=== PATIENT | male | born 1965 | race American Indian/Alaskan Native ===

== ENCOUNTER 2018-01-15 17:54 | Emergency (ER) | payer MEDICAID ==
--- NOTE | 2018-01-15 18:41 | ED PDOC ---
Arrival/HPI - General Time Seen by Provider: 01/15/18 18:34 Historian: Patient - History of Present Illness Narrative History of Present Illness (Text): 01/15/18 18:35 52yo male with pmhx of hypertension who present with complaint of sore throat x one week. States sore throat started after having a flu a week ago. he states he saw his PMD for the sore throat and was given ASA which is not helping. Reports odynophagia. Denies dysphagia, hoarseness, drooling, fever, chills, abdominal pain, nausea, vomiting, any other complaint. Past Medical History - Provider Review Nursing Documentation Reviewed: Yes Family/Social History - Physician Review Nursing Documentation Reviewed: Yes Family/Social History: Unknown Family HX Allergies/Home Meds Allergies/Adverse Reactions: Allergies No Known Allergies Allergy (Verified 01/15/18 18:35) Review of Systems - Physician Review All systems were reviewed & negative as marked: Yes - Review of Systems Constitutional: Normal Eyes: Normal ENT: Sore Throat. absent: Tinnitus, TMJ Pain, Voice Changes, Epistaxis, Sinus Congestion Respiratory: Normal Cardiovascular: Normal Gastrointestinal: Normal Genitourinary Male: Normal Musculoskeletal: Normal Skin: Normal Neurological: Normal Endocrine: Normal Hemo/Lymphatic: Normal Psychiatric: Normal Physical Exam Vital Signs Reviewed: Yes Vital Signs Temp Pulse Resp BP Pulse Ox 01/15/18 19:34 98.0 F 85 18 170/65 H 99 01/15/18 18:48 98.0 F 85 18 187/95 H 98 Temperature: Afebrile Blood Pressure: Normal Pulse: Regular Respiratory Rate: Normal Appearance: Positive for: Well-Appearing, Non-Toxic, Comfortable Pain Distress: None Mental Status: Positive for: Alert and Oriented X 3 - Systems Exam Head: Present: Atraumatic, Normocephalic Pupils: Present: PERRL Extroacular Muscles: Present: EOMI Conjunctiva: Present: Normal Mouth: Present: Moist Mucous Membranes Pharnyx: Present: Normal. No: ERYTHEMA, EXUDATE, TONSILS ENLARGED, Peritonsilar Swelling, Uvular Deviation, Muffled/Hoarse Voice, Soft Palate/ Uvular Edema Neck: Present: Normal Range of Motion Respiratory/Chest: Present: Clear to Auscultation, Good Air Exchange. No: Respiratory Distress, Accessory Muscle Use Cardiovascular: Present: Regular Rate and Rhythm, Normal S1, S2. No: Murmurs Abdomen: No: Tenderness, Distention, Peritoneal Signs Back: Present: Normal Inspection Upper Extremity: Present: Normal Inspection. No: Cyanosis, Edema Lower Extremity: Present: Normal Inspection. No: Edema Neurological: Present: GCS=15, CN II-XII Intact, Speech Normal Skin: Present: Warm, Dry, Normal Color. No: Rashes Psychiatric: Present: Alert, Oriented x 3, Normal Insight, Normal Concentration Medical Decision Making ED Course and Treatment: 01/15/18 19:51 PT was not in any distress. He was controlling his secretions. No drooling. No trismus. No stridor. No neck pain. No meningeal sign in ED. Rapid strep was negative He was treated with viscus lido and dc home with magic mouth wash. Referred to ENT - Lab Interpretations Lab Results: Lab Results 01/15/18 18:49: Grp A Beta Strep Ag Negative - Medication Orders Current Medication Orders: Discontinued Medications Lidocaine HCl (Lidocaine 2% Viscous) 15 ml PO ONCE STA Stop: 01/15/18 19:26 Last Admin: 01/15/18 19:33 Dose: 15 ml Disposition/Present on Arrival - Present on Arrival Any Indicators Present on Arrival: No History of DVT/PE: No History of Uncontrolled Diabetes: No Urinary Catheter: No History of Decub. Ulcer: No History Surgical Site Infection Following: None - Disposition Have Diagnosis and Disposition been Completed?: Yes Diagnosis: Sore throat Disposition: HOME/ ROUTINE Disposition Time: 19:30 Patient Plan: Discharge Condition: STABLE Discharge Instructions (ExitCare): Sore Throat in Adults Additional Instructions: Follow up with your doctor/ENT Return to ED for any new or worsening symptoms Prescriptions: Benzocaine [Mouth Pain] 14.7 ml MM BID #100 liquid Referrals: Bowen Corcoran DO [[facility]] - Follow up with primary
[2018-01-15 18:49] VITALS: PULSE 85; RESP 18; TEMP 98
[2018-01-15 19:05] VITALS: BMI 32.9
[2018-01-15 19:45] VITALS: BP 170/65; O2SAT 99
== END 2018-01-15 19:34 | disposition home or self-care (01) ==
LOC: ED 17:54
DX: J02.9 Acute pharyngitis, unspecified (principal)

== ENCOUNTER 2018-06-17 09:50 | Inpatient (IN) | payer MEDICAID ==
[2018-06-17 09:57] VITALS: BMI 32.4
--- NOTE | 2018-06-17 10:33 | ED PDOC ---
Arrival/HPI - General Chief Complaint: Shortness Of Breath Time Seen by Provider: 06/17/18 09:58 Historian: Patient - History of Present Illness Narrative History of Present Illness (Text): 06/17/18 10:33 53 year old male, whose past medical history includes diabetes, hypertension, and hyperlipidemia, presents to the emergency department complaining of shortness of breath, for the past 3 days. Patient reports trouble breathing with any type of exertion or ambulation for the past few days. Of note, he has experienced these symptoms intermittently, but for the past 3 days his symptoms have worsened. Patient notes secondary dry cough, and right knee/ankle pain s/p falling a few days ago. Patient denies fevers, chills, headache, dizziness, chest pain, abdominal pain, nausea, vomiting, diarrhea, back pain, neck pain, or any other complaint. Time/Duration: < week Symptom Course: Unchanged Activities at Onset: Light Context: Home Past Medical History - Provider Review Nursing Documentation Reviewed: Yes - Infectious Disease Hx of Infectious Diseases: None - Cardiac Hx Cardiac Disorders: Yes Hx Hypertension: Yes - Pulmonary Hx Respiratory Disorders: No - Neurological Hx Neurological Disorder: No - HEENT Hx HEENT Disorder: No - Renal Hx Renal Disorder: No - Endocrine/Metabolic Hx Diabetes Mellitus Type 1: Yes - Hematological/Oncological Hx Blood Disorders: No - Integumentary Hx Dermatological Disorder: No - Musculoskeletal/Rheumatological Hx Musculoskeletal Disorders: No - Gastrointestinal Hx Gastrointestinal Disorders: No - Genitourinary/Gynecological Hx Genitourinary Disorders: No - Psychiatric Hx Psychophysiologic Disorder: No Hx Substance Use: No - Anesthesia Hx Anesthesia: No Family/Social History - Physician Review Nursing Documentation Reviewed: Yes Family/Social History: No Known Family HX Smoking Status: Never Smoked Hx Alcohol Use: No Hx Substance Use: No Allergies/Home Meds Allergies/Adverse Reactions: Allergies No Known Allergies Allergy (Verified 01/15/18 18:35) Home Medications: Home Meds Medication Instructions Recorded Confirmed Aspirin [Adult Low Dose Aspirin EC] 81 mg PO DAILY 06/17/18 06/17/18 Atorvastatin [Lipitor] 80 mg PO DAILY 06/17/18 06/17/18 Labetalol [Trandate] 100 mg PO BID 06/17/18 06/17/18 Losartan [Cozaar] 100 mg PO DAILY 06/17/18 06/17/18 NIFEdipine ER [Nifedipine ER] 60 mg PO DAILY 06/17/18 06/17/18 Review of Systems - Physician Review All systems were reviewed & negative as marked: Yes - Review of Systems Constitutional: absent: Fevers Respiratory: SOB, Cough Cardiovascular: absent: Chest Pain Gastrointestinal: absent: Abdominal Pain, Diarrhea, Nausea, Vomiting, Appetite Changes Musculoskeletal: Other (pain to the right knee and ankle). absent: Back Pain, Neck Pain Neurological: absent: Headache, Dizziness Physical Exam Vital Signs Reviewed: Yes Vital Signs Temp Pulse Resp BP Pulse Ox 06/17/18 09:57 97.8 F 95 H 18 198/89 H 99 Temperature: Afebrile Blood Pressure: Hypertensive Pulse: Tachycardic Respiratory Rate: Normal Appearance: Positive for: Well-Appearing, Non-Toxic, Comfortable Pain Distress: None Mental Status: Positive for: Alert and Oriented X 3 - Systems Exam Head: Present: Atraumatic, Normocephalic Pupils: Present: PERRL Extroacular Muscles: Present: EOMI Conjunctiva: Present: Normal Mouth: Present: Moist Mucous Membranes Neck: Present: Normal Range of Motion Respiratory/Chest: Present: Clear to Auscultation, Good Air Exchange. No: Respiratory Distress, Accessory Muscle Use Cardiovascular: Present: Regular Rate and Rhythm, Normal S1, S2. No: Murmurs Abdomen: No: Tenderness, Distention, Peritoneal Signs Back: Present: Normal Inspection Upper Extremity: Present: Normal Inspection. No: Cyanosis, Edema Lower Extremity: Present: Tenderness (to the right patella and ankle), Swelling (mild swelling to the right ankle) Neurological: Present: GCS=15, CN II-XII Intact, Speech Normal Skin: Present: Warm, Dry, Normal Color, Abrasion (abrasion to the right knee). No: Rashes Psychiatric: Present: Alert, Oriented x 3, Normal Insight, Normal Concentration Medical Decision Making ED Course and Treatment: 06/17/18 10:34 Impression: 53 year old male who presents to the emergency department complaining of shortness of breath, and right ankle and knee pain. Plan: -- EKG -- Labs -- Chest X-ray -- Altace -- X-ray of the right ankle -- Reassess and disposition Prior Visits: Notes and results from previous visits were reviewed. Progress Notes: EKG reviewed, shows: NSR at [address]/T wave elevations. 06/17/18 12:42 Chest X-ray reviewed, shows: IMPRESSION: No active disease. Ankle X-ray reviewed, shows: IMPRESSION: Normal right ankle radiographs. 06/17/18 15:50 Case discussed with Hospitalist who is aware and agrees with the plan to admit the patient to Telemetry for renal evaluation. No dialysis at this time. - Lab Interpretations I have reviewed the lab results: Yes - RAD Interpretation Radiology Orders: 06/17/18 10:14 CHEST PORTABLE [RAD] Stat - EKG Interpretation Interpreted by ED Physician: Yes Type: 12 lead EKG - Scribe Statement The provider has reviewed the documentation as recorded by the Gracielaibe Gini Nicolas Provider Scribe Attestation: All medical record entries made by the Scribe were at my direction and personally dictated by me. I have reviewed the chart and agree that the record accurately reflects my personal performance of the history, physical exam, medical decision making, and the department course for this patient. I have also personally directed, reviewed, and agree with the discharge instructions and disposition. Disposition/Present on Arrival - Present on Arrival Any Indicators Present on Arrival: No History of DVT/PE: No History of Uncontrolled Diabetes: No Urinary Catheter: No History of Decub. Ulcer: No History Surgical Site Infection Following: None - Disposition Have Diagnosis and Disposition been Completed?: Yes Diagnosis: Renal failure, Hyperkalemia, Elevated d-dimer Disposition: HOSPITALIZED Disposition Time: 12:00 Condition: GUARDED
[2018-06-17 10:53] LABS: BASO # 0.01 K/mm3 (0.0-2.0); BASO % 0.1 % (0.0-3.0); EOS # 0.2 (0.0-0.7); EOS % 2.2 % (1.5-5.0); GRAN # 6.23 (1.4-6.5); GRAN % 73.5 % (50.0-68.0); HEMOGLOBIN 7.5 g/dL (14.0-18.0); LYMPH # 1.5 (1.2-3.4); LYMPH % 17.8 % (22.0-35.0); MEAN CELL VOLUME 86.7 fl (80.0-105.0); MEAN CORPUSCULAR HEMOGLOBIN 30.1 pg (25.0-35.0); MEAN CORPUSCULAR HGB CONC 34.7 g/dl (31.0-37.0); MEAN PLATELET VOLUME 11.1 fl (7.0-11.0); MONO # 0.5 (0.1-0.6); MONO % 6.4 % (1.0-6.0); RBC 2.49 10^6/uL (3.5-6.1); RED CELL DISTRIBUTION WIDTH 12.5 % (11.5-14.5); WHITE BLOOD COUNT 8.5 10^3/uL (4.5-11.0)
[2018-06-17 11:11] LABS: TROPONIN I 0.03 ng/mL
[2018-06-17 11:13] LABS: ALBUMIN 3.4 g/dL (3.0-4.8); CALCIUM 5.6 mg/dL (8.4-10.5)
[2018-06-17 11:44] LABS: CK MB% 0.3 % (2.5-3.0); CK-MB 9.7 ng/mL (0.0-3.6)
--- NOTE | 2018-06-17 12:34 | RAD ---
Date of service: 06/17/2018 HISTORY: shortness of breath COMPARISON: No prior. FINDINGS: LUNGS: No active pulmonary disease. PLEURA: No significant pleural effusion identified, no pneumothorax apparent. CARDIOVASCULAR: No aortic atherosclerotic calcification present. Normal cardiac size. No pulmonary vascular congestion. OSSEOUS STRUCTURES: No significant abnormalities. VISUALIZED UPPER ABDOMEN: Normal. OTHER FINDINGS: None. IMPRESSION: No active disease.
--- NOTE | 2018-06-17 12:39 | RAD ---
Date of service: 06/17/2018 PROCEDURE: Right Ankle Radiographs. HISTORY: s/p fall - r/o fx COMPARISON: None available. FINDINGS: BONES: Normal. No fracture. JOINTS: Normal. No osteoarthritis. Ankle mortise maintained. Talar dome intact SOFT TISSUES: Normal. OTHER FINDINGS: None. IMPRESSION: Normal right ankle radiographs.
[2018-06-17] MEDS ORDERED: Sod Polystyrene Sulf 15 gm/60 ml Susp PO STA ×2 (14:02→17:29)
[2018-06-17] MEDS ORDERED: Sodium Chloride 0.9% 1,000 ML IV SCH ×2 (15:00→15:15)
[2018-06-17] MEDS ORDERED: Magnesium Sulfate 2 gm/50 ml 2 GM/50 ML BAG IVPB ONE (15:47)
--- NOTE | 2018-06-17 16:19 | CP.PCM.CON ---
<Thompson Baldwin - Last Filed: 06/17/18 22:17> History of Present Illness - History of Present Illness History of Present Illness: Nephro Consult Note for Dr. 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 Nephro was consulted for possible HD as patient was found to have Cr of 12.9, extensive electrolyte abnormalities, and distended abdomen. As per patient, he has had a hx of CKD, which he reports that his prior physician reported that his kidney "numbers" were worsening. Denies decreasing urine output, anuria, hematuria, diarrhea. Does admit to foamy urine (approx 400cc in bedside urinal, clear yellow and foamy in appearance) for over 2 yrs. Reports compliance with medications and follow up, but when asked what interventions and medications were used to manage his worsening kidney numbers, he is unable to provide a response. Admits to poor dietary compliance. He does also report a recent fall off a trailer at home, fell onto his arms and left hip from approximately 4 feet up. Reports no issues ambulating, but labs are concerning for rhabdomyolysis. At time of exam in ED, labs were concerning for Ca corrected to 6, K 5.4, Cr 12.9, elevated CPK, and elevated BNP. 12-system ROS reviewed and negative, except as above. Review of Systems - Review of Systems All systems: reviewed and no additional remarkable complaints except (as per HPI) Past Patient History - Infectious Disease Hx of Infectious Diseases: None - Past Social History Smoking Status: Never Smoked - CARDIAC Hx Cardiac Disorders: Yes Hx Hypertension: Yes - PULMONARY Hx Respiratory Disorders: No - NEUROLOGICAL Hx Neurological Disorder: No - HEENT Hx HEENT Problems: No - RENAL Hx Chronic Kidney Disease: No - ENDOCRINE/METABOLIC Hx Diabetes Mellitus Type 1: Yes - HEMATOLOGICAL/ONCOLOGICAL Hx Blood Disorders: No - INTEGUMENTARY Hx Dermatological Problems: No - MUSCULOSKELETAL/RHEUMATOLOGICAL Hx Musculoskeletal Disorders: No - GASTROINTESTINAL Hx Gastrointestinal Disorders: No - GENITOURINARY/GYNECOLOGICAL Hx Genitourinary Disorders: No - PSYCHIATRIC Hx Psychophysiologic Disorder: No Hx Substance Use: No - SURGICAL HISTORY Hx Surgeries: No - ANESTHESIA Hx Anesthesia: No Meds Allergies/Adverse Reactions: Allergies Allergy/AdvReac Type Severity Reaction Status Date / Time No Known Allergies Allergy Verified 01/15/18 18:35 - Medications Medications: Current Medications Sodium Chloride (Sodium Chloride 0.9%) 1,000 mls @ 100 mls/hr IV .Q10H TREVOR Sodium Chloride (Sodium Chloride 0.9%) 1,000 mls @ 100 mls/hr IV .Q10H TREV[facility] Calcium Gluconate 1,000 mg/ (Sodium Chloride) 110 mls @ 110 mls/hr IVPB ONCE ONE Stop: 06/17/18 16:29 Magnesium Sulfate (Magnesium Sulfate 2 Gm/50 Ml Water) 2 gm in 50 mls @ 50 mls/hr IVPB ONCE ONE Stop: 06/17/18 16:46 Insulin Human Regular (Humulin R Low) 0 units SC ACHS TREOVR; Protocol Labetalol HCl (Trandate) 100 mg PO BID TREV[facility] Nifedipine (Procardia Xl) 60 mg PO DAILY TREVOR Sodium Bicarbonate (Sodium Bicarbonate Tab) 650 mg PO TID TREVOR Physical Exam - Additional Findings Additional findings: - Constitutional Appears: No Acute Distress, Ill-appearing - Head Exam Head Exam: ATRAUMATIC, NORMAL INSPECTION - Eye Exam Eye Exam: EOMI, Normal appearance, No scleral icterus or conjunctival injection - ENT Exam ENT Exam: Mucous Membranes Moist, Normal Exam - Neck Exam Neck exam: Normal ROM, no Lymphadenopathy - Respiratory Exam Respiratory Exam: Mild bibasilar rales but otherwise clear to auscultation, NORMAL BREATHING PATTERN, No respiratory distress - Cardiovascular Exam Cardiovascular Exam: REGULAR RHYTHM, +S1, +S2 - GI/Abdominal Exam GI & Abdominal Exam: Distended, Firm but not Rigid, Normal Bowel Sounds, No tenderness to palpation - Extremities Exam Extremities exam: Positive for: Trace pitting edema in bilateral feet to ankles. Negative for: calf tenderness - Back Exam Back exam: NORMAL INSPECTION, negative for CVA tenderness bilaterally - Neurological Exam Neurological exam: Awake and alert, following all commands, moving all extremities spontaneously - Psychiatric Exam Psychiatric exam: Normal Affect, Normal Mood, Poor insight into condition - Skin Skin Exam: Dry, Intact, Warm Results - Vital Signs Recent Vital Signs: Last Vital Signs Temp 97.8 F 06/17/18 09:57 Pulse 95 H 06/17/18 09:57 Resp 18 06/17/18 10:14 BP 149/78 06/17/18 11:52 Pulse Ox 99 06/17/18 09:57 - Labs Result Diagrams: 06/17/18 10:40 06/17/18 10:40 Labs: Laboratory Results - last 24 hr 06/17/18 06/17/18 06/17/18 10:40 10:40 10:40 WBC 8.5 RBC 2.49 L Hgb 7.5 L Hct 21.6 L MCV 86.7 MCH 30.1 MCHC 34.7 RDW 12.5 Plt Count 206 MPV 11.1 H Gran % 73.5 H Lymph % (Auto) 17.8 L [place] % (Auto) 6.4 H Eos % (Auto) 2.2 Baso % (Auto) 0.1 Gran # 6.23 Lymph # (Auto) 1.5 [place] # (Auto) 0.5 Eos # (Auto) 0.2 Baso # (Auto) 0.01 D-Dimer, Quantitative 707 H Sodium 138 Potassium 5.4 H Chloride 109 H Carbon Dioxide 18 L Anion Gap 17 BUN 84 H Creatinine 12.9 H* Est GFR ( Amer) 5 Est GFR (Non-Af Amer) 4 Random Glucose 69 L Calcium 5.6 L* Magnesium 1.3 L Total Bilirubin 0.6 AST 33 ALT 45 Alkaline Phosphatase 134 H Lactate Dehydrogenase 1264 H Total Creatine Kinase 3158 H CK-MB (CK-2) 9.7 H CK-MB (CK-2) % 0.3 L Troponin I 0.03 NT-Pro-B Natriuret Pep 9500 H Total Protein 6.9 Albumin 3.4 Globulin 3.5 Albumin/Globulin Ratio 1.0 L Blood Type Blood Type Confirm Antibody Screen Crossmatch BBK History Checked 06/17/18 06/17/18 11:35 15:37 WBC RBC Hgb Hct MCV MCH MCHC RDW Plt Count MPV Gran % Lymph % (Auto) [place] % (Auto) Eos % (Auto) Baso % (Auto) Gran # Lymph # (Auto) [place] # (Auto) Eos # (Auto) Baso # (Auto) D-Dimer, Quantitative Sodium Potassium Chloride Carbon Dioxide Anion Gap BUN Creatinine Est GFR ( Amer) Est GFR (Non-Af Amer) Random Glucose Calcium Magnesium Total Bilirubin AST ALT Alkaline Phosphatase Lactate Dehydrogenase Total Creatine Kinase CK-MB (CK-2) CK-MB (CK-2) % Troponin I NT-Pro-B Natriuret Pep Total Protein Albumin Globulin Albumin/Globulin Ratio Blood Type B POSITIVE Blood Type Confirm B POSITIVE Antibody Screen Negative Crossmatch See Detail BBK History Checked No verified bt Assessment & Plan - Assessment and Plan (Free Text) Assessment: This is a 53 yo M with PMH of IDDM (diagnosed 30+ yrs ago), HTN (~3 yrs), HLD (~3yrs), CKD, and chronic anemia presents to [facility] with complaints of shortness of breath that hes noticed for the past 3 days that worsened while laying down at night and walking. Nephro was consulted for possible HD as patient was found to have Cr of 12.9, extensive electrolyte abnormalities, and distended abdomen. Plan: Acute renal failure overlying CKD -etiology unclear, may be multifactorial likely Rhabdomyolysis component, given elevated CPK s/p fall from elevated position -Avoid nephrotoxic drugs, hold all ACEi/ARBs -Consider gentle hydration -Agree with workup panel ordered by primary team -Careful repletion of low electrolytes in setting of ARF to avoid toxic accumulation; recheck calcium after calcium gluconate x1 given ED Agree with calcium gluconate to replete Ca and stabilize cardiac membrane -No need for urgent dialysis at this time, not a dangerous accumulation of K; continue to monitor Reviewed and discussed with attending, Dr. Reese <Parish Reese S - Last Filed: 06/19/18 18:00> Meds - Medications Medications: Current Medications Acetaminophen (Tylenol 325mg Tab) 650 mg PO Q4 PRN PRN Reason: Pain, Mild (1-3) Last Admin: 06/18/18 20:06 Dose: 650 mg Calcitriol (Rocaltrol) 0.5 mcg PO DAILY TREVOR Last Admin: 06/19/18 12:40 Dose: 0.5 mcg Calcium Acetate (Phoslo) 667 mg PO WM TREVOR Last Admin: 06/19/18 17:25 Dose: 667 mg Clonidine HCl (Catapres) 0.1 mg PO BID PRN PRN Reason: Systolic Blood Pressure Last Admin: 06/18/18 13:32 Dose: 0.1 mg Insulin Human Regular (Humulin R Med) 0 units SC ACHS [facility]; Protocol Last Admin: 06/19/18 17:24 Dose: 3 units Labetalol HCl (Trandate) 200 mg PO BID [facility] Last Admin: 06/19/18 17:25 Dose: 200 mg Nifedipine (Procardia Xl) 60 mg PO DAILY [facility] Last Admin: 06/19/18 12:42 Dose: 60 mg Ondansetron HCl (Zofran Inj) 4 mg IVP Q6H PRN PRN Reason: Nausea/Vomiting Sodium Bicarbonate (Sodium Bicarbonate Tab) 650 mg PO TID [facility] Last Admin: 06/19/18 17:25 Dose: 650 mg Sodium Polystyrene Sulfonate (Kayexalate Susp) 15 gm PO DAILY [facility] Last Admin: 06/19/18 10:00 Dose: Not Given Vitamin D (Vitamin D 400 Intl Units Tab) 1,200 intlu PO DAILY [facility] Last Admin: 06/19/18 12:42 Dose: Not Given Results - Vital Signs Recent Vital Signs: Last Vital Signs Temp 97.8 F 06/19/18 12:00 Pulse 87 06/19/18 14:00 Resp 18 06/19/18 12:00 BP 155/63 H 06/19/18 12:41 Pulse Ox 98 06/18/18 17:04 - Labs Result Diagrams: 06/19/18 07:00 06/19/18 07:00 Labs: Laboratory Results - last 24 hr 06/17/18 06/18/18 06/18/18 11:35 06:00 06:00 WBC RBC Hgb Hct MCV MCH MCHC RDW Plt Count MPV Gran % Lymph % (Auto) [place] % (Auto) Eos % (Auto) Baso % (Auto) Gran # Lymph # (Auto) [place] # (Auto) Eos # (Auto) Baso # (Auto) Hemoglobinopathy Red Blood Count 2.31 L Hemoglobinopathy Hct 21.3 L Hemoglobinopathy Hgb 7.0 L Hemoglobinopathy MCV 91.9 Hemoglobinopathy MCH 30.1 Hemoglobinopathy RDW 13.1 Sodium Potassium Chloride Carbon Dioxide Anion Gap BUN Creatinine Est GFR ( Amer) Est GFR (Non-Af Amer) POC Glucose (mg/dL) Random Glucose Calcium Total Bilirubin AST ALT Alkaline Phosphatase Lactate Dehydrogenase Total Creatine Kinase CK-MB (CK-2) CK-MB (CK-2) % Troponin I Total Protein Albumin Globulin Albumin/Globulin Ratio SS-A Antibody <1.0 SS-B Ab Interp Negative SS-B Antibody <1.0 Sm (Torres) Antibody Anti-Torres Interpret Double Strand DNA Ab Blood Type B POSITIVE Antibody Screen Negative Crossmatch See Detail BBK History Checked No verified bt 06/18/18 06/18/18 06/19/18 06:00 22:16 07:00 WBC RBC Hgb Hct MCV MCH MCHC RDW Plt Count MPV Gran % Lymph % (Auto) [place] % (Auto) Eos % (Auto) Baso % (Auto) Gran # Lymph # (Auto) [place] # (Auto) Eos # (Auto) Baso # (Auto) Hemoglobinopathy Red Blood Count Hemoglobinopathy Hct Hemoglobinopathy Hgb Hemoglobinopathy MCV Hemoglobinopathy MCH Hemoglobinopathy RDW Sodium 139 Potassium 4.7 Chloride 109 H Carbon Dioxide 20 L Anion Gap 15 BUN 81 H Creatinine 12.3 H* Est GFR ( Amer) 5 Est GFR (Non-Af Amer) 4 POC Glucose (mg/dL) 184 H Random Glucose 129 H Calcium 6.1 L* Total Bilirubin 0.4 AST 27 ALT 36 Alkaline Phosphatase 119 Lactate Dehydrogenase 994 H Total Creatine Kinase 2318 H CK-MB (CK-2) 6.9 H CK-MB (CK-2) % 0.3 L Troponin I 0.03 Total Protein 6.6 Albumin 3.2 Globulin 3.5 Albumin/Globulin Ratio 0.9 L SS-A Antibody SS-B Ab Interp SS-B Antibody Sm (Torres) Antibody <1.0 Anti-Torres Interpret Negative Double Strand DNA Ab <1 Blood Type Antibody Screen Crossmatch BBK History Checked 06/19/18 06/19/18 06/19/18 07:00 08:03 11:51 WBC 8.1 RBC 2.31 L Hgb 7.0 L Hct 20.6 L* MCV 89.2 MCH 30.3 MCHC 34.0 RDW 11.9 Plt Count 197 MPV 12.4 H Gran % 73.0 H Lymph % (Auto) 16.9 L [place] % (Auto) 6.7 H Eos % (Auto) 3.2 Baso % (Auto) 0.2 Gran # 5.90 Lymph # (Auto) 1.4 [place] # (Auto) 0.5 Eos # (Auto) 0.3 Baso # (Auto) 0.02 Hemoglobinopathy Red Blood Count Hemoglobinopathy Hct Hemoglobinopathy Hgb Hemoglobinopathy MCV Hemoglobinopathy MCH Hemoglobinopathy RDW Sodium Potassium Chloride Carbon Dioxide Anion Gap BUN Creatinine Est GFR ( Amer) Est GFR (Non-Af Amer) POC Glucose (mg/dL) 151 H 139 H Random Glucose Calcium Total Bilirubin AST ALT Alkaline Phosphatase Lactate Dehydrogenase Total Creatine Kinase CK-MB (CK-2) CK-MB (CK-2) % Troponin I Total Protein Albumin Globulin Albumin/Globulin Ratio SS-A Antibody SS-B Ab Interp SS-B Antibody Sm (Torres) Antibody Anti-Torres Interpret Double Strand DNA Ab Blood Type Antibody Screen Crossmatch BBK History Checked 06/19/18 16:10 WBC RBC Hgb Hct MCV MCH MCHC RDW Plt Count MPV Gran % Lymph % (Auto) [place] % (Auto) Eos % (Auto) Baso % (Auto) Gran # Lymph # (Auto) [place] # (Auto) Eos # (Auto) Baso # (Auto) Hemoglobinopathy Red Blood Count Hemoglobinopathy Hct Hemoglobinopathy Hgb Hemoglobinopathy MCV Hemoglobinopathy MCH Hemoglobinopathy RDW Sodium Potassium Chloride Carbon Dioxide Anion Gap BUN Creatinine Est GFR ( Amer) Est GFR (Non-Af Amer) POC Glucose (mg/dL) 200 H Random Glucose Calcium Total Bilirubin AST ALT Alkaline Phosphatase Lactate Dehydrogenase Total Creatine Kinase CK-MB (CK-2) CK-MB (CK-2) % Troponin I Total Protein Albumin Globulin Albumin/Globulin Ratio SS-A Antibody SS-B Ab Interp SS-B Antibody Sm (Torres) Antibody Anti-Torres Interpret Double Strand DNA Ab Blood Type Antibody Screen Crossmatch BBK History Checked Assessment & Plan - Assessment and Plan (Free Text) Plan: Pt seen and examined. This is a late entry. I have reviewed the note of the medical intern and agree with it. I have reviewed the meds and labs of the pt. I have discussed the assessment and plan with the resident. Pt with MICAELA vs CKD or both. 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 He does have an elevated CPK and this may be caused by rhabdo. He will be placed on IVF. I will get serology. He will need US of his Kidney. He has hyperkalemia.
--- NOTE | 2018-06-17 16:29 | CP.PCM.HP ---
<Elliot Prater - Last Filed: 06/17/18 20:14> History of Present Illness - History of Present Illness History of Present Illness: HISTORY & PHYSICAL NOTE FOR DR. SHERICE Prater PGY1 53 y/o M with PMHx of IDDM (diagnosed 30+ yrs ago), HTN (~3 yrs), HLD (~3yrs), CKD, chronic anemia presents to [facility] with complaints of shortness of breath that hes noticed for the past 3 days that worsened while laying down at night and walking. He also noticed increased abdominal distention, and worsening SOB when laying on stomach. He started noticing shortness of breath symptoms about 6 months ago, but visited ED today as the SOB has significantly bothered him. He sleeps with 2 pillows at night. He also reports a fall about 3 days ago while jumping, however denies loc, dizziness, seizure like activity. He recently moved to [place] from [place], was previously seeing a wrecking supervisor and PMD, however has no established care in [place]. He was told by his wrecking supervisor about his worsening creatinine, however has not underwent dialysis. He reports he has chronic anemia, and underwent a colonoscopy but doesnt recall results. He reports undergoing cardiac cath, and reports no lesions. He denies fevers, chills, headache, dizziness, nausea, vomiting, weight gain, chest pain, palpitations, cough, nausea, vomiting, diarrhea, hematochezia. In the ED: patient had urinated ~700cc for urine studies. EKG revealed NSR, no peak T waves. PMHx: CKD, IDDM, HTN, HLD, Anemia All: NKDA PSH: Unspecified nose surgery SH: Former smoker: <1 pack/day x 10 years. Occasional beer. Lives alone, independent FH: Mother: [place] (50 y/o), Father: CABG, Daughter: Anemia Meds: ASA 81mg po daily, Nifedipine ER 60mg po daily, losartan 100mg po daily, atorvastatin 80mg daily, humalin 70/30 40u bid, labetalol 100mg bid PMD: Dr. Codey Phillips ([facility]) Pharmacy: [facility] Present on Admission - Present on Admission Any Indicators Present on Admission: No Review of Systems - Review of Systems Review of Systems: per HPI Past Patient History - Infectious Disease Hx of Infectious Diseases: None - Past Social History Smoking Status: Never Smoked - CARDIAC Hx Cardiac Disorders: Yes Hx Hypertension: Yes - PULMONARY Hx Respiratory Disorders: No - NEUROLOGICAL Hx Neurological Disorder: No - HEENT Hx HEENT Problems: No - RENAL Hx Chronic Kidney Disease: No - ENDOCRINE/METABOLIC Hx Diabetes Mellitus Type 1: Yes - HEMATOLOGICAL/ONCOLOGICAL Hx Blood Disorders: No - INTEGUMENTARY Hx Dermatological Problems: No - MUSCULOSKELETAL/RHEUMATOLOGICAL Hx Musculoskeletal Disorders: No - GASTROINTESTINAL Hx Gastrointestinal Disorders: No - GENITOURINARY/GYNECOLOGICAL Hx Genitourinary Disorders: No - PSYCHIATRIC Hx Psychophysiologic Disorder: No Hx Substance Use: No - SURGICAL HISTORY Hx Surgeries: No - ANESTHESIA Hx Anesthesia: No Meds Allergies/Adverse Reactions: Allergies Allergy/AdvReac Type Severity Reaction Status Date / Time No Known Allergies Allergy Verified 01/15/18 18:35 Physical Exam - Constitutional Appears: Well, Non-toxic, No Acute Distress - Head Exam Head Exam: ATRAUMATIC, NORMAL INSPECTION - Eye Exam Eye Exam: EOMI, Normal appearance - ENT Exam ENT Exam: Mucous Membranes Moist, Normal Exam - Neck Exam Neck exam: Positive for: Normal Inspection - Respiratory Exam Respiratory Exam: Clear to Auscultation Bilateral, NORMAL BREATHING PATTERN - Cardiovascular Exam Cardiovascular Exam: REGULAR RHYTHM, +S1, +S2 - GI/Abdominal Exam GI & Abdominal Exam: Distended, Normal Bowel Sounds, Soft - Extremities Exam Extremities exam: Positive for: normal inspection. Negative for: calf tenderness - Back Exam Back exam: NORMAL INSPECTION - Neurological Exam Neurological exam: Alert, Oriented x3 - Psychiatric Exam Psychiatric exam: Normal Affect, Normal Mood - Skin Skin Exam: Dry, Intact, Warm Results - Vital Signs Recent Vital Signs: Last Vital Signs Temp 97.8 F 06/17/18 09:57 Pulse 95 H 06/17/18 09:57 Resp 18 06/17/18 10:14 BP 149/78 06/17/18 11:52 Pulse Ox 99 06/17/18 09:57 - Labs Result Diagrams: 06/17/18 10:40 06/17/18 10:40 Labs: Laboratory Results - last 24 hr 06/17/18 06/17/18 06/17/18 10:40 10:40 10:40 WBC 8.5 RBC 2.49 L Hgb 7.5 L Hct 21.6 L MCV 86.7 MCH 30.1 MCHC 34.7 RDW 12.5 Plt Count 206 MPV 11.1 H Gran % 73.5 H Lymph % (Auto) 17.8 L Reeves % (Auto) 6.4 H Eos % (Auto) 2.2 Baso % (Auto) 0.1 Gran # 6.23 Lymph # (Auto) 1.5 Reeves # (Auto) 0.5 Eos # (Auto) 0.2 Baso # (Auto) 0.01 D-Dimer, Quantitative 707 H Sodium 138 Potassium 5.4 H Chloride 109 H Carbon Dioxide 18 L Anion Gap 17 BUN 84 H Creatinine 12.9 H* Est GFR ( Amer) 5 Est GFR (Non-Af Amer) 4 Random Glucose 69 L Calcium 5.6 L* Magnesium 1.3 L Total Bilirubin 0.6 AST 33 ALT 45 Alkaline Phosphatase 134 H Lactate Dehydrogenase 1264 H Total Creatine Kinase 3158 H CK-MB (CK-2) 9.7 H CK-MB (CK-2) % 0.3 L Troponin I 0.03 NT-Pro-B Natriuret Pep 9500 H Total Protein 6.9 Albumin 3.4 Globulin 3.5 Albumin/Globulin Ratio 1.0 L Blood Type Antibody Screen Crossmatch BBK History Checked 06/17/18 11:35 WBC RBC Hgb Hct MCV MCH MCHC RDW Plt Count MPV Gran % Lymph % (Auto) Reeves % (Auto) Eos % (Auto) Baso % (Auto) Gran # Lymph # (Auto) Reeves # (Auto) Eos # (Auto) Baso # (Auto) D-Dimer, Quantitative Sodium Potassium Chloride Carbon Dioxide Anion Gap BUN Creatinine Est GFR ( Amer) Est GFR (Non-Af Amer) Random Glucose Calcium Magnesium Total Bilirubin AST ALT Alkaline Phosphatase Lactate Dehydrogenase Total Creatine Kinase CK-MB (CK-2) CK-MB (CK-2) % Troponin I NT-Pro-B Natriuret Pep Total Protein Albumin Globulin Albumin/Globulin Ratio Blood Type B POSITIVE Antibody Screen Negative Crossmatch See Detail BBK History Checked No verified bt Assessment & Plan - Assessment and Plan (Free Text) Assessment: 53 y/o M with PMHx CKD, IDDM, HTN, HLD admitted for hyperkalemia, chf exacerbation, rhabdomyolysis in the setting of acute on chronic kidney failure Plan: Acute on chronic kidney failure No acute need for WINERY CELLAR HAND NS@ 100mls/hr start sodium bicarbonate 650po tid consult nephrology, appreciate recs Urine studies: electrolytes, 24hr creatinine, total protein, upep, Hepatitis panel Vitamin D level, uric acid, Nephro consulted: recs appreciated I&Os r/o CHF Exacerbation BNP elevated Echo in am to r/o CHF Hyperkalemia No EKG changes calcium gluconate 1g Kayexalate stat Anemia of chronic kidney disease f/u iron studies type & Screen transfuse as necessary Hx of HTN continue home labetalol continue home nifedipine Hx of IDDM sliding scale insulin DVT ppx: SCD Case seen, examined and discussed with attending physician, Dr. Stout <Jesse Stout - Last Filed: 06/18/18 16:08> Results - Vital Signs Recent Vital Signs: Last Vital Signs Temp 98 F 06/18/18 12:03 Pulse 90 06/18/18 13:32 Resp 12 06/18/18 12:03 BP 185/90 H 06/18/18 13:32 Pulse Ox 96 06/18/18 12:03 - Labs Result Diagrams: 06/18/18 06:00 06/18/18 06:00 Labs: Laboratory Results - last 24 hr 06/17/18 06/17/18 06/17/18 15:37 16:20 16:34 WBC RBC Hgb Hct MCV MCH MCHC RDW Plt Count MPV Gran % Lymph % (Auto) Reeves % (Auto) Eos % (Auto) Baso % (Auto) Gran # Lymph # (Auto) Reeves # (Auto) Eos # (Auto) Baso # (Auto) Retic Count PT INR APTT Sodium Potassium Chloride Carbon Dioxide Anion Gap BUN Creatinine Est GFR ( Amer) Est GFR (Non-Af Amer) POC Glucose (mg/dL) Random Glucose Serum Osmolality Uric Acid Calcium Phosphorus Magnesium Iron 61 TIBC 278 % Saturation 22 Ferritin Total Bilirubin AST ALT Alkaline Phosphatase Total Creatine Kinase CK-MB (CK-2) CK-MB (CK-2) % Total Protein Total Protein (PEP) Albumin Albumin (PEP) Globulin Albumin/Globulin Ratio Lpzjq-5-Eystlzppm Rawvz-8-Rgrjyuoww Vbge-0-Kslhdaqy Boga-9-Hlzytctd Gamma Globulins Abnorm Protein Band 1 Abnorm Protein Band 2 Abnorm Protein Band 3 25-OH Vitamin D Total Urine Osmolality 180 L Ur Random Creatinine 45 Ur Random Sodium 37 JAMES & SPEP Interp MATILDE Screen MATILDE Titer MATILDE Titer 2 MATILDE Pattern MATILDE Pattern 2 Complement C3 Complement C4 Hepatitis A IgM Ab Hep Bs Antigen Hep B Core IgM Ab Hepatitis C Antibody HIV 1&2 Ag/Ab, 4th Gen Blood Type Confirm B POSITIVE 06/17/18 06/17/18 06/17/18 16:34 16:34 16:34 WBC RBC Hgb Hct MCV MCH MCHC RDW Plt Count MPV Gran % Lymph % (Auto) Reeves % (Auto) Eos % (Auto) Baso % (Auto) Gran # Lymph # (Auto) Reeves # (Auto) Eos # (Auto) Baso # (Auto) Retic Count PT 12.7 H INR 1.11 APTT 29.5 Sodium Potassium Chloride Carbon Dioxide Anion Gap BUN Creatinine Est GFR ( Amer) Est GFR (Non-Af Amer) POC Glucose (mg/dL) Random Glucose Serum Osmolality Uric Acid 7.6 Calcium Phosphorus Magnesium Iron TIBC % Saturation Ferritin 93.1 Total Bilirubin AST ALT Alkaline Phosphatase Total Creatine Kinase CK-MB (CK-2) CK-MB (CK-2) % Total Protein Total Protein (PEP) Albumin Albumin (PEP) Globulin Albumin/Globulin Ratio Mjiqg-1-Xotyjhwgv Ofzsb-2-Iecdmirqc Voye-9-Rybxhuwd Qpxx-1-Tgynlrvi Gamma Globulins Abnorm Protein Band 1 Abnorm Protein Band 2 Abnorm Protein Band 3 25-OH Vitamin D Total Urine Osmolality Ur Random Creatinine Ur Random Sodium JAMES & SPEP Interp MATILDE Screen MATILDE Titer MATILDE Titer 2 MATILDE Pattern MATILDE Pattern 2 Complement C3 Complement C4 Hepatitis A IgM Ab Negative Hep Bs Antigen Negative Hep B Core IgM Ab Negative Hepatitis C Antibody Negative HIV 1&2 Ag/Ab, 4th Gen Blood Type Confirm 06/17/18 06/17/18 06/17/18 16:34 16:34 16:34 WBC RBC Hgb Hct MCV MCH MCHC RDW Plt Count MPV Gran % Lymph % (Auto) Reeves % (Auto) Eos % (Auto) Baso % (Auto) Gran # Lymph # (Auto) Reeves # (Auto) Eos # (Auto) Baso # (Auto) Retic Count PT INR APTT Sodium Potassium Chloride Carbon Dioxide Anion Gap BUN Creatinine Est GFR ( Amer) Est GFR (Non-Af Amer) POC Glucose (mg/dL) Random Glucose Serum Osmolality 314 H Uric Acid Calcium Phosphorus Magnesium Iron TIBC % Saturation Ferritin Total Bilirubin AST ALT Alkaline Phosphatase Total Creatine Kinase CK-MB (CK-2) CK-MB (CK-2) % Total Protein Total Protein (PEP) 5.7 L Albumin Albumin (PEP) 2.7 L Globulin Albumin/Globulin Ratio Gadqj-5-Jnlblxihn 0.4 H Hdhra-6-Boouikyjp 0.8 Psqi-3-Dagcrrrl 0.3 L Idrd-4-Tdahzijg 0.3 Gamma Globulins 1.1 Abnorm Protein Band 1 TEST NOT PERFORMED Abnorm Protein Band 2 TEST NOT PERFORMED Abnorm Protein Band 3 TEST NOT PERFORMED 25-OH Vitamin D Total < 12.8 L Urine Osmolality Ur Random Creatinine Ur Random Sodium JAMES & SPEP Interp See note MATILDE Screen MATILDE Titer MATILDE Titer 2 MATILDE Pattern MATILDE Pattern 2 Complement C3 Complement C4 Hepatitis A IgM Ab Hep Bs Antigen Hep B Core IgM Ab Hepatitis C Antibody HIV 1&2 Ag/Ab, 4th Gen Blood Type Confirm 06/17/18 06/18/18 06/18/18 16:34 05:33 06:00 WBC 7.8 RBC 2.34 L Hgb 7.0 L Hct 20.4 L* MCV 87.2 MCH 29.9 MCHC 34.3 RDW 12.9 Plt Count 194 MPV 12.1 H Gran % 76.9 H Lymph % (Auto) 15.6 L Reeves % (Auto) 5.3 Eos % (Auto) 2.1 Baso % (Auto) 0.1 Gran # 5.96 Lymph # (Auto) 1.2 Reeves # (Auto) 0.4 Eos # (Auto) 0.2 Baso # (Auto) 0.01 Retic Count 2.37 H PT INR APTT Sodium Potassium Chloride Carbon Dioxide Anion Gap BUN Creatinine Est GFR ( Amer) Est GFR (Non-Af Amer) POC Glucose (mg/dL) 122 H Random Glucose Serum Osmolality Uric Acid Calcium Phosphorus Magnesium Iron TIBC % Saturation Ferritin Total Bilirubin AST ALT Alkaline Phosphatase Total Creatine Kinase CK-MB (CK-2) CK-MB (CK-2) % Total Protein Total Protein (PEP) Albumin Albumin (PEP) Globulin Albumin/Globulin Ratio Hwlsi-8-Axrhqpmis Sogri-4-Vmszlhbpk Etmo-5-Iisioegf Ehmd-0-Xukcvygy Gamma Globulins Abnorm Protein Band 1 Abnorm Protein Band 2 Abnorm Protein Band 3 25-OH Vitamin D Total Urine Osmolality Ur Random Creatinine Ur Random Sodium JAMES & SPEP Interp MATILDE Screen Negative MATILDE Titer TEST NOT PERFORMED MATILDE Titer 2 TEST NOT PERFORMED MATILDE Pattern TEST NOT PERFORMED MATILDE Pattern 2 TEST NOT PERFORMED Complement C3 Complement C4 Hepatitis A IgM Ab Hep Bs Antigen Hep B Core IgM Ab Hepatitis C Antibody HIV 1&2 Ag/Ab, 4th Gen Nonreactive Blood Type Confirm 06/18/18 06/18/18 06/18/18 06:00 06:00 06:00 WBC RBC Hgb Hct MCV MCH MCHC RDW Plt Count MPV Gran % Lymph % (Auto) Reeves % (Auto) Eos % (Auto) Baso % (Auto) Gran # Lymph # (Auto) Reeves # (Auto) Eos # (Auto) Baso # (Auto) Retic Count PT 13.1 H INR 1.14 APTT Sodium 137 Potassium 5.4 H Chloride 110 H Carbon Dioxide 18 L Anion Gap 14 BUN 81 H Creatinine 12.7 H* Est GFR ( Amer) 5 Est GFR (Non-Af Amer) 4 POC Glucose (mg/dL) Random Glucose 123 H Serum Osmolality Uric Acid Calcium 5.7 L* Phosphorus 6.9 H Magnesium Iron TIBC % Saturation Ferritin 94.2 Total Bilirubin 0.5 AST 30 ALT 35 Alkaline Phosphatase 118 Total Creatine Kinase 2713 H CK-MB (CK-2) 7.1 H CK-MB (CK-2) % 0.3 L Total Protein 6.5 Total Protein (PEP) Albumin 3.1 Albumin (PEP) Globulin 3.4 Albumin/Globulin Ratio 0.9 L Lrrwc-9-Dbotqjcwm Oxsdh-1-Ahuyoczhv Xmvb-5-Jkhotant Ayaw-8-Xqxofwib Gamma Globulins Abnorm Protein Band 1 Abnorm Protein Band 2 Abnorm Protein Band 3 25-OH Vitamin D Total Urine Osmolality Ur Random Creatinine Ur Random Sodium JAMES & SPEP Interp MATILDE Screen MATILDE Titer MATILDE Titer 2 MATILDE Pattern MATILDE Pattern 2 Complement C3 Complement C4 Hepatitis A IgM Ab Hep Bs Antigen Hep B Core IgM Ab Hepatitis C Antibody HIV 1&2 Ag/Ab, 4th Gen Blood Type Confirm 06/18/18 06/18/18 06/18/18 06:00 06:00 06:00 WBC RBC Hgb Hct MCV MCH MCHC RDW Plt Count MPV Gran % Lymph % (Auto) Reeves % (Auto) Eos % (Auto) Baso % (Auto) Gran # Lymph # (Auto) Reeves # (Auto) Eos # (Auto) Baso # (Auto) Retic Count PT INR APTT Sodium Potassium Chloride Carbon Dioxide Anion Gap BUN Creatinine Est GFR ( Amer) Est GFR (Non-Af Amer) POC Glucose (mg/dL) Random Glucose Serum Osmolality Uric Acid Calcium Phosphorus 6.9 H Magnesium 1.6 L Iron 64 TIBC 265 % Saturation 24 Ferritin Total Bilirubin AST ALT Alkaline Phosphatase Total Creatine Kinase CK-MB (CK-2) CK-MB (CK-2) % Total Protein Total Protein (PEP) Albumin Albumin (PEP) Globulin Albumin/Globulin Ratio Ylmhe-0-Ybyjlismg Xazxt-8-Jstqmlgrp Lvla-5-Ahzajcwr Ddzf-2-Xnisegrf Gamma Globulins Abnorm Protein Band 1 Abnorm Protein Band 2 Abnorm Protein Band 3 25-OH Vitamin D Total Urine Osmolality Ur Random Creatinine Ur Random Sodium JAMES & SPEP Interp MATILDE Screen MATILDE Titer MATILDE Titer 2 MATILDE Pattern MATILDE Pattern 2 Complement C3 99.0 Complement C4 32.9 Hepatitis A IgM Ab Hep Bs Antigen Hep B Core IgM Ab Hepatitis C Antibody HIV 1&2 Ag/Ab, 4th Gen Blood Type Confirm 06/18/18 06/18/18 07:43 12:37 WBC RBC Hgb Hct MCV MCH MCHC RDW Plt Count MPV Gran % Lymph % (Auto) Reeves % (Auto) Eos % (Auto) Baso % (Auto) Gran # Lymph # (Auto) Reeves # (Auto) Eos # (Auto) Baso # (Auto) Retic Count PT INR APTT Sodium Potassium Chloride Carbon Dioxide Anion Gap BUN Creatinine Est GFR ( Amer) Est GFR (Non-Af Amer) POC Glucose (mg/dL) 100 113 H Random Glucose Serum Osmolality Uric Acid Calcium Phosphorus Magnesium Iron TIBC % Saturation Ferritin Total Bilirubin AST ALT Alkaline Phosphatase Total Creatine Kinase CK-MB (CK-2) CK-MB (CK-2) % Total Protein Total Protein (PEP) Albumin Albumin (PEP) Globulin Albumin/Globulin Ratio Bcvbv-3-Vjqhaoxho Hfres-0-Tbxwqjdgw Siqg-4-Zcdtwmyu Leyk-6-Gmsyeafa Gamma Globulins Abnorm Protein Band 1 Abnorm Protein Band 2 Abnorm Protein Band 3 25-OH Vitamin D Total Urine Osmolality Ur Random Creatinine Ur Random Sodium JAMES & SPEP Interp MATILDE Screen MATILDE Titer MATILDE Titer 2 MATILDE Pattern MATILDE Pattern 2 Complement C3 Complement C4 Hepatitis A IgM Ab Hep Bs Antigen Hep B Core IgM Ab Hepatitis C Antibody HIV 1&2 Ag/Ab, 4th Gen Blood Type Confirm Attending/Attestation - Attestation I have personally seen and examined this patient.: Yes I have fully participated in the care of the patient.: Yes I have reviewed all pertinent clinical information: Yes Notes (Text): 06/18/18 16:01 Attending note; Patient seen and examined with the resident in ER. Patient is alert and awake. Denies any chest pain. Complaining of exertional dyspnea for the past 3 months. Denies any fevers, chills, cough. Denies any urinary, bowel symptoms. He recently moved to [place] from [place] 6 months ago. Follow-up for the past 6 months. Patient is a 53 year old male with PMHx of IDDM (diagnosed 30+ yrs ago), HTN (~3 yrs), HLD (~3yrs), CKD, chronic anemia presents to [facility] with complaints of shortness of breath that hes noticed for the past 3 days that worsened while laying down at night and walking. 1. Chronic kidney disease; baseline creatinine is not known. Currently with creatinine of 12.9. Case discussed with wrecking supervisor in detail. Urine studies ordered. Workup for chronic kidney disease initiated. 2. Hyperkalemia; Kayexalate given. Started on low potassium diet. Hypercalcemia and hyperphosphatemia due to renal insufficiency. 3. Shortness of breath; clinically not in CHF. Echocardiogram ordered. Cardiac enzymes ordered. Cardiology evaluation requested. 4. severe anemia; mostly secondary to Chronic kidney disease. Monitor closely. Transfuse as needed. 5. Renal ultrasound ordered. 6. Possibility of dialysis explained in detail. 7. Hypertension; continue Procardia and labetalol. ADRIANA inhibitor on hold secondary to hyperkalemia. The diagnosis, treatment plan discussed with patient in detail. Patient will be referred to [facility] clinic upon discharge.
[2018-06-17 16:42] LABS: CREATININE,RANDOM URINE 45 mg/dL
[2018-06-17 16:44] LABS: INR 1.11; IRON 61 ug/dL (45-180); PARTIAL THROMBOPLASTIN TIME 29.5 Seconds (25.1-36.5); PROTHROMBIN TIME 12.7 SECONDS (9.4-12.5); URIC ACID 7.6 mg/dL (3.5-8.5)
[2018-06-17 16:45] LABS: OSMOLALITY,URINE 180 mosm/kg (300-1000)
[2018-06-17 16:54] LABS: % IRON SATURATION 22 % (20-55); TOTAL IRON BINDING CAPACITY 278 ug/dL (261-462)
--- NOTE | 2018-06-17 17:21 | NM ---
Date of service: 06/17/2018 COMPARISON: Chest x-ray performed 06/17/18 TECHNIQUE: 30.0 mCi technetium 99-m DTPA 4.6 mCI technetium 99-m MAA administered intravenously. FINDINGS: Perfusion images do not show a segmental defect. Activity extends expected margin of the lung periphery. Ventilation images do not show any significant areas of ventilation defects. IMPRESSION: Lowprobability ventilation perfusion scan for pulmonary embolism.
[2018-06-17] MEDS: Insulin Reg-LOW-Coverage SC SCH (17:39)
--- NOTE | 2018-06-17 17:41 | US ---
Date of service: 06/17/2018 PROCEDURE: Ultrasound of the Kidneys HISTORY: CKD COMPARISON: None available. TECHNIQUE: Sonogram of the kidneys. FINDINGS: RIGHT KIDNEY: Measures: 9.2 x 5 x 5.15 cm. Diffuse increased echogenicity of the right kidney noted. No evidence of hydronephrosis. No stone, solid mass lesion or hydronephrosis visualized. LEFT KIDNEY: Measures: 8.1 x 4.6 x 4.1 cm. Diffuse increased echogenicity of the left kidney is also noted. No stone, solid mass lesion or hydronephrosis visualized. OTHER FINDINGS: Incidentally noted is a heterogeneous echogenic mass lesion at the right liver lobe measures 6.7 x 5.5 x 5.9 centimeter. IMPRESSION: Bilateral echogenic kidneys suggestive of medical renal disease. There is no evidence of hydronephrosis. Incidentally noted is possible mass lesion at the right liver lobe. Further assessment by CT is suggested if clinically warranted.
[2018-06-17] MEDS ORDERED: Dextrose 50% SYRINGE Inj (50 ml) IV PRN (18:28)
--- NOTE | 2018-06-17 18:43 | CARD ---
APPROVED REPORT Date of service: 06/17/2018 EKG Measurement Heart [id number] <Conclusion> Normal sinus rhythm Normal ECG
[2018-06-17 19:41] LABS: HEPATITIS B SURFACE AG Negative (NEGATIVE)
[2018-06-17 19:44] LABS: FERRITIN 93.1 ng/mL
[2018-06-17 19:46] LABS: HEPATITIS A IGM NEGATIVE (NEGATIVE); HEPATITIS B CORE AB NEGATIVE (NEGATIVE)
[2018-06-17 19:58] LABS: HEPATITIS C ANTIBODY NEGATIVE (NEGATIVE)
[2018-06-18] MEDS: Insulin Reg-MEDIUM-Coverage SC SCH ×5 (01:14→22:42)
[2018-06-18] MEDS: Insulin Reg-LOW-Coverage SC SCH (01:23)
[2018-06-18 06:41] LABS: INR 1.14; PROTHROMBIN TIME 13.1 SECONDS (9.4-12.5)
[2018-06-18 06:58] LABS: IRON 64 ug/dL (45-180)
[2018-06-18 07:03] LABS: BASO # 0.01 K/mm3 (0.0-2.0); BASO % 0.1 % (0.0-3.0); EOS # 0.2 (0.0-0.7); EOS % 2.1 % (1.5-5.0); GRAN # 5.96 (1.4-6.5); GRAN % 76.9 % (50.0-68.0); LYMPH # 1.2 (1.2-3.4); LYMPH % 15.6 % (22.0-35.0); MEAN CELL VOLUME 87.2 fl (80.0-105.0); MEAN CORPUSCULAR HEMOGLOBIN 29.9 pg (25.0-35.0); MEAN CORPUSCULAR HGB CONC 34.3 g/dl (31.0-37.0); MEAN PLATELET VOLUME 12.1 fl (7.0-11.0); MONO # 0.4 (0.1-0.6); MONO % 5.3 % (1.0-6.0); RBC 2.34 10^6/uL (3.5-6.1); RED CELL DISTRIBUTION WIDTH 12.9 % (11.5-14.5); WHITE BLOOD COUNT 7.8 10^3/uL (4.5-11.0)
[2018-06-18 07:07] LABS: % IRON SATURATION 24 % (20-55); TOTAL IRON BINDING CAPACITY 265 ug/dL (261-462)
--- NOTE | 2018-06-18 07:37 | CP.PCM.PN ---
<Elliot Prater - Last Filed: 06/18/18 15:34> Subjective - Date & Time of Evaluation Date of Evaluation: 06/18/18 Time of Evaluation: 07:36 - Subjective Subjective: INTERNAL MEDICINE PROGRESS NOTE FOR DR. SHERICE Prater PGY1 Pt seen and examined at bedside this am. No acute nursing events overnight. He has been urinating well. He still complains of some shortness of breath. His 12 point ROS is otherwise negative Objective - Vital Signs/Intake and Output Vital Signs (last 24 hours): Temp Pulse Resp BP Pulse Ox 98.2 F 84 20 176/98 H 98 06/18/18 05:52 06/18/18 05:52 06/18/18 05:52 06/18/18 05:52 06/18/18 05:52 Intake and Output: 06/18/18 06/18/18 06:59 18:59 Intake Total 180 Output Total 0 Balance 180 - Medications Medications: Current Medications Calcitriol (Rocaltrol) 0.5 mcg PO DAILY [facility] Calcium Acetate (Phoslo) 667 mg PO WM [facility] Sodium Chloride (Sodium Chloride 0.9%) 1,000 mls @ 100 mls/hr IV .Q10H [facility] Last Admin: 06/17/18 16:26 Dose: Not Given Insulin Human Regular (Humulin R Med) 0 units SC [facility]; Protocol Last Admin: 06/18/18 01:14 Dose: Not Given Labetalol HCl (Trandate) 100 mg PO BID [facility] Last Admin: 06/17/18 17:38 Dose: 100 mg Nifedipine (Procardia Xl) 60 mg PO DAILY [facility] Sodium Bicarbonate (Sodium Bicarbonate Tab) 650 mg PO TID [facility] Last Admin: 06/17/18 17:38 Dose: 650 mg - Labs Labs: 06/18/18 06:00 06/17/18 10:40 PT 13.1 SECONDS (9.4-12.5) H 06/18/18 06:00 INR 1.14 06/18/18 06:00 APTT 29.5 Seconds (25.1-36.5) 06/17/18 16:34 - Constitutional Appears: Well - Head Exam Head Exam: NORMAL INSPECTION, NORMOCEPHALIC - Eye Exam Eye Exam: EOMI, Normal appearance - ENT Exam ENT Exam: Mucous Membranes Moist, Normal Exam - Neck Exam Neck Exam: Normal Inspection - Respiratory Exam Respiratory Exam: Clear to Ausculation Bilateral, NORMAL BREATHING PATTERN - Cardiovascular Exam Cardiovascular Exam: REGULAR RHYTHM, +S1, +S2 - GI/Abdominal Exam GI & Abdominal Exam: Soft. absent: Tenderness - Extremities Exam Extremities Exam: Normal Inspection. absent: Calf Tenderness - Back Exam Back Exam: NORMAL INSPECTION - Neurological Exam Neurological Exam: Alert, Awake, Oriented x3 - Psychiatric Exam Psychiatric exam: Normal Affect, Normal Mood - Skin Skin Exam: Dry, Intact, Warm - Additional Findings Additional findings: - Constitutional Appears: Well, Non-toxic, No Acute Distress - Head Exam Head Exam: ATRAUMATIC, NORMAL INSPECTION - Eye Exam Eye Exam: EOMI, Normal appearance - ENT Exam ENT Exam: Mucous Membranes Moist, Normal Exam - Neck Exam Neck exam: Positive for: Normal Inspection - Respiratory Exam Respiratory Exam: Clear to Auscultation Bilateral, NORMAL BREATHING PATTERN - Cardiovascular Exam Cardiovascular Exam: REGULAR RHYTHM, +S1, +S2 - GI/Abdominal Exam GI & Abdominal Exam: Distended, Normal Bowel Sounds, Soft - Extremities Exam Extremities exam: Positive for: normal inspection. Negative for: calf tenderness - Back Exam Back exam: NORMAL INSPECTION - Neurological Exam Neurological exam: Alert, Oriented x3 - Psychiatric Exam Psychiatric exam: Normal Affect, Normal Mood - Skin Skin Exam: Dry, Intact, Warm Assessment and Plan - Assessment and Plan (Free Text) Assessment: 53 y/o M with PMHx CKD, IDDM, HTN, HLD admitted for hyperkalemia, chf exacerbation, rhabdomyolysis in the setting of acute on chronic kidney failure Plan: Acute on chronic kidney failure Pt to undergo HD catheter placement today PT to undergo HD thursday start scheduled kayexalate NS@ 50mls/hr start sodium bicarbonate 650po tid consult nephrology, appreciate recs Urine studies: electrolytes, 24hr creatinine, total protein, upep, Hepatitis panel: lower lobe mass lesion on liver seen on renal ultrasound B/l echogeneity seen on renal u/s Vitamin D level, uric acid, I&Os r/o CHF Exacerbation s/p cardiac cath repeat troponin in am BNP elevated f/u echo Hyperkalemia No EKG changes calcium gluconate 1g start kayexalate scheduled daily Anemia of chronic kidney disease consult GI for endoscopic workup f/u abdominal u/s f/u iron studies type & Screen transfuse before dialysis Hx of HTN continue home labetalol continue home nifedipine Hx of IDDM sliding scale insulin DVT ppx: SCD Case seen, examined and discussed with attending physician, Dr. Stout <Jesse Stout - Last Filed: 06/18/18 16:15> Objective - Vital Signs/Intake and Output Vital Signs (last 24 hours): Temp Pulse Resp BP Pulse Ox 98 F 90 12 185/90 H 96 06/18/18 12:03 06/18/18 13:32 06/18/18 12:03 06/18/18 13:32 06/18/18 12:03 Intake and Output: 06/18/18 06/18/18 06:59 18:59 Intake Total 180 Output Total 0 Balance 180 - Medications Medications: Current Medications Acetaminophen (Tylenol 325mg Tab) 650 mg PO Q4 PRN PRN Reason: Pain, Mild (1-3) Calcitriol (Rocaltrol) 0.5 mcg PO DAILY [facility] Last Admin: 06/18/18 09:39 Dose: 0.5 mcg Calcium Acetate (Phoslo) 667 mg PO WM [facility] Last Admin: 06/18/18 13:32 Dose: 667 mg Clonidine HCl (Catapres) 0.1 mg PO BID PRN PRN Reason: Systolic Blood Pressure Last Admin: 06/18/18 13:32 Dose: 0.1 mg Sodium Chloride (Sodium Chloride 0.9%) 1,000 mls @ 50 mls/hr IV .Q20H [facility] Insulin Human Regular (Humulin R Med) 0 units SC ACHS [facility]; Protocol Last Admin: 06/18/18 13:00 Dose: Not Given Labetalol HCl (Trandate) 200 mg PO BID [facility] Nifedipine (Procardia Xl) 60 mg PO DAILY [facility] Last Admin: 06/18/18 09:40 Dose: 60 mg Ondansetron HCl (Zofran Inj) 4 mg IVP Q6H PRN PRN Reason: Nausea/Vomiting Sodium Bicarbonate (Sodium Bicarbonate Tab) 650 mg PO TID [facility] Last Admin: 06/18/18 09:39 Dose: 650 mg Sodium Polystyrene Sulfonate (Kayexalate Susp) 15 gm PO DAILY [facility] Last Admin: 06/18/18 13:32 Dose: 15 gm - Labs Labs: 06/18/18 06:00 06/18/18 06:00 PT 13.1 SECONDS (9.4-12.5) H 06/18/18 06:00 INR 1.14 06/18/18 06:00 APTT 29.5 Seconds (25.1-36.5) 06/17/18 16:34 Attending/Attestation - Attestation I have personally seen and examined this patient.: Yes I have fully participated in the care of the patient.: Yes I have reviewed all pertinent clinical information, including history, physical exam and plan: Yes Notes (Text): 06/18/18 16:08 Attending note; Patient seen and examined with the resident. Patient is alert and awake. Denies any chest pain. Denies any fevers, chills, cough. Denies any urinary, bowel symptoms. Patient is a 53 year old male with PMHx of IDDM (diagnosed 30+ yrs ago), HTN (~3 yrs), HLD (~3yrs), CKD, chronic anemia presents [place] [facility] with complaints of shortness of breath that hes noticed for the past 3 days that worsened while laying down at night and walking. 1. Chronic kidney disease; GFR is 5. Currently with creatinine of 12.9. Case discussed with bowling ball grader in detail. Plan for cardiac catheter placement by IR today. Plan for dialysis tomorrow. Workup for chronic kidney disease initiated. 2. Hyperkalemia; Kayexalate given. Started on low potassium diet. Hypercalcemia and hyperphosphatemia due to renal insufficiency. started on PhosLo and bicarbonate. 3. Shortness of breath; Improved.clinically not in CHF. Echocardiogram ordered. Cardiac enzyme negative. Cardiology evaluation appreciated. 4. severe anemia; mostly secondary to Chronic kidney disease. No active bleeding noted. Hemoglobin is 7.0. Anemia workup ordered. Transfuse as needed. 5. Renal ultrasound showed medical renal disease. 6. Rhabdomyolysis; secondary to recent fall. Improving. 7. Hypertension; continue Procardia and labetalol. ADRIANA inhibitor on hold secondary to hyperkalemia. 8. liver mass; ultrasound ordered. GI evaluation requested. 9. Elevated d-dimer. VQ scan is low probability for PE. Case discussed with patient's sister in detail. The diagnosis, treatment plan discussed with patient in detail. Patient will be referred to [facility] [place] upon discharge. 06/18/18 16:14
[2018-06-18 07:40] LABS: ALB/GLOB RATIO 0.9 (1.1-1.8); ALBUMIN 3.1 g/dL (3.0-4.8); CALCIUM 5.7 mg/dL (8.4-10.5)
[2018-06-18] MEDS ORDERED: Sodium Chloride 0.9% 1,000 ML IV SCH (08:05)
[2018-06-18 09:01] LABS: CK MB% 0.3 % (2.5-3.0); CK-MB 7.1 ng/mL (0.0-3.6)
[2018-06-18] MEDS ORDERED: Sod Polystyrene Sulf 15 gm/60 ml Susp PO ONE (09:16)
[2018-06-18] MEDS: NIFEdipine 60 mg ER Tab PO SCH (09:40)
[2018-06-18] MEDS ORDERED: Lidocaine 2% Inj (20ml) ONE (10:37)
[2018-06-18] MEDS ORDERED: Midazolam 2 MG/2 ML VIAL ONE (11:06)
[2018-06-18 11:39] LABS: ALBUMIN (PEP) 2.7 g/dL (3.8-4.8); ALPHA-1-GLOBULIN (PEP) 0.4 g/dL (0.2-0.3)
--- NOTE | 2018-06-18 12:00 | CON ---
DATE: 06/18/2018 REASON FOR CONSULTATION: Shortness of breath, renal failure. HISTORY OF PRESENT ILLNESS: This is a 53-year-old male, new to , admitted through the emergency room yesterday with shortness of breath, severe anemia, and severe renal failure. He has had several months of deteriorating health. Recently, he began experiencing shortness of breath with minimal activities. This became worse, and he came to the emergency room yesterday. He was found to have a creatinine of 12 and metabolic abnormalities. He underwent evaluation. He is admitted to telemetry. This morning he feels better without chest pain or shortness of breath. There is no orthopnea, PND, syncope, presyncope, lightheadedness, dizziness or vertigo. There is no palpitation, fever, chills, rigors, sweats, cough, sputum production, hemoptysis, abdominal pain, nausea, vomiting, diarrhea, constipation, and melena. PAST MEDICAL HISTORY: His past medical history is notable for known kidney disease, which has become progressively worse. He was followed by a physician in [place]. He has a history of diabetes, hypertension, hyperlipidemia, and anemia. He is a former smoker. Among the abnormalities, there is possible mass on his liver on the abdominal ultrasound. MEDICATIONS: Medications at the time of admission include, aspirin, nifedipine, losartan, atorvastatin, Humulin, and labetalol. ALLERGIES: THERE ARE NO MEDICATION ALLERGIES REPORTED. SOCIAL HISTORY: He recently moved to [place]. He is a ready mix truck driver. He no longer smokes. He drinks alcohol occasionally. He does not use drugs. FAMILY HISTORY: Positive for heart disease. REVIEW OF SYSTEMS: Ten-point review of systems is otherwise unremarkable except as noted above. PHYSICAL EXAMINATION: GENERAL: He is a well-developed male, lying in bed on telemetry, in no acute distress. VITAL SIGNS: Notable for sinus rhythm, afebrile, blood pressure 176/98, respirations 20, O2 sat 98% on room air and nasal cannula. HEENT: Exam reveals no neck vein distention, thyromegaly, or carotid bruits. Mucous membranes moist. Conjunctivae pale. NECK: Supple. LUNGS: Lung viveros clear. CARDIOVASCULAR: Examination of the heart revealed normal first and second heart sounds. ABDOMEN: Soft. Bowel sounds present. No mass, organomegaly, tenderness, rebound, or guarding. No CVA tenderness. No palpable abdominal aortic aneurysm. EXTREMITIES: Extremity exam revealed no cyanosis, clubbing or edema. NEUROLOGICAL: Awake, alert and oriented. PSYCHIATRIC: Normal as to mood and affect. SKIN: Warm and dry. No rash or cellulitis. LABORATORY AND IMAGING STUDIES: EKG demonstrates regular sinus rhythm, LVH, nonspecific ST wave changes. A portable chest x-ray revealed no active disease. A lung scan was low probability for PE. An ankle x-ray revealed a normal radiograph. White count normal, hemoglobin 7, hematocrit 20.4, platelet count normal. PT/INR unremarkable. PTT unremarkable. D-dimer 707. Electrolytes notable for potassium of 5.4, BUN 84, creatinine 12.9, calcium 5.6, uric acid 7.6. Elevated liver enzymes and CK, troponin is 0.03. BNP 9500. IMPRESSION: Rod Mari is a 53-year-old man with progressive renal failure with metabolic abnormalities, shortness of breath, and severe anemia. He is a former smoker. His abdominal ultrasound suggests a liver mass. PLAN: He is admitted to telemetry. Plans are underway for hemodialysis to begin. He is being typed and crossmatched. Transfusion is pending. I will order an echocardiogram and repeat his EKG. Elevated CK is consistent with rhabdomyolysis, possibly related to a recent fall. We will monitor I's and O's. Check stool for occult blood. He is getting insulin coverage, PhosLo, nifedipine, Rocaltrol, sodium bicarb, and labetalol. He can be out of bed to a chair. I would monitor I's and O's. I will follow along with you. I will make additional recommendations based on his clinical course at the appropriate time. He should be considered for a nuclear stress test. Andrew Antoine MD [facility]
--- NOTE | 2018-06-18 12:12 | CP.PCM.PN ---
<Thompson Baldwin - Last Filed: 06/18/18 19:08> Subjective - Date & Time of Evaluation Date of Evaluation: 06/18/18 Time of Evaluation: 08:00 - Subjective Subjective: Nephro Progress Note for Dr. Reese Service Patient seen and examined at bedside. Reports feeling better today as compared to presentation, both in breathing and sensation of abdominal fullness, but labs today indicate minimally improved creatinine (12.9 -> 12.7) and persistent electrolyte disturbances. Will need HD, plan for IR to place HD cath today and will pursue HD tomorrow. Objective - Vital Signs/Intake and Output Vital Signs (last 24 hours): Temp Pulse Resp BP Pulse Ox 98 F 81 12 184/90 H 96 06/18/18 12:03 06/18/18 12:03 06/18/18 12:03 06/18/18 12:03 06/18/18 12:03 Intake and Output: 06/18/18 06/18/18 06:59 18:59 Intake Total 180 Output Total 0 Balance 180 - Medications Medications: Current Medications Acetaminophen (Tylenol 325mg Tab) 650 mg PO Q4 PRN PRN Reason: Pain, Mild (1-3) Calcitriol (Rocaltrol) 0.5 mcg PO DAILY [facility] Last Admin: 06/18/18 09:39 Dose: 0.5 mcg Calcium Acetate (Phoslo) 667 mg PO WM [facility] Last Admin: 06/18/18 09:39 Dose: 667 mg Sodium Chloride (Sodium Chloride 0.9%) 1,000 mls @ 50 mls/hr IV .Q20H [facility] Insulin Human Regular (Humulin R Med) 0 units SC ACHS [facility]; Protocol Last Admin: 06/18/18 08:30 Dose: Not Given Labetalol HCl (Trandate) 100 mg PO BID [facility] Last Admin: 06/18/18 09:40 Dose: 100 mg Nifedipine (Procardia Xl) 60 mg PO DAILY [facility] Last Admin: 06/18/18 09:40 Dose: 60 mg Ondansetron HCl (Zofran Inj) 4 mg IVP Q6H PRN PRN Reason: Nausea/Vomiting Sodium Bicarbonate (Sodium Bicarbonate Tab) 650 mg PO TID [facility] Last Admin: 06/18/18 09:39 Dose: 650 mg Sodium Polystyrene Sulfonate (Kayexalate Susp) 15 gm PO DAILY [facility] - Labs Labs: 06/18/18 06:00 06/18/18 06:00 PT 13.1 SECONDS (9.4-12.5) H 06/18/18 06:00 INR 1.14 06/18/18 06:00 APTT 29.5 Seconds (25.1-36.5) 06/17/18 16:34 - Additional Findings Additional findings: - Constitutional Appears: No Acute Distress, Ill-appearing - Head Exam Head Exam: ATRAUMATIC, NORMAL INSPECTION - Eye Exam Eye Exam: EOMI, Normal appearance, No scleral icterus or conjunctival injection - ENT Exam ENT Exam: Mucous Membranes Moist, Normal Exam - Neck Exam Neck exam: Normal ROM, no Lymphadenopathy - Respiratory Exam Respiratory Exam: Mild bibasilar rales but otherwise clear to auscultation, NORMAL BREATHING PATTERN, No respiratory distress - Cardiovascular Exam Cardiovascular Exam: REGULAR RHYTHM, +S1, +S2 - GI/Abdominal Exam GI & Abdominal Exam: Soft but still Distended, Normal Bowel Sounds, No tenderness to palpation - Extremities Exam Extremities exam: Positive for: Trace pitting edema in bilateral feet to ankles. Negative for: calf tenderness - Back Exam Back exam: NORMAL INSPECTION, negative for CVA tenderness bilaterally - Neurological Exam Neurological exam: Awake and alert, following all commands, moving all extremities spontaneously - Psychiatric Exam Psychiatric exam: Normal Affect, Normal Mood, Poor insight into condition - Skin Skin Exam: Dry, Intact, Warm Assessment and Plan - Assessment and Plan (Free Text) Assessment: This is a 53 yo M with PMH of IDDM (diagnosed 30+ yrs ago), HTN (~3 yrs), HLD (~3yrs), CKD, and chronic anemia presents to [facility] with complaints of shortness of breath that hes noticed for the past 3 days that worsened while laying down at night and walking. Nephro was consulted for possible HD as patient was found to have Cr of 12.9, extensive electrolyte abnormalities, and distended abdomen. Cr remains elevated at 12.7, persistent electrolyte abnormalities persist, so will require HD. Plan: Acute renal failure overlying CKD -Cr remains elevated, Cr 12.7, GFR 5 -etiology unclear, likely Rhabdo component -Avoid nephrotoxic drugs, hold all ACEi/ARBs -Agree with workup panel ordered by primary team -Careful repletion of low electrolytes in setting of ARF to avoid toxic accumulation -Will need HD IR consulted for HD catheter placement Will initiate HD tomorrow, consent obtained -Renal US obtained, bilateral echogenic kidneys suggestive of medical renal disease, no hydronephrosis, incidentally noted right liver lobe lesions Rec to primary team further abdominal imaging to assess liver lesions Anemia -Hgb worsened to 7, primary team planning to transfuse pRBC -remains hemodynamically stable, would recommend deferring transfusion to tomorrow, can given with HD and prevent fluid overload 2/2 transfusion Reviewed and discussed with attending, Dr. Reese <Parish Reese - Last Filed: 06/19/18 17:24> Objective - Vital Signs/Intake and Output Vital Signs (last 24 hours): Temp Pulse Resp BP Pulse Ox 97.8 F 87 18 155/63 H 98 06/19/18 12:00 06/19/18 14:00 06/19/18 12:00 06/19/18 12:41 06/18/18 17:04 Intake and Output: 06/19/18 06/19/18 06:59 18:59 Intake Total 1140 Output Total 700 Balance 440 - Medications Medications: Current Medications Acetaminophen (Tylenol 325mg Tab) 650 mg PO Q4 PRN PRN Reason: Pain, Mild (1-3) Last Admin: 06/18/18 20:06 Dose: 650 mg Calcitriol (Rocaltrol) 0.5 mcg PO DAILY [facility] Last Admin: 06/19/18 12:40 Dose: 0.5 mcg Calcium Acetate (Phoslo) 667 mg PO WM [facility] Last Admin: 06/19/18 12:40 Dose: 667 mg Clonidine HCl (Catapres) 0.1 mg PO BID PRN PRN Reason: Systolic Blood Pressure Last Admin: 06/18/18 13:32 Dose: 0.1 mg Insulin Human Regular (Humulin R Med) 0 units SC [facility]; Protocol Last Admin: 06/19/18 12:42 Dose: Not Given Labetalol HCl (Trandate) 200 mg PO BID [facility] Last Admin: 06/19/18 12:41 Dose: 200 mg Nifedipine (Procardia Xl) 60 mg PO DAILY [facility] Last Admin: 06/19/18 12:42 Dose: 60 mg Ondansetron HCl (Zofran Inj) 4 mg IVP Q6H PRN PRN Reason: Nausea/Vomiting Sodium Bicarbonate (Sodium Bicarbonate Tab) 650 mg PO TID [facility] Last Admin: 06/19/18 14:39 Dose: Not Given Sodium Polystyrene Sulfonate (Kayexalate Susp) 15 gm PO DAILY [facility] Last Admin: 06/19/18 10:00 Dose: Not Given Vitamin D (Vitamin D 400 Intl Units Tab) 1,200 intlu PO DAILY [facility] Last Admin: 06/19/18 12:42 Dose: Not Given - Labs Labs: 06/19/18 07:00 06/19/18 07:00 PT 13.1 SECONDS (9.4-12.5) H 06/18/18 06:00 INR 1.14 06/18/18 06:00 APTT 29.5 Seconds (25.1-36.5) 06/17/18 16:34 Assessment and Plan - Assessment and Plan (Free Text) Plan: Pt seen and examined. This is a late entry. I have reviewed the note of the spanish medical interpreter and agree with it. I have reviewed the meds and labs of the pt. I have discussed the assessment and plan with the resident. Pt with ESRD and will need HD. He will have a dialysis cath placed. Hb is low and may need transfusion. Renal US was reviewed. He is agreeable to HD. He understand the need for HD and the risk if not started. IVF were started and the Cr has not improved. He has CKD underlying as can be seen by the Renal US. Serology is pending.
[2018-06-18 13:07] LABS: COMPLEMENT C4 32.9 mg/dL (14.0-44.0)
[2018-06-18] MEDS: Sod Polystyrene Sulf 15 gm/60 ml Susp PO SCH (13:32)
[2018-06-18 13:39] LABS: FERRITIN 94.2 ng/mL
--- NOTE | 2018-06-18 17:07 | US ---
HISTORY: Leg pain and swelling. Evaluate for DVT PHYSICIAN(S): Gerardo Torres MD. TECHNIQUE: Duplex sonography and color-flow Doppler with graded compression were used to evaluate the deep venous systems of both lower extremities. FINDINGS: The visualized deep venous systems of both lower extremities are sonographically normal and compressible. Normal wave forms and augmentation are seen. There is no sonographic evidence for deep venous thrombosis in the visualized segments of both lower extremities. IMPRESSION: No sonographic evidence for deep venous thrombosis in the visualized segments of both lower extremities.
--- NOTE | 2018-06-18 17:44 | VASCULAR ---
PROCEDURE: Ultrasound and fluoroscopic tunneled right IJ dialysis catheter. CLINICAL HISTORY: ESRD PHYSICIAN(S): Gerardo Torres M.D. TECHNIQUE: The relative risks and indications for the procedure were explained to the patient and informed written consent obtained. The patient was placed supine on the arteriography table and the right neck/chest was prepped and draped in the usual sterile fashion. 1% Xylocaine was used to anesthetize the skin and soft tissues at the puncture site. Conscious sedation and monitoring were provided throughout the procedure by a nurse. Under direct ultrasound guidance, the rightinternal jugular vein was punctured with a micropuncture set. A 0.035 Glidewire was advanced into the IVC. Sequential dilatation was performed with subsequent placement of a 28cm Nextgen catheter with its tip in the right atrium. A retrograde tunnel below the right clavicle was performed. The catheter was trimmed and the hub attached. Both ports aspirate and inject easily. The catheter was secured and a dressing applied. The patient tolerated the procedure well. IMPRESSION: 1. Ultrasound and fluoroscopically placed right IJ tunneled dialysis catheter.
--- NOTE | 2018-06-18 17:56 | US ---
Date of service: 06/18/2018 HISTORY: mass seen on renal US COMPARISON: 06/17/2018 TECHNIQUE: Sonographic evaluation of the right upper quadrant of the abdomen. FINDINGS: LIVER: Measures 9.7 x 15.0 cm in length. Patent portal vein. Portal venous flow: Hepatopetal. Unremarkable echogenicity of the liver parenchyma. Confirmation of mass in the right hepatic lobe measures 6.3 x 6.5 x 6.6 cm. The mass has a nonspecific appearance, primarily hyperechoic. GALLBLADDER: Unremarkable. No gallstones. COMMON BILE DUCT: Measures mm. No stones. No dilatation. PANCREAS: Unremarkable as visualized. No mass. No ductal dilatation. RIGHT KIDNEY: Measures 5.7 x 9.3 cm in length. Increased echogenicity compatible with medical renal disease.. No calculus, mass, or hydronephrosis. AORTA: No aneurysmal dilatation. IVC: Unremarkable. OTHER FINDINGS: None . IMPRESSION: Confirmation of mass identified on recent renal ultrasound. This represents a solitary solid mass. CT/MRI may be beneficial for further clarification of the mass as well as improving sensitivity for other possible hepatic masses not seen on the current study
[2018-06-18] MEDS ORDERED: Cholecalciferol 400 Intl Units Tab PO STA (18:51)
--- NOTE | 2018-06-19 06:11 | CARD ---
APPROVED REPORT Date of service: 06/18/2018 EXAM: Two-dimensional and M-mode echocardiogram with Doppler and color Doppler. INDICATION ANEMIA, RENAL FAILURE 2D DIMENSIONS Left Atrium (2D)4.9 (1.6-4.0cm)IVSd1.4 (0.7-1.1cm) LVDd4.7 (3.9-5.9cm)PWd1.5 (0.7-1.1cm) LVDs3.5 (2.5-4.0cm)FS (%) 26.8 % LVEF (%)52.4 (>50%) M-Mode DIMENSIONS Aortic Root3.10 (2.2-3.7cm)Aortic Cusp Exc.1.80 (1.5-2.0cm) Aortic Valve AoV Peak Jfpjuzvn258.0cm/Gurpreet Peak GR.6mmHg Mitral Valve MV E Eipztynw832.0cm/sMV A Hanejjks364.0cm/sE/A ratio1.2 TDI Lateral E' Peak V6.24cm/sMedial E' Peak V6.82cm/sE/Lateral E'22.8 E/Medial E'20.8 Pulmonary Valve PV Peak Zglsnunu39.5cm/sPV Peak Grad.1mmHg Tricuspid Valve TR Peak Esxogufq812bc/sRAP [id number] Peak Gr.42mmHg [id number] LEFT VENTRICLE The left ventricle is normal size. There is mild to moderate concentric left ventricular hypertrophy. The left ventricular function is normal. The left ventricular ejection fraction is within the normal range. There is normal LV segmental wall motion. Tissue Doppler imaging reveals mild left ventricular diastolic dysfunction. RIGHT VENTRICLE The right ventricle is normal size. The right ventricular systolic function is normal. ATRIA The left atrium is moderately dilated. The right atrium size is normal. The interatrial septum is intact with no evidence for an atrial septal defect. AORTIC VALVE The aortic valve is normal in structure. There is trace aortic regurgitation. There is no aortic valvular stenosis. MITRAL VALVE The mitral valve is mildly thickened. Mitral regurgitation is moderate to severe. TRICUSPID VALVE The tricuspid valve is normal in structure. There is mild tricuspid regurgitation. PULMONIC VALVE The pulmonary valve is normal in structure. GREAT VESSELS The aortic root is normal in size. The IVC is normal in size and collapses >50% with inspiration. PERICARDIAL EFFUSION There is no pleural effusion. There is no pericardial effusion. <Conclusion> Dilated LA. Normal LV size and systolic function. Mild to moderate concentric LVH. Moderate to severe MR. Mild TR.
[2018-06-19 07:40] LABS: TROPONIN I 0.03 ng/mL
[2018-06-19 07:46] LABS: ALB/GLOB RATIO 0.9 (1.1-1.8); ALBUMIN 3.2 g/dL (3.0-4.8); CALCIUM 6.1 mg/dL (8.4-10.5)
[2018-06-19 08:29] LABS: BASO % 0.2 % (0.0-3.0); EOS # 0.3 (0.0-0.7); EOS % 3.2 % (1.5-5.0); GRAN # 5.9 (1.4-6.5); LYMPH # 1.4 (1.2-3.4); LYMPH % 16.9 % (22.0-35.0); MEAN CELL VOLUME 89.2 fl (80.0-105.0); MEAN CORPUSCULAR HEMOGLOBIN 30.3 pg (25.0-35.0); MEAN PLATELET VOLUME 12.4 fl (7.0-11.0); MONO # 0.5 (0.1-0.6); MONO % 6.7 % (1.0-6.0); RBC 2.31 10^6/uL (3.5-6.1); RED CELL DISTRIBUTION WIDTH 11.9 % (11.5-14.5); WHITE BLOOD COUNT 8.1 10^3/uL (4.5-11.0)
[2018-06-19 08:30] LABS: BASO # 0.02 K/mm3 (0.0-2.0)
[2018-06-19] MEDS: Insulin Reg-MEDIUM-Coverage SC SCH ×4 (08:44→21:49)
--- NOTE | 2018-06-19 08:45 | PN ---
DATE: 06/19/2018 SUBJECTIVE: The patient is seen sitting in bed on telemetry. A dialysis catheter was placed yesterday and he is scheduled for dialysis today. He feels fair. He denies any chest pain or dyspnea at rest. CURRENT MEDICATIONS: Include Catapres, insulin coverage, PhosLo, Procardia XL, Rocaltrol, sodium bicarbonate and labetalol. OBJECTIVE: GENERAL: He is a middle-aged male appears comfortable at the present time. KEYA SIGNS: His blood pressure is 150/86 with pulse of 80 and sinus respirations 60. He is afebrile. HEENT: No JVD. CHEST: Dialysis catheter is noted in the right chest: Diminished breath sounds are noted at the bases. HEART: PMI displaced laterally with a systolic murmur noted at the apex. ABDOMEN: Soft and nontender with normoactive bowel sounds. EXTREMITIES: No edema. DIAGNOSTIC DATA: CK is 2318 with a troponin of 0.03, potassium 4.7, BUN and creatinine 81 and 12.3. His echocardiogram revealed dilated left atrium with normal LV size and systolic function, imad-pw-diansall concentric LVH and zdtkufrs-lu-zzfcwm mitral regurgitation. IMPRESSION: 1. Acute renal failure, plans for dialysis in place. 2. Dyspnea likely secondary to anemia and renal failure as well as valvular heart disease. 3. History of hypertension and diabetes. 4. Mitral regurgitation, likely secondary to hypertensive heart disease. RECOMMENDATIONS: Current management should continue for now. His symptoms are likely improved further with dialysis. Transfusion may be necessary if his hemoglobin does not improve. Monitoring of his mitral regurgitation in the future will be necessary. An eventual cardiac stress test would be appropriate given his risk factors of hypertension and diabetes. Continue smoking absence was advised and lipid panel has been ordered as well. We will continue to follow and make further recommendations as appropriate. Vladimir Perdue MD
[2018-06-19 09:44] LABS: CK MB% 0.3 % (2.5-3.0); CK-MB 6.9 ng/mL (0.0-3.6)
--- NOTE | 2018-06-19 09:57 | CP.PCM.PN ---
<Thompson Baldwin - Last Filed: 06/19/18 14:12> Subjective - Date & Time of Evaluation Date of Evaluation: 06/19/18 Time of Evaluation: 07:20 - Subjective Subjective: Progress Note for Dr. Reese Service Patient seen and examined at bedside. Pending HD for acute renal failure with persistently elevated Cr and electrolyte derangements. Will also receive 2 units pRBCs with HD. Objective - Vital Signs/Intake and Output Vital Signs (last 24 hours): Temp Pulse Resp BP Pulse Ox 97.8 F 82 19 150/86 98 06/19/18 06:00 06/19/18 06:00 06/19/18 06:00 06/19/18 06:00 06/18/18 17:04 Intake and Output: 06/19/18 06/19/18 06:59 18:59 Intake Total 1140 Output Total 700 Balance 440 - Medications Medications: Current Medications Acetaminophen (Tylenol 325mg Tab) 650 mg PO Q4 PRN PRN Reason: Pain, Mild (1-3) Last Admin: 06/18/18 20:06 Dose: 650 mg Calcitriol (Rocaltrol) 0.5 mcg PO DAILY [facility] Last Admin: 06/18/18 09:39 Dose: 0.5 mcg Calcium Acetate (Phoslo) 667 mg PO WM [facility] Last Admin: 06/19/18 08:45 Dose: Not Given Clonidine HCl (Catapres) 0.1 mg PO BID PRN PRN Reason: Systolic Blood Pressure Last Admin: 06/18/18 13:32 Dose: 0.1 mg Insulin Human Regular (Humulin R Med) 0 units SC [facility]; Protocol Last Admin: 06/19/18 08:44 Dose: Not Given Labetalol HCl (Trandate) 200 mg PO BID [facility] Last Admin: 06/18/18 17:38 Dose: 200 mg Nifedipine (Procardia Xl) 60 mg PO DAILY [facility] Last Admin: 06/18/18 09:40 Dose: 60 mg Ondansetron HCl (Zofran Inj) 4 mg IVP Q6H PRN PRN Reason: Nausea/Vomiting Sodium Bicarbonate (Sodium Bicarbonate Tab) 650 mg PO TID [facility] Last Admin: 06/18/18 17:39 Dose: 650 mg Sodium Polystyrene Sulfonate (Kayexalate Susp) 15 gm PO DAILY [facility] Last Admin: 06/18/18 13:32 Dose: 15 gm Vitamin D (Vitamin D 400 Intl Units Tab) 1,200 intlu PO DAILY [facility] - Labs Labs: 06/19/18 07:00 06/19/18 07:00 PT 13.1 SECONDS (9.4-12.5) H 06/18/18 06:00 INR 1.14 06/18/18 06:00 APTT 29.5 Seconds (25.1-36.5) 06/17/18 16:34 - Additional Findings Additional findings: - Constitutional Appears: No Acute Distress, Less Ill-appearing - Head Exam Head Exam: ATRAUMATIC, NORMAL INSPECTION - Eye Exam Eye Exam: EOMI, Normal appearance, No scleral icterus or conjunctival injection - ENT Exam ENT Exam: Mucous Membranes Moist, Normal Exam - Neck Exam Neck exam: Normal ROM, no Lymphadenopathy - Respiratory Exam Respiratory Exam: Mild bibasilar rales but otherwise clear to auscultation, NORMAL BREATHING PATTERN, No respiratory distress - Cardiovascular Exam Cardiovascular Exam: REGULAR RHYTHM, +S1, +S2 - GI/Abdominal Exam GI & Abdominal Exam: Soft but still Distended, Normal Bowel Sounds, No tenderness to palpation - Extremities Exam Extremities exam: Positive for: Trace pitting edema in bilateral feet to ankles. Negative for: calf tenderness - Back Exam Back exam: NORMAL INSPECTION, negative for CVA tenderness bilaterally - Neurological Exam Neurological exam: Awake and alert, following all commands, moving all e xtremities spontaneously - Psychiatric Exam Psychiatric exam: Mild anxiety regarding HD, otherwise normal mood and affect - Skin Skin Exam: Dry, Intact, Warm Assessment and Plan - Assessment and Plan (Free Text) Assessment: This is a 53 yo M with PMH of IDDM (diagnosed 30+ yrs ago), HTN (~3 yrs), HLD (~3yrs), CKD, and chronic anemia [place] [facility] [place] of shortness of breath that hes noticed for the past 3 days that worsened while laying down at night and walking. Nephro was consulted for possible HD as patient was found to have Cr of 12.9, extensive electrolyte abnormalities, and distended abdomen. Pending HD and transfusion of 2 units pRBCs during HD. Plan: Acute renal failure overlying CKD -Cr remains elevated with electrolyte derangements -etiology unclear, likely Rhabdo component; CK improving -Avoid nephrotoxic drugs, hold all ACEi/ARBs -Agree with workup panel ordered by primary team -Careful repletion of low electrolytes in setting of ARF to avoid toxic accumulation -Pending HD today, f/u -Renal US obtained, bilateral echogenic kidneys suggestive of medical renal disease, no hydronephrosis, incidentally noted right liver lobe lesions Rec to primary team further abdominal imaging to assess liver lesions Anemia -Hgb remains 7, will transfuse 2 units pRBCs with HD Reviewed and discussed with attending, Dr. Reese <Parish Reese - Last Filed: 06/19/18 16:58> Objective - Vital Signs/Intake and Output Vital Signs (last 24 hours): Temp Pulse Resp BP Pulse Ox 97.8 F 87 18 155/63 H 98 06/19/18 12:00 06/19/18 14:00 06/19/18 12:00 06/19/18 12:41 06/18/18 17:04 Intake and Output: 06/19/18 06/19/18 06:59 18:59 Intake Total 1140 Output Total 700 Balance 440 - Medications Medications: Current Medications Acetaminophen (Tylenol 325mg Tab) 650 mg PO Q4 PRN PRN Reason: Pain, Mild (1-3) Last Admin: 06/18/18 20:06 Dose: 650 mg Calcitriol (Rocaltrol) 0.5 mcg PO DAILY [facility] Last Admin: 06/19/18 12:40 Dose: 0.5 mcg Calcium Acetate (Phoslo) 667 mg PO WM [facility] Last Admin: 06/19/18 12:40 Dose: 667 mg Clonidine HCl (Catapres) 0.1 mg PO BID PRN PRN Reason: Systolic Blood Pressure Last Admin: 06/18/18 13:32 Dose: 0.1 mg Insulin Human Regular (Humulin R Med) 0 units SC [facility]; Protocol Last Admin: 06/19/18 12:42 Dose: Not Given Labetalol HCl (Trandate) 200 mg PO BID [facility] Last Admin: 06/19/18 12:41 Dose: 200 mg Nifedipine (Procardia Xl) 60 mg PO DAILY [facility] Last Admin: 06/19/18 12:42 Dose: 60 mg Ondansetron HCl (Zofran Inj) 4 mg IVP Q6H PRN PRN Reason: Nausea/Vomiting Sodium Bicarbonate (Sodium Bicarbonate Tab) 650 mg PO TID [facility] Last Admin: 06/19/18 14:39 Dose: Not Given Sodium Polystyrene Sulfonate (Kayexalate Susp) 15 gm PO DAILY [facility] Last Admin: 06/19/18 10:00 Dose: Not Given Vitamin D (Vitamin D 400 Intl Units Tab) 1,200 intlu PO DAILY [facility] Last Admin: 06/19/18 12:42 Dose: Not Given - Labs Labs: 06/19/18 07:00 06/19/18 07:00 PT 13.1 SECONDS (9.4-12.5) H 06/18/18 06:00 INR 1.14 06/18/18 06:00 APTT 29.5 Seconds (25.1-36.5) 06/17/18 16:34 Assessment and Plan - Assessment and Plan (Free Text) Plan: Pt seen and examined. I have reviewed the note of the medical director/head team physician and agree with it. I have discussed the assessment and plan with the resident. I have reviewed the patient's labs and medications. Pt with MICAELA on CKD. His Cr has not improved with IVF. He has underlying CKD. He will be started on HD today. I didd see him on HD and he was comfortable. Blood flow and diasylate flow are normal. US shows CKD. Serology has been negative so far. He will need transfusion of PRBC.
[2018-06-19] MEDS: Sod Polystyrene Sulf 15 gm/60 ml Susp PO SCH (10:00)
[2018-06-19 11:15] LABS: MCH 30.1 pg (27.0-33.0); MCV 91.9 fL (80.0-100.0)
[2018-06-19] MEDS: Cholecalciferol 400 Intl Units Tab PO SCH (12:42)
[2018-06-19] MEDS: NIFEdipine 60 mg ER Tab PO SCH (12:42)
--- NOTE | 2018-06-19 12:53 | CP.PCM.PN ---
<Celestine Baron - Last Filed: 06/19/18 12:48> Subjective - Date & Time of Evaluation Date of Evaluation: 06/19/18 Time of Evaluation: 12:53 - Subjective Subjective: PGY1 Progress Note for Dr. Stout Patient seen and examined at bedside this morning. No acute nursing events overnight. Patient s/p dialysis cath placement 06/18. Patient is being consented for dialysis and for PRBC transfusion. 12 Point ROS is otherwise unremarkable. Objective - Vital Signs/Intake and Output Vital Signs (last 24 hours): Temp Pulse Resp BP Pulse Ox 97.8 F 95 H 18 155/63 H 98 06/19/18 12:00 06/19/18 12:41 06/19/18 12:00 06/19/18 12:41 06/18/18 17:04 Intake and Output: 06/19/18 06/19/18 06:59 18:59 Intake Total 1140 Output Total 700 Balance 440 - Medications Medications: Current Medications Acetaminophen (Tylenol 325mg Tab) 650 mg PO Q4 PRN PRN Reason: Pain, Mild (1-3) Last Admin: 06/18/18 20:06 Dose: 650 mg Calcitriol (Rocaltrol) 0.5 mcg PO DAILY [facility] Last Admin: 06/19/18 12:40 Dose: 0.5 mcg Calcium Acetate (Phoslo) 667 mg PO WM [facility] Last Admin: 06/19/18 12:40 Dose: 667 mg Clonidine HCl (Catapres) 0.1 mg PO BID PRN PRN Reason: Systolic Blood Pressure Last Admin: 06/18/18 13:32 Dose: 0.1 mg Insulin Human Regular (Humulin R Med) 0 units SC [facility]; Protocol Last Admin: 06/19/18 12:42 Dose: Not Given Labetalol HCl (Trandate) 200 mg PO BID [facility] Last Admin: 06/19/18 12:41 Dose: 200 mg Nifedipine (Procardia Xl) 60 mg PO DAILY [facility] Last Admin: 06/19/18 12:42 Dose: 60 mg Ondansetron HCl (Zofran Inj) 4 mg IVP Q6H PRN PRN Reason: Nausea/Vomiting Sodium Bicarbonate (Sodium Bicarbonate Tab) 650 mg PO TID [facility] Last Admin: 06/19/18 12:42 Dose: 650 mg Sodium Polystyrene Sulfonate (Kayexalate Susp) 15 gm PO DAILY [facility] Last Admin: 06/19/18 10:00 Dose: Not Given Vitamin D (Vitamin D 400 Intl Units Tab) 1,200 intlu PO DAILY [facility] Last Admin: 06/19/18 12:42 Dose: Not Given - Labs Labs: 06/19/18 07:00 06/19/18 07:00 PT 13.1 SECONDS (9.4-12.5) H 06/18/18 06:00 INR 1.14 06/18/18 06:00 APTT 29.5 Seconds (25.1-36.5) 06/17/18 16:34 - Additional Findings Additional findings: - Constitutional Appears: Well - Head Exam Head Exam: NORMAL INSPECTION, NORMOCEPHALIC - Eye Exam Eye Exam: EOMI, Normal appearance - ENT Exam ENT Exam: Mucous Membranes Moist, Normal Exam - Neck Exam Neck Exam: Normal Inspection - Respiratory Exam Respiratory Exam: Clear to Ausculation Bilateral, NORMAL BREATHING PATTERN - Cardiovascular Exam Cardiovascular Exam: REGULAR RHYTHM, +S1, +S2 - GI/Abdominal Exam GI & Abdominal Exam: Soft. absent: Tenderness - Extremities Exam Extremities Exam: Normal Inspection. absent: Calf Tenderness - Back Exam Back Exam: NORMAL INSPECTION - Neurological Exam Neurological Exam: Alert, Awake, Oriented x3 - Psychiatric Exam Psychiatric exam: Normal Affect, Normal Mood - Skin Skin Exam: Dry, Intact, Warm Assessment and Plan - Assessment and Plan (Free Text) Assessment: 53 y/o M with PMH CKD, IDDM, HTN, HLD admitted for hyperkalemia, CHF exacerbation, rhabdomyolysis in the setting of acute on chronic kidney failure Acute on chronic kidney failure - Patient s/p HD catheter placement (06/18) - PT currently in dialysis - Continue scheduled kayexalate - Continue NS@ 50mls/hr - Continue Sodium bicarbonate 650po tid - Consult nephrology, appreciate recs - Urine studies: electrolytes, 24hr creatinine, total protein, upep, - Hepatitis panel: lower lobe mass lesion on liver seen on renal ultrasound - B/l echogeneity seen on renal u/s - Vitamin D level, uric acid, - I&Os Rule-out CHF Exacerbation - Status-post cardiac cath - repeat troponin in am - BNP elevated - f/u echo Hyperkalemia, resolved - No EKG changes - Given: Calcium gluconate 1g - Continue kayexalate scheduled daily Anemia of chronic kidney disease - Consult GI for endoscopic workup - Abdominal U/S: confirmation of mass identified on recent renal ultrasound. Please see report for details. - Iron studies within normal limits - Type & Screen - Transfuse before dialysis Hx of HTN - Continue home labetalol - Continue home nifedipine Hx of IDDM - Sliding scale insulin - Hypoglycemic protocol - Accu-checks ACHS DVT ppx: SCD Patient seen and case discussed in detail with Dr. Girish Braon PGY1 <Jesse Stout - Last Filed: 06/19/18 15:33> Objective - Vital Signs/Intake and Output Vital Signs (last 24 hours): Temp Pulse Resp BP Pulse Ox 97.8 F 95 H 18 155/63 H 98 06/19/18 12:00 06/19/18 12:41 06/19/18 12:00 06/19/18 12:41 06/18/18 17:04 Intake and Output: 06/19/18 06/19/18 06:59 18:59 Intake Total 1140 Output Total 700 Balance 440 - Medications Medications: Current Medications Acetaminophen (Tylenol 325mg Tab) 650 mg PO Q4 PRN PRN Reason: Pain, Mild (1-3) Last Admin: 06/18/18 20:06 Dose: 650 mg Calcitriol (Rocaltrol) 0.5 mcg PO DAILY [facility] Last Admin: 06/19/18 12:40 Dose: 0.5 mcg Calcium Acetate (Phoslo) 667 mg PO WM [facility] Last Admin: 06/19/18 12:40 Dose: 667 mg Clonidine HCl (Catapres) 0.1 mg PO BID PRN PRN Reason: Systolic Blood Pressure Last Admin: 06/18/18 13:32 Dose: 0.1 mg Insulin Human Regular (Humulin R Med) 0 units SC [facility]; Protocol Last Admin: 06/19/18 12:42 Dose: Not Given Labetalol HCl (Trandate) 200 mg PO BID [facility] Last Admin: 06/19/18 12:41 Dose: 200 mg Nifedipine (Procardia Xl) 60 mg PO DAILY [facility] Last Admin: 06/19/18 12:42 Dose: 60 mg Ondansetron HCl (Zofran Inj) 4 mg IVP Q6H PRN PRN Reason: Nausea/Vomiting Sodium Bicarbonate (Sodium Bicarbonate Tab) 650 mg PO TID [facility] Last Admin: 06/19/18 14:39 Dose: Not Given Sodium Polystyrene Sulfonate (Kayexalate Susp) 15 gm PO DAILY [facility] Last Admin: 06/19/18 10:00 Dose: Not Given Vitamin D (Vitamin D 400 Intl Units Tab) 1,200 intlu PO DAILY [facility] Last Admin: 06/19/18 12:42 Dose: Not Given - Labs Labs: 06/19/18 07:00 06/19/18 07:00 PT 13.1 SECONDS (9.4-12.5) H 06/18/18 06:00 INR 1.14 06/18/18 06:00 APTT 29.5 Seconds (25.1-36.5) 06/17/18 16:34 Attending/Attestation - Attestation I have personally seen and examined this patient.: Yes I have fully participated in the care of the patient.: Yes I have reviewed all pertinent clinical information, including history, physical exam and plan: Yes Notes (Text): 06/19/18 15:22 Attending note; Patient seen and examined with the resident in dialysis unit. Patient is alert and awake. Denies any chest pain. Denies any fevers, chills, cough. Denies any urinary, bowel symptoms. Started on dialysis. Consent obtained for blood transfusion. Patient is a 53 year old male with PMHx of IDDM (diagnosed 30+ yrs ago), HTN (~3 yrs), HLD (~3yrs), CKD, chronic anemia [place] [facility] [place] of [place]ness of breath. 1. End-stage renal disease; patient with a history of chronic kidney disease mostly secondary to diabetes and hypertension. Did not follow-up with PMD or engagement liaison over year. Currently with end-stage renal disease. Started on hemodialysis today. Status post right permacath placement by IR yesterday. CKD work up in progress. 2. Hyperkalemia; resolved. Started on low potassium diet. Hypercalcemia and hyperphosphatemia due to renal insufficiency. started on PhosLo and bicarbonate. 3. Shortness of breath; Improved. Echocardiogram showed ejection fraction of 52%, moderate LVH and moderate MR. Cardiology evaluation appreciated. Outpatient stress test recommended. Patient also has mitral regurgitation needs close monitoring. 4. severe anemia; mostly secondary to Chronic kidney disease. No active bleeding noted. Hemoglobin is 7.0. 2 units PRBC transfusion ordered. Consent obtained. 5. Renal ultrasound showed medical renal disease. 6. Rhabdomyolysis; CPK is improving .secondary to recent fall. 7. Hypertension; continue Procardia and labetalol. ADRIANA inhibitor on hold secondary to hyperkalemia. 8. liver mass; ultrasound showed solitary solid mass. GI evaluation appreciated. Plan for endoscopy when stable. We'll follow up with IR for possible liver biopsy as outpatient. 9. Elevated d-dimer. VQ scan is low probability for PE. The diagnosis, treatment plan discussed with patient in detail. Patient will be referred to [facility] clinic upon discharge.
--- NOTE | 2018-06-19 14:34 | CON ---
DATE OF CONSULTATION: 06/19/2018 HISTORY OF PRESENT ILLNESS: I saw the patient this morning. He is a 53-year-old black male with past medical history of chronic kidney disease, diabetes, hypertension, and long-standing anemia. The patient was admitted with complaints of severe shortness of breath plus increasing abdominal distension. He apparently was aware of his worsening renal condition, but has not previously undergone dialysis. According to the notes, he underwent a previous colonoscopy, but does not recall when. I reviewed this issue and offered an endoscopic evaluation to the patient at bedside, which was denied. He denied any melena, hematochezia, or hematemesis. The patient denied any abdominal pain this morning. PHYSICAL EXAMINATION: VITAL SIGNS: Reviewed. HEENT: Significant for dry mouth. LUNGS: Decreased breath sounds and airflow bilaterally. HEART: Irregular rhythm. ABDOMEN: Soft, doughy, protuberant. He had no tenderness in the epigastric area or in any quadrant. LABORATORY DATA: I reviewed the patient's laboratory data with the nurse on the floor, which as of this morning consists of an H and H of 7 and 20, WBC is 7.8, platelet count 194,000. Retic count is 2.37. Chemistry was reviewed, which reveals CPK of 2710. Presented with a LDH elevated at 1264. Initial BNP of 9500. His creatinine has been in the range of 12. Hepatitis evaluation negative. JAMES and serum are consistent with acute phase reaction. The patient's abdominal ultrasound is significant for a patent portal vein. There is a mass in the right hepatic lobe, which is roughly 6 x 6 x 6 cm. Gallbladder is noncontributory as well as the bile duct. Studies consistent with a solitary solid mass in the right hepatic lobe. ASSESSMENT AND PLAN: This is a 53-year-old black male presented with congestive heart failure; renal failure, currently on dialysis, this is the first time; history of chronic anemia, which indicates is also present in the patient's daughter. He has a number of studies pending and will need endoscopic evaluation at some point. Considering the anemia, according to the nurses, he will be transfused sometime today. The patient is stable enough, I feel, to handle an upper endoscopy on Thursday. The patient will be followed up by house staff as well as Renal later on this morning. Will review issue of endoscopy with housestaff. Scenario more suggestive of renal etiology of anemia. Denis Saini DO, PhD MTDD
[2018-06-20] MEDS: Sod Polystyrene Sulf 15 gm/60 ml Susp PO SCH (05:27)
[2018-06-20 08:00] LABS: ALB/GLOB RATIO 0.9 (1.1-1.8); ALBUMIN 3.1 g/dL (3.0-4.8); CALCIUM 6.4 mg/dL (8.4-10.5)
[2018-06-20 08:08] LABS: BASO # 0.01 K/mm3 (0.0-2.0); BASO % 0.1 % (0.0-3.0); EOS # 0.2 (0.0-0.7); GRAN # 5.76 (1.4-6.5); HEMOGLOBIN 8.1 g/dL (14.0-18.0); LYMPH # 1.2 (1.2-3.4); LYMPH % 15.1 % (22.0-35.0); MEAN CELL VOLUME 85.7 fl (80.0-105.0); MEAN CORPUSCULAR HEMOGLOBIN 29.7 pg (25.0-35.0); MEAN CORPUSCULAR HGB CONC 34.6 g/dl (31.0-37.0); MEAN PLATELET VOLUME 11.7 fl (7.0-11.0); MONO # 0.8 (0.1-0.6); MONO % 9.8 % (1.0-6.0); RBC 2.73 10^6/uL (3.5-6.1)
--- NOTE | 2018-06-20 08:15 | CP.PCM.PN ---
<Thompson Baldwin - Last Filed: 06/20/18 19:15> Subjective - Date & Time of Evaluation Date of Evaluation: 06/20/18 Time of Evaluation: 07:30 - Subjective Subjective: Progress Note for Dr. Reese Service Patient seen and examined at bedside. S/p HD for acute renal failure yesterday, also transfused 1 unit pRBCs during HD for anemia with appropriate response. Patient reports feeling well today. No acute complaints at time of exam. No acute events reported overnight. Objective - Vital Signs/Intake and Output Vital Signs (last 24 hours): Temp Pulse Resp BP Pulse Ox 98.4 F 81 20 145/77 97 06/20/18 06:00 06/20/18 06:00 06/20/18 06:00 06/20/18 06:00 06/20/18 06:00 Intake and Output: 06/20/18 06/20/18 06:59 18:59 Intake Total 640 Balance 640 - Medications Medications: Current Medications Acetaminophen (Tylenol 325mg Tab) 650 mg PO Q4 PRN PRN Reason: Pain, Mild (1-3) Last Admin: 06/18/18 20:06 Dose: 650 mg Calcitriol (Rocaltrol) 0.5 mcg PO DAILY [facility] Last Admin: 06/19/18 12:40 Dose: 0.5 mcg Calcium Acetate (Phoslo) 667 mg PO WM [facility] Last Admin: 06/19/18 17:25 Dose: 667 mg Clonidine HCl (Catapres) 0.1 mg PO BID PRN PRN Reason: Systolic Blood Pressure Last Admin: 06/18/18 13:32 Dose: 0.1 mg Insulin Human Regular (Humulin R Med) 0 units SC [facility]; Protocol Last Admin: 06/19/18 21:49 Dose: Not Given Labetalol HCl (Trandate) 200 mg PO BID [facility] Last Admin: 06/19/18 17:25 Dose: 200 mg Nifedipine (Procardia Xl) 60 mg PO DAILY [facility] Last Admin: 06/19/18 12:42 Dose: 60 mg Ondansetron HCl (Zofran Inj) 4 mg IVP Q6H PRN PRN Reason: Nausea/Vomiting Sodium Bicarbonate (Sodium Bicarbonate Tab) 650 mg PO TID [facility] Last Admin: 06/19/18 17:25 Dose: 650 mg Sodium Polystyrene Sulfonate (Kayexalate Susp) 15 gm PO DAILY [facility] Last Admin: 06/20/18 05:27 Dose: 15 gm Vitamin D (Vitamin D 400 Intl Units Tab) 1,200 intlu PO DAILY [facility] Last Admin: 06/19/18 12:42 Dose: Not Given - Labs Labs: 06/20/18 07:00 06/20/18 07:00 PT 13.1 SECONDS (9.4-12.5) H 06/18/18 06:00 INR 1.14 06/18/18 06:00 APTT 29.5 Seconds (25.1-36.5) 06/17/18 16:34 - Additional Findings Additional findings: - Constitutional Appears: No Acute Distress, Less Ill-appearing - Head Exam Head Exam: ATRAUMATIC, NORMAL INSPECTION - Eye Exam Eye Exam: EOMI, Normal appearance, No scleral icterus or conjunctival injection - ENT Exam ENT Exam: Mucous Membranes Moist, Normal Exam - Neck Exam Neck exam: Normal ROM, no Lymphadenopathy - Respiratory Exam Respiratory Exam: Clear to auscultation bilaterally, NORMAL BREATHING PATTERN, No respiratory distress - Cardiovascular Exam Cardiovascular Exam: REGULAR RHYTHM, +S1, +S2 - GI/Abdominal Exam GI & Abdominal Exam: Soft but still Distended, Normal Bowel Sounds, No tenderness to palpation - Extremities Exam Extremities exam: Positive for: +1 pitting edema in bilateral LE from feet to mid-shins. 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 Nephro was consulted for possible HD as patient was found to have Cr of 12.9, extensive electrolyte abnormalities, and distended abdomen. S/p HD and 1 unit pRBC transfusion with appropriate response. Plan: Acute renal failure overlying CKD - s/p HD -Cr improved but remains elevated -etiology unclear, likely Rhabdo component; CK improving -Due to elevated protein in urine, will start low dose lisinopril for reduction of proteinuria -Careful repletion of low electrolytes in setting of ARF to avoid toxic accumulation -Renal US obtained, bilateral echogenic kidneys suggestive of medical renal dise ase, no hydronephrosis, incidentally noted right liver lobe lesions -Has Tunnel cath placed by IR, Vascular Surgery consulted to eval patient for eventual AV fistula graft Anemia -Improved from 7 to 8.1 s/p 1 unit pRBCs, appropriate response, continue to monitor, no indication for further transfusion at this time Reviewed and discussed with attending, Dr. Reese <Parish Reese S - Last Filed: 06/20/18 19:33> Subjective - Subjective Subjective: Pt seen and examined. I have reviewed the note of the medical recruiter and agree with it. I have reviewed the meds and labs of the pt. I have discussed the assessment and plan with the resident. Pt feels much better. He has ESRD and is a new start for HD. He will need a dialysis spot to continue HD. I did inform case management on Thursday. His Ca is improving. His next HD is on Thursday. Objective - Vital Signs/Intake and Output Vital Signs (last 24 hours): Temp Pulse Resp BP Pulse Ox 98.5 F 84 20 124/65 100 06/20/18 17:51 06/20/18 18:52 06/20/18 17:51 06/20/18 18:52 06/20/18 17:51 Intake and Output: 06/20/18 06/21/18 18:59 06:59 Intake Total 1260 Output Total 1550 Balance -290 - Medications Medications: Current Medications Acetaminophen (Tylenol 325mg Tab) 650 mg PO Q4 PRN PRN Reason: Pain, Mild (1-3) Last Admin: 06/18/18 20:06 Dose: 650 mg Calcitriol (Rocaltrol) 0.5 mcg PO DAILY [facility] Last Admin: 06/20/18 12:13 Dose: 0.5 mcg Calcium Acetate (Phoslo) 667 mg PO WM [facility] Last Admin: 06/20/18 18:52 Dose: 667 mg Clonidine HCl (Catapres) 0.1 mg PO BID PRN PRN Reason: Systolic Blood Pressure Last Admin: 06/18/18 13:32 Dose: 0.1 mg Insulin Human Regular (Humulin R Med) [address] [facility]; Protocol Last Admin: 06/20/18 18:52 Dose: 1 units Labetalol HCl (Trandate) 200 mg PO BID [facility] Last Admin: 06/20/18 18:52 Dose: 200 mg Lisinopril (Zestril) 10 mg PO DAILY [facility] Last Admin: 06/20/18 12:13 Dose: 10 mg Ondansetron HCl (Zofran Inj) 4 mg IVP Q6H PRN PRN Reason: Nausea/Vomiting Sodium Bicarbonate (Sodium Bicarbonate Tab) 650 mg PO TID [facility] Last Admin: 06/20/18 18:52 Dose: 650 mg Sodium Polystyrene Sulfonate (Kayexalate Susp) 15 gm PO DAILY [facility] Last Admin: 06/20/18 05:27 Dose: 15 gm Vitamin D (Vitamin D 400 Intl Units Tab) 1,200 intlu PO DAILY [facility] Last Admin: 06/20/18 13:09 Dose: Not Given - Labs Labs: 06/20/18 07:00 06/20/18 07:00 PT 13.1 SECONDS (9.4-12.5) H 06/18/18 06:00 INR 1.14 06/18/18 06:00 APTT 29.5 Seconds (25.1-36.5) 06/17/18 16:34
[2018-06-20] MEDS: Insulin Reg-MEDIUM-Coverage SC SCH ×4 (08:29→22:22)
[2018-06-20 09:08] LABS: PH,URINE 6.5 (4.7-8.0); URINE BILIRUBIN NEGATIVE (NEGATIVE); URINE BLOOD MODERATE (NEGATIVE); URINE GLUCOSE (UA) 100 mg/dL (NEGATIVE); URINE LEUKOCYTE ESTERASE MODERATE Leu/uL (NEGATIVE); URINE PROTEIN >=300 mg/dL (<30 mg/dL); URINE UROBILINOGEN 0.2 E.U./dL (<1 E.U./dL)
[2018-06-20 09:13] LABS: URINE APPEARANCE CLEAR (CLEAR)
[2018-06-20 09:20] LABS: URINE RBC 20 - 25 /hpf (0-2)
[2018-06-20 09:22] LABS: URINE WBC 25 - 30 /hpf (0-6)
--- NOTE | 2018-06-20 11:05 | PN ---
DATE: 06/20/2018 SUBJECTIVE: I saw Mr. Mari this morning. He is a 53-year-old black male with increasing dyspnea on exertion and anemia. The patient underwent hemodialysis yesterday with good results. The patient indicated decreasing abdominal distention. No abdominal pain. Decreased shortness of breath. Also, his appetite is improved relative to the day of admission. There has not been any nausea or vomiting or hematemesis or active bleeding noted. Note that I reviewed this case with the house staff yesterday. PHYSICAL EXAMINATION: VITAL SIGNS: I reviewed this patient's vital signs. HEENT: Significant for dry mouth. LUNGS: Decreased breath sounds, quarter way up bilaterally at the bases, otherwise clear. HEART: Irregular rhythm. ABDOMEN: Softer. No tenderness elicited in any quadrant. LABORATORY DATA: Pending from this morning. An updated last H and H as of yesterday morning was 02/06, apparently this is before transfusion and dialysis. He has significant number of labs pending. This includes c-ANCA, p-ANCA titers, etc. Note that the last creatine kinase was 2318, so his LDH was 994. No followup BNP noted in chart. His creatinine as of yesterday was still in the range of 12. ASSESSMENT AND PLAN: This is a 53-year-old black male with shortness of breath, dyspnea on exertion, and anemia. Again, as indicated previously, his last hemoglobin and hematocrit in [facility] is 7/20.6. Repeat blood work pending from this morning after transfusion. I believe he will receive at least more unit of blood. Dialysis disposition is up to the Renal consultants. The patient did not know if he was going to dialysis today. I reviewed this patient's anemia with the house staff yesterday. I think based on his current clinical scenario and the fact that his retic count is inappropriate well for the degree of anemia, I believe the etiology is most likely anemia of chronic disease based on renal factors. At this particular time point, I am not sure if it will be productive to schedule this patient for an endoscopy. Will discuss above with the house staff. Denis Saini DO, PhD [facility] # [id number] MTDD
--- NOTE | 2018-06-20 11:09 | CP.PCM.CON ---
<Donna Engel - Last Filed: 06/20/18 13:20> History of Present Illness - History of Present Illness History of Present Illness: Vascular surgery consult note for Dr. Wagner Consulted for: AV fistula planning Pt is a 53 y/o, right hand dominant M with PMH of DM, HTN, CKD, HLD who prese nted for SOB for 3 days, and was found to have severe elevations in BUN and Creatinine and electrolyte abnormalities. Concern for possible rhabdomyolysis picture based on laboratory studies, patient admits to history of recent fall from trailer. Permacath was inserted by IR 2 days ago and HD began. Vascular surgery consult for AVF planning. Patient states that he does not have any SOB at this time, denies any numbness or tingling or weakness in his upper extremities, no history of fractures or prolonged catheterization of either arm, chest pain, fevers, chills, or any other problems. Patient family history positive for father [place] in 50's and mother having CABG in 60's. PMH DM, HTN, CKD, HLD PSH: nose fracture repair ALL: NKDA Soc: 1PPD 10 years quit 20 years ago, 3 beers/weekend, Marijuana in college, no other drugs Review of Systems - Review of Systems All systems: reviewed and no additional remarkable complaints except (as per HPI) Past Patient History - Infectious Disease Hx of Infectious Diseases: None - Past Medical History & Family History Past Medical History?: Yes Pertinent Family History: father [place], mother CABG - Past Social History Smoking Status: Former Smoker Alcohol: Occasional Drugs: Denies - CARDIAC Hx Cardiac Disorders: Yes Hx Hypertension: Yes - PULMONARY Hx Respiratory Disorders: No - NEUROLOGICAL Hx Neurological Disorder: No - HEENT Hx HEENT Problems: No - RENAL Hx Chronic Kidney Disease: No - ENDOCRINE/METABOLIC Hx Diabetes Mellitus Type 1: Yes - HEMATOLOGICAL/ONCOLOGICAL Hx Blood Disorders: No - INTEGUMENTARY Hx Dermatological Problems: No - MUSCULOSKELETAL/RHEUMATOLOGICAL Hx Musculoskeletal Disorders: No - GASTROINTESTINAL Hx Gastrointestinal Disorders: No - GENITOURINARY/GYNECOLOGICAL Hx Genitourinary Disorders: No - PSYCHIATRIC Hx Psychophysiologic Disorder: No Hx Substance Use: No - SURGICAL HISTORY Hx Surgeries: No - ANESTHESIA Hx Anesthesia: No Meds Allergies/Adverse Reactions: Allergies Allergy/AdvReac Type Severity Reaction Status Date / Time No Known Allergies Allergy Verified 01/15/18 18:35 - Medications Medications: Current Medications Acetaminophen (Tylenol 325mg Tab) 650 mg PO Q4 PRN PRN Reason: Pain, Mild (1-3) Last Admin: 06/18/18 20:06 Dose: 650 mg Calcitriol (Rocaltrol) 0.5 mcg PO DAILY [facility] Last Admin: 06/19/18 12:40 Dose: 0.5 mcg Calcium Acetate (Phoslo) 667 mg PO WM [facility] Last Admin: 06/20/18 09:05 Dose: 667 mg Clonidine HCl (Catapres) 0.1 mg PO BID PRN PRN Reason: Systolic Blood Pressure Last Admin: 06/18/18 13:32 Dose: 0.1 mg Insulin Human Regular (Humulin R Med) 0 units SC [facility]; Protocol Last Admin: 06/20/18 08:29 Dose: Not Given Labetalol HCl (Trandate) 200 mg PO BID [facility] Last Admin: 06/19/18 17:25 Dose: 200 mg Lisinopril (Zestril) 10 mg PO DAILY [facility] Ondansetron HCl (Zofran Inj) 4 mg IVP Q6H PRN PRN Reason: Nausea/Vomiting Sodium Bicarbonate (Sodium Bicarbonate Tab) 650 mg PO TID [facility] Last Admin: 06/19/18 17:25 Dose: 650 mg Sodium Polystyrene Sulfonate (Kayexalate Susp) 15 gm PO DAILY [facility] Last Admin: 06/20/18 05:27 Dose: 15 gm Vitamin D (Vitamin D 400 Intl Units Tab) 1,200 intlu PO DAILY [facility] Last Admin: 06/19/18 12:42 Dose: Not Given Physical Exam - Constitutional Appears: Well, Non-toxic, No Acute Distress - Head Exam Head Exam: ATRAUMATIC, NORMOCEPHALIC - Eye Exam Eye Exam: Normal appearance. absent: Conjunctival injection, Scleral icterus - ENT Exam ENT Exam: Mucous Membranes Moist, Normal Oropharynx - Respiratory Exam Respiratory Exam: NORMAL BREATHING PATTERN. absent: Accessory Muscle Use, Respiratory Distress - Cardiovascular Exam Cardiovascular Exam: RRR - GI/Abdominal Exam GI & Abdominal Exam: Soft. absent: Distended, Tenderness - Extremities Exam Extremities exam: Positive for: pedal pulses present. Negative for: calf tenderness, pedal edema Additional comments: BL UE muscle strength 5/5, normal color, warm, BL 2/3 palpable radial and ulnar pulses - Neurological Exam Neurological exam: Alert, Oriented x3 - Psychiatric Exam Psychiatric exam: Normal Affect, Normal Mood - Skin Skin Exam: Dry, Normal Color, Warm Results - Vital Signs Recent Vital Signs: Last Vital Signs Temp 98.4 F 06/20/18 06:00 Pulse 81 06/20/18 06:00 Resp 20 06/20/18 06:00 BP 145/77 06/20/18 06:00 Pulse Ox 97 06/20/18 06:00 - Labs Result Diagrams: 06/20/18 07:00 06/20/18 07:00 Labs: Laboratory Results - last 24 hr 06/17/18 06/18/18 06/18/18 11:35 06:00 06:00 WBC RBC Hgb Hct MCV MCH MCHC RDW Plt Count MPV Gran % Lymph % (Auto) Isabella % (Auto) Eos % (Auto) Baso % (Auto) Gran # Lymph # (Auto) Isabella # (Auto) Eos # (Auto) Baso # (Auto) Hemoglobinopathy Red Blood Count 2.31 L Hemoglobinopathy Hct 21.3 L Hemoglobinopathy Hgb 7.0 L Hemoglobinopathy MCV 91.9 Hemoglobinopathy MCH 30.1 Hemoglobinopathy RDW 13.1 Sodium Potassium Chloride Carbon Dioxide Anion Gap BUN Creatinine Est GFR ( Amer) Est GFR (Non-Af Amer) POC Glucose (mg/dL) Random Glucose Calcium Total Bilirubin AST ALT Alkaline Phosphatase Total Protein Albumin Globulin Albumin/Globulin Ratio Triglycerides Cholesterol LDL Cholesterol Direct HDL Cholesterol Urine Color Urine Appearance Urine pH Ur Specific [place] Urine Protein Urine Glucose (UA) Urine Ketones Urine Blood Urine Nitrate Urine Bilirubin Urine Urobilinogen Ur Leukocyte Esterase Urine RBC Urine WBC Ur Epithelial Cells Urine Eosinophils Urine Collection Time Urine Total Volume Ur Creatinine 24 Hour Ur Protein 24 Hr Calc SS-A Antibody <1.0 SS-B Ab Interp Negative SS-B Antibody <1.0 Blood Type B POSITIVE Antibody Screen Negative Crossmatch See Detail BBK History Checked No verified bt 06/19/18 06/19/18 06/19/18 11:51 16:10 20:30 WBC RBC Hgb Hct MCV MCH MCHC RDW Plt Count MPV Gran % Lymph % (Auto) Isabella % (Auto) Eos % (Auto) Baso % (Auto) Gran # Lymph # (Auto) Isabella # (Auto) Eos # (Auto) Baso # (Auto) Hemoglobinopathy Red Blood Count Hemoglobinopathy Hct Hemoglobinopathy Hgb Hemoglobinopathy MCV Hemoglobinopathy MCH Hemoglobinopathy RDW Sodium Potassium Chloride Carbon Dioxide Anion Gap BUN Creatinine Est GFR ( Amer) Est GFR (Non-Af Amer) POC Glucose (mg/dL) 139 H 200 H Random Glucose Calcium Total Bilirubin AST ALT Alkaline Phosphatase Total Protein Albumin Globulin Albumin/Globulin Ratio Triglycerides Cholesterol LDL Cholesterol Direct HDL Cholesterol Urine Color Urine Appearance Urine pH Ur Specific [place] Urine Protein Urine Glucose (UA) Urine Ketones Urine Blood Urine Nitrate Urine Bilirubin Urine Urobilinogen Ur Leukocyte Esterase Urine RBC Urine WBC Ur Epithelial Cells Urine Eosinophils Urine Collection Time 24 Urine Total Volume 1700 H Ur Creatinine 24 Hour 1071.0 Ur Protein 24 Hr Calc 13550 H SS-A Antibody SS-B Ab Interp SS-B Antibody Blood Type Antibody Screen Crossmatch BBK History Checked 06/19/18 06/20/18 06/20/18 21:48 07:00 07:00 WBC 8.0 RBC 2.73 L Hgb 8.1 L Hct 23.4 L MCV 85.7 D MCH 29.7 MCHC 34.6 RDW 13.0 Plt Count 177 MPV 11.7 H Gran % 72.0 H Lymph % (Auto) 15.1 L Isabella % (Auto) 9.8 H Eos % (Auto) 3.0 Baso % (Auto) 0.1 Gran # 5.76 Lymph # (Auto) 1.2 Isabella # (Auto) 0.8 H Eos # (Auto) 0.2 Baso # (Auto) 0.01 Hemoglobinopathy Red Blood Count Hemoglobinopathy Hct Hemoglobinopathy Hgb Hemoglobinopathy MCV Hemoglobinopathy MCH Hemoglobinopathy RDW Sodium 136 Potassium 4.1 Chloride 100 Carbon Dioxide 27 Anion Gap 13 BUN 54 H Creatinine 9.3 H* D Est GFR ( Amer) 7 Est GFR (Non-Af Amer) 6 POC Glucose (mg/dL) 159 H Random Glucose 127 H Calcium 6.4 L* Total Bilirubin 0.6 AST 33 ALT 30 Alkaline Phosphatase 116 Total Protein 6.4 Albumin 3.1 Globulin 3.3 Albumin/Globulin Ratio 0.9 L Triglycerides 87 Cholesterol 132 LDL Cholesterol Direct 67 HDL Cholesterol 37 Urine Color Urine Appearance Urine pH Ur Specific [place] Urine Protein Urine Glucose (UA) Urine Ketones Urine Blood Urine Nitrate Urine Bilirubin Urine Urobilinogen Ur Leukocyte Esterase Urine RBC Urine WBC Ur Epithelial Cells Urine Eosinophils Urine Collection Time Urine Total Volume Ur Creatinine 24 Hour Ur Protein 24 Hr Calc SS-A Antibody SS-B Ab Interp SS-B Antibody Blood Type Antibody Screen Crossmatch BBK History Checked 06/20/18 06/20/18 06/20/18 07:22 08:50 09:00 WBC RBC Hgb Hct MCV MCH MCHC RDW Plt Count MPV Gran % Lymph % (Auto) Isabella % (Auto) Eos % (Auto) Baso % (Auto) Gran # Lymph # (Auto) Isabella # (Auto) Eos # (Auto) Baso # (Auto) Hemoglobinopathy Red Blood Count Hemoglobinopathy Hct Hemoglobinopathy Hgb Hemoglobinopathy MCV Hemoglobinopathy MCH Hemoglobinopathy RDW Sodium Potassium Chloride Carbon Dioxide Anion Gap BUN Creatinine Est GFR ( Amer) Est GFR (Non-Af Amer) POC Glucose (mg/dL) 130 H Random Glucose Calcium Total Bilirubin AST ALT Alkaline Phosphatase Total Protein Albumin Globulin Albumin/Globulin Ratio Triglycerides Cholesterol LDL Cholesterol Direct HDL Cholesterol Urine Color yellow Urine Appearance Clear Urine pH 6.5 Ur Specific [place] 1.015 Urine Protein >=300 H Urine Glucose (UA) 100 H Urine Ketones Negative Urine Blood Moderate H Urine Nitrate Negative Urine Bilirubin Negative Urine Urobilinogen 0.2 Ur Leukocyte Esterase Moderate H Urine RBC 20 - 25 Urine WBC 25 - 30 Ur Epithelial Cells 3 - 4 Urine Eosinophils Negative Urine Collection Time Urine Total Volume Ur Creatinine 24 Hour Ur Protein 24 Hr Calc SS-A Antibody SS-B Ab Interp SS-B Antibody Blood Type Antibody Screen Crossmatch BBK History Checked Assessment & Plan - Assessment and Plan (Free Text) Assessment: 53M with CKD now need HD access Plan: F/U vein mapping Patient may follow up with Dr. Wagner as an outpatient for AV fistula planning Patient should continue to follow up with cardiology for cardiac evaluation and optimization prior to any OR Left UE limb alert Medical management per primary Discussed with Dr. Bernard Engel, PGY2 <Michele Wagner - Last Filed: 06/29/18 08:03> Results - Vital Signs Recent Vital Signs: Last Vital Signs Temp 98.3 F 06/23/18 14:00 Pulse 76 06/23/18 14:00 Resp 18 06/23/18 14:00 BP 147/76 06/23/18 14:00 Pulse Ox 100 06/23/18 14:00 - Labs Result Diagrams: 06/23/18 07:00 06/23/18 06:30 Assessment & Plan - Assessment and Plan (Free Text) Plan: Patient was seen, examined and evaluated by me. I agree with resident's assessment and plan.
--- NOTE | 2018-06-20 11:48 | CP.PCM.PN ---
<Celestine Baron - Last Filed: 06/20/18 11:45> Subjective - Date & Time of Evaluation Date of Evaluation: 06/20/18 Time of Evaluation: 11:45 - Subjective Subjective: PGY1 Progress Note for Dr. Stout Patient seen and examined at bedside this morning. No acute nursing events overnight. Patient s/p dialysis cath placement 06/18. Patient is status-post dialysis and for PRBC transfusion 06/19/2018, Patient tolerated well. 12 Point ROS is otherwise unremarkable. Objective - Vital Signs/Intake and Output Vital Signs (last 24 hours): Temp Pulse Resp BP Pulse Ox 98.4 F 81 20 145/77 97 06/20/18 06:00 06/20/18 06:00 06/20/18 06:00 06/20/18 06:00 06/20/18 06:00 Intake and Output: 06/20/18 06/20/18 06:59 18:59 Intake Total 640 Balance 640 - Medications Medications: Current Medications Acetaminophen (Tylenol 325mg Tab) 650 mg PO Q4 PRN PRN Reason: Pain, Mild (1-3) Last Admin: 06/18/18 20:06 Dose: 650 mg Calcitriol (Rocaltrol) 0.5 mcg PO DAILY [facility] Last Admin: 06/19/18 12:40 Dose: 0.5 mcg Calcium Acetate (Phoslo) 667 mg PO WM [facility] Last Admin: 06/20/18 09:05 Dose: 667 mg Clonidine HCl (Catapres) 0.1 mg PO BID PRN PRN Reason: Systolic Blood Pressure Last Admin: 06/18/18 13:32 Dose: 0.1 mg Insulin Human Regular (Humulin R Med) 0 units SC [facility]; Protocol Last Admin: 06/20/18 08:29 Dose: Not Given Labetalol HCl (Trandate) 200 mg PO BID [facility] Last Admin: 06/19/18 17:25 Dose: 200 mg Lisinopril (Zestril) 10 mg PO DAILY [facility] Ondansetron HCl (Zofran Inj) 4 mg IVP Q6H PRN PRN Reason: Nausea/Vomiting Sodium Bicarbonate (Sodium Bicarbonate Tab) 650 mg PO TID [facility] Last Admin: 06/19/18 17:25 Dose: 650 mg Sodium Polystyrene Sulfonate (Kayexalate Susp) 15 gm PO DAILY [facility] Last Admin: 06/20/18 05:27 Dose: 15 gm Vitamin D (Vitamin D 400 Intl Units Tab) 1,200 intlu PO DAILY [facility] Last Admin: 06/19/18 12:42 Dose: Not Given - Labs Labs: 06/20/18 07:00 06/20/18 07:00 PT 13.1 SECONDS (9.4-12.5) H 06/18/18 06:00 INR 1.14 06/18/18 06:00 APTT 29.5 Seconds (25.1-36.5) 06/17/18 16:34 - Additional Findings Additional findings: - Constitutional Appears: Well - Head Exam Head Exam: NORMAL INSPECTION, NORMOCEPHALIC - Eye Exam Eye Exam: EOMI, Normal appearance - ENT Exam ENT Exam: Mucous Membranes Moist, Normal Exam - Neck Exam Neck Exam: Normal Inspection - Respiratory Exam Respiratory Exam: Clear to Ausculation Bilateral, NORMAL BREATHING PATTERN - Cardiovascular Exam Cardiovascular Exam: REGULAR RHYTHM, +S1, +S2 - GI/Abdominal Exam GI & Abdominal Exam: Soft. absent: Tenderness - Extremities Exam Extremities Exam: Normal Inspection. absent: Calf Tenderness - Back Exam Back Exam: NORMAL INSPECTION - Neurological Exam Neurological Exam: Alert, Awake, Oriented x3 - Psychiatric Exam Psychiatric exam: Normal Affect, Normal Mood - Skin Skin Exam: Dry, Intact, Warm Assessment and Plan - Assessment and Plan (Free Text) Assessment: 53 y/o M with PMH CKD, IDDM, HTN, HLD admitted for hyperkalemia, CHF exacerbation, rhabdomyolysis in the setting of acute on chronic kidney failure. Patient s/p HD catheter placement (06/18). Patient status-post dialysis and transfusion. Pending out-patient dialysis arrangement. Acute on chronic kidney failure - Patient s/p HD catheter placement (06/18) - PT tolerated dialysis without issue - Continue scheduled kayexalate - Continue NS@ 50mls/hr - Continue Sodium bicarbonate 650po tid - Consult nephrology, appreciate recs - Urine studies: electrolytes, 24hr creatinine, total protein, upep, - Hepatitis panel: lower lobe mass lesion on liver seen on renal ultrasound - B/l echogeneity seen on renal u/s - Vitamin D level, uric acid, - I&Os Rule-out CHF Exacerbation - Status-post cardiac cath - BNP elevated - f/u echo Hyperkalemia, resolved - No EKG changes - Given: Calcium gluconate 1g - Continue kayexalate scheduled daily Anemia of chronic kidney disease - Consult GI for endoscopic workup - Abdominal U/S: confirmation of mass identified on recent renal ultrasound. Please see report for details. - Iron studies within normal limits - Type & Screen - On dialysis now, transfuse as needed Hx of HTN - Continue home labetalol - Continue home nifedipine Hx of IDDM - Sliding scale insulin - Hypoglycemic protocol - Accu-checks ACHS DVT ppx: SCD Patient seen and case discussed in detail with Dr. Girish Baron PGY1 <Jesse Stout - Last Filed: 06/20/18 16:05> Objective - Vital Signs/Intake and Output Vital Signs (last 24 hours): Temp Pulse Resp BP Pulse Ox 98.1 F 77 20 154/78 H 97 06/20/18 12:00 06/20/18 14:00 06/20/18 12:00 06/20/18 12:13 06/20/18 06:00 Intake and Output: 06/20/18 06/20/18 06:59 18:59 Intake Total 640 Balance 640 - Medications Medications: Current Medications Acetaminophen (Tylenol 325mg Tab) 650 mg PO Q4 PRN PRN Reason: Pain, Mild (1-3) Last Admin: 06/18/18 20:06 Dose: 650 mg Calcitriol (Rocaltrol) 0.5 mcg PO DAILY [facility] Last Admin: 06/20/18 12:13 Dose: 0.5 mcg Calcium Acetate (Phoslo) 667 mg PO WM [facility] Last Admin: 06/20/18 12:13 Dose: 667 mg Clonidine HCl (Catapres) 0.1 mg PO BID PRN PRN Reason: Systolic Blood Pressure Last Admin: 06/18/18 13:32 Dose: 0.1 mg Insulin Human Regular (Humulin R Med) 0 units SC [facility]; Protocol Last Admin: 06/20/18 12:13 Dose: 1 units Labetalol HCl (Trandate) 200 mg PO BID [facility] Last Admin: 06/20/18 12:12 Dose: 200 mg Lisinopril (Zestril) 10 mg PO DAILY [facility] Last Admin: 06/20/18 12:13 Dose: 10 mg Ondansetron HCl (Zofran Inj) 4 mg IVP Q6H PRN PRN Reason: Nausea/Vomiting Sodium Bicarbonate (Sodium Bicarbonate Tab) 650 mg PO TID [facility] Last Admin: 06/20/18 15:47 Dose: 650 mg Sodium Polystyrene Sulfonate (Kayexalate Susp) 15 gm PO DAILY [facility] Last Admin: 06/20/18 05:27 Dose: 15 gm Vitamin D (Vitamin D 400 Intl Units Tab) 1,200 intlu PO DAILY [facility] Last Admin: 06/20/18 13:09 Dose: Not Given - Labs Labs: 06/20/18 07:00 06/20/18 07:00 PT 13.1 SECONDS (9.4-12.5) H 06/18/18 06:00 INR 1.14 06/18/18 06:00 APTT 29.5 Seconds (25.1-36.5) 06/17/18 16:34 Attending/Attestation - Attestation I have personally seen and examined this patient.: Yes I have fully participated in the care of the patient.: Yes I have reviewed all pertinent clinical information, including history, physical exam and plan: Yes Notes (Text): 06/20/18 16:02 Attending note; Patient seen and examined with the resident. Patient is alert and awake. Denies any chest pain. Denies any fevers, chills, cough. Denies any urinary, bowel symptoms. Had hemodialysis yesterday. Tolerated well. Patient is a 53 year old male with PMHx of IDDM (diagnosed 30+ yrs ago), HTN (~3 yrs), HLD (~3yrs), CKD, chronic anemia presents to [facility] with complaints of shortness of breath. 1. End-stage renal disease; patient with a history of chronic kidney disease mostly secondary to diabetes and hypertension. Status post dialysis yesterday via right permacath placement . Tolerated procedure well. 2. Hyperkalemia; resolved. Started on low potassium diet. Hypercalcemia and hyperphosphatemia due to renal insufficiency. started on PhosLo and bicarbonate. 3. Shortness of breath; Improved. Echocardiogram showed ejection fraction of 52%, moderate LVH and moderate MR. Cardiology evaluation appreciated. Outpatient stress test recommended. Patient also has mitral regurgitation needs close monitoring. 4. severe anemia; mostly secondary to Chronic kidney disease. No active bleeding noted. Hemoglobin is 8.1 after 1 unit PRBC transfusion yesterday. 5. Renal ultrasound showed medical renal disease. 6. Rhabdomyolysis; CPK is improving .secondary to recent fall. 7. Hypertension; continue Procardia and labetalol. 8. liver mass; ultrasound showed solitary solid mass. GI evaluation appreciate d. Patient endoscopy recommended. We'll follow up with IR for possible liver biopsy as outpatient. 9. Elevated d-dimer. VQ scan is low probability for PE. Pending outpatient hemodialysis unit arrangements. we will Discuss with cyanide case hardener and psychologist social tomorrow. The diagnosis, treatment plan discussed with patient in detail. Patient will be referred to [facility] clinic upon discharge. The patient has out of state Medicaid. 06/20/18 16:03
[2018-06-20] MEDS: Cholecalciferol 400 Intl Units Tab PO SCH ×2 (12:15→13:09)
--- NOTE | 2018-06-20 16:51 | PN ---
DATE: 06/20/2018 SUBJECTIVE: The patient is seen sitting in his chair on Telemetry. He is currently comfortable during dialysis yesterday and feels a lot better. His dyspnea is improved and he also received two units of packed cells with dialysis. His hemoglobin this morning is 8.1. CURRENT MEDICATIONS: Include Catapres, Kayexalate, PhosLo, Rocaltrol, sodium bicarbonate, labetalol 200 mg b.i.d., and Zestril 10 mg daily. OBJECTIVE: GENERAL: He is a middle-aged male, appears comfortable at the present time. KEYA SIGNS: His blood pressure is 146/76 with pulse of 80 and respirations are 14. He is afebrile. HEENT: No JVD. CHEST: Bilateral scattered rhonchi. HEART: PMI displaced laterally with soft systolic murmur at the apex. ABDOMEN: Soft and nontender with normoactive bowel sounds. EXTREMITIES: No edema. DIAGNOSTIC DATA: Potassium 4.1, BUN and creatinine 54 and 9.3, glucose 127, white count 8, hemoglobin and hematocrit 8.1 and 23.4 with platelet count 177,000. A 24-hour urine culture have revealed 18 g of protein. IMPRESSION: 1. Acute on chronic renal insufficiency with evidence of nephrotic syndrome. 2. Recent dyspnea due to severe anemia and renal failure as well as volume overload, chronically improved. 3. Moderate mitral regurgitation. 4. Hypertension and diabetes. RECOMMENDATIONS: Current management should be continued for now. After one to two weeks of dialysis, an echocardiogram can be obtained to reassess his mitral regurgitation once his volume status has improved. This may be less severe after correction of his volume overload state. Continue the beta-racquel therapy for hypertensive heart disease as advised and eventual outpatient stress test would be recommended given his cardiac risk factors. We will continue to follow and make further recommendations as appropriate. Vladimir Perdue MD
[2018-06-21 02:48] LABS: FREE KAPPA SERUM 173.4 mg/L (3.3-19.4)
[2018-06-21 06:47] LABS: HEMOGLOBIN 7.5 g/dL (14.0-18.0); MEAN CELL VOLUME 85.9 fl (80.0-105.0); MEAN CORPUSCULAR HEMOGLOBIN 30.1 pg (25.0-35.0); MEAN PLATELET VOLUME 11.5 fl (7.0-11.0); RBC 2.49 10^6/uL (3.5-6.1); RED CELL DISTRIBUTION WIDTH 12.9 % (11.5-14.5)
[2018-06-21 07:12] LABS: ALBUMIN 2.9 g/dL (3.0-4.8); CALCIUM 6.1 mg/dL (8.4-10.5)
--- NOTE | 2018-06-21 07:33 | CP.PCM.PN ---
<Chidi Lane - Last Filed: 06/21/18 07:31> Subjective - Date & Time of Evaluation Date of Evaluation: 06/21/18 Time of Evaluation: 07:31 - Subjective Subjective: Surgery Progress note- Dr. Wagner Patient seen and examined at bedside. No new complaints. Vein mapping ordered, remains pending. on LUE limb alert. + OOB and ambulation. denies nausea/vomiting/fevers/chills Objective - Vital Signs/Intake and Output Vital Signs (last 24 hours): Temp Pulse Resp BP Pulse Ox 98.1 F 87 20 147/70 98 06/21/18 05:49 06/21/18 05:49 06/21/18 05:49 06/21/18 05:49 06/21/18 05:49 Intake and Output: 06/21/18 06/21/18 06:59 18:59 Intake Total 480 Output Total 975 Balance -495 - Medications Medications: Current Medications Acetaminophen (Tylenol 325mg Tab) 650 mg PO Q4 PRN PRN Reason: Pain, Mild (1-3) Last Admin: 06/21/18 02:14 Dose: 650 mg Calcitriol (Rocaltrol) 0.5 mcg PO DAILY [facility] Last Admin: 06/20/18 12:13 Dose: 0.5 mcg Calcium Acetate (Phoslo) 667 mg PO WM [facility] Last Admin: 06/20/18 18:52 Dose: 667 mg Clonidine HCl (Catapres) 0.1 mg PO BID PRN PRN Reason: Systolic Blood Pressure Last Admin: 06/18/18 13:32 Dose: 0.1 mg Insulin Human Regular (Humulin R Med) 0 units SC [facility]; Protocol Last Admin: 06/20/18 22:22 Dose: Not Given Labetalol HCl (Trandate) 200 mg PO BID [facility] Last Admin: 06/20/18 18:52 Dose: 200 mg Lisinopril (Zestril) 10 mg PO DAILY [facility] Last Admin: 06/20/18 12:13 Dose: 10 mg Ondansetron HCl (Zofran Inj) 4 mg IVP Q6H PRN PRN Reason: Nausea/Vomiting Sodium Bicarbonate (Sodium Bicarbonate Tab) 650 mg PO TID [facility] Last Admin: 06/20/18 18:52 Dose: 650 mg Sodium Polystyrene Sulfonate (Kayexalate Susp) 15 gm PO DAILY [facility] Last Admin: 06/20/18 05:27 Dose: 15 gm Vitamin D (Vitamin D 400 Intl Units Tab) 1,200 intlu PO DAILY [facility] Last Admin: 06/20/18 13:09 Dose: Not Given - Labs Labs: 06/21/18 06:15 06/21/18 06:15 PT 13.1 SECONDS (9.4-12.5) H 06/18/18 06:00 INR 1.14 06/18/18 06:00 APTT 29.5 Seconds (25.1-36.5) 06/17/18 16:34 - Constitutional Appears: Non-toxic, No Acute Distress - Head Exam Head Exam: ATRAUMATIC - Eye Exam Eye Exam: EOMI. absent: Scleral icterus - ENT Exam ENT Exam: Mucous Membranes Moist - Cardiovascular Exam Cardiovascular Exam: +S1, +S2. absent: Bradycardia, Tachycardia - GI/Abdominal Exam GI & Abdominal Exam: Soft. absent: Distended, Firm, Guarding, Rigid, Tenderness - Extremities Exam Additional comments: On left limb alert - Neurological Exam Neurological Exam: Alert, Awake, Oriented x3 - Psychiatric Exam Psychiatric exam: Normal Affect - Skin Skin Exam: Intact, Warm Assessment and Plan - Assessment and Plan (Free Text) Assessment: 53M w/ ESRD; surgery consulted for AVF creation Plan: - f/u vein mapping - continue HD per nephro and medical team - will plan for AVF creation, likely follow up as outpatient - further recs per Dr. Bernard Lane PGY2 <Michele Wagner - Last Filed: 06/29/18 08:02> Objective - Vital Signs/Intake and Output Vital Signs (last 24 hours): Temp Pulse Resp BP Pulse Ox 98.3 F 76 18 147/76 100 06/23/18 14:00 06/23/18 14:00 06/23/18 14:00 06/23/18 14:00 06/23/18 14:00 - Labs Labs: 06/23/18 07:00 06/23/18 06:30 PT 13.1 SECONDS (9.4-12.5) H 06/18/18 06:00 INR 1.14 06/18/18 06:00 APTT 29.5 Seconds (25.1-36.5) 06/17/18 16:34 Assessment and Plan - Assessment and Plan (Free Text) Plan: Patient was seen, examined and evaluated by me. I agree with resident's assessment and plan.
[2018-06-21] MEDS: Insulin Reg-MEDIUM-Coverage SC SCH ×4 (07:47→21:27)
--- NOTE | 2018-06-21 09:23 | US ---
Date of service: 06/21/2018 PROCEDURE: Bilateral upper extremity venous ultrasound HISTORY: AVF planning COMPARISON: TECHNIQUE: FINDINGS: The basilic veins in the forearm are small but patent. The basilic veins above the elbow are normal in size. The cephalic veins in the forearm and upper arms are large and patent. The right cephalic vein in the forearm is larger than the left cephalic vein in the forearm. No evidence of superficial thrombophlebitis is seen IMPRESSION:
--- NOTE | 2018-06-21 09:35 | CP.PCM.PN ---
<Thompson Baldwin - Last Filed: 06/21/18 09:31> Subjective - Date & Time of Evaluation Date of Evaluation: 06/21/18 Time of Evaluation: 06:50 - Subjective Subjective: Progress Note for Dr. Reese Service Patient seen and examined at bedside. Pending another HD today, will transfuse another 2 units pRBCs given worsening Hgb today. Refusing EGD recommended by primary team, wants to pursue it as outpatient. Objective - Vital Signs/Intake and Output Vital Signs (last 24 hours): Temp Pulse Resp BP Pulse Ox 98.1 F 87 20 147/70 98 06/21/18 05:49 06/21/18 05:49 06/21/18 05:49 06/21/18 05:49 06/21/18 05:49 Intake and Output: 06/21/18 06/21/18 06:59 18:59 Intake Total 480 Output Total 975 Balance -495 - Medications Medications: Current Medications Acetaminophen (Tylenol 325mg Tab) 650 mg PO Q4 PRN PRN Reason: Pain, Mild (1-3) Last Admin: 06/21/18 02:14 Dose: 650 mg Calcitriol (Rocaltrol) 0.5 mcg PO DAILY [facility] Last Admin: 06/20/18 12:13 Dose: 0.5 mcg Calcium Acetate (Phoslo) 667 mg PO WM [facility] Last Admin: 06/21/18 07:48 Dose: 667 mg Clonidine HCl (Catapres) 0.1 mg PO BID PRN PRN Reason: Systolic Blood Pressure Last Admin: 06/18/18 13:32 Dose: 0.1 mg Insulin Human Regular (Humulin R Med) 0 units SC [facility]; Protocol Last Admin: 06/21/18 07:47 Dose: 3 units Labetalol HCl (Trandate) 200 mg PO BID [facility] Last Admin: 06/20/18 18:52 Dose: 200 mg Lisinopril (Zestril) 10 mg PO DAILY [facility] Last Admin: 06/20/18 12:13 Dose: 10 mg Ondansetron HCl (Zofran Inj) 4 mg IVP Q6H PRN PRN Reason: Nausea/Vomiting Sodium Bicarbonate (Sodium Bicarbonate Tab) 650 mg PO TID [facility] Last Admin: 06/20/18 18:52 Dose: 650 mg Sodium Polystyrene Sulfonate (Kayexalate Susp) 15 gm PO DAILY [facility] Last Admin: 06/20/18 05:27 Dose: 15 gm Vitamin D (Vitamin D 400 Intl Units Tab) 1,200 intlu PO DAILY [facility] Last Admin: 06/20/18 13:09 Dose: Not Given - Labs Labs: 06/21/18 06:15 06/21/18 06:15 PT 13.1 SECONDS (9.4-12.5) H 06/18/18 06:00 INR 1.14 06/18/18 06:00 APTT 29.5 Seconds (25.1-36.5) 06/17/18 16:34 - Additional Findings Additional findings: - Constitutional Appears: No Acute Distress, Less Ill-appearing - Head Exam Head Exam: ATRAUMATIC, NORMAL INSPECTION - Eye Exam Eye Exam: EOMI, Normal appearance, No scleral icterus or conjunctival injection - ENT Exam ENT Exam: Mucous Membranes Moist, Normal Exam - Neck Exam Neck exam: Normal ROM, no Lymphadenopathy - Respiratory Exam Respiratory Exam: Clear to auscultation bilaterally, NORMAL BREATHING PATTERN, No respiratory distress - Cardiovascular Exam Cardiovascular Exam: REGULAR RHYTHM, +S1, +S2 - GI/Abdominal Exam GI & Abdominal Exam: Soft but still Distended, Normal Bowel Sounds, No tend erness to palpation - Extremities Exam Extremities exam: Positive for: +1 pitting edema in bilateral LE from feet to mid-shins. Negative for: calf tenderness - Back Exam Back exam: negative for CVA tenderness bilaterally - Neurological Exam Neurological exam: Awake and alert, following all commands, moving all extremities spontaneously - Psychiatric Exam Psychiatric exam: Normal mood and affect - Skin Skin Exam: Dry, Intact, Warm Assessment and Plan - Assessment and Plan (Free Text) Assessment: This is a 53 yo M with PMH of IDDM (diagnosed 30+ yrs ago), HTN (~3 yrs), HLD (~3yrs), CKD, and chronic anemia presents to [facility] with complaints of shortness of breath that hes noticed for the past 3 days that worsened while laying down at night and walking. Nephro was consulted for possible HD as patient was found to have Cr of 12.9, extensive electrolyte abnormalities, and distended abdomen. Pending another round of HD and 2 units pRBCs transfusion. Plan: Acute renal failure overlying CKD - s/p HD -Cr improved but remains elevated -etiology unclear, likely Rhabdo component; CK improving -Continue low-dose lisinopril for proteinuria -Careful repletion of low electrolytes in setting of ARF to avoid toxic accumulation -Renal US obtained, bilateral echogenic kidneys suggestive of medical renal disease, no hydronephrosis, incidentally noted right liver lobe lesions -Has Tunnel cath placed by IR, Vascular Surgery consulted to eval patient for eventual AV fistula graft -2nd round HD today, pending assignation to HD site as outpatient prior to discharge Anemia -Hgb 8.1 -> 7.5, pending 2 more units pRBCs with HD today From Nephro standpoint, once he is established at a site for outpatient HD, he is ready for discharge. Reviewed and discussed with attending, Dr. Reese <Parish Reese - Last Filed: 06/21/18 19:46> Objective - Vital Signs/Intake and Output Vital Signs (last 24 hours): Temp Pulse Resp BP Pulse Ox 99.3 F 87 20 176/83 H 98 06/21/18 17:26 06/21/18 17:26 06/21/18 17:26 06/21/18 17:26 06/21/18 05:49 Intake and Output: 06/21/18 06/22/18 18:59 06:59 Intake Total 900 Output Total 0 Balance 900 - Medications Medications: Current Medications Acetaminophen (Tylenol 325mg Tab) 650 mg PO Q4 PRN PRN Reason: Pain, Mild (1-3) Last Admin: 06/21/18 17:19 Dose: 650 mg Calcitriol (Rocaltrol) 0.5 mcg PO DAILY [facility] Last Admin: 06/21/18 14:12 Dose: 0.5 mcg Calcium Acetate (Phoslo) 667 mg PO WM [facility] Last Admin: 06/21/18 17:18 Dose: 667 mg Clonidine HCl (Catapres) 0.1 mg PO BID PRN PRN Reason: Systolic Blood Pressure Last Admin: 06/18/18 13:32 Dose: 0.1 mg Insulin Human Regular (Humulin R Med) 0 units SC [facility]; Protocol Last Admin: 06/21/18 17:18 Dose: 1 units Labetalol HCl (Trandate) 200 mg PO BID [facility] Last Admin: 06/21/18 17:19 Dose: 200 mg Lisinopril (Zestril) 10 mg PO DAILY [facility] Last Admin: 06/21/18 14:12 Dose: 10 mg Ondansetron HCl (Zofran Inj) 4 mg IVP Q6H PRN PRN Reason: Nausea/Vomiting Sodium Bicarbonate (Sodium Bicarbonate Tab) 650 mg PO TID [facility] Last Admin: 06/21/18 17:18 Dose: 650 mg Sodium Polystyrene Sulfonate (Kayexalate Susp) 15 gm PO DAILY [facility] Last Admin: 06/21/18 14:20 Dose: Not Given Vitamin D (Vitamin D 400 Intl Units Tab) 1,200 intlu PO DAILY [facility] Last Admin: 06/21/18 14:20 Dose: Not Given - Labs Labs: 06/21/18 06:15 06/21/18 06:15 PT 13.1 SECONDS (9.4-12.5) H 06/18/18 06:00 INR 1.14 06/18/18 06:00 APTT 29.5 Seconds (25.1-36.5) 06/17/18 16:34 Assessment and Plan - Assessment and Plan (Free Text) Plan: Pt seen and examined. I reviewed the note of the medical director and I agree with the note including the assessment and plan. I reviewed the medications and last labs. Pt with ESRD on HD. He was dialyzed today. I spoke to the HD nurse. He was given 2 U of PRBC on HD for his anemia. He was seen by surgery for AVF placement. He states he feels well. His Ca is improving. He is on Cacitriol and HD that should continue to improve his Ca. He is also on Calcium acetate for his secondary hyperparathyroidism, which will also help his Ca. He is ambulating better. I spoke to him about transplant evaluation this morning.
[2018-06-21] MEDS: Cholecalciferol 400 Intl Units Tab PO SCH ×2 (14:12→14:20)
[2018-06-21] MEDS: Sod Polystyrene Sulf 15 gm/60 ml Susp PO SCH (14:20)
--- NOTE | 2018-06-21 15:06 | CP.PCM.PN ---
Subjective - Date & Time of Evaluation Date of Evaluation: 06/21/18 Time of Evaluation: 15:00 - Subjective Subjective: PGY1 Progress Note for Dr. Guerra Patient seen and examined at bedside this morning. No acute nursing events overnight. Patient s/p dialysis cath placement 06/18. Patient is status-post dialysis and for PRBC transfusion today. Patient tolerated well. 12 Point ROS is otherwise unremarkable. Objective - Vital Signs/Intake and Output Vital Signs (last 24 hours): Temp Pulse Resp BP Pulse Ox 98.1 F 91 H 16 188/92 H 98 06/21/18 12:00 06/21/18 14:12 06/21/18 12:00 06/21/18 14:12 06/21/18 05:49 Intake and Output: 06/21/18 06/21/18 06:59 18:59 Intake Total 480 Output Total 975 Balance -495 - Medications Medications: Current Medications Acetaminophen (Tylenol 325mg Tab) 650 mg PO Q4 PRN PRN Reason: Pain, Mild (1-3) Last Admin: 06/21/18 02:14 Dose: 650 mg Calcitriol (Rocaltrol) 0.5 mcg PO DAILY [facility] Last Admin: 06/21/18 14:12 Dose: 0.5 mcg Calcium Acetate (Phoslo) 667 mg PO WM [facility] Last Admin: 06/21/18 14:01 Dose: Not Given Clonidine HCl (Catapres) 0.1 mg PO BID PRN PRN Reason: Systolic Blood Pressure Last Admin: 06/18/18 13:32 Dose: 0.1 mg Insulin Human Regular (Humulin R Med) 0 units SC [facility]; Protocol Last Admin: 06/21/18 14:00 Dose: Not Given Labetalol HCl (Trandate) 200 mg PO BID [facility] Last Admin: 06/21/18 14:00 Dose: Not Given Lisinopril (Zestril) 10 mg PO DAILY [facility] Last Admin: 06/21/18 14:12 Dose: 10 mg Ondansetron HCl (Zofran Inj) 4 mg IVP Q6H PRN PRN Reason: Nausea/Vomiting Sodium Bicarbonate (Sodium Bicarbonate Tab) 650 mg PO TID [facility] Last Admin: 06/21/18 14:12 Dose: 650 mg Sodium Polystyrene Sulfonate (Kayexalate Susp) 15 gm PO DAILY [facility] Last Admin: 06/21/18 14:20 Dose: Not Given Vitamin D (Vitamin D 400 Intl Units Tab) 1,200 intlu PO DAILY [facility] Last Admin: 06/21/18 14:20 Dose: Not Given - Labs Labs: 06/21/18 06:15 06/21/18 06:15 PT 13.1 SECONDS (9.4-12.5) H 06/18/18 06:00 INR 1.14 06/18/18 06:00 APTT 29.5 Seconds (25.1-36.5) 06/17/18 16:34 - Additional Findings Additional findings: - Constitutional Appears: Well - Head Exam Head Exam: NORMAL INSPECTION, NORMOCEPHALIC - Eye Exam Eye Exam: EOMI, Normal appearance - ENT Exam ENT Exam: Mucous Membranes Moist, Normal Exam - Neck Exam Neck Exam: Normal Inspection - Respiratory Exam Respiratory Exam: Clear to Ausculation Bilateral, NORMAL BREATHING PATTERN - Cardiovascular Exam Cardiovascular Exam: REGULAR RHYTHM, +S1, +S2 - GI/Abdominal Exam GI & Abdominal Exam: Soft. absent: Tenderness - Extremities Exam Extremities Exam: Normal Inspection. absent: Calf Tenderness - Back Exam Back Exam: NORMAL INSPECTION - Neurological Exam Neurological Exam: Alert, Awake, Oriented x3 - Psychiatric Exam Psychiatric exam: Normal Affect, Normal Mood - Skin Skin Exam: Dry, Intact, Warm Assessment and Plan - Assessment and Plan (Free Text) Assessment: 53 y/o M with PMH CKD, IDDM, HTN, HLD admitted for hyperkalemia, CHF exacerbation, rhabdomyolysis in the setting of acute on chronic kidney failure. Patient s/p HD catheter placement (06/18). Patient status-post dialysis x3 and transfusions. Pending out-patient dialysis arrangement. Acute on chronic kidney failure - Patient s/p HD catheter placement (06/18) - PT tolerated dialysis without issue - Continue scheduled kayexalate - Continue NS@ 50mls/hr - Continue Sodium bicarbonate 650po tid - Consult nephrology, appreciate recs - Urine studies: electrolytes, 24hr creatinine, total protein, upep, - Hepatitis panel: lower lobe mass lesion on liver seen on renal ultrasound - B/l echogeneity seen on renal u/s - Vitamin D level, uric acid, - I&Os Rule-out CHF Exacerbation - Status-post cardiac cath - BNP elevated - f/u echo Hyperkalemia, resolved - No EKG changes - Given: Calcium gluconate 1g - Continue kayexalate scheduled daily Anemia of chronic kidney disease - Consult GI for endoscopic workup - Abdominal U/S: confirmation of mass identified on recent renal ultrasound. Please see report for details. - CT of abdomen / Liver ordered - Iron studies within normal limits - Type & Screen - On dialysis, transfuse as needed Hx of HTN - Continue home labetalol - Continue home nifedipine Hx of IDDM - Sliding scale insulin - Hypoglycemic protocol - Accu-checks ACHS DVT ppx: SCD Patient seen and case discussed in detail with Dr. Girish Baron PGY1
[2018-06-22 02:33] LABS: CREATININE, 24 HOUR URINE 1.14 g/24 h (0.50-2.15)
--- NOTE | 2018-06-22 06:44 | CP.PCM.PN ---
<Thompson Baldwin - Last Filed: 06/22/18 14:44> Subjective - Date & Time of Evaluation Date of Evaluation: 06/22/18 Time of Evaluation: 07:00 - Subjective Subjective: Progress Note for Dr. Reese Service Patient seen and examined at bedside. S/p 2nd round of HD with another 2 units pRBCs transfused, with appropriate Hgb response. Feeling well today. As per Case Management, has been established with a HD site as an outpatient, but must complete his 3rd course of HD prior to discharge. As per primary team, likely d/c tomorrow. Objective - Vital Signs/Intake and Output Vital Signs (last 24 hours): Temp Pulse Resp BP Pulse Ox 99.6 F 75 18 171/83 H 98 06/22/18 06:00 06/22/18 06:20 06/22/18 06:00 06/22/18 06:20 06/22/18 06:00 Intake and Output: 06/21/18 06/22/18 18:59 06:59 Intake Total 900 720 Output Total 0 Balance 900 720 - Medications Medications: Current Medications Acetaminophen (Tylenol 325mg Tab) 650 mg PO Q4 PRN PRN Reason: Pain, Mild (1-3) Last Admin: 06/21/18 17:19 Dose: 650 mg Calcitriol (Rocaltrol) 0.5 mcg PO DAILY [facility] Last Admin: 06/21/18 14:12 Dose: 0.5 mcg Calcium Acetate (Phoslo) 667 mg PO WM [facility] Last Admin: 06/21/18 17:18 Dose: 667 mg Clonidine HCl (Catapres) 0.1 mg PO BID PRN PRN Reason: Systolic Blood Pressure Last Admin: 06/22/18 06:20 Dose: 0.1 mg Insulin Human Regular (Humulin R Med) 0 units SC [facility]; Protocol Last Admin: 06/21/18 21:27 Dose: Not Given Labetalol HCl (Trandate) 200 mg PO BID [facility] Last Admin: 06/21/18 17:19 Dose: 200 mg Lisinopril (Zestril) 10 mg PO DAILY [facility] Last Admin: 06/21/18 14:12 Dose: 10 mg Ondansetron HCl (Zofran Inj) 4 mg IVP Q6H PRN PRN Reason: Nausea/Vomiting Sodium Polystyrene Sulfonate (Kayexalate Susp) 15 gm PO DAILY [facility] Last Admin: 06/21/18 14:20 Dose: Not Given Vitamin D (Vitamin D 400 Intl Units Tab) 1,200 intlu PO DAILY [facility] Last Admin: 06/21/18 14:20 Dose: Not Given - Labs Labs: 06/21/18 06:15 06/21/18 06:15 PT 13.1 SECONDS (9.4-12.5) H 06/18/18 06:00 INR 1.14 06/18/18 06:00 APTT 29.5 Seconds (25.1-36.5) 06/17/18 16:34 - Additional Findings Additional findings: - Constitutional Appears: No Acute Distress, Resting comfortably in bed - Head Exam Head Exam: ATRAUMATIC, NORMAL INSPECTION - Eye Exam Eye Exam: EOMI, Normal appearance, No scleral icterus or conjunctival injection - ENT Exam ENT Exam: Mucous Membranes Moist, Normal Exam - Neck Exam Neck exam: Normal ROM, no Lymphadenopathy - Respiratory Exam Respiratory Exam: Clear to auscultation bilaterally, NORMAL BREATHING PATTERN, No respiratory distress - Cardiovascular Exam Cardiovascular Exam: REGULAR RHYTHM, +S1, +S2 - GI/Abdominal Exam GI & Abdominal Exam: Soft, Minimally distended, Normal Bowel Sounds, No tenderness to palpation - Extremities Exam Extremities exam: Positive for: +1 pitting edema in bilateral LE from feet to mid-shins. Negative for: calf tenderness - Back Exam Back exam: negative for CVA tenderness bilaterally - Neurological Exam Neurological exam: Awake and alert, following all commands, moving all extremities spontaneously - Psychiatric Exam Psychiatric exam: Normal mood and affect - Skin Skin Exam: Dry, Intact, Warm Assessment and Plan - Assessment and Plan (Free Text) Assessment: This is a 53 yo M with PMH of IDDM (diagnosed 30+ yrs ago), HTN (~3 yrs), HLD (~3yrs), CKD, and chronic anemia [place] [facility] [place] complaints of shortness of breath that hes noticed for the past 3 days that worsened while laying down at night and walking. He was determined to have ESRD, and has begun HD. S/p 2nd round of HD yesterday with 2 units pRBCs transfused, appropriate response in Hgb post-transfusion. Plan: ESRD on HD -etiology uncertain, worsening of CKD vs Diabetic nephropathy vs Hypertensive kidney injury -S/p 2nd round of HD, as per Case Management has been established with site for outpatient HD on Thursday//Thursday schedule -Continue low-dose lisinopril for proteinuria -Careful repletion of low electrolytes in setting of ARF to avoid toxic accumulation Magnesium repletion x2 days ordered Continue Phoslo, Calcitriol, Vit D -Renal US obtained, bilateral echogenic kidneys suggestive of medical renal disease, no hydronephrosis, incidentally noted right liver lobe lesions -Has Tunnel cath placed by IR, established with Vascular Surgery for eventual AV fistula graft Anemia -Hgb 7.5 -> 9.8, appropriate response s/p 2 units pRBCs -as per PMD, patient recommended to undergo EGD to rule out GI bleed, but patient refused -Continue to monitor HTN -remains elevated on Labetalol and Lisinopril, recommend increasing Lisinopril to 40mg daily and starting Amlodipine 10mg daily -continue to monitor IDDM: -Blood glucose range in last 24 hrs 115-225 -continue insulin sliding scale, could consider decreasing the sliding scale and adding a basal dose of long acting insulin -pending A1c Reviewed and discussed with attending, Dr. Reese <Parish Reese S - Last Filed: 06/22/18 19:14> Objective - Vital Signs/Intake and Output Vital Signs (last 24 hours): Temp Pulse Resp BP Pulse Ox 98.7 F 74 18 134/70 98 06/22/18 18:00 06/22/18 18:00 06/22/18 18:00 06/22/18 18:00 06/22/18 06:00 Intake and Output: 06/22/18 06/23/18 18:59 06:59 Intake Total 960 Balance 960 - Medications Medications: Current Medications Acetaminophen (Tylenol 325mg Tab) 650 mg PO Q4 PRN PRN Reason: Pain, Mild (1-3) Last Admin: 06/21/18 17:19 Dose: 650 mg Amlodipine Besylate (Norvasc) 10 mg PO DAILY [facility] Last Admin: 06/22/18 09:27 Dose: 10 mg Calcitriol (Rocaltrol) 0.5 mcg PO DAILY [facility] Last Admin: 06/22/18 09:28 Dose: 0.5 mcg Calcium Acetate (Phoslo) 667 mg PO WM [facility] Last Admin: 06/22/18 17:11 Dose: 667 mg Clonidine HCl (Catapres) 0.1 mg PO BID PRN PRN Reason: Systolic Blood Pressure Last Admin: 06/22/18 06:20 Dose: 0.1 mg Heparin Sodium (Porcine) (Heparin) 2,000 units IVP MWF [facility]; Protocol PRN Reason: DIALYSIS Insulin Human Regular (Humulin R Med) 0 units SC [facility]; Protocol Last Admin: 06/22/18 17:54 Dose: 3 units Labetalol HCl (Trandate) 200 mg PO BID [facility] Last Admin: 06/22/18 17:11 Dose: 200 mg Lisinopril (Zestril) 40 mg PO DAILY [facility] Last Admin: 06/22/18 09:27 Dose: 40 mg Magnesium Oxide (Mag-Ox) 400 mg PO BID [facility] Stop: 06/24/18 10:01 Last Admin: 06/22/18 17:11 Dose: 400 mg Ondansetron HCl (Zofran Inj) 4 mg IVP Q6H PRN PRN Reason: Nausea/Vomiting Vitamin D (Vitamin D 400 Intl Units Tab) 1,200 intlu PO DAILY [facility] Last Admin: 06/22/18 09:31 Dose: Not Given - Labs Labs: 06/22/18 06:45 06/22/18 06:45 PT 13.1 SECONDS (9.4-12.5) H 06/18/18 06:00 INR 1.14 06/18/18 06:00 APTT 29.5 Seconds (25.1-36.5) 06/17/18 16:34 Assessment and Plan - Assessment and Plan (Free Text) Plan: Pt seen and examined. I reviewed the note of the special forces medical sergeant and I agree with the note including the assessment and plan. I reviewed the medications and last labs. Pt with ESRD on HD due to diabetic nephropathy. He is going to be dialyzed in the am. Low Mg will be replaced. He had a transfusion yesterday and was given 2 units of PRBC. BP is uncontrolled and I increased the Lisinopril to 40 mg and added Norvasc. He is waiting for a HD spot.
[2018-06-22 07:18] LABS: HEMOGLOBIN 9.8 g/dL (14.0-18.0); MEAN CELL VOLUME 85.2 fl (80.0-105.0); MEAN CORPUSCULAR HEMOGLOBIN 30.2 pg (25.0-35.0); MEAN CORPUSCULAR HGB CONC 35.5 g/dl (31.0-37.0); MEAN PLATELET VOLUME 12.1 fl (7.0-11.0); RBC 3.24 10^6/uL (3.5-6.1); RED CELL DISTRIBUTION WIDTH 12.7 % (11.5-14.5); WHITE BLOOD COUNT 9.7 10^3/uL (4.5-11.0)
[2018-06-22 08:01] LABS: ALB/GLOB RATIO 0.9 (1.1-1.8); ALBUMIN 2.9 g/dL (3.0-4.8)
[2018-06-22 08:09] LABS: CALCIUM 6.7 mg/dL (8.4-10.5)
[2018-06-22] MEDS: Insulin Reg-MEDIUM-Coverage SC SCH ×4 (08:27→22:14)
[2018-06-22] MEDS: Magnesium Oxide 400 mg Tab UD PO SCH ×2 (09:27→17:11)
[2018-06-22] MEDS: Cholecalciferol 400 Intl Units Tab PO SCH ×2 (09:28→09:31)
[2018-06-22 11:14] LABS: HEMOGLOBIN A 56.1 Percent (>96.0); HEMOGLOBIN A2 4.9 Percent (1.8-3.5)
[2018-06-22 14:40] LABS: ALBUMIN 48.5 %; ALPHA-1 GLOBULIN 9.2 %
--- NOTE | 2018-06-22 15:12 | CP.PCM.PN ---
Subjective - Date & Time of Evaluation Date of Evaluation: 06/22/18 Time of Evaluation: 15:09 - Subjective Subjective: PGY1 Progress Note for Dr. Guerra Patient seen and examined at bedside this morning. No acute nursing events overnight. Patient s/p dialysis cath placement 06/18. Patient is status-post dialysis and for PRBC transfusion yesterday and tolerated well. 12 Point ROS is otherwise unremarkable. Objective - Vital Signs/Intake and Output Vital Signs (last 24 hours): Temp Pulse Resp BP Pulse Ox 98.6 F 76 18 149/71 98 06/22/18 11:49 06/22/18 11:49 06/22/18 11:49 06/22/18 11:49 06/22/18 06:00 Intake and Output: 06/22/18 06/22/18 06:59 18:59 Intake Total 720 Balance 720 - Medications Medications: Current Medications Acetaminophen (Tylenol 325mg Tab) 650 mg PO Q4 PRN PRN Reason: Pain, Mild (1-3) Last Admin: 06/21/18 17:19 Dose: 650 mg Amlodipine Besylate (Norvasc) 10 mg PO DAILY [facility] Last Admin: 06/22/18 09:27 Dose: 10 mg Calcitriol (Rocaltrol) 0.5 mcg PO DAILY [facility] Last Admin: 06/22/18 09:28 Dose: 0.5 mcg Calcium Acetate (Phoslo) 667 mg PO WM [facility] Last Admin: 06/22/18 12:44 Dose: 667 mg Clonidine HCl (Catapres) 0.1 mg PO BID PRN PRN Reason: Systolic Blood Pressure Last Admin: 06/22/18 06:20 Dose: 0.1 mg Heparin Sodium (Porcine) (Heparin) 2,000 units IVP MWF PRN; Protocol PRN Reason: DIALYSIS Insulin Human Regular (Humulin R Med) 0 units SC [facility]; Protocol Last Admin: 06/22/18 12:30 Dose: Not Given Labetalol HCl (Trandate) 200 mg PO BID [facility] Last Admin: 06/22/18 09:27 Dose: 200 mg Lisinopril (Zestril) 40 mg PO DAILY [facility] Last Admin: 06/22/18 09:27 Dose: 40 mg Magnesium Oxide (Mag-Ox) 400 mg PO BID [facility] Stop: 06/24/18 10:01 Last Admin: 06/22/18 09:27 Dose: 400 mg Ondansetron HCl (Zofran Inj) 4 mg IVP Q6H PRN PRN Reason: Nausea/Vomiting Vitamin D (Vitamin D 400 Intl Units Tab) 1,200 intlu PO DAILY [facility] Last Admin: 06/22/18 09:31 Dose: Not Given - Labs Labs: 06/22/18 06:45 06/22/18 06:45 PT 13.1 SECONDS (9.4-12.5) H 06/18/18 06:00 INR 1.14 06/18/18 06:00 APTT 29.5 Seconds (25.1-36.5) 06/17/18 16:34 - Additional Findings Additional findings: - Constitutional Appears: Non Toxic, In no acute distress - Head Exam Head Exam: NORMAL INSPECTION, NORMOCEPHALIC - Eye Exam Eye Exam: EOMI, Normal appearance - ENT Exam ENT Exam: Mucous Membranes Moist, Normal Exam - Neck Exam Neck Exam: Normal Inspection - Respiratory Exam Respiratory Exam: Clear to Ausculation Bilateral, NORMAL BREATHING PATTERN - Cardiovascular Exam Cardiovascular Exam: REGULAR RHYTHM, +S1, +S2 - GI/Abdominal Exam GI & Abdominal Exam: Soft. absent: Tenderness - Extremities Exam Extremities Exam: Normal Inspection. absent: Calf Tenderness - Back Exam Back Exam: NORMAL INSPECTION - Neurological Exam Neurological Exam: Alert, Awake, Oriented x3 - Psychiatric Exam Psychiatric exam: Normal Affect, Normal Mood - Skin Skin Exam: Dry, Intact, Warm Assessment and Plan - Assessment and Plan (Free Text) Assessment: 53 y/o M with PMH CKD, IDDM, HTN, HLD admitted for hyperkalemia, CHF exacerbation, rhabdomyolysis in the setting of acute on chronic kidney failure. Patient s/p HD catheter placement (06/18). Patient status-post dialysis x2 and transfusions. Pending out-patient dialysis arrangement. Acute on chronic kidney failure - Patient s/p HD catheter placement (06/18) - PT tolerated dialysis without issue - Continue scheduled kayexalate - Continue NS@ 50mls/hr - Continue Sodium bicarbonate 650po tid - Consult nephrology, appreciate recs - Urine studies: electrolytes, 24hr creatinine, total protein, upep, - Hepatitis panel: lower lobe mass lesion on liver seen on renal ultrasound - B/l echogeneity seen on renal u/s - Vitamin D level, uric acid, - I&Os Rule-out CHF Exacerbation - Status-post cardiac cath - BNP elevated - f/u echo Hyperkalemia, resolved - No EKG changes - Given: Calcium gluconate 1g - Continue kayexalate scheduled daily Anemia of chronic kidney disease - Consult GI for endoscopic workup - Abdominal U/S: confirmation of mass identified on recent renal ultrasound. Please see report for details. - CT of abdomen / Liver ordered - Iron studies within normal limits - Type & Screen - On dialysis, transfuse as needed Hx of HTN - Continue home labetalol - Continue home nifedipine Hx of IDDM - Sliding scale insulin - Hypoglycemic protocol - Accu-checks ACHS DVT ppx: SCD Patient seen and case discussed in detail with Dr. Mari Baron PGY1
[2018-06-23] MEDS ORDERED: Iodixanol 320 mg/ml 150 ml Bottle IV ONE (02:46)
--- NOTE | 2018-06-23 06:43 | CP.PCM.PN ---
<Thompson Baldwin - Last Filed: 06/23/18 13:18> Subjective - Date & Time of Evaluation Date of Evaluation: 06/23/18 Time of Evaluation: 06:50 - Subjective Subjective: Progress Note for Dr. Reese Service Patient seen and examined at bedside. Pending 3rd round HD today. Established with HD site here at [facility] for T/Th/Sat schedule after discharge from [facility]. No acute events reported tonight, and patient has no acute complaints this morning. Pending likely d/c today as per primary team. Objective - Vital Signs/Intake and Output Vital Signs (last 24 hours): Temp Pulse Resp BP Pulse Ox 98.7 F 74 18 134/70 98 06/22/18 18:00 06/22/18 18:00 06/22/18 18:00 06/22/18 18:00 06/22/18 06:00 Intake and Output: 06/22/18 06/23/18 18:59 06:59 Intake Total 960 180 Balance 960 180 - Medications Medications: Current Medications Acetaminophen (Tylenol 325mg Tab) 650 mg PO Q4 PRN PRN Reason: Pain, Mild (1-3) Last Admin: 06/21/18 17:19 Dose: 650 mg Amlodipine Besylate (Norvasc) 10 mg PO DAILY [facility] Last Admin: 06/22/18 09:27 Dose: 10 mg Calcitriol (Rocaltrol) 0.5 mcg PO DAILY [facility] Last Admin: 06/22/18 09:28 Dose: 0.5 mcg Calcium Acetate (Phoslo) 667 mg PO WM [facility] Last Admin: 06/22/18 17:11 Dose: 667 mg Clonidine HCl (Catapres) 0.1 mg PO BID PRN PRN Reason: Systolic Blood Pressure Last Admin: 06/22/18 06:20 Dose: 0.1 mg Heparin Sodium (Porcine) (Heparin) 2,000 units IVP MWF PRN; Protocol PRN Reason: DIALYSIS Insulin Human Regular (Humulin R Med) 0 units SC [facility]; Protocol Last Admin: 06/22/18 22:14 Dose: Not Given Labetalol HCl (Trandate) 200 mg PO BID [facility] Last Admin: 06/22/18 17:11 Dose: 200 mg Lisinopril (Zestril) 40 mg PO DAILY [facility] Last Admin: 06/22/18 09:27 Dose: 40 mg Magnesium Oxide (Mag-Ox) 400 mg PO BID [facility] Stop: 06/24/18 10:01 Last Admin: 06/22/18 17:11 Dose: 400 mg Ondansetron HCl (Zofran Inj) 4 mg IVP Q6H PRN PRN Reason: Nausea/Vomiting Vitamin D (Vitamin D 400 Intl Units Tab) 1,200 intlu PO DAILY [facility] Last Admin: 06/22/18 09:31 Dose: Not Given - Labs Labs: 06/22/18 06:45 06/22/18 06:45 PT 13.1 SECONDS (9.4-12.5) H 06/18/18 06:00 INR 1.14 06/18/18 06:00 APTT 29.5 Seconds (25.1-36.5) 06/17/18 16:34 - Additional Findings Additional findings: - Constitutional Appears: No Acute Distress, Resting comfortably in bed - Head Exam Head Exam: ATRAUMATIC, NORMAL INSPECTION - Eye Exam Eye Exam: EOMI, Normal appearance, No scleral icterus or conjunctival injection - ENT Exam ENT Exam: Mucous Membranes Moist, Normal Exam - Neck Exam Neck exam: Normal ROM, no Lymphadenopathy - Respiratory Exam Respiratory Exam: Clear to auscultation bilaterally, NORMAL BREATHING PATTERN, No respiratory distress - Cardiovascular Exam Cardiovascular Exam: REGULAR RHYTHM, +S1, +S2 - GI/Abdominal Exam GI & Abdominal Exam: Soft, Minimally distended, Normal Bowel Sounds, No tenderness to palpation - Extremities Exam Extremities exam: Positive for: +1 pitting edema in bilateral LE from feet to mid-shins. Negative for: calf tenderness - Back Exam Back exam: negative for CVA tenderness bilaterally - Neurological Exam Neurological exam: Awake and alert, following all commands, moving all extremities spontaneously - Psychiatric Exam Psychiatric exam: Normal mood and affect - Skin Skin Exam: Dry, Intact, Warm Assessment and Plan - Assessment and Plan (Free Text) Assessment: This is a 53 yo M with PMH of IDDM (diagnosed 30+ yrs ago), HTN (~3 yrs), HLD (~3yrs), CKD, and chronic anemia presents to [facility] with complaints of shortness of breath that hes noticed for the past 3 days that worsened while laying down at night and walking. He was determined to have ESRD, and has begun HD. Pending 3rd round of HD, and has received 3 units pRBCs (transfused during HD) thus far, with appropriate Hgb responses. Established with outpatient HD site, likely pending discharge today as per primary team. Plan: 1) ESRD newly on HD 2) IDDM 3) HTN 4) HLD 5) Chronic anemia 6) Proteinuria 7) Hypomagnesemia - improving 8) Hypocalcemia 9) Hyperphosphatemia 10) Secondary hyperparathyroidism -ESRD 2/2 worsening of prior CKD vs HTN nephropathy, unlikely Diabetic Nephropathy as A1c 6.1 Pending 3rd round of HD, then likely discharge Established with [facility] for outpatient HD T/Th/Sat Established with Vascular Surgery for eventual AV fistula access, to follow -Mag improved from 1.3 to 1.5, finish Mag repletion today -Hyperphos, Hypocalcemia, and low Vit D consistent with secondary hyperparathyroidism 2/2 CKD/ERDS, continue Calcitriol, Phoslo, and Vit D supplementation -Amlodipine, Lisinopril, and Labetalol for BP control -A1c 6.1, may be able to transition from insulin sliding scale to oral hypoglycemics, defer to primary team -Anemia from CKD/ESRD vs acute loss, no signs/sx of acute bleeding and iron studies not suggestive of severe iron deficiency S/p 3 units transfused with appropriate responses Reviewed and discussed with attending, Dr. Reese <Parish Reese S - Last Filed: 06/24/18 19:39> Objective - Vital Signs/Intake and Output Vital Signs (last 24 hours): Temp Pulse Resp BP Pulse Ox 98.3 F 76 18 147/76 100 06/23/18 14:00 06/23/18 14:00 06/23/18 14:00 06/23/18 14:00 06/23/18 14:00 Intake and Output: 06/23/18 06/23/18 06:59 18:59 Intake Total 180 Balance 180 - Labs Labs: 06/23/18 07:00 06/23/18 06:30 PT 13.1 SECONDS (9.4-12.5) H 06/18/18 06:00 INR 1.14 06/18/18 06:00 APTT 29.5 Seconds (25.1-36.5) 06/17/18 16:34 Assessment and Plan - Assessment and Plan (Free Text) Plan: Pt seen and examined. I reviewed the note of the medical pathology teacher and I agree with the note including the assessment and plan. I reviewed the medications and last labs. Pt with ESRD on HD. He will continue with HD as an outpt. He is feeling much better and is going home. Oupt HD has been arranged at [facility]. Pt should get dialysis spot prior to discharge. Will speak to [facility] to help expedite matters. Hypocalcemia is improving. Secondary hyperparathyroidism treated with Calcitriol and PhosLo.
[2018-06-23 07:52] LABS: ALB/GLOB RATIO 0.9 (1.1-1.8); ALBUMIN 2.9 g/dL (3.0-4.8); CALCIUM 6.6 mg/dL (8.4-10.5)
[2018-06-23] MEDS: Insulin Reg-MEDIUM-Coverage SC SCH ×2 (08:08→12:00)
[2018-06-23] MEDS: Cholecalciferol 400 Intl Units Tab PO SCH (10:00)
[2018-06-23] MEDS: Magnesium Oxide 400 mg Tab UD PO SCH (11:00)
[2018-06-23 11:04] LABS: EOS % 0.2 % (1.5-5.0); GRAN % 15.4 % (50.0-68.0); HEMOGLOBIN 9.1 g/dL (14.0-18.0); LYMPH % 9.1 % (22.0-35.0); MEAN CELL VOLUME 87.6 fl (80.0-105.0); MEAN CORPUSCULAR HEMOGLOBIN 30.5 pg (25.0-35.0); MEAN CORPUSCULAR HGB CONC 34.9 g/dl (31.0-37.0); MEAN PLATELET VOLUME 72.7 fl (7.0-11.0); MONO % 2.6 % (1.0-6.0); PLATELET COUNT 127 10^3/uL (120.0-450.0); RBC 2.98 10^6/uL (3.5-6.1); RED CELL DISTRIBUTION WIDTH 11.8 % (11.5-14.5); WHITE BLOOD COUNT 8.3 10^3/uL (4.5-11.0)
[2018-06-23 11:05] LABS: BASO # 0.02 K/mm3 (0.0-2.0); EOS # 0.2 (0.0-0.7); GRAN # 6.03 (1.4-6.5); LYMPH # 1.3 (1.2-3.4); MONO # 0.8 (0.1-0.6)
[2018-06-23 11:25] LABS: EOSINOPHIL 2 % (0.0-3.0); LYMPHOCYTE 14 % (22.0-35.0); MONOCYTE 8 % (1.0-6.0); NEUTROPHIL 76 % (50.0-70.0)
[2018-06-23 11:27] LABS: PLATELET ESTIMATE LOW (NORMAL)
--- NOTE | 2018-06-23 12:45 | CT ---
Date of service: 06/23/2018 PROCEDURE: CT Abdomen with and without intravenous contrast HISTORY: liver mass COMPARISON: 06/18/2018 hepatic ultrasound TECHNIQUE: Axial images of the abdomen from lung bases to iliac crest with and without intravenous contrast enhancement. Coronal and sagittal reformats generated. Oral contrast also administered. Intravenous contrast Dose: 150 cc Visipaque 320. Radiation dose: Total exam DLP = 1720.23 mGy-cm. This CT exam was performed using one or more of the following dose reduction techniques: Automated exposure control, adjustment of the mA and/or kV according to patient size, and/or use of iterative reconstruction technique. FINDINGS: LOWER THORAX: Trace right pleural effusion. LIVER: Confirmation of mass and segment 6 of the liver. The mass measures 6.5 x 6.7 cm. On the arterial phase there is peripheral enhancement. On the delayed phase enhancement follows a pattern consistent with hepatic hemangioma. No additional hepatic masses identified. Patent portal venous system is satisfactorily visualized without evidence portal vein thrombosis or the stigmata of portal hypertension. GALLBLADDER AND BILE DUCTS: Unremarkable. PANCREAS: Unremarkable. No gross lesion or ductal dilatation. SPLEEN: Unremarkable. ADRENALS: Unremarkable. No mass. KIDNEYS AND URETERS: Variable enhancement kidneys consistent with known medical renal/chronic kidney disease. No focal renal abnormalities or evidence of calculus disease nor hydronephrosis appreciated. VASCULATURE: Atherosclerotic calcification and mural plaque present. Findings are seen throughout the aorta. The aorta is non aneurysmal BOWEL: Unremarkable. No obstruction. No gross mural thickening. APPENDIX: No abnormalities to suggest acute appendicitis. No right lower quadrant inflammatory processes identified. PERITONEUM: Unremarkable. No free fluid. No free air. LYMPH NODES: Unremarkable. No enlarged lymph nodes. BLADDER: The urinary bladder is decompressed. No gross abnormalities detected. REPRODUCTIVE: Mildly enlarged prostate. BONES: No acute fracture. OTHER FINDINGS: None. IMPRESSION: Contrast-enhancing characteristics of solitary mass in the right hepatic lobe consistent with hemangioma. No additional hepatic abnormalities. Additional benign and/or incidental findings described above.
[2018-06-23 14:38] VITALS: BP 147/76; PULSE 76; RESP 18; TEMP 98.3; O2SAT 100
--- NOTE | 2018-06-23 15:02 | CP.PCM.PN ---
Subjective - Date & Time of Evaluation Date of Evaluation: 06/23/18 Time of Evaluation: 14:57 - Subjective Subjective: PGY1 Progress Note for Dr. Guerra Patient seen and examined at bedside this morning. No acute nursing events overnight. Patient s/p dialysis cath placement 06/18. Patient is status-post dialysis today, and Patient tolerated well. Patient pending dialysis placement at this time. 12 Point ROS is otherwise unremarkable. Objective - Vital Signs/Intake and Output Vital Signs (last 24 hours): Temp Pulse Resp BP Pulse Ox 98.3 F 76 18 147/76 100 06/23/18 14:00 06/23/18 14:00 06/23/18 14:00 06/23/18 14:00 06/23/18 14:00 Intake and Output: 06/23/18 06/23/18 06:59 18:59 Intake Total 180 Balance 180 - Medications Medications: Current Medications Acetaminophen (Tylenol 325mg Tab) 650 mg PO Q4 PRN PRN Reason: Pain, Mild (1-3) Last Admin: 06/21/18 17:19 Dose: 650 mg Amlodipine Besylate (Norvasc) 10 mg PO DAILY [facility] Last Admin: 06/22/18 09:27 Dose: 10 mg Calcitriol (Rocaltrol) 0.5 mcg PO DAILY [facility] Last Admin: 06/23/18 10:00 Dose: Not Given Calcium Acetate (Phoslo) 667 mg PO WM [facility] Last Admin: 06/23/18 12:00 Dose: Not Given Clonidine HCl (Catapres) 0.1 mg PO BID PRN PRN Reason: Systolic Blood Pressure Last Admin: 06/22/18 06:20 Dose: 0.1 mg Heparin Sodium (Porcine) (Heparin) 2,000 units IVP MWF PRN; Protocol PRN Reason: DIALYSIS Last Admin: 06/23/18 08:06 Dose: 2,000 units Insulin Human Regular (Humulin R Med) 0 units SC [facility]; Protocol Last Admin: 06/23/18 12:00 Dose: Not Given Labetalol HCl (Trandate) 200 mg PO BID [facility] Last Admin: 06/23/18 10:00 Dose: Not Given Lisinopril (Zestril) 40 mg PO DAILY [facility] Last Admin: 06/22/18 09:27 Dose: 40 mg Magnesium Oxide (Mag-Ox) 400 mg PO BID [facility] Stop: 06/24/18 10:01 Last Admin: 06/23/18 11:00 Dose: Not Given Ondansetron HCl (Zofran Inj) 4 mg IVP Q6H PRN PRN Reason: Nausea/Vomiting Vitamin D (Vitamin D 400 Intl Units Tab) 1,200 intlu PO DAILY [facility] Last Admin: 06/23/18 10:00 Dose: Not Given - Labs Labs: 06/23/18 07:00 06/23/18 06:30 PT 13.1 SECONDS (9.4-12.5) H 06/18/18 06:00 INR 1.14 06/18/18 06:00 APTT 29.5 Seconds (25.1-36.5) 06/17/18 16:34 - Additional Findings Additional findings: - Constitutional Appears: Non Toxic, In no acute distress - Head Exam Head Exam: NORMAL INSPECTION, NORMOCEPHALIC - Eye Exam Eye Exam: EOMI, Normal appearance - ENT Exam ENT Exam: Mucous Membranes Moist, Normal Exam - Neck Exam Neck Exam: Normal Inspection - Respiratory Exam Respiratory Exam: Clear to Ausculation Bilateral, NORMAL BREATHING PATTERN - Cardiovascular Exam Cardiovascular Exam: REGULAR RHYTHM, +S1, +S2 - GI/Abdominal Exam GI & Abdominal Exam: Soft. absent: Tenderness - Extremities Exam Extremities Exam: Normal Inspection. absent: Calf Tenderness - Back Exam Back Exam: NORMAL INSPECTION - Neurological Exam Neurological Exam: Alert, Awake, Oriented x3 - Psychiatric Exam Psychiatric exam: Normal Affect, Normal Mood - Skin Skin Exam: Dry, Intact, Warm Assessment and Plan - Assessment and Plan (Free Text) Assessment: 53 y/o M with PMH CKD, IDDM, HTN, HLD admitted for hyperkalemia, CHF exacerb ation, rhabdomyolysis in the setting of acute on chronic kidney failure. Patient s/p HD catheter placement (06/18). Patient status-post dialysis x3 and transfusions. Pending out-patient dialysis arrangement. Acute on chronic kidney failure - Patient s/p HD catheter placement (06/18) - PT tolerated dialysis without issue - Continue scheduled kayexalate - Continue NS@ 50mls/hr - Continue Sodium bicarbonate 650po tid - Consult nephrology, appreciate recs - Urine studies: electrolytes, 24hr creatinine, total protein, upep, - Hepatitis panel: lower lobe mass lesion on liver seen on renal ultrasound - B/l echogeneity seen on renal u/s - Vitamin D level, uric acid, - I&Os Rule-out CHF Exacerbation - Status-post cardiac cath - BNP elevated - ECHO obtained Hyperkalemia, resolved - No EKG changes - Given: Calcium gluconate 1g - Continue kayexalate scheduled daily Anemia of chronic kidney disease - Consult GI for endoscopic workup - Abdominal U/S: confirmation of mass identified on recent renal ultrasound. Please see report for details. - CT of abdomen / Liver ordered - Iron studies within normal limits - Type & Screen - On dialysis, transfuse as needed Solitary Liver Mass Consistent with Hemangioma on Triple Phase CT - 06/23 CT of Liver (Triple Phase): Contrast-enhancing characteristics of solitary mass in the right hepatic lobe consistent with hemangioma. - No other hepatic abnormalities. - Hep panel negative Hx of HTN - Continue home labetalol - Continue home nifedipine Hx of IDDM - Sliding scale insulin - Hypoglycemic protocol - Accu-checks ACHS DVT ppx: SCD Patient seen and case discussed in detail with Dr. Mari Baron PGY1
[2018-06-23 18:08] LABS: ANCA SCREEN NEGATIVE (NEGATIVE)
[2018-06-26 07:50] LABS: COLLECTION TIME 24 Hours; TOTAL VOLUME 1.67 Liters
--- NOTE | 2018-06-28 06:42 | CP.PCM.DIS ---
Provider - Provider Date of Admission: 06/17/18 15:29 Attending physician: Jesse Stout MD Consults: 06/17/18 15:11 Consult [Physician Consult] Stat Comment: Consulting Provider: Parish Reese Consulting Physician: Parish Reese Reason for Consult: kidney failure 06/17/18 16:02 Consult [Physician Consult] Routine Comment: Consulting Provider: Andrew Antoine Consulting Physician: Andrew Antoine Reason for Consult: heart failure 06/18/18 08:07 Consult [Physician Consult] Routine Comment: Consulting Provider: Gerardo Torres Consulting Physician: Gerardo Torres Reason for Consult: HD catheter placement 06/18/18 10:36 Gastroenterology Consult Routine Comment: Consulting Provider: Denis Saini Consulting Physician: Denis Saini Reason for Consult: Anemia, endoscopic w/u 06/20/18 08:59 Consult [Physician Consult] Routine Comment: Consulting Provider: Michele Wagner Consulting Physician: Michele Wagner Reason for Consult: eval for AV fistula for HD Time Spent in preparation of Discharge (in minutes): 45 Diagnosis - Discharge Diagnosis (1) Hyperkalemia Status: Acute (2) Renal failure Status: Acute Hospital Course - Lab Results Lab Results: Micro Results 06/17/18 23:28 Urine Urine Culture - Final No Growth (<1,000 CFU/ML) Most Recent Lab Values WBC 8.3 10^3/uL (4.5-11.0) 06/23/18 07:00 RBC 2.98 10^6/uL (3.5-6.1) L 06/23/18 07:00 Hgb 9.1 g/dL (14.0-18.0) L 06/23/18 07:00 Hct 26.1 % (42.0-52.0) L 06/23/18 07:00 MCV 87.6 fl (80.0-105.0) 06/23/18 07:00 MCH 30.5 pg (25.0-35.0) 06/23/18 07:00 MCHC 34.9 g/dl (31.0-37.0) 06/23/18 07:00 RDW 11.8 % (11.5-14.5) 06/23/18 07:00 Plt Count 127 10^3/uL (120.0-450.0) 06/23/18 07:00 MPV 72.7 fl (7.0-11.0) H 06/23/18 07:00 Gran % 15.4 % (50.0-68.0) L 06/23/18 07:00 Lymph % (Auto) 9.1 % (22.0-35.0) L 06/23/18 07:00 [place] % (Auto) 2.6 % (1.0-6.0) 06/23/18 07:00 Eos % (Auto) 0.2 % (1.5-5.0) L 06/23/18 07:00 Baso % (Auto) 6.0 % (0.0-3.0) H 06/23/18 07:00 Gran # 6.03 (1.4-6.5) 06/23/18 07:00 Lymph # (Auto) 1.3 (1.2-3.4) 06/23/18 07:00 [place] # (Auto) 0.8 (0.1-0.6) H 06/23/18 07:00 Eos # (Auto) 0.2 (0.0-0.7) 06/23/18 07:00 Baso # (Auto) 0.02 K/mm3 (0.0-2.0) 06/23/18 07:00 Neutrophils % (Manual) 76 % (50.0-70.0) H 06/23/18 07:00 Lymphocytes % (Manual) 14 % (22.0-35.0) L 06/23/18 07:00 Monocytes % (Manual) 8 % (1.0-6.0) H 06/23/18 07:00 Eosinophils % (Manual) 2 % (0.0-3.0) 06/23/18 07:00 Platelet Evaluation Low (NORMAL) 06/23/18 07:00 Retic Count 2.37 % (0.5-1.5) H 06/18/18 06:00 Hemoglobin A 56.1 Percent (>96.0) L 06/18/18 06:00 Hemoglobin A2 4.9 Percent (1.8-3.5) H 06/18/18 06:00 Hemoglobin C 0.0 Percent (0.0-0.0) 06/18/18 06:00 Hemoglobin F () <1.0 Percent (<2.0) 06/18/18 06:00 Hemoglobin S 38.0 Percent (0.0-0.0) H 06/18/18 06:00 Variant Hemoglobin 0.0 Percent (0.0-0.0) 06/18/18 06:00 Hemoglobinopathy Red Blood Count 2.31 Mill/mcL (4.20-5.80) L 06/18/18 06:00 Hemoglobinopathy Hct 21.3 % (38.5-50.0) L 06/18/18 06:00 Hemoglobinopathy Hgb 7.0 g/dL (13.2-17.1) L 06/18/18 06:00 Hemoglobinopathy MCV 91.9 fL (80.0-100.0) 06/18/18 06:00 Hemoglobinopathy MCH 30.1 pg (27.0-33.0) 06/18/18 06:00 Hemoglobinopathy RDW 13.1 % (11.0-15.0) 06/18/18 06:00 Hemoglobinopathy Interp See note 06/18/18 06:00 PT 13.1 SECONDS (9.4-12.5) H 06/18/18 06:00 INR 1.14 06/18/18 06:00 APTT 29.5 Seconds (25.1-36.5) 06/17/18 16:34 D-Dimer, Quantitative 707 ng/mlDDU (0-243) H 06/17/18 10:40 Sodium 129 mmol/L (132-148) L 06/23/18 06:30 Potassium 4.0 mmol/L (3.6-5.0) 06/23/18 06:30 Chloride 93 mmol/L (98-107) L 06/23/18 06:30 Carbon Dioxide 25 mmol/L (21-33) 06/23/18 06:30 Anion Gap 15 (10-20) 06/23/18 06:30 BUN 62 mg/dL (7-21) H 06/23/18 06:30 Creatinine 9.4 mg/dl (0.8-1.5) H* D 06/23/18 06:30 Est GFR ( Amer) 7 12/05/18 06:30 Est GFR (Non-Af Amer) 6 06/23/18 06:30 POC Glucose (mg/dL) 129 mg/dL (65-110) H 06/23/18 06:37 Random Glucose 127 mg/dL (70-110) H 06/23/18 06:30 Hemoglobin A1c 6.1 % (4.2-6.5) 06/22/18 15:30 Serum Osmolality 314 mosm/kg (272-300) H 06/17/18 16:34 Uric Acid 7.6 mg/dL (3.5-8.5) 06/17/18 16:34 Calcium 6.6 mg/dL (8.4-10.5) L* 06/23/18 06:30 Phosphorus 7.6 mg/dL (2.5-4.5) H 06/23/18 06:30 Magnesium 1.5 mg/dL (1.7-2.2) L 06/23/18 06:30 Iron 64 ug/dL (45-180) 06/18/18 06:00 TIBC 265 ug/dL (261-462) 06/18/18 06:00 % Saturation 24 % (20-55) 06/18/18 06:00 Ferritin 94.2 ng/mL 06/18/18 06:00 Total Bilirubin 0.6 mg/dL (0.2-1.3) 06/23/18 06:30 AST 42 U/L (17-59) 06/23/18 06:30 ALT 30 U/L (7-56) 06/23/18 06:30 Alkaline Phosphatase 119 U/L (38-126) 06/23/18 06:30 Lactate Dehydrogenase 994 U/L (333-699) H 06/19/18 07:00 Total Creatine Kinase 2318 U/L (35-230) H 06/19/18 07:00 CK-MB (CK-2) 6.9 ng/mL (0.0-3.6) H 06/19/18 07:00 CK-MB (CK-2) % 0.3 % (2.5-3.0) L 06/19/18 07:00 Troponin I 0.03 ng/mL 06/19/18 07:00 NT-Pro-B Natriuret Pep 9500 pg/mL (0-450) H 06/17/18 10:40 Total Protein 6.1 g/dL (5.8-8.3) 06/23/18 06:30 Total Protein (PEP) 5.7 g/dL (6.1-8.1) L 06/17/18 16:34 Albumin 2.9 g/dL (3.0-4.8) L 06/23/18 06:30 Albumin (PEP) 2.7 g/dL (3.8-4.8) L 06/17/18 16:34 Globulin 3.3 gm/dL 06/23/18 06:30 Albumin/Globulin Ratio 0.9 (1.1-1.8) L 06/23/18 06:30 Cbobw-7-Wayztlfus 9.2 % 06/19/18 20:30 Pkjjr-8-Aaoeiyfac 9.2 % 06/19/18 20:30 Beta Globulins 14.1 % 06/19/18 20:30 Xhvw-2-Gomwykbo 0.3 g/dL (0.4-0.6) L 06/17/18 16:34 Pdxo-4-Scpldjjs 0.3 g/dL (0.2-0.5) 06/17/18 16:34 Gamma Globulins 19.0 % 06/19/18 20:30 Abnorm Protein Band 1 TEST NOT PERFORMED 06/17/18 16:34 Abnorm Protein Band 2 TEST NOT PERFORMED 06/17/18 16:34 Abnorm Protein Band 3 TEST NOT PERFORMED 06/17/18 16:34 Triglycerides 87 mg/dL (35-160) 06/20/18 07:00 Cholesterol 132 mg/dL (130-200) 06/20/18 07:00 LDL Cholesterol Direct 67 mg/dL (0-129) 06/20/18 07:00 HDL Cholesterol 37 mg/dL (29-60) 06/20/18 07:00 25-OH Vitamin D Total < 12.8 NG/ML (30.0-100.0) L 06/17/18 16:34 PTH Intact Whole Molec 266 pg/mL (14-64) H 06/18/18 06:00 Urine Color yellow (YELLOW) 06/20/18 09:00 Urine Appearance Clear (CLEAR) 06/20/18 09:00 Urine pH 6.5 (4.7-8.0) 06/20/18 09:00 Ur Specific [place] 1.015 (1.005-1.035) 06/20/18 09:00 Urine Protein >=300 mg/dL (<30 mg/dL) H 06/20/18 09:00 Urine Glucose (UA) 100 mg/dL (NEGATIVE) H 06/20/18 09:00 Urine Ketones Negative mg/dL (NEGATIVE) 06/20/18 09:00 Urine Blood Moderate (NEGATIVE) H 06/20/18 09:00 Urine Nitrate Negative (NEGATIVE) 06/20/18 09:00 Urine Bilirubin Negative (NEGATIVE) 06/20/18 09:00 Urine Urobilinogen 0.2 E.U./dL (<1 E.U./dL) 06/20/18 09:00 Ur Leukocyte Esterase Moderate [place]/uL (NEGATIVE) H 06/20/18 09:00 Urine RBC 20 - 25 /hpf (0-2) 06/20/18 09:00 Urine WBC 25 - 30 /hpf (0-6) 06/20/18 09:00 Ur Epithelial Cells 3 - 4 /hpf (0-5) 06/20/18 09:00 Urine Eosinophils Positive 06/20/18 08:50 Urine Osmolality 180 mosm/kg (300-1000) L 06/17/18 16:20 Ur Random Creatinine 45 mg/dL 06/17/18 16:20 Ur Random Sodium 37 meq/L 06/17/18 16:20 Urine Collection Time 24 HOURS 06/19/18 20:30 Urine Total Volume 1700 mL (800-1400) H 06/19/18 20:30 Ur 24 Hour Volume 1.67 liters 06/19/18 20:30 Urine Creatinine See above result 06/19/18 20:30 Ur Creatinine 24 Hour 1.14 g/24 h (0.50-2.15) 06/19/18 20:30 Ur Total Protein 24 Hr 40171 mg/24 h (<150) H 06/19/18 20:30 Protein/Creat Ratio 24h 9559 mg/g creat (< OR = 114) H 06/19/18 20:30 Urine Total Protein See below result 06/19/18 20:30 Ur Protein 24 Hr Calc 10631 mg/24HR (42-225) H 06/19/18 20:30 Urine Albumin (PEP) 48.5 % 06/19/18 20:30 Ur Protein Fractions See note 06/19/18 20:30 Stool Occult Blood Negative (NEGATIVE) 06/20/18 20:30 JAMES & SPEP Interp See note 06/17/18 16:34 MATILDE Screen Negative (Negative) 06/17/18 16:34 MATILDE Titer TEST NOT PERFORMED 06/17/18 16:34 MATILDE Titer 2 TEST NOT PERFORMED 06/17/18 16:34 MATILDE Pattern TEST NOT PERFORMED 06/17/18 16:34 MATILDE Pattern 2 TEST NOT PERFORMED 06/17/18 16:34 ANCA Screen Negative (NEGATIVE) 06/18/18 06:00 c-ANCA Titer TNP 06/18/18 06:00 Proteinase 3 (PR3) <1.0 AI (<1.0) 06/18/18 06:00 p-ANCA Titer TNP 06/18/18 06:00 Atypical p-ANCA Titer TNP 06/18/18 06:00 Myeloperoxidase Ab <1.0 AI (<1.0) 06/18/18 06:00 SS-A Antibody <1.0 AI (<1.0) 06/18/18 06:00 SS-B Ab Interp Negative (Negative) 06/18/18 06:00 SS-B Antibody <1.0 AI (<1.0) 06/18/18 06:00 SS-B Ab Interp Negative (Negative) 06/18/18 06:00 Sm (Torres) Antibody <1.0 AI (<1.0) 06/18/18 06:00 Anti-Torres Interpret Negative (Negative) 06/18/18 06:00 Double Strand DNA Ab <1 IU/mL 06/18/18 06:00 Complement C3 99.0 mg/dL (88.0-165.0) 06/18/18 06:00 Complement C4 32.9 mg/dL (14.0-44.0) 06/18/18 06:00 Free [place] Light Chains 173.4 mg/L (3.3-19.4) H 06/18/18 06:00 Free [place] Light Chain 123.6 mg/L (5.7-26.3) H 06/18/18 06:00 Free [place]/Lambda Ratio 1.40 (0.26-1.65) 06/18/18 06:00 Hepatitis A IgM Ab Negative (NEGATIVE) 06/17/18 16:34 Hep Bs Antigen Negative (NEGATIVE) 06/17/18 16:34 Hep B Core IgM Ab Negative (NEGATIVE) 06/17/18 16:34 Hepatitis C Antibody Negative (NEGATIVE) 06/17/18 16:34 HIV 1&2 Ag/Ab, 4th Gen Nonreactive (Nonreactive) 06/17/18 16:34 Blood Type B POSITIVE 06/21/18 08:25 Blood Type Confirm B POSITIVE 06/17/18 15:37 Antibody Screen Negative 06/21/18 08:25 Crossmatch See Detail 06/21/18 08:25 BBK History Checked Patient has bt 06/21/18 08:25 - Hospital Course Hospital Course: Discharge Summary and 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 Guerra 53-year-old Male with PMH CKD, IDDM, HTN, HLD admitted for hyperkalemia, CHF exacerbation, who came into [facility] with for shortness of breath and difficulty breathing while laying down and walking. Patient was found to have labs consistent with rhabdomyolysis in the setting of acute on chronic kidney failure. Please see complete report for details. Patient was admitted for dialysis and underwent HD catheter placement (06/18/18). Please see complete report for details.Throughout the Patient's hospital stay, he underwent dialysis x3 with transfusions as needed. Patient was pending outpatient dialysis placement however wanted to leave the hospital against medical advice on 06/23/18. Please see progress notes for details. Of note, the patient underwent ultrasound of abdomen which revealed a mass. Triple Phase CT of the Liver which was obtained on 06/23/18 and revealed contrast-enhancing characteristics of solitary mass in the right hepatic lobe consistent with hemangioma. Please see complete report for details. On 06/23/18 patient requested to sign out AGAINST MEDICAL ADVICE (AMA). This action is against my medical advice to the patient and the decision was made with informed refusal. The patient was told that further workup is necessary and a full explanation of the rationale was given. The risks of leaving were explained to the patient and include but are not limited to increased morbidity and mortality, , and worsening of known or unknown conditions. Patient was AAOX3 and was able to make this informed decision and understood the clinical situation and my explanation of the risks of leaving. The patient voluntarily accepted these risks and signed an AMA form documenting our conversation. The patient was given the opportunity ask questions and reconsider. The patient was encouraged to return to emergency room at any time for further care. He was advised to follow-up with her primary care doctor as soon as possible. Please see Patient's complete chart for details. Patient was seen and case was discussed in detail with Dr. Mari Baron PGY1 Discharge Exam - Additional Findings Additional findings: - Constitutional Appears: Non Toxic, In no acute distress - Head Exam Head Exam: NORMAL INSPECTION, NORMOCEPHALIC - Eye Exam Eye Exam: EOMI, Normal appearance - ENT Exam ENT Exam: Mucous Membranes Moist, Normal Exam - Neck Exam Neck Exam: Normal Inspection - Respiratory Exam Respiratory Exam: Clear to Ausculation Bilateral, NORMAL BREATHING PATTERN - Cardiovascular Exam Cardiovascular Exam: REGULAR RHYTHM, +S1, +S2 - GI/Abdominal Exam GI & Abdominal Exam: Soft. absent: Tenderness - Extremities Exam Extremities Exam: Normal Inspection. absent: Calf Tenderness - Back Exam Back Exam: NORMAL INSPECTION - Neurological Exam Neurological Exam: Alert, Awake, Oriented x3 - Psychiatric Exam Psychiatric exam: Normal Affect, Normal Mood - Skin Skin Exam: Dry, Intact, Warm Discharge Plan - Discharge Medications Prescriptions: amLODIPine [Norvasc] 10 mg PO DAILY #30 tab Aspirin [Adult Low Dose Aspirin EC] 81 mg PO DAILY #30 tablet. Atorvastatin [Lipitor] 80 mg PO DAILY #30 tab Calcitriol [Rocaltrol] 0.5 mcg PO DAILY #30 sgl Calcium Acetate [Phoslo] 667 mg PO WM #10 tab Cholecalciferol 400 Intl Units [Vitamin D 400 Intl Units Tab] 1,200 intlu PO DAILY #90 tab Labetalol [Trandate] 200 mg PO BID #60 tab Lisinopril [Zestril] 40 mg PO DAILY #30 tab - Follow Up Plan Condition: GUARDED Disposition: AGAINST MEDICAL ADVICE Instructions: Hemodialysis (DC), Traveling With Hemodialysis, Dialysis and Diet, Hyperkalemia (DC), Hyperkalemia (GEN) Additional Instructions: Please follow up with your primary care doctor at the [facility] with Dr. Barrera on July 08, 2018 at 01:00pm. Please call the number provided for this clinic once you are discharged to ensure that you have everything you need for your appointment. Please discuss all medical issues addressed and any new medications that your have been started. Please follow up with your fruit or nut farmer within 3-5 days of being discharged from the hospital. Please discuss all medical issues addressed and any new medicati ons that your have been started. You will need to have a 2D echocardiogram (ultrasound of your heart) after two weeks of dialysis. Please follow up with your product introduction manager within 3-5 days of being discharged from the hospital. Please discuss all medical issues addressed and any new medications that your have been started. You will be starting scheduled dialysis at [facility] on Thursday, and Thursday at 09:55am. Please follow up with a general manager of your choice after being discharged from the hospital as it has been recommended that you have an EGD done in the future by the general manager that saw you while you were admitted at [facility]. Please DISCONTINUE the following medications: 1. Losartan 2. Nifedipine Please START taking the following medications: 1. Calcitriol 0.5mcg once daily 2. Phoslo 667mg on Thursday and Thursday 3. Vitamin D 400 intl units three tablets once daily 4. Lisinopril 40mg once daily 5. Norvasc 10mg once daily The following CHANGES have been made to your home medications: 1. Labetalol has been INCREASED to 200mg twice daily Please continue all medications as prescribed that you were previously taking at home that are not mentioned above. If your symptoms return, please seek emergency medical attention immediately. Referrals: [facility] [Outside] [facility] [Outside] Parish Reese MD [Staff Provider] - Andrew Antoine MD [Staff Provider] - Denis Saini DO [Staff Provider] - Clinical Quality Measures - Date & Time of Discharge Summary Date of Discharge Summary: 06/23/18 Time of Discharge Summary: 16:30
--- NOTE | 2018-06-28 07:02 | PQF ---
PROVIDER RESPONSE TEXT: Patient had left ventricular diastolic dysfunction. REVIEWER QUERY TEXT: CHF Acuity and Type Congestive Heart Failure is documented in the Medical Record. Please document the type and acuity (in cludes probable or suspected) Such as: Type: -- Systolic -- Diastolic -- Combined -- Other, please specify Acuity: -- Acute -- Chronic -- Acute on chronic -- Other, please specify Also please document the underlying cause of the CHF (includes probable or suspected) The patient's Clinical Indicators include: Please see below. Thank you. Query created by: Vijaya Flanagan on 06/24/2018 3:46 PM Electronically signed by: Jesse Stout MD 06/28/2018 6:59 AM
== END 2018-06-23 17:25 | disposition left against medical advice (07) | DRG 568 ==
LOC: ED 09:50 → ERH 15:29 → 2RSO 18:17 → 5RNO 06-22 20:30
PROVIDERS: ADMIT Internal Medicine; ATTEND Internal Medicine
PROC: 05HM33Z Insertion of Infusion Device into Right Internal Jugular Vein, Percutaneous Approach (ICD-10-PCS; principal; 2018-06-18)
PROC: B543ZZA Ultrasonography of Right Jugular Veins, Guidance (ICD-10-PCS; 2018-06-18)
PROC: 5A1D70Z Performance of Urinary Filtration, Intermittent, Less than 6 Hours Per Day (ICD-10-PCS; 2018-06-19)
PROC: 30233N1 Transfusion of Nonautologous Red Blood Cells into Peripheral Vein, Percutaneous Approach (ICD-10-PCS; 2018-06-19)
PROC: 5A1D70Z Performance of Urinary Filtration, Intermittent, Less than 6 Hours Per Day (ICD-10-PCS; 2018-06-21)
PROC: 5A1D70Z Performance of Urinary Filtration, Intermittent, Less than 6 Hours Per Day (ICD-10-PCS; 2018-06-23)
DX: N17.9 Acute kidney failure, unspecified (principal); M62.82 Rhabdomyolysis; I50.30 Unspecified diastolic (congestive) heart failure; I13.2 Hypertensive heart and chronic kidney disease with heart failure and with stage 5 chronic kidney disease, or end stage renal disease; E10.22 Type 1 diabetes mellitus with diabetic chronic kidney disease; E87.5 Hyperkalemia; N18.6 End stage renal disease; D63.1 Anemia in chronic kidney disease; E78.5 Hyperlipidemia, unspecified; E83.52 Hypercalcemia; E83.39 Other disorders of phosphorus metabolism; I34.0 Nonrheumatic mitral (valve) insufficiency; N04.9 Nephrotic syndrome with unspecified morphologic changes; R79.1 Abnormal coagulation profile; Z79.4 Long term (current) use of insulin; Z79.82 Long term (current) use of aspirin; Z87.891 Personal history of nicotine dependence; Z91.81 History of falling; S80.211A Abrasion, right knee, initial encounter; R40.2412 Glasgow coma scale score 13-15, at arrival to emergency department

== ENCOUNTER 2018-07-28 19:44 | Inpatient (IN) | payer MEDICAID, OTHER ==
[2018-07-28 21:16] LABS: ARTERIAL BLOOD GAS HCO3 13.8 mmol/L (21-28); ARTERIAL BLOOD GAS O2 SAT 93.9 % (95-98); ARTERIAL BLOOD GAS PCO2 25 mm/Hg (35-45); ARTERIAL BLOOD GAS PH 7.35 (7.35-7.45); ARTERIAL BLOOD GAS TCO2 14.6 mmol.L (22-28)
[2018-07-28 21:26] LABS: TROPONIN I 0.01 ng/mL
[2018-07-28 21:34] LABS: ALB/GLOB RATIO 0.9 (1.1-1.8); ALBUMIN 3.5 g/dL (3.0-4.8); CALCIUM 6.2 mg/dL (8.4-10.5)
[2018-07-28] MEDS ORDERED: Albuterol 0.5% Inhal Sol (5 mg/ ml) 20 ml IH STA (21:35)
[2018-07-28] MEDS ORDERED: Insulin Regular 1 UNITS/0.01 ML ML IVP STA (21:36)
[2018-07-28] MEDS ORDERED: Dextrose 50% SYRINGE Inj (50 ml) IVP ONE (21:36)
[2018-07-28] MEDS ORDERED: Sodium Bicarbonate (8.4%) 50 Meq Syringe IVP ONE ×2 (21:39→21:54)
[2018-07-28 21:43] LABS: CK MB% 0.2 % (2.5-3.0)
[2018-07-28 21:46] LABS: BASO # 0.02 K/mm3 (0.0-2.0); BASO % 0.2 % (0.0-3.0); EOS # 0.3 (0.0-0.7); EOS % 2.4 % (1.5-5.0); GRAN # 8.31 (1.4-6.5); GRAN % 79.2 % (50.0-68.0); HEMOGLOBIN 7.7 g/dL (14.0-18.0); LYMPH # 1.4 (1.2-3.4); MEAN CELL VOLUME 85.1 fl (80.0-105.0); MEAN CORPUSCULAR HEMOGLOBIN 29.4 pg (25.0-35.0); MEAN CORPUSCULAR HGB CONC 34.5 g/dl (31.0-37.0); MEAN PLATELET VOLUME 10.4 fl (7.0-11.0); MONO # 0.5 (0.1-0.6); MONO % 5.2 % (1.0-6.0); RBC 2.62 10^6/uL (3.5-6.1); RED CELL DISTRIBUTION WIDTH 13.1 % (11.5-14.5); WHITE BLOOD COUNT 10.5 10^3/uL (4.5-11.0)
--- NOTE | 2018-07-28 23:07 | ED PDOC ---
Arrival/HPI <Scot Beavers - Last Filed: 07/29/18 00:09> - General Historian: Patient - History of Present Illness Narrative History of Present Illness (Text): 07/28/18 23:09 Rod Mari is a 53 year old male, whose past medical history includes IDDM, hypertension, renal failure, and chronic anemia, who presents to the Emergency department complaining of 1 month history of worsening shortness of breath, mostly on exertion. Patient states he has not been able to sleep for the past few weeks. Patient also reports he had a dry cough that recently has become productive. Patient denies any chest pain, abdominal pain, nausea, vomiting, or any other complaints. Patient states he is still urinating. Symptom Onset: Gradual Symptom Course: Unchanged Activities at Onset: Light Context: Home <Janette Balbuena - Last Filed: 07/29/18 00:16> - General Chief Complaint: Shortness Of Breath Time Seen by Provider: 07/28/18 19:48 Past Medical History - Provider Review Nursing Documentation Reviewed: Yes - Infectious Disease Hx of Infectious Diseases: None - Cardiac Hx Cardiac Disorders: Yes Hx Hypertension: Yes - Pulmonary Hx Respiratory Disorders: No - Neurological Hx Neurological Disorder: No - HEENT Hx HEENT Disorder: No - Renal Hx Renal Disorder: No Hx Dialysis: Yes Type of Dialysis Access: R chest cath - Endocrine/Metabolic Hx Diabetes Mellitus Type 1: Yes - Hematological/Oncological Hx Blood Disorders: No - Integumentary Hx Dermatological Disorder: No - Musculoskeletal/Rheumatological Hx Musculoskeletal Disorders: No - Gastrointestinal Hx Gastrointestinal Disorders: No - Genitourinary/Gynecological Hx Genitourinary Disorders: No - Psychiatric Hx Psychophysiologic Disorder: No Hx Substance Use: No - Surgical History Hx Cardiac Catheterization: Yes - Anesthesia Hx Anesthesia: No <Janette Balbuena - Last Filed: 07/29/18 00:16> Family/Social History - Physician Review Nursing Documentation Reviewed: Yes Family/Social History: Unknown Family HX Smoking Status: Former Smoker Hx Alcohol Use: Yes Hx Substance Use: No <Janette Balbuena - Last Filed: 07/29/18 00:16> Allergies/Home Meds <Scot Beavers - Last Filed: 07/29/18 00:09> <Janette Balbuena - Last Filed: 07/29/18 00:16> Allergies/Adverse Reactions: Allergies No Known Allergies Allergy (Verified 07/28/18 20:01) Review of Systems - Physician Review All systems were reviewed & negative as marked: Yes - Review of Systems Constitutional: Normal. absent: Fevers Eyes: Normal ENT: Normal Respiratory: SOB, Cough, Sputum Cardiovascular: HOLLINS Gastrointestinal: Normal. absent: Abdominal Pain, Diarrhea, Nausea, Vomiting Musculoskeletal: Normal. absent: Back Pain, Neck Pain Skin: Normal. absent: Rash Neurological: Normal. absent: Headache, Dizziness Endocrine: Normal Hemo/Lymphatic: Normal Psychiatric: Normal <Janette Balbuena - Last Filed: 07/29/18 00:16> Physical Exam Vital Signs Temp Pulse Resp BP Pulse Ox 07/28/18 23:52 92 H 23 190/88 H 92 L 07/28/18 23:13 190/101 H 07/28/18 22:12 91 H 20 189/99 H 100 07/28/18 20:09 91 H 18 146/101 H 94 L 07/28/18 20:04 97.9 F 90 18 216/90 H 96 <Scot Beavers - Last Filed: 07/29/18 00:09> Vital Signs Reviewed: Yes Vital Signs Temp Pulse Resp BP Pulse Ox 07/28/18 22:12 91 H 20 189/99 H 100 07/28/18 20:09 91 H 18 146/101 H 94 L 07/28/18 20:04 97.9 F 90 18 216/90 H 96 Temperature: Afebrile Blood Pressure: Hypertensive Pulse: Regular Respiratory Rate: Normal Appearance: Positive for: Well-Appearing, Non-Toxic, Comfortable Pain Distress: None Mental Status: Positive for: Alert and Oriented X 3 - Systems Exam Head: Present: Atraumatic, Normocephalic Pupils: Present: PERRL Extroacular Muscles: Present: EOMI Conjunctiva: Present: Normal Mouth: Present: Moist Mucous Membranes Neck: Present: Normal Range of Motion Respiratory/Chest: Present: Rales (Rales at the bases), Other (Dialysis catheter in right chest wall). No: Respiratory Distress, Accessory Muscle Use Cardiovascular: Present: Regular Rate and Rhythm, Normal S1, S2. No: Murmurs Abdomen: No: Tenderness, Distention, Peritoneal Signs Back: Present: Normal Inspection Upper Extremity: Present: Normal Inspection. No: Cyanosis, Edema Lower Extremity: Present: Edema (2+ pitting edema bilaterlly) Neurological: Present: GCS=15, Speech Normal Skin: Present: Warm, Dry, Normal Color. No: Rashes Psychiatric: Present: Alert, Oriented x 3 <Janette Balbuena T - Last Filed: 07/29/18 00:16> Medical Decision Making - Lab Interpretations Lab Results: pCO2 25 mm/Hg (35-45) L 07/28/18 21:10 pO2 59.0 mm/Hg (80-100) L 07/28/18 21:10 HCO3 13.8 mmol/L (21-28) L 07/28/18 21:10 ABG pH 7.35 (7.35-7.45) 07/28/18 21:10 ABG Total CO2 14.6 mmol.L (22-28) L 07/28/18 21:10 ABG O2 Saturation 93.9 % (95-98) L 07/28/18 21:10 ABG Base Excess -10.0 mmol/L (-2.0-3.0) L 07/28/18 21:10 ABG Potassium 6.5 mmol/L (3.6-5.2) H* 07/28/18 21:10 Sodium 136.0 mmol/L (132-148) 07/28/18 21:10 Chloride 108.0 mmol/L (98-107) H 07/28/18 21:10 Glucose 124 mg/dl (75-110) H 07/28/18 21:10 Lactate 1.0 mmol/L (0.7-2.1) 07/28/18 21:10 FiO2 21.0 % 07/28/18 21:10 Troponin I 0.01 ng/mL D 07/28/18 20:30 NT-Pro-B Natriuret Pep 80885 pg/mL (0-450) H 07/28/18 20:30 Total Bilirubin 0.6 mg/dL (0.2-1.3) 07/28/18 20:30 AST 39 U/L (17-59) 07/28/18 20:30 ALT 87 U/L (7-56) H 07/28/18 20:30 Alkaline Phosphatase 256 U/L (38-126) H D 07/28/18 20:30 Total Protein 7.2 g/dL (5.8-8.3) 07/28/18 20:30 Albumin 3.5 g/dL (3.0-4.8) 07/28/18 20:30 Globulin 3.7 gm/dL 07/28/18 20:30 Albumin/Globulin Ratio 0.9 (1.1-1.8) L 07/28/18 20:30 - RAD Interpretation Radiology Orders: 07/28/18 20:43 CHEST PORTABLE [RAD] Stat - Medication Orders Current Medication Orders: Discontinued Medications Albuterol Sulfate (Albuterol 0.5% Inhal Laura (5 Mg/ Ml) 20 Ml) 15 mg IH ONCE STA Stop: 07/28/18 21:36 Last Admin: 07/28/18 22:10 Dose: 15 mg Calcium Gluconate (Calcium Gluconate Iv) 1,000 mg IVP ONCE ONE Stop: 07/28/18 21:41 Last Admin: 07/28/18 22:02 Dose: 1,000 mg IVP Administration Document 07/28/18 22:02 CNR (Rec: 07/28/18 22:[address]) Charges for Administration # of IVP Administrations 1 Dextrose (Dextrose 50% Inj) 50 ml IVP ONCE ONE Stop: 07/28/18 21:37 Last Admin: 07/28/18 22:01 Dose: 50 ml IVP Administration Document 07/28/18 22:01 CNR (Rec: 07/28/18 22:01 CNR [id number]) Charges for Administration # of IVP Administrations 1 Dextrose (Dextrose 50% Inj) 50 ml IVP STAT STA Stop: 07/28/18 23:46 Last Admin: 07/28/18 23:41 Dose: 50 ml IVP Administration Document 07/28/18 23:41 CNR (Rec: 07/28/18 23:48 CNR [id number]) Charges for Administration # of IVP Administrations 1 Furosemide (Lasix) 80 mg IVP STAT STA Stop: 07/28/18 23:03 Last Admin: 07/28/18 23:13 Dose: 80 mg MAR Blood Pressure Document 07/28/18 23:13 CNR (Rec: 07/28/18 23:13 CNR [id number]) Blood Pressure Blood Pressure (100/60-150/90 mm Hg) 190/101 IVP Administration Document 07/28/18 23:13 CNR (Rec: 07/28/18 23:13 CNR [id number]) Charges for Administration # of IVP Administrations 1 Insulin Human Regular (Humulin R) 10 units IVP STAT STA Stop: 07/28/18 21:37 Last Admin: 07/28/18 22:01 Dose: 10 u IVP Administration Document 07/28/18 22:01 CNR (Rec: 07/28/18 22:01 CNR [id number]) Charges for Administration # of IVP Administrations 1 Sodium Bicarbonate (Sodium Bicarbonate 8.4% (50 Meq) Syringe) 50 meq IVP ONCE ONE Stop: 07/28/18 21:40 Last Admin: 07/28/18 22:01 Dose: 50 meq IVP Administration Document 07/28/18 22:01 CNR (Rec: 07/28/18 22:02 CNR [id number]) Charges for Administration # of IVP Administrations 1 <Scot Beavers - Last Filed: 07/29/18 00:09> ED Course and Treatment: 53yr old male with worsening shortness of breath x 1 month. hx of dialysis last month with dialysis catheter to right chest wall. Plan: -- EKG -- Chest X-ray -- CBC -- CMP -- ABG -- Urinalysis, urine cultures -- Blood cultures -- Reassess and disposition Progress Notes: patient found to be in renal failure with creatinine of 16.7 anemia at 7.7 Potassium 6.6 BNP 26,700 Troponin 0 0.01 EKG shows normal sinus rhythm at 92 bpm normal axis no ST elevations no peak T waves cxr; + vascular congestion Patient was given insulin D50 bicarb and albuterol for elevated K. Case was discussed in depth with the acquisition advisor on-call Dr. Pendleton; he advised monitoring the potassium and adding 80 mg of Lasix IV. If patient remains stable will hold off on dialysis until the morning. pt placed on O2 @ 2L pt reassessment; pt resting comfortably. o2 saturation 94% Case was discussed with Dr. Law; accepts admission to ICU all results discussed with patient in depth. impression; renal failure, hyperkalemia, elevated bnp, shortness of breath admit. - Lab Interpretations Lab Results: pCO2 25 mm/Hg (35-45) L 07/28/18 21:10 pO2 59.0 mm/Hg (80-100) L 07/28/18 21:10 HCO3 13.8 mmol/L (21-28) L 07/28/18 21:10 ABG pH 7.35 (7.35-7.45) 07/28/18 21:10 ABG Total CO2 14.6 mmol.L (22-28) L 07/28/18 21:10 ABG O2 Saturation 93.9 % (95-98) L 07/28/18 21:10 ABG Base Excess -10.0 mmol/L (-2.0-3.0) L 07/28/18 21:10 ABG Potassium 6.5 mmol/L (3.6-5.2) H* 07/28/18 21:10 Sodium 136.0 mmol/L (132-148) 07/28/18 21:10 Chloride 108.0 mmol/L (98-107) H 07/28/18 21:10 Glucose 124 mg/dl (75-110) H 07/28/18 21:10 Lactate 1.0 mmol/L (0.7-2.1) 07/28/18 21:10 FiO2 21.0 % 07/28/18 21:10 Troponin I 0.01 ng/mL D 07/28/18 20:30 NT-Pro-B Natriuret Pep 90031 pg/mL (0-450) H 07/28/18 20:30 Total Bilirubin 0.6 mg/dL (0.2-1.3) 07/28/18 20:30 AST 39 U/L (17-59) 07/28/18 20:30 ALT 87 U/L (7-56) H 07/28/18 20:30 Alkaline Phosphatase 256 U/L (38-126) H D 07/28/18 20:30 Total Protein 7.2 g/dL (5.8-8.3) 07/28/18 20:30 Albumin 3.5 g/dL (3.0-4.8) 07/28/18 20:30 Globulin 3.7 gm/dL 07/28/18 20:30 Albumin/Globulin Ratio 0.9 (1.1-1.8) L 07/28/18 20:30 I have reviewed the lab results: Yes - RAD Interpretation Radiology Orders: 07/28/18 20:43 CHEST PORTABLE [RAD] Stat Jig Hand: ED Physician - EKG Interpretation Interpreted by ED Physician: Yes Type: 12 lead EKG - Medication Orders Current Medication Orders: Furosemide (Lasix) 80 mg IVP STAT STA Stop: 07/28/18 23:03 Discontinued Medications Albuterol Sulfate (Albuterol 0.5% Inhal Laura (5 Mg/ Ml) 20 Ml) 15 mg IH ONCE STA Stop: 07/28/18 21:36 Last Admin: 07/28/18 22:10 Dose: 15 mg Calcium Gluconate (Calcium Gluconate Iv) 1,000 mg IVP ONCE ONE Stop: 07/28/18 21:41 Last Admin: 07/28/18 22:02 Dose: 1,000 mg IVP Administration Document 07/28/18 22:02 CNR (Rec: 07/28/18 22:[address]) Charges for Administration # of IVP Administrations 1 Dextrose (Dextrose 50% Inj) 50 ml IVP ONCE ONE Stop: 07/28/18 21:37 Last Admin: 07/28/18 22:01 Dose: 50 ml IVP Administration Document 07/28/18 22:01 CNR (Rec: 07/28/18 22:01 CNR [id number]) Charges for Administration # of IVP Administrations 1 Insulin Human Regular (Humulin R) 10 units IVP STAT STA Stop: 07/28/18 21:37 Last Admin: 07/28/18 22:01 Dose: 10 u IVP Administration Document 07/28/18 22:01 CNR (Rec: 07/28/18 22:01 CNR [id number]) Charges for Administration # of IVP Administrations 1 Sodium Bicarbonate (Sodium Bicarbonate 8.4% (50 Meq) Syringe) 50 meq IVP ONCE ONE Stop: 07/28/18 21:40 Last Admin: 07/28/18 22:01 Dose: 50 meq IVP Administration Document 07/28/18 22:01 CNR (Rec: 07/28/18 22:02 CNR [id number]) Charges for Administration # of IVP Administrations 1 <Janette Balbuena T - Last Filed: 07/29/18 00:16> - PA / JEWELLERY DESIGNER / Resident Statement / has reviewed & agrees with the documentation as recorded. MD/ has examined the patient and agrees with the treatment plan. <Scot Beavers - Last Filed: 07/29/18 00:09> - Scribe Statement The provider has reviewed the documentation as recorded by the Daniel Jansen Provider Scribe Attestation: All medical record entries made by the Scribe were at my direction and personally dictated by me. I have reviewed the chart and agree that the record accurately reflects my personal performance of the history, physical exam, medical decision making, and the department course for this patient. I have also personally directed, reviewed, and agree with the discharge instructions and disposition. <Janette Balbuena - Last Filed: 07/29/18 00:16> Disposition/Present on Arrival <Scot Beavers - Last Filed: 07/29/18 00:09> - Present on Arrival Any Indicators Present on Arrival: No History of DVT/PE: No History of Uncontrolled Diabetes: No Urinary Catheter: No History of Decub. Ulcer: No History Surgical Site Infection Following: None - Disposition Have Diagnosis and Disposition been Completed?: Yes Disposition Time: 21:40 Patient Plan: Admission <Janette Balbuena - Last Filed: 07/29/18 00:16> - Disposition Diagnosis: Renal failure, Hyperkalemia Disposition: HOSPITALIZED Patient Problems: Current Active Problems Problem Status Onset Hyperkalemia Acute Renal failure Acute Condition: CRITICAL Referrals: PCP,NO [Primary Care Provider] - Follow up with primary Forms: [employer] (Danish)
[2018-07-28] MEDS ORDERED: Dextrose 50% SYRINGE Inj (50 ml) ONE (23:41)
[2018-07-28] MEDS ORDERED: Dextrose 50% SYRINGE Inj (50 ml) IVP STA (23:45)
[2018-07-29 00:39] LABS: INR 1.09; PROTHROMBIN TIME 12.5 SECONDS (9.4-12.5)
[2018-07-29 00:44] LABS: PARTIAL THROMBOPLASTIN TIME 30.8 Seconds (25.1-36.5)
[2018-07-29] MEDS ORDERED: Dextrose 50% SYRINGE Inj (50 ml) IV PRN (00:51)
[2018-07-29] MEDS ORDERED: Sod Polystyrene Sulf 15 gm/60 ml Susp PO STA (00:55)
[2018-07-29] MEDS: Nicardipine 20 MG/200 ML 20 MG/200 ML BAG IV PRN ×2 (01:13→09:18)
--- NOTE | 2018-07-29 01:30 | CP.PCM.CON ---
History of Present Illness - History of Present Illness History of Present Illness: Diego Ortiz, PGY-1, ICU Consult Note for Dr. Law 53 year old male with past medical history of diabetes mellitus type II, HTN, CKD on hemodialysis noncompliant started on 06/2018, renal mass, hepatic hemangioma presents with shortness of breath and cough that started 1 month ago. Patient reports he was at the hospital and was diagnosed with CKD needing dialysis. Tunneled catheter was placed during that admission and 3 round of hemodialysis were performed prior to patient leaving AMA. Patient describes shortness of breath as episodic and worsening with cold weather and ambulation. Patient denies worsening of shortness of breath with sleep or laying back. Patient has had bilateral lower extremity swelling, as well. Patient reports productive cough with yellow sputum that started two weeks ago. Sputum color progressed to red and brown with clots at an unknown time. Patient has continued to have these symptoms. Patient also reports having an 4-5 episodes of vomitus one week ago that was dark in color. Patient has not had any vomiting episodes since then. Patient reports diarrhea that started one week ago that is brown and normal in color that started one week ago. He is unsure of how many episodes and diarrhea stopped a few days ago. Patient reports that he has been urinating normally with no hematuria. Patient was also given insulin with D50 in the emergency department for hyperkalemia and patient subsequently had diaphoresis as his only complaint. Patient was found to have POC of 40 subsequently. Patient was given D50 again and returned to baseline with no diaphoresis. ROS is positive for chills, weakness, fatigue, depressed mood. Patient denies fever, headache, blurry vision, chest pain, heart palpitations, wheezing, abdominal pain, constipation, dysuria, hematuria, numbness/tingling. 12-point ROS was negative except for what was mentioned above. PMH: as stated above PSH: nose fracture repair All: NKDA FH: Mother: AL (50 y/o), Father: CABG, Daughter: Anemia SH: Former smoker: <1 pack/day x 10 years. Occasional beer. Lives alone, independent PMD: Dr. Codey Phillips ([facility]) Pharmacy: [facility] Rx: noncompliant but reviewed on MAR Review of Systems - Review of Systems Review of Systems: except as stated in HPI Past Patient History - Infectious Disease Hx of Infectious Diseases: None - Past Medical History & Family History Past Medical History?: Yes - Past Social History Smoking Status: Former Smoker - CARDIAC Hx Cardiac Disorders: Yes Hx Hypertension: Yes - PULMONARY Hx Respiratory Disorders: No - NEUROLOGICAL Hx Neurological Disorder: No - HEENT Hx HEENT Problems: No - RENAL Hx Chronic Kidney Disease: No Hx Dialysis: Yes Type of Dialysis Access: R chest cath - ENDOCRINE/METABOLIC Hx Diabetes Mellitus Type 1: Yes - HEMATOLOGICAL/ONCOLOGICAL Hx Blood Disorders: No - INTEGUMENTARY Hx Dermatological Problems: No - MUSCULOSKELETAL/RHEUMATOLOGICAL Hx Musculoskeletal Disorders: No - GASTROINTESTINAL Hx Gastrointestinal Disorders: No - GENITOURINARY/GYNECOLOGICAL Hx Genitourinary Disorders: No - PSYCHIATRIC Hx Psychophysiologic Disorder: No Hx Substance Use: No - SURGICAL HISTORY Hx Cardiac Catheterization: Yes - ANESTHESIA Hx Anesthesia: No Meds Allergies/Adverse Reactions: Allergies Allergy/AdvReac Type Severity Reaction Status Date / Time No Known Allergies Allergy Verified 07/28/18 20:01 - Medications Medications: Current Medications Atorvastatin Calcium (Lipitor) 80 mg PO DAILY TREVOR Calcitriol (Rocaltrol) 0.5 mcg PO DAILY TREVOR Calcium Acetate (Phoslo) 667 mg PO WM TREVOR Dextrose (Dextrose 50% Inj) 0 ml IV STAT PRN; Protocol PRN Reason: Hypoglycemia Protocol Nicardipine HCl (Cardene Iv Premix) 20 mg in 200 mls @ 50 mls/hr IV .Q4H PRN; Protocol PRN Reason: TITRATE PER MD ORDER Last Admin: 07/29/18 01:13 Dose: 5 mg/hr, 50 mls/hr Azithromycin (Zithromax 500mg In Ns) 500 mg in 250 mls @ 167 mls/hr IVPB DAILY TREVOR; Protocol Dextrose (Dextrose 5% In Water 1000 Ml) 1,000 mls @ 0 mls/hr IV .Q0M PRN; Protocol PRN Reason: Hypoglycemia Protocol Insulin Human Regular (Humulin R Med) 0 units SC ACHS TREVOR; Protocol Vitamin D (Vitamin D 400 Intl Units Tab) 1,200 intlu PO DAILY TREVOR Physical Exam - Constitutional Appears: Well, Non-toxic, No Acute Distress - Head Exam Head Exam: ATRAUMATIC, NORMAL INSPECTION, NORMOCEPHALIC - Eye Exam Eye Exam: EOMI, PERRL - ENT Exam ENT Exam: Mucous Membranes Dry - Neck Exam Neck exam: Positive for: Normal Inspection - Respiratory Exam Respiratory Exam: Clear to Auscultation Bilateral, NORMAL BREATHING PATTERN - Cardiovascular Exam Cardiovascular Exam: REGULAR RHYTHM, RRR - GI/Abdominal Exam GI & Abdominal Exam: Distended, Normal Bowel Sounds, Soft - Extremities Exam Extremities exam: Positive for: full ROM, pedal edema (+3) - Neurological Exam Neurological exam: Alert, CN II-XII Intact, Oriented x3 - Skin Skin Exam: Dry, Intact, Normal Color Results - Vital Signs Recent Vital Signs: Last Vital Signs Temp 97.9 F 07/28/18 20:04 Pulse 92 H 07/28/18 23:52 Resp 23 07/28/18 23:52 BP 190/88 H 07/28/18 23:52 Pulse Ox 92 L 07/28/18 23:52 - Labs Result Diagrams: 07/28/18 20:30 07/28/18 20:30 Labs: Laboratory Results - last 24 hr 07/28/18 07/28/18 07/28/18 20:30 20:30 20:30 WBC 10.5 D RBC 2.62 L Hgb 7.7 L Hct 22.3 L MCV 85.1 MCH 29.4 MCHC 34.5 RDW 13.1 Plt Count 260 MPV 10.4 Gran % 79.2 H Lymph % (Auto) 13.0 L Bryan % (Auto) 5.2 Eos % (Auto) 2.4 Baso % (Auto) 0.2 Gran # 8.31 H Lymph # (Auto) 1.4 Bryan # (Auto) 0.5 Eos # (Auto) 0.3 Baso # (Auto) 0.02 PT 12.5 INR 1.09 APTT 30.8 pCO2 pO2 HCO3 ABG pH ABG Total CO2 ABG O2 Saturation ABG Base Excess ABG Potassium Glucose Lactate FiO2 Sodium 139 Potassium 6.6 H* D Chloride 109 H Carbon Dioxide 17 L Anion Gap 19 BUN 117 H Creatinine 16.7 H* D Est GFR ( Amer) 4 Est GFR (Non-Af Amer) 3 POC Glucose (mg/dL) Random Glucose 110 Calcium 6.2 L* Total Bilirubin 0.6 AST 39 ALT 87 H Alkaline Phosphatase 256 H D Lactate Dehydrogenase 1531 H Total Creatine Kinase 6783 H CK-MB (CK-2) 16.0 H CK-MB (CK-2) % 0.2 L Troponin I 0.01 D NT-Pro-B Natriuret Pep 75593 H Total Protein 7.2 Albumin 3.5 Globulin 3.7 Albumin/Globulin Ratio 0.9 L Arterial Blood Potassium BBK History Checked 07/28/18 07/28/18 07/28/18 21:10 23:30 23:37 WBC RBC Hgb Hct MCV MCH MCHC RDW Plt Count MPV Gran % Lymph % (Auto) Bryan % (Auto) Eos % (Auto) Baso % (Auto) Gran # Lymph # (Auto) Bryan # (Auto) Eos # (Auto) Baso # (Auto) PT INR APTT pCO2 25 L pO2 59.0 L HCO3 13.8 L ABG pH 7.35 ABG Total CO2 14.6 L ABG O2 Saturation 93.9 L ABG Base Excess -10.0 L ABG Potassium 6.5 H* Glucose 124 H Lactate 1.0 FiO2 21.0 Sodium 136.0 Potassium Chloride 108.0 H Carbon Dioxide Anion Gap BUN Creatinine Est GFR ( Amer) Est GFR (Non-Af Amer) POC Glucose (mg/dL) 40 L Random Glucose Calcium Total Bilirubin AST ALT Alkaline Phosphatase Lactate Dehydrogenase Total Creatine Kinase CK-MB (CK-2) CK-MB (CK-2) % Troponin I NT-Pro-B Natriuret Pep Total Protein Albumin Globulin Albumin/Globulin Ratio Arterial Blood Potassium 6.5 H* BBK History Checked Patient has bt Assessment & Plan - Assessment and Plan (Free Text) Assessment: 53 year old male with past medical history of diabetes mellitus type II, HTN, CKD on hemodialysis , noncompliant started on 06/2018, renal mass, hepatic hemangioma presents with shortness of breath and cough that started 1 month ago. Pulmonary Edema Acute renal failure overlying CKD stage V supposed to be on dialysis T,, Hemoptysis and hematemesis possibly 2/2 to uremic platelet dysfunction Rhabdomyolysis Elevate BNP 2/2 to fluid overload vs. CHF Anemia Hyperkalemia Low bicarbonate Hypocalcemia Elevated LFTs Hypoxic, hypocarbic 2/2 to Pulmonary edema HTN HLD Diabetes melitus type II Plan: Neuro: -AAOx3, no FND, moving extremities past midline. -Elevated BUN at 117. Continue to monitor for uremic encephalopathy. -Monitor neuro status. -Reorient patient as necessary. Cardio: -RRR, hypertensive at 190/88 initially, no signs of HD compromise -EKG: NSR with ventricular rate of 92 -BNP: 05400 with baseline of 9500 -Elevated BNP likely due to fluid overload from acute renal failure -Continue home lipitor. -Nicardipine drip for elevated blood pressure. Avoid HCTZ, ADRIANA I, and ARB due to renal function. -Maintain MAP>65. -Monitor for S/S, HD compromise. Pulm: -No signs of respiratory distress. CTA B/L -Patient is stating well on nasal cannula -Maintain O2 saturation>95%. -Patient should be on BiPap 12/5/12/50% for hypoxia -CXR: hazy infiltrates throughout as read by me. Patient likely volume overloaded with pulmonary edema -One time dose of lasix given. Possible HD in the morning which will likely re lieve pulmonary edema -Elevate bed to 30 degrees GI: -Renal/GI hepatic/consistent carbohydrate diet -Patient has elevated ALT, ALP but unremarkable AST possibly due to congestive hepatomegaly. -Patient had Liver CT on last admission one month ago that showed hepatic hemangioma. Would hold off on imaging at this time. -PT/INR, PTT within normal limits, so doubt hepatic failure as etiology of hemoptysis and hematemesis. -Dr. Saini, GI, consulted for further recommendations. -Protonix /Nephro: -BUN/Cr increased to 117/16.7 -Low urine output -80 mg lasix given for diuresis -Acute renal failure likely etiology for pulmonary edema -Patient for likely dialysis in the morning as patient is hyperkalemia as well with K: 6.6. Follow recommendations from nephrology, Dr. Pendleton. -For hyperkalemia, patient given kayexelate, calcium gluconate, and insulin and D50 -Monitor insulin dose closely as insulin is filtered by the kidneys and patient has poor kidney function -Elevated CK of 6783 so likely rhabdomyolysis but will hold off on IV fluids at this time because of fluid overload. -Elevated BNP likely due to fluid overload -For hypocalcemia, give calcium gluconate. Continue daily calcium acetate and calcitriol. -Follow up UA -Strict I and Os -Daily weights -Continue monitoring. -Replete electrolytes as needed. -Maintain euvolemia. Endocrinology: -Random glucose: 110 -Last POC glucose was 40 after insulin and D50 administration for hyperkalemia. Patient was given D50 again and patient's symptoms and glucose improved. -Modified Low SSI. -Maintain euglycemia. Heme/Onc: -H/H at 7.7/22.3. Baseline is 7-9 -Consider transfusion of PRBC if hemoglobin<7 -No signs of HD compromise. -Continue monitoring H/H ID: -Afebrile, no leukocytosis -Due to patient's symptomatology and CXR findings, will treat empirically for CAP with azithromycin. -Follow up BCx, UCx, Procalcitonin -Lactate: 1.0 -Monitor for signs and symptoms of infection. DVT prophylaxis: SCD GI prophylaxis: protonix Patient seen and examined with Dr. Law. - Date & Time Date: 07/29/18 Time: 01:34
[2018-07-29 03:38] VITALS: BMI 33.3
--- NOTE | 2018-07-29 04:58 | CP.PCM.HP ---
History of Present Illness - History of Present Illness History of Present Illness: Diego Ortiz, PGY-1, Internal Medicine History and Physical for Dr. Law 53 year old male with past medical history of diabetes mellitus type II, HTN, CKD on hemodialysis T,, noncompliant started on 06/2018, renal mass, hepatic hemangioma presents with shortness of breath and cough that started 1 month ago. Patient reports he was at the hospital and was diagnosed with CKD needing dialysis. Tunneled catheter was placed during that admission and 3 round of hemodialysis were performed prior to patient leaving AMA. Patient describes shortness of breath as episodic and worsening with cold weather and ambulation. Patient denies worsening of shortness of breath with sleep or laying back. Patient has had bilateral lower extremity swelling, as well. Patient reports productive cough with yellow sputum that started two weeks ago. Sputum color progressed to red and brown with clots at an unknown time. Patient has continued to have these symptoms. Patient also reports having an 4-5 episodes of vomitus one week ago that was dark in color. Patient has not had any vomiting episodes since then. Patient reports diarrhea that started one week ago that is brown and normal in color that started one week ago. He is unsure of how many episodes and diarrhea stopped a few days ago. Patient reports that he has been urinating normally with no hematuria. Patient was also given insulin with D50 in the emergency department for hyperkalemia and patient subsequently had diaphoresis as his only complaint. Patient was found to have POC of 40 subsequently. Patient was given D50 again and returned to baseline with no diaphoresis. ROS is positive for chills, weakness, fatigue, depressed mood. Patient denies fever, headache, blurry vision, chest pain, heart palpitations, wheezing, abdominal pain, constipation, dysuria, hematuria, numbness/tingling. 12-point ROS was negative except for what was mentioned above. PMH: as stated above PSH: nose fracture repair All: NKDA FH: Mother: HI (50 y/o), Father: CABG, Daughter: Anemia SH: Former smoker: <1 pack/day x 10 years. Occasional beer. Lives alone, independent PMD: Dr. Codey Phillips ([facility]) Pharmacy: [facility] Rx: noncompliant but reviewed on SEP Present on Admission - Present on Admission Any Indicators Present on Admission: No Review of Systems - Review of Systems Review of Systems: except for what was mentioned in the HPI Past Patient History - Infectious Disease Hx of Infectious Diseases: None - Past Medical History & Family History Past Medical History?: Yes - Past Social History Smoking Status: Former Smoker - CARDIAC Hx Cardiac Disorders: Yes Hx Hypertension: Yes - PULMONARY Hx Respiratory Disorders: No - NEUROLOGICAL Hx Neurological Disorder: No - HEENT Hx HEENT Problems: No - RENAL Hx Chronic Kidney Disease: No Hx Dialysis: Yes Type of Dialysis Access: R chest cath - ENDOCRINE/METABOLIC Hx Diabetes Mellitus Type 1: Yes - HEMATOLOGICAL/ONCOLOGICAL Hx Blood Disorders: No - INTEGUMENTARY Hx Dermatological Problems: No - MUSCULOSKELETAL/RHEUMATOLOGICAL Hx Musculoskeletal Disorders: No - GASTROINTESTINAL Hx Gastrointestinal Disorders: No - GENITOURINARY/GYNECOLOGICAL Hx Genitourinary Disorders: No - PSYCHIATRIC Hx Psychophysiologic Disorder: No Hx Substance Use: No - SURGICAL HISTORY Hx Cardiac Catheterization: Yes - ANESTHESIA Hx Anesthesia: No Meds Allergies/Adverse Reactions: Allergies Allergy/AdvReac Type Severity Reaction Status Date / Time No Known Allergies Allergy Verified 07/28/18 20:01 Physical Exam - Constitutional Appears: Well, Non-toxic, No Acute Distress - Head Exam Head Exam: ATRAUMATIC, NORMAL INSPECTION, NORMOCEPHALIC - Eye Exam Eye Exam: EOMI, PERRL - ENT Exam ENT Exam: Mucous Membranes Dry - Neck Exam Neck exam: Positive for: Normal Inspection - Respiratory Exam Respiratory Exam: Clear to Auscultation Bilateral, NORMAL BREATHING PATTERN - Cardiovascular Exam Cardiovascular Exam: REGULAR RHYTHM, RRR - GI/Abdominal Exam GI & Abdominal Exam: Distended, Normal Bowel Sounds, Soft - Extremities Exam Extremities exam: Positive for: full ROM, pedal edema (3+) - Neurological Exam Neurological exam: Alert, CN II-XII Intact, Oriented x3 - Skin Skin Exam: Dry, Intact, Normal Color Results - Vital Signs Recent Vital Signs: Last Vital Signs Temp 98 F 07/29/18 02:19 Pulse 94 H 07/29/18 02:20 Resp 18 07/29/18 02:20 BP 162/76 H 07/29/18 02:20 Pulse Ox 98 07/29/18 02:20 - Labs Result Diagrams: 07/28/18 20:30 07/28/18 20:30 Labs: Laboratory Results - last 24 hr 07/28/18 07/28/18 07/28/18 20:30 20:30 20:30 WBC 10.5 D RBC 2.62 L Hgb 7.7 L Hct 22.3 L MCV 85.1 MCH 29.4 MCHC 34.5 RDW 13.1 Plt Count 260 MPV 10.4 Gran % 79.2 H Lymph % (Auto) 13.0 L Greene % (Auto) 5.2 Eos % (Auto) 2.4 Baso % (Auto) 0.2 Gran # 8.31 H Lymph # (Auto) 1.4 Greene # (Auto) 0.5 Eos # (Auto) 0.3 Baso # (Auto) 0.02 PT 12.5 INR 1.09 APTT 30.8 pCO2 pO2 HCO3 ABG pH ABG Total CO2 ABG O2 Saturation ABG Base Excess ABG Potassium Glucose Lactate FiO2 Sodium 139 Potassium 6.6 H* D Chloride 109 H Carbon Dioxide 17 L Anion Gap 19 BUN 117 H Creatinine 16.7 H* D Est GFR ( Amer) 4 Est GFR (Non-Af Amer) 3 POC Glucose (mg/dL) Random Glucose 110 Calcium 6.2 L* Total Bilirubin 0.6 AST 39 ALT 87 H Alkaline Phosphatase 256 H D Lactate Dehydrogenase 1531 H Total Creatine Kinase 6783 H CK-MB (CK-2) 16.0 H CK-MB (CK-2) % 0.2 L Troponin I 0.01 D NT-Pro-B Natriuret Pep 64835 H Total Protein 7.2 Albumin 3.5 Globulin 3.7 Albumin/Globulin Ratio 0.9 L Arterial Blood Potassium Blood Type Antibody Screen BBK History Checked 07/28/18 07/28/18 07/28/18 21:10 23:30 23:37 WBC RBC Hgb Hct MCV MCH MCHC RDW Plt Count MPV Gran % Lymph % (Auto) Greene % (Auto) Eos % (Auto) Baso % (Auto) Gran # Lymph # (Auto) Greene # (Auto) Eos # (Auto) Baso # (Auto) PT INR APTT pCO2 25 L pO2 59.0 L HCO3 13.8 L ABG pH 7.35 ABG Total CO2 14.6 L ABG O2 Saturation 93.9 L ABG Base Excess -10.0 L ABG Potassium 6.5 H* Glucose 124 H Lactate 1.0 FiO2 21.0 Sodium 136.0 Potassium Chloride 108.0 H Carbon Dioxide Anion Gap BUN Creatinine Est GFR ( Amer) Est GFR (Non-Af Amer) POC Glucose (mg/dL) 40 L Random Glucose Calcium Total Bilirubin AST ALT Alkaline Phosphatase Lactate Dehydrogenase Total Creatine Kinase CK-MB (CK-2) CK-MB (CK-2) % Troponin I NT-Pro-B Natriuret Pep Total Protein Albumin Globulin Albumin/Globulin Ratio Arterial Blood Potassium 6.5 H* Blood Type B POSITIVE Antibody Screen Negative BBK History Checked Patient has bt Assessment & Plan - Assessment and Plan (Free Text) Assessment: 53 year old male with past medical history of diabetes mellitus type II, HTN, CKD on hemodialysis T,, noncompliant started on 06/2018, renal mass, hepatic hemangioma presents with shortness of breath and cough that started 1 month ago. Pulmonary Edema Acute renal failure overlying CKD stage V supposed to be on dialysis T,, Hemoptysis and hematemesis possibly 2/2 to uremic platelet dysfunction Rhabdomyolysis Elevate BNP 2/2 to fluid overload vs. CHF Anemia Hyperkalemia Low bicarbonate Hypocalcemia Elevated LFTs Hypoxic, hypocarbic 2/2 to Pulmonary edema HTN HLD Diabetes melitus type II Plan: Neuro: -AAOx3, no FND, moving extremities past midline. -Elevated BUN at 117. Continue to monitor for uremic encephalopathy. -Monitor neuro status. -Reorient patient as necessary. Cardio: -RRR, hypertensive at 190/88 initially, no signs of HD compromise -EKG: NSR with ventricular rate of 92 -BNP: 16944 with [place] 9500 -Elevated BNP likely due to fluid overload from acute renal failure -Continue home lipitor. -Nicardipine drip for elevated blood pressure. Avoid HCTZ, ADRIANA I, and ARB due to renal function. -Maintain MAP>65. -Monitor for S/S, HD compromise. Pulm: -No signs of respiratory distress. CTA B/L -Patient is stating well on nasal cannula -Maintain O2 saturation>95%. -Patient should be on BiPap 12/5/12/50% for hypoxia -CXR: hazy infiltrates throughout as read by me. Patient likely volume overloaded with pulmonary edema -One time dose of lasix given. Possible HD in the morning which will likely relieve pulmonary edema -Elevate bed to 30 degrees GI: -Renal/GI hepatic/consistent carbohydrate diet -Patient has elevated ALT, ALP but unremarkable AST possibly due to congestive hepatomegaly. -Patient had Liver CT on last admission one month ago that showed hepatic hemangioma. Would hold off on imaging at this time. -PT/INR, PTT within normal limits, so doubt hepatic failure as etiology of hemoptysis and hematemesis. -Dr. Saini, GI, consulted for further recommendations. -Protonix /Nephro: -BUN/Cr increased to 117/16.7 -Low urine output -80 mg lasix given for diuresis -Acute renal failure likely etiology for pulmonary edema -Patient for likely dialysis in the morning as patient is hyperkalemia as well with K: 6.6. Follow recommendations from nephrology, Dr. Pendleton. -For hyperkalemia, patient given kayexelate, calcium gluconate, and insulin and D50 -Monitor insulin dose closely as insulin is filtered by the kidneys and patient has poor kidney function -Elevated CK of 6783 so likely rhabdomyolysis but will hold off on IV fluids at this time because of fluid overload. -Elevated BNP likely due to fluid overload -For hypocalcemia, give calcium gluconate. Continue daily calcium acetate and calcitriol. -Follow up UA -Strict I and Os -Daily weights -Continue monitoring. -Replete electrolytes as needed. -Maintain euvolemia. Endocrinology: -Random glucose: 110 -Last POC glucose was 40 after insulin and D50 administration for hyperkalemia. Patient was given D50 again and patient's symptoms and glucose improved. -Modified Low SSI. -Maintain euglycemia. Heme/Onc: -H/H at 7.7/22.3. Baseline is 7-9 -Consider transfusion of PRBC if hemoglobin<7 -No signs of HD compromise. -Continue monitoring H/H ID: -Afebrile, no leukocytosis -Due to patient's symptomatology and CXR findings, will treat empirically for CAP with azithromycin. -Follow up BCx, UCx, Procalcitonin -Lactate: 1.0 -Monitor for signs and symptoms of infection. DVT prophylaxis: SCD GI prophylaxis: protonix Patient seen and examined with Dr. Law. - Date & Time Date: 07/29/18 Time: 04:57
[2018-07-29 07:11] LABS: BASO # 0.02 K/mm3 (0.0-2.0); BASO % 0.2 % (0.0-3.0); EOS # 0.2 (0.0-0.7); EOS % 2.1 % (1.5-5.0); GRAN # 8.91 (1.4-6.5); GRAN % 80.9 % (50.0-68.0); HEMOGLOBIN 7.4 g/dL (14.0-18.0); LYMPH # 1.4 (1.2-3.4); LYMPH % 12.4 % (22.0-35.0); MEAN CELL VOLUME 84.3 fl (80.0-105.0); MEAN CORPUSCULAR HGB CONC 34.4 g/dl (31.0-37.0); MEAN PLATELET VOLUME 10.4 fl (7.0-11.0); MONO # 0.5 (0.1-0.6); MONO % 4.4 % (1.0-6.0); RBC 2.55 10^6/uL (3.5-6.1); RED CELL DISTRIBUTION WIDTH 13.1 % (11.5-14.5)
[2018-07-29] MEDS ORDERED: Insulin Reg-MEDIUM-Coverage SC SCH (07:30)
--- NOTE | 2018-07-29 07:35 | RAD ---
Date of service: 07/28/2018 HISTORY: SOB COMPARISON: Portable chest 06/17/2018. FINDINGS: LUNGS: Interval deployment of a right center venous dialysis catheter is identified placed by an apparent right jugular jugular approach with tip terminating at the 3 vena cava and right atrium. Catheter appears tunneled. No acute infiltrate identified bilaterally. PLEURA: No pneumothorax bilaterally or right pleural effusion. Trace left pleural effusion evident. CARDIOVASCULAR: No aortic atherosclerotic calcification present. Normal cardiac size. No pulmonary vascular congestion. OSSEOUS STRUCTURES: No significant abnormalities. VISUALIZED UPPER ABDOMEN: Normal. OTHER FINDINGS: None. IMPRESSION: Trace left pleural effusion. No infiltrate bilaterally. Tunneled central venous dialysis catheter in situ right chest.
[2018-07-29] MEDS: Insulin Lispro (humaLOG) LOW Coverage SC SCH ×4 (08:28→21:49)
--- NOTE | 2018-07-29 09:24 | CON ---
DATE: 07/29/2018 HISTORY OF PRESENT ILLNESS: I saw Mr. Mari this morning. He is a 53-year-old black male noted to have past medical history of diabetes, hypertension, longstanding anemia, chronic kidney disease, admitted with complaints of shortness of breath and cough. The patient indicated increase in symptoms with cold weather. Since last evaluated in report june, the patient indicated increase in abdominal distension, but no episodes of melena or gross hematochezia. He did indicate a productive cough, his sputum may have been blood tinged. There have been no episodes of severe chest pain, heartburn, dysphagia, or melena. The patient indicated bowel movements are brown. Note that when I evaluated this patient previously, he did indicate that he underwent a colonoscopy on a prior occasion. Since last evaluated, the patient has not undergone dialysis nor has he undergone any endoscopic evaluation which by the way was denied during his previous admission. Note that the anemia which I evaluated back in June was felt more likely due to renal disease rather than a GI bleed. PHYSICAL EXAMINATION: VITAL SIGNS: I reviewed this patient's vital signs. HEENT: Noncontributory. LUNGS: Decreased breath sounds at base or bilaterally about half way up the apex. HEART: Irregular rhythm. ABDOMEN: Protuberant. The patient states the abdomen is still tighter than usual, it is more distended. LABORATORY DATA: I reviewed this patient's laboratory data, significant for white count 10,000 with an H and H 7/22, platelet count 260. INR is within normal limits. Chemistry indicates potassium is 6.6 as of 08:30 last night with a creatinine 16.7 and BUN 117. His alk phos 256. Lactate dehydrogenase 1531 with a creatine kinase 6783. His BNP is 27,000. ASSESSMENT AND PLAN: This is a 53-year-old black male, who has been hedging on the thought of starting dialysis. The patient is aware at the current time point, he will need to start hemodialysis as soon as possible. Note that he denies any acute upper gastrointestinal bleed or rectal bleeding. He has been coughing forcefullywhich most likely produced blood-tinged sputum. Note that the patient does not have any abdominal pain, diarrhea, or evidence of blood per rectum. I do not feel endoscopic evaluation is warranted at the current time point; however, the dialysis should be started as soon as possible. As an addendum, note that this patient had ultrasound evaluation before, it was significant for patent portal vein, also there was a mass in the right hepatic lobe which is hyperechoic 6 x 6 x 6, also the gallbladder is noncontributory. Denis Saini DO, PhD MTDPaulina
[2018-07-29 09:27] LABS: ALBUMIN 3.4 g/dL (3.0-4.8); CALCIUM 6.4 mg/dL (8.4-10.5)
[2018-07-29] MEDS ORDERED: Cholecalciferol 400 Intl Units Tab PO SCH (10:00)
[2018-07-29] MEDS ORDERED: Azithromycin 500MG/NS 250ml 500 MG/250 ML BAG IVPB SCH (10:00)
--- NOTE | 2018-07-29 10:21 | CP.CCUPN ---
<Jakob Parisi - Last Filed: 07/29/18 12:06> CCU Subjective - Physician Review Subjective (Free Text): 07/29/18 10:17 Santy Parisi PGY2 - ICU Progress Note Patient seen and examined in ICU sitting in bed resting comfortable. Patient indicates he feels better from admission, no difficulties with respirations, denies chest pain, abdominal pain, nausea, vomiting, fever. Reports minimal chills, fatigue. CCU Objective - Vital Signs / Intake & Output Intake and Output (Last 8hrs): Intake & Output 07/28/18 07/29/18 07/29/18 22:59 06:59 14:59 Intake Total 380 200 Output Total 200 Balance 180 200 Weight 195 lb 195 lb Intake: IV 200 200 Right Antecubital 200 Oral 180 Output: Urine 200 Urine, Voided 200 Other: # Voids Urine, Voided 1 - Physical Exam Head: Positive for: Atraumatic, Normocephalic Pupils: Positive for: PERRL Extroacular Muscles: Positive for: EOMI Conjunctiva: Positive for: Normal Mouth: Positive for: Moist Mucous Membranes Neck: Positive for: Normal Range of Motion Respiratory/Chest: Positive for: Other (Dialysis catheter in right chest wall). Negative for: Respiratory Distress, Accessory Muscle Use Cardiovascular: Positive for: Regular Rate and Rhythm, Normal S1, S2. Negative for: Murmurs Abdomen: Negative for: Tenderness, Distention, Peritoneal Signs Back: Positive for: Normal Inspection Upper Extremity: Positive for: Normal Inspection. Negative for: Cyanosis, Edema Lower Extremity: Positive for: Edema (1+ edema bilaterlly) Neurological: Positive for: GCS=15, Speech Normal Skin: Positive for: Warm, Dry, Normal Color. Negative for: Rashes Psychiatric: Positive for: Alert, Oriented x 3 - Medications Active Medications: Active Medications Generic Name Dose Route Start Last Admin Trade Name Freq PRN Reason Stop Dose Admin Atorvastatin Calcium 40 mg 07/29/18 10:00 Lipitor PO DAILY [facility] Calcitriol 0.5 mcg 07/29/18 10:00 Rocaltrol PO DAILY [facility] Calcium Acetate 667 mg 07/29/18 08:00 07/29/18 08:33 Phoslo PO Not Given WM [facility] Dextrose 0 ml 07/29/18 00:51 Dextrose 50% Inj IV STAT PRN Hypoglycemia Protocol Protocol Heparin Sodium (Porcine) 1,700 units 07/29/18 10:30 07/29/18 10:16 Heparin ICA 07/29/18 10:31 1,700 units ONCE ONE Administration Nicardipine HCl 20 mg in 200 mls @ 50 mls/hr 07/29/18 00:46 07/29/18 09:18 Cardene Iv Premix IV 5 mg/hr .Q4H PRN 50 mls/hr TITRATE PER MD ORDER Administration Protocol 5 MG/HR Azithromycin 500 mg in 250 mls @ 167 mls/hr 07/29/18 10:00 Zithromax 500mg In Ns IVPB DAILY [facility] Protocol Dextrose 1,000 mls @ 0 mls/hr 07/29/18 00:51 Dextrose 5% In Water 1000 Ml IV .Q0M PRN Hypoglycemia Protocol Protocol Per Protocol Insulin Human Lispro 0 units 07/29/18 07:30 07/29/18 08:28 Humalog Low SC Not Given ACHS [facility] Protocol Pantoprazole Sodium 40 mg 07/29/18 10:00 Protonix Inj IVP DAILY [facility] Vitamin D 1,200 intlu 07/29/18 10:00 Vitamin D 400 Intl Units Tab PO DAILY [facility] - Patient Studies Lab Studies: Lab Studies 07/29/18 07/29/18 07/29/18 Range/Units 08:37 06:30 05:59 WBC 11.0 (4.5-11.0) 10^3/uL RBC 2.55 L (3.5-6.1) 10^6/uL Hgb 7.4 L (14.0-18.0) g/dL Hct 21.5 L (42.0-52.0) % MCV 84.3 (80.0-105.0) fl MCH 29.0 (25.0-35.0) pg MCHC 34.4 (31.0-37.0) g/dl RDW 13.1 (11.5-14.5) % Plt Count 273 (120.0-450.0) 10^3/uL MPV 10.4 (7.0-11.0) fl Gran % 80.9 H (50.0-68.0) % Lymph % (Auto) 12.4 L (22.0-35.0) % [place] % (Auto) 4.4 (1.0-6.0) % Eos % (Auto) 2.1 (1.5-5.0) % Baso % (Auto) 0.2 (0.0-3.0) % Gran # 8.91 H (1.4-6.5) Lymph # (Auto) 1.4 (1.2-3.4) [place] # (Auto) 0.5 (0.1-0.6) Eos # (Auto) 0.2 (0.0-0.7) Baso # (Auto) 0.02 (0.0-2.0) K/mm3 PT (9.4-12.5) SECONDS INR APTT (25.1-36.5) Seconds pCO2 (35-45) mm/Hg pO2 (80-100) mm/Hg HCO3 (21-28) mmol/L ABG pH (7.35-7.45) ABG Total CO2 (22-28) mmol.L ABG O2 Saturation (95-98) % ABG Base Excess (-2.0-3.0) mmol/L ABG Potassium (3.6-5.2) mmol/L Glucose (75-110) mg/dl Lactate (0.7-2.1) mmol/L FiO2 % Sodium 139 (132-148) mmol/L Potassium 6.0 H* (3.6-5.0) mmol/L Chloride 109 H (98-107) mmol/L Carbon Dioxide 16 L (21-33) mmol/L Anion Gap 20 (10-20) BUN 112 H (7-21) mg/dL Creatinine 17.7 H* (0.8-1.5) mg/dl Est GFR ( Amer) 3 Est GFR (Non-Af Amer) 3 POC Glucose (mg/dL) (65-110) mg/dL Random Glucose 122 H (70-110) mg/dL Calcium 6.4 L* (8.4-10.5) mg/dL Phosphorus 8.5 H (2.5-4.5) mg/dL Magnesium 1.6 L (1.7-2.2) mg/dL Total Bilirubin 0.4 (0.2-1.3) mg/dL AST 63 H D (17-59) U/L ALT 90 H (7-56) U/L Alkaline Phosphatase 253 H (38-126) U/L Lactate Dehydrogenase (333-699) U/L Total Creatine Kinase (35-230) U/L CK-MB (CK-2) (0.0-3.6) ng/mL CK-MB (CK-2) % (2.5-3.0) % Troponin I ng/mL NT-Pro-B Natriuret Pep (0-450) pg/mL Total Protein 6.9 (5.8-8.3) g/dL Albumin 3.4 (3.0-4.8) g/dL Globulin 3.5 gm/dL Albumin/Globulin Ratio 1.0 L (1.1-1.8) Arterial Blood Potassium (3.6-5.2) mmol/L Blood Type Antibody Screen BBK History Checked 07/29/18 07/28/18 07/28/18 Range/Units 00:30 23:37 23:30 WBC (4.5-11.0) 10^3/uL RBC (3.5-6.1) 10^6/uL Hgb (14.0-18.0) g/dL Hct (42.0-52.0) % MCV (80.0-105.0) fl MCH (25.0-35.0) pg MCHC (31.0-37.0) g/dl RDW (11.5-14.5) % Plt Count (120.0-450.0) 10^3/uL MPV (7.0-11.0) fl Gran % (50.0-68.0) % Lymph % (Auto) (22.0-35.0) % [place] % (Auto) (1.0-6.0) % Eos % (Auto) (1.5-5.0) % Baso % (Auto) (0.0-3.0) % Gran # (1.4-6.5) Lymph # (Auto) (1.2-3.4) [place] # (Auto) (0.1-0.6) Eos # (Auto) (0.0-0.7) Baso # (Auto) (0.0-2.0) K/mm3 PT (9.4-12.5) SECONDS INR APTT (25.1-36.5) Seconds pCO2 (35-45) mm/Hg pO2 (80-100) mm/Hg HCO3 (21-28) mmol/L ABG pH (7.35-7.45) ABG Total CO2 (22-28) mmol.L ABG O2 Saturation (95-98) % ABG Base Excess (-2.0-3.0) mmol/L ABG Potassium (3.6-5.2) mmol/L Glucose (75-110) mg/dl Lactate (0.7-2.1) mmol/L FiO2 % Sodium (132-148) mmol/L Potassium (3.6-5.0) mmol/L Chloride (98-107) mmol/L Carbon Dioxide (21-33) mmol/L Anion Gap (10-20) BUN (7-21) mg/dL Creatinine (0.8-1.5) mg/dl Est GFR ( Amer) Est GFR (Non-Af Amer) POC Glucose (mg/dL) 82 40 L (65-110) mg/dL Random Glucose (70-110) mg/dL Calcium (8.4-10.5) mg/dL Phosphorus (2.5-4.5) mg/dL Magnesium (1.7-2.2) mg/dL Total Bilirubin (0.2-1.3) mg/dL AST (17-59) U/L ALT (7-56) U/L Alkaline Phosphatase (38-126) U/L Lactate Dehydrogenase (333-699) U/L Total Creatine Kinase (35-230) U/L CK-MB (CK-2) (0.0-3.6) ng/mL CK-MB (CK-2) % (2.5-3.0) % Troponin I ng/mL NT-Pro-B Natriuret Pep (0-450) pg/mL Total Protein (5.8-8.3) g/dL Albumin (3.0-4.8) g/dL Globulin gm/dL Albumin/Globulin Ratio (1.1-1.8) Arterial Blood Potassium (3.6-5.2) mmol/L Blood Type B POSITIVE Antibody Screen Negative BBK History Checked Patient has bt 07/28/18 07/28/18 07/28/18 Range/Units 21:10 20:30 20:30 WBC 10.5 D (4.5-11.0) 10^3/uL RBC 2.62 L (3.5-6.1) 10^6/uL Hgb 7.7 L (14.0-18.0) g/dL Hct 22.3 L (42.0-52.0) % MCV 85.1 (80.0-105.0) fl MCH 29.4 (25.0-35.0) pg MCHC 34.5 (31.0-37.0) g/dl RDW 13.1 (11.5-14.5) % Plt Count 260 (120.0-450.0) 10^3/uL MPV 10.4 (7.0-11.0) fl Gran % 79.2 H (50.0-68.0) % Lymph % (Auto) 13.0 L (22.0-35.0) % [place] % (Auto) 5.2 (1.0-6.0) % Eos % (Auto) 2.4 (1.5-5.0) % Baso % (Auto) 0.2 (0.0-3.0) % Gran # 8.31 H (1.4-6.5) Lymph # (Auto) 1.4 (1.2-3.4) [place] # (Auto) 0.5 (0.1-0.6) Eos # (Auto) 0.3 (0.0-0.7) Baso # (Auto) 0.02 (0.0-2.0) K/mm3 PT 12.5 (9.4-12.5) SECONDS INR 1.09 APTT 30.8 (25.1-36.5) Seconds pCO2 25 L (35-45) mm/Hg pO2 59.0 L (80-100) mm/Hg HCO3 13.8 L (21-28) mmol/L ABG pH 7.35 (7.35-7.45) ABG Total CO2 14.6 L (22-28) mmol.L ABG O2 Saturation 93.9 L (95-98) % ABG Base Excess -10.0 L (-2.0-3.0) mmol/L ABG Potassium 6.5 H* (3.6-5.2) mmol/L Glucose 124 H (75-110) mg/dl Lactate 1.0 (0.7-2.1) mmol/L FiO2 21.0 % Sodium 136.0 (132-148) mmol/L Potassium (3.6-5.0) mmol/L Chloride 108.0 H (98-107) mmol/L Carbon Dioxide (21-33) mmol/L Anion Gap (10-20) BUN (7-21) mg/dL Creatinine (0.8-1.5) mg/dl Est GFR ( Amer) Est GFR (Non-Af Amer) POC Glucose (mg/dL) (65-110) mg/dL Random Glucose (70-110) mg/dL Calcium (8.4-10.5) mg/dL Phosphorus (2.5-4.5) mg/dL Magnesium (1.7-2.2) mg/dL Total Bilirubin (0.2-1.3) mg/dL AST (17-59) U/L ALT (7-56) U/L Alkaline Phosphatase (38-126) U/L Lactate Dehydrogenase (333-699) U/L Total Creatine Kinase (35-230) U/L CK-MB (CK-2) (0.0-3.6) ng/mL CK-MB (CK-2) % (2.5-3.0) % Troponin I ng/mL NT-Pro-B Natriuret Pep (0-450) pg/mL Total Protein (5.8-8.3) g/dL Albumin (3.0-4.8) g/dL Globulin gm/dL Albumin/Globulin Ratio (1.1-1.8) Arterial Blood Potassium 6.5 H* (3.6-5.2) mmol/L Blood Type Antibody Screen BBK History Checked 07/28/18 Range/Units 20:30 WBC (4.5-11.0) 10^3/uL RBC (3.5-6.1) 10^6/uL Hgb (14.0-18.0) g/dL Hct (42.0-52.0) % MCV (80.0-105.0) fl MCH (25.0-35.0) pg MCHC (31.0-37.0) g/dl RDW (11.5-14.5) % Plt Count (120.0-450.0) 10^3/uL MPV (7.0-11.0) fl Gran % (50.0-68.0) % Lymph % (Auto) (22.0-35.0) % [place] % (Auto) (1.0-6.0) % Eos % (Auto) (1.5-5.0) % Baso % (Auto) (0.0-3.0) % Gran # (1.4-6.5) Lymph # (Auto) (1.2-3.4) [place] # (Auto) (0.1-0.6) Eos # (Auto) (0.0-0.7) Baso # (Auto) (0.0-2.0) K/mm3 PT (9.4-12.5) SECONDS INR APTT (25.1-36.5) Seconds pCO2 (35-45) mm/Hg pO2 (80-100) mm/Hg HCO3 (21-28) mmol/L ABG pH (7.35-7.45) ABG Total CO2 (22-28) mmol.L ABG O2 Saturation (95-98) % ABG Base Excess (-2.0-3.0) mmol/L ABG Potassium (3.6-5.2) mmol/L Glucose (75-110) mg/dl Lactate (0.7-2.1) mmol/L FiO2 % Sodium 139 (132-148) mmol/L Potassium 6.6 H* D (3.6-5.0) mmol/L Chloride 109 H (98-107) mmol/L Carbon Dioxide 17 L (21-33) mmol/L Anion Gap 19 (10-20) BUN 117 H (7-21) mg/dL Creatinine 16.7 H* D (0.8-1.5) mg/dl Est GFR ( Amer) 4 Est GFR (Non-Af Amer) 3 POC Glucose (mg/dL) (65-110) mg/dL Random Glucose 110 (70-110) mg/dL Calcium 6.2 L* (8.4-10.5) mg/dL Phosphorus (2.5-4.5) mg/dL Magnesium (1.7-2.2) mg/dL Total Bilirubin 0.6 (0.2-1.3) mg/dL AST 39 (17-59) U/L ALT 87 H (7-56) U/L Alkaline Phosphatase 256 H D (38-126) U/L Lactate Dehydrogenase 1531 H (333-699) U/L Total Creatine Kinase 6783 H (35-230) U/L CK-MB (CK-2) 16.0 H (0.0-3.6) ng/mL CK-MB (CK-2) % 0.2 L (2.5-3.0) % Troponin I 0.01 D ng/mL NT-Pro-B Natriuret Pep 13696 H (0-450) pg/mL Total Protein 7.2 (5.8-8.3) g/dL Albumin 3.5 (3.0-4.8) g/dL Globulin 3.7 gm/dL Albumin/Globulin Ratio 0.9 L (1.1-1.8) Arterial Blood Potassium (3.6-5.2) mmol/L Blood Type Antibody Screen BBK History Checked Laboratory Results - last 24 hr 07/28/18 07/28/18 07/28/18 20:30 20:30 20:30 WBC 10.5 D RBC 2.62 L Hgb 7.7 L Hct 22.3 L MCV 85.1 MCH 29.4 MCHC 34.5 RDW 13.1 Plt Count 260 MPV 10.4 Gran % 79.2 H Lymph % (Auto) 13.0 L [place] % (Auto) 5.2 Eos % (Auto) 2.4 Baso % (Auto) 0.2 Gran # 8.31 H Lymph # (Auto) 1.4 [place] # (Auto) 0.5 Eos # (Auto) 0.3 Baso # (Auto) 0.02 PT 12.5 INR 1.09 APTT 30.8 pCO2 pO2 HCO3 ABG pH ABG Total CO2 ABG O2 Saturation ABG Base Excess ABG Potassium Glucose Lactate FiO2 Sodium 139 Potassium 6.6 H* D Chloride 109 H Carbon Dioxide 17 L Anion Gap 19 BUN 117 H Creatinine 16.7 H* D Est GFR ( Amer) 4 Est GFR (Non-Af Amer) 3 POC Glucose (mg/dL) Random Glucose 110 Calcium 6.2 L* Phosphorus Magnesium Total Bilirubin 0.6 AST 39 ALT 87 H Alkaline Phosphatase 256 H D Lactate Dehydrogenase 1531 H Total Creatine Kinase 6783 H CK-MB (CK-2) 16.0 H CK-MB (CK-2) % 0.2 L Troponin I 0.01 D NT-Pro-B Natriuret Pep 38954 H Total Protein 7.2 Albumin 3.5 Globulin 3.7 Albumin/Globulin Ratio 0.9 L Arterial Blood Potassium Blood Type Antibody Screen BBK History Checked 07/28/18 07/28/18 07/28/18 21:10 23:30 23:37 WBC RBC Hgb Hct MCV MCH MCHC RDW Plt Count MPV Gran % Lymph % (Auto) [place] % (Auto) Eos % (Auto) Baso % (Auto) Gran # Lymph # (Auto) [place] # (Auto) Eos # (Auto) Baso # (Auto) PT INR APTT pCO2 25 L pO2 59.0 L HCO3 13.8 L ABG pH 7.35 ABG Total CO2 14.6 L ABG O2 Saturation 93.9 L ABG Base Excess -10.0 L ABG Potassium 6.5 H* Glucose 124 H Lactate 1.0 FiO2 21.0 Sodium 136.0 Potassium Chloride 108.0 H Carbon Dioxide Anion Gap BUN Creatinine Est GFR ( Amer) Est GFR (Non-Af Amer) POC Glucose (mg/dL) 40 L Random Glucose Calcium Phosphorus Magnesium Total Bilirubin AST ALT Alkaline Phosphatase Lactate Dehydrogenase Total Creatine Kinase CK-MB (CK-2) CK-MB (CK-2) % Troponin I NT-Pro-B Natriuret Pep Total Protein Albumin Globulin Albumin/Globulin Ratio Arterial Blood Potassium 6.5 H* Blood Type B POSITIVE Antibody Screen Negative BBK History Checked Patient has bt 07/29/18 07/29/18 07/29/18 00:30 05:59 06:30 WBC 11.0 RBC 2.55 L Hgb 7.4 L Hct 21.5 L MCV 84.3 MCH 29.0 MCHC 34.4 RDW 13.1 Plt Count 273 MPV 10.4 Gran % 80.9 H Lymph % (Auto) 12.4 L [place] % (Auto) 4.4 Eos % (Auto) 2.1 Baso % (Auto) 0.2 Gran # 8.91 H Lymph # (Auto) 1.4 [place] # (Auto) 0.5 Eos # (Auto) 0.2 Baso # (Auto) 0.02 PT INR APTT pCO2 pO2 HCO3 ABG pH ABG Total CO2 ABG O2 Saturation ABG Base Excess ABG Potassium Glucose Lactate FiO2 Sodium 139 Potassium 6.0 H* Chloride 109 H Carbon Dioxide 16 L Anion Gap 20 BUN 112 H Creatinine 17.7 H* Est GFR ( Amer) 3 Est GFR (Non-Af Amer) 3 POC Glucose (mg/dL) 82 Random Glucose 122 H Calcium 6.4 L* Phosphorus Magnesium Total Bilirubin 0.4 AST 63 H D ALT 90 H Alkaline Phosphatase 253 H Lactate Dehydrogenase Total Creatine Kinase CK-MB (CK-2) CK-MB (CK-2) % Troponin I NT-Pro-B Natriuret Pep Total Protein 6.9 Albumin 3.4 Globulin 3.5 Albumin/Globulin Ratio 1.0 L Arterial Blood Potassium Blood Type Antibody Screen BBK History Checked 07/29/18 08:37 WBC RBC Hgb Hct MCV MCH MCHC RDW Plt Count MPV Gran % Lymph % (Auto) [place] % (Auto) Eos % (Auto) Baso % (Auto) Gran # Lymph # (Auto) [place] # (Auto) Eos # (Auto) Baso # (Auto) PT INR APTT pCO2 pO2 HCO3 ABG pH ABG Total CO2 ABG O2 Saturation ABG Base Excess ABG Potassium Glucose Lactate FiO2 Sodium Potassium Chloride Carbon Dioxide Anion Gap BUN Creatinine Est GFR ( Amer) Est GFR (Non-Af Amer) POC Glucose (mg/dL) Random Glucose Calcium Phosphorus 8.5 H Magnesium 1.6 L Total Bilirubin AST ALT Alkaline Phosphatase Lactate Dehydrogenase Total Creatine Kinase CK-MB (CK-2) CK-MB (CK-2) % Troponin I NT-Pro-B Natriuret Pep Total Protein Albumin Globulin Albumin/Globulin Ratio Arterial Blood Potassium Blood Type Antibody Screen BBK History Checked Radiology Impressions: Radiology Impressions Chest X-Ray 07/28/18 20:43 IMPRESSION: Trace left pleural effusion. No infiltrate bilaterally. Tunneled central venous dialysis catheter in situ right chest. EKG/Cardiology Studies: Cardiology / EKG Studies 07/28/18 20:46 EKG [ELECTROCARDIOGRAM] Stat Comment: Reason For Exam: SOB Fingerstick Blood Sugar Results: 221 Review of Systems - Review of Systems All systems: reviewed and no additional remarkable complaints except (as mentioned in HPI) Critical Care Progress Note - Nutrition Nutrition: Nutrition Category Date Time Status Renal Diet [DIET] Diets 07/29/18 Breakfast Ordered Assessment/Plan - Assessment and Plan (Free Text) Assessment: 53 year old male with past medical history of HTN, DM2, unspecified renal mass, hepatic hemangioma CKD on HD originally scheduled with with poor compliance who presents to [facility] ED for fatigue, SHOB, fluid accumulation, productive cough found to be be volume overloaded secondary to poor compliance with HD, medication, and diet. Plan: Neuro: AAOx3, mentation intact GCS15 monitor mentation Pulm: -Maintain SaO2>92% -Supplemental O2 as needed with NC -AB.35/25/59/13.8 on FiO2 21 -CXR:Trace left pleural effusion, tunneled CV dialysis catheter on right side -Elevated bed 30 degrees Cardio: HTN -Avoid ADRIANA,ARB -Nicardipine gtt initially for elevated BP -Plan to transition to oral -Maintain MAP >65 -EKG on admission: Tachycardia 92bpm, NSR, slightly [place] [address](baseline ~9000) -Likely Volume overload status secondary to poor compliance with HD -HD today -Echo 06/18/18): Ef 52%, mild to mod concentric LVH, moderate to severe MR GI: Elevated ALT, ALP Hepatic Hemangioma Nausea, Vomiting -Liver CT(06/23/18) with evidence of solitary mass in the right hepatic lobe consistent with hemangioma -GI consulted, f/u recs -Likely secondary to uremia in the setting of non compliance with HD -GI ppx with protonix -Renal Diet Renal: CKD stage V on HD / Electrolyte abnormalities, Hyperkalemia, Hypyercalcemia -AB.35/25/59/13.8 on FiO2 21 -Poor compliance with HD -HD today with removal of 3 Liters planned today, check CBC, CMP s/p HD -Maintaine euvolemia, repletion of lytes -Renal consulted, f/u recs Endo: DM2 -Maintain euglycemia -ISS low -ACHS Heme/Onc: Normocytic Anemia -Likely anemia of chronic disease -Baseline H/H closer to 7-8 Hgb -Monitor CBC ID: Afebrile, no leukocytosis -f/u urine, blood, sputum culture MSK: Rhabdomyolysis -elevated CK -HD today, f/u CK Patient seen, case and plan discussed with attending Dr. Law <Law,Bilal - Last Filed: 07/29/18 17:38> CCU Objective - Vital Signs / Intake & Output Vital Signs (Last 4 hours): Vital Signs Pulse Resp BP Pulse Ox 07/29/18 17:19 85 175/92 H 07/29/18 14:00 88 24 141/65 90 L 07/29/18 13:43 124/67 90 L Intake and Output (Last 8hrs): Intake & Output 07/29/18 07/29/18 07/29/18 06:59 14:59 22:59 Intake Total 380 200 Output Total 200 Balance 180 200 Weight 88.451 kg Intake: IV 200 200 Right Antecubital 200 Oral 180 Output: Urine 200 Urine, Voided 200 Other: # Voids Urine, Voided 1 - Medications Active Medications: Active Medications Generic Name Dose Route Start Last Admin Trade Name Freq PRN Reason Stop Dose Admin Amlodipine Besylate 10 mg 07/29/18 11:15 07/29/18 11:42 Norvasc PO 10 mg DAILY [facility] Administration Atorvastatin Calcium 40 mg 07/29/18 22:00 Lipitor PO HS [facility] Calcium Acetate 1,334 mg 07/29/18 11:16 07/29/18 16:38 Phoslo PO 1,334 mg WM [facility] Administration Darbepoetin Todd 100 mcg 07/30/18 10:00 Aranesp IVP QWK [facility] Dextrose 0 ml 07/29/18 00:51 Dextrose 50% Inj IV STAT PRN Hypoglycemia Protocol Protocol Ergocalciferol 1 cap 07/29/18 11:15 07/29/18 11:41 Drisdol 50,000 Intl Units Cap PO 1 cap Q7D [facility] Administration Heparin Sodium (Porcine) 2,000 units 07/31/18 10:00 Heparin IVP TTS [facility] Protocol Azithromycin 500 mg in 250 mls @ 167 mls/hr 07/29/18 10:00 07/29/18 11:50 Zithromax 500mg In Ns IVPB 167 mls/hr DAILY [facility] Administration Protocol Dextrose 1,000 mls @ 0 mls/hr 07/29/18 00:51 Dextrose 5% In Water 1000 Ml IV .Q0M PRN Hypoglycemia Protocol Protocol Per Protocol Iron Sucrose 100 mg/ Sodium 105 mls @ 210 mls/hr 07/29/18 11:15 07/29/18 14:40 Chloride IVPB 08/08/18 11:16 210 mls/hr DAILY [facility] Administration Insulin Human Lispro 0 units 07/29/18 07:30 07/29/18 16:36 Humalog Low SC Not Given ACHS [facility] Protocol Labetalol HCl 200 mg 07/29/18 11:15 07/29/18 17:19 Trandate PO 200 mg BID [facility] Administration Pantoprazole Sodium 40 mg 07/29/18 10:00 07/29/18 11:43 Protonix Inj IVP 40 mg DAILY [facility] Administration Vitamin B Complex/Vit C/Folic Acid 1 tab 07/30/18 08:00 Nephro-Lulu PO 0800 [facility] - Patient Studies Lab Studies: Lab Studies 07/29/18 07/29/18 07/29/18 Range/Units 13:43 13:00 11:10 WBC (4.5-11.0) 10^3/uL RBC (3.5-6.1) 10^6/uL Hgb (14.0-18.0) g/dL Hct (42.0-52.0) % MCV (80.0-105.0) fl MCH (25.0-35.0) pg MCHC (31.0-37.0) g/dl RDW (11.5-14.5) % Plt Count (120.0-450.0) 10^3/uL MPV (7.0-11.0) fl Gran % (50.0-68.0) % Lymph % (Auto) (22.0-35.0) % [place] % (Auto) (1.0-6.0) % Eos % (Auto) (1.5-5.0) % Baso % (Auto) (0.0-3.0) % Gran # (1.4-6.5) Lymph # (Auto) (1.2-3.4) [place] # (Auto) (0.1-0.6) Eos # (Auto) (0.0-0.7) Baso # (Auto) (0.0-2.0) K/mm3 PT (9.4-12.5) SECONDS INR APTT (25.1-36.5) Seconds pCO2 (35-45) mm/Hg pO2 (80-100) mm/Hg HCO3 (21-28) mmol/L ABG pH (7.35-7.45) ABG Total CO2 (22-28) mmol.L ABG O2 Saturation (95-98) % ABG Base Excess (-2.0-3.0) mmol/L ABG Potassium (3.6-5.2) mmol/L Glucose (75-110) mg/dl Lactate (0.7-2.1) mmol/L FiO2 % Sodium 135 (132-148) mmol/L Potassium 3.8 (3.6-5.0) mmol/L Chloride 100 (98-107) mmol/L Carbon Dioxide 25 (21-33) mmol/L Anion Gap 14 (10-20) BUN 53 H (7-21) mg/dL Creatinine 9.6 H* D (0.8-1.5) mg/dl Est GFR ( Amer) 7 Est GFR (Non-Af Amer) 6 POC Glucose (mg/dL) 211 H 137 H (65-110) mg/dL Random Glucose 185 H (70-110) mg/dL Calcium 7.1 L (8.4-10.5) mg/dL Phosphorus (2.5-4.5) mg/dL Magnesium (1.7-2.2) mg/dL Total Bilirubin (0.2-1.3) mg/dL AST (17-59) U/L ALT (7-56) U/L Alkaline Phosphatase (38-126) U/L Lactate Dehydrogenase (333-699) U/L Total Creatine Kinase (35-230) U/L CK-MB (CK-2) (0.0-3.6) ng/mL CK-MB (CK-2) % (2.5-3.0) % Troponin I ng/mL NT-Pro-B Natriuret Pep (0-450) pg/mL Total Protein (5.8-8.3) g/dL Albumin (3.0-4.8) g/dL Globulin gm/dL Albumin/Globulin Ratio (1.1-1.8) Procalcitonin (0.19-0.49) NG/ML Arterial Blood Potassium (3.6-5.2) mmol/L Hep Bs Antigen (NEGATIVE) Hep Bs Antibody (NEGATIVE) Hep B Core IgM Ab (NEGATIVE) Blood Type Antibody Screen BBK History Checked 07/29/18 07/29/1807/29/19 Range/Units 10:20 10:20 08:37 WBC (4.5-11.0) 10^3/uL RBC (3.5-6.1) 10^6/uL Hgb (14.0-18.0) g/dL Hct (42.0-52.0) % MCV (80.0-105.0) fl MCH (25.0-35.0) pg MCHC (31.0-37.0) g/dl RDW (11.5-14.5) % Plt Count (120.0-450.0) 10^3/uL MPV (7.0-11.0) fl Gran % (50.0-68.0) % Lymph % (Auto) (22.0-35.0) % [place] % (Auto) (1.0-6.0) % Eos % (Auto) (1.5-5.0) % Baso % (Auto) (0.0-3.0) % Gran # (1.4-6.5) Lymph # (Auto) (1.2-3.4) [place] # (Auto) (0.1-0.6) Eos # (Auto) (0.0-0.7) Baso # (Auto) (0.0-2.0) K/mm3 PT (9.4-12.5) SECONDS INR APTT (25.1-36.5) Seconds pCO2 (35-45) mm/Hg pO2 (80-100) mm/Hg HCO3 (21-28) mmol/L ABG pH (7.35-7.45) ABG Total CO2 (22-28) mmol.L ABG O2 Saturation (95-98) % ABG Base Excess (-2.0-3.0) mmol/L ABG Potassium (3.6-5.2) mmol/L Glucose (75-110) mg/dl Lactate (0.7-2.1) mmol/L FiO2 % Sodium (132-148) mmol/L Potassium (3.6-5.0) mmol/L Chloride (98-107) mmol/L Carbon Dioxide (21-33) mmol/L Anion Gap (10-20) BUN (7-21) mg/dL Creatinine (0.8-1.5) mg/dl Est GFR ( Amer) Est GFR (Non-Af Amer) POC Glucose (mg/dL) (65-110) mg/dL Random Glucose (70-110) mg/dL Calcium (8.4-10.5) mg/dL Phosphorus 8.5 H (2.5-4.5) mg/dL Magnesium 1.6 L (1.7-2.2) mg/dL Total Bilirubin (0.2-1.3) mg/dL AST (17-59) U/L ALT (7-56) U/L Alkaline Phosphatase (38-126) U/L Lactate Dehydrogenase (333-699) U/L Total Creatine Kinase 5698 H (35-230) U/L CK-MB (CK-2) 13.2 H (0.0-3.6) ng/mL CK-MB (CK-2) % 0.2 L (2.5-3.0) % Troponin I 0.03 D ng/mL NT-Pro-B Natriuret Pep (0-450) pg/mL Total Protein (5.8-8.3) g/dL Albumin (3.0-4.8) g/dL Globulin gm/dL Albumin/Globulin Ratio (1.1-1.8) Procalcitonin (0.19-0.49) NG/ML Arterial Blood Potassium (3.6-5.2) mmol/L Hep Bs Antigen (NEGATIVE) Hep Bs Antibody (NEGATIVE) Hep B Core IgM Ab (NEGATIVE) Blood Type Antibody Screen BBK History Checked 07/29/18 07/29/18 07/29/18 Range/Units 08:30 08:30 07:38 WBC (4.5-11.0) 10^3/uL RBC (3.5-6.1) 10^6/uL Hgb (14.0-18.0) g/dL Hct (42.0-52.0) % MCV (80.0-105.0) fl MCH (25.0-35.0) pg MCHC (31.0-37.0) g/dl RDW (11.5-14.5) % Plt Count (120.0-450.0) 10^3/uL MPV (7.0-11.0) fl Gran % (50.0-68.0) % Lymph % (Auto) (22.0-35.0) % [place] % (Auto) (1.0-6.0) % Eos % (Auto) (1.5-5.0) % Baso % (Auto) (0.0-3.0) % Gran # (1.4-6.5) Lymph # (Auto) (1.2-3.4) [place] # (Auto) (0.1-0.6) Eos # (Auto) (0.0-0.7) Baso # (Auto) (0.0-2.0) K/mm3 PT (9.4-12.5) SECONDS INR APTT (25.1-36.5) Seconds pCO2 (35-45) mm/Hg pO2 (80-100) mm/Hg HCO3 (21-28) mmol/L ABG pH (7.35-7.45) ABG Total CO2 (22-28) mmol.L ABG O2 Saturation (95-98) % ABG Base Excess (-2.0-3.0) mmol/L ABG Potassium (3.6-5.2) mmol/L Glucose (75-110) mg/dl Lactate (0.7-2.1) mmol/L FiO2 % Sodium (132-148) mmol/L Potassium (3.6-5.0) mmol/L Chloride (98-107) mmol/L Carbon Dioxide (21-33) mmol/L Anion Gap (10-20) BUN (7-21) mg/dL Creatinine (0.8-1.5) mg/dl Est GFR ( Amer) Est GFR (Non-Af Amer) POC Glucose (mg/dL) 221 H (65-110) mg/dL Random Glucose (70-110) mg/dL Calcium (8.4-10.5) mg/dL Phosphorus (2.5-4.5) mg/dL Magnesium (1.7-2.2) mg/dL Total Bilirubin (0.2-1.3) mg/dL AST (17-59) U/L ALT (7-56) U/L Alkaline Phosphatase (38-126) U/L Lactate Dehydrogenase (333-699) U/L Total Creatine Kinase (35-230) U/L CK-MB (CK-2) (0.0-3.6) ng/mL CK-MB (CK-2) % (2.5-3.0) % Troponin I ng/mL NT-Pro-B Natriuret Pep (0-450) pg/mL Total Protein (5.8-8.3) g/dL Albumin (3.0-4.8) g/dL Globulin gm/dL Albumin/Globulin Ratio (1.1-1.8) Procalcitonin (0.19-0.49) NG/ML Arterial Blood Potassium (3.6-5.2) mmol/L Hep Bs Antigen Negative (NEGATIVE) Hep Bs Antibody Negative (NEGATIVE) Hep B Core IgM Ab Negative (NEGATIVE) Blood Type Antibody Screen BBK History Checked 07/29/18 07/29/18 07/29/18 Range/Units 06:30 05:59 05:20 WBC 11.0 (4.5-11.0) 10^3/uL RBC 2.55 L (3.5-6.1) 10^6/uL Hgb 7.4 L (14.0-18.0) g/dL Hct 21.5 L (42.0-52.0) % MCV 84.3 (80.0-105.0) fl MCH 29.0 (25.0-35.0) pg MCHC 34.4 (31.0-37.0) g/dl RDW 13.1 (11.5-14.5) % Plt Count 273 (120.0-450.0) 10^3/uL MPV 10.4 (7.0-11.0) fl Gran % 80.9 H (50.0-68.0) % Lymph % (Auto) 12.4 L (22.0-35.0) % [place] % (Auto) 4.4 (1.0-6.0) % Eos % (Auto) 2.1 (1.5-5.0) % Baso % (Auto) 0.2 (0.0-3.0) % Gran # 8.91 H (1.4-6.5) Lymph # (Auto) 1.4 (1.2-3.4) [place] # (Auto) 0.5 (0.1-0.6) Eos # (Auto) 0.2 (0.0-0.7) Baso # (Auto) 0.02 (0.0-2.0) K/mm3 PT (9.4-12.5) SECONDS INR APTT (25.1-36.5) Seconds pCO2 (35-45) mm/Hg pO2 (80-100) mm/Hg HCO3 (21-28) mmol/L ABG pH (7.35-7.45) ABG Total CO2 (22-28) mmol.L ABG O2 Saturation (95-98) % ABG Base Excess (-2.0-3.0) mmol/L ABG Potassium (3.6-5.2) mmol/L Glucose (75-110) mg/dl Lactate (0.7-2.1) mmol/L FiO2 % Sodium 139 (132-148) mmol/L Potassium 6.0 H* (3.6-5.0) mmol/L Chloride 109 H (98-107) mmol/L Carbon Dioxide 16 L (21-33) mmol/L Anion Gap 20 (10-20) BUN 112 H (7-21) mg/dL Creatinine 17.7 H* (0.8-1.5) mg/dl Est GFR ( Amer) 3 Est GFR (Non-Af Amer) 3 POC Glucose (mg/dL) (65-110) mg/dL Random Glucose 122 H (70-110) mg/dL Calcium 6.4 L* (8.4-10.5) mg/dL Phosphorus (2.5-4.5) mg/dL Magnesium (1.7-2.2) mg/dL Total Bilirubin 0.4 (0.2-1.3) mg/dL AST 63 H D (17-59) U/L ALT 90 H (7-56) U/L Alkaline Phosphatase 253 H (38-126) U/L Lactate Dehydrogenase (333-699) U/L Total Creatine Kinase (35-230) U/L CK-MB (CK-2) (0.0-3.6) ng/mL CK-MB (CK-2) % (2.5-3.0) % Troponin I ng/mL NT-Pro-B Natriuret Pep (0-450) pg/mL Total Protein 6.9 (5.8-8.3) g/dL Albumin 3.4 (3.0-4.8) g/dL Globulin 3.5 gm/dL Albumin/Globulin Ratio 1.0 L (1.1-1.8) Procalcitonin 0.24 (0.19-0.49) NG/ML Arterial Blood Potassium (3.6-5.2) mmol/L Hep Bs Antigen (NEGATIVE) Hep Bs Antibody (NEGATIVE) Hep B Core IgM Ab (NEGATIVE) Blood Type Antibody Screen BBK History Checked 07/29/18 07/28/18 07/28/18 Range/Units 00:30 23:37 23:30 WBC (4.5-11.0) 10^3/uL RBC (3.5-6.1) 10^6/uL Hgb (14.0-18.0) g/dL Hct (42.0-52.0) % MCV (80.0-105.0) fl MCH (25.0-35.0) pg MCHC (31.0-37.0) g/dl RDW (11.5-14.5) % Plt Count (120.0-450.0) 10^3/uL MPV (7.0-11.0) fl Gran % (50.0-68.0) % Lymph % (Auto) (22.0-35.0) % [place] % (Auto) (1.0-6.0) % Eos % (Auto) (1.5-5.0) % Baso % (Auto) (0.0-3.0) % Gran # (1.4-6.5) Lymph # (Auto) (1.2-3.4) [place] # (Auto) (0.1-0.6) Eos # (Auto) (0.0-0.7) Baso # (Auto) (0.0-2.0) K/mm3 PT (9.4-12.5) SECONDS INR APTT (25.1-36.5) Seconds pCO2 (35-45) mm/Hg pO2 (80-100) mm/Hg HCO3 (21-28) mmol/L ABG pH (7.35-7.45) ABG Total CO2 (22-28) mmol.L ABG O2 Saturation (95-98) % ABG Base Excess (-2.0-3.0) mmol/L ABG Potassium (3.6-5.2) mmol/L Glucose (75-110) mg/dl Lactate (0.7-2.1) mmol/L FiO2 % Sodium (132-148) mmol/L Potassium (3.6-5.0) mmol/L Chloride (98-107) mmol/L Carbon Dioxide (21-33) mmol/L Anion Gap (10-20) BUN (7-21) mg/dL Creatinine (0.8-1.5) mg/dl Est GFR ( Amer) Est GFR (Non-Af Amer) POC Glucose (mg/dL) 82 40 L (65-110) mg/dL Random Glucose (70-110) mg/dL Calcium (8.4-10.5) mg/dL Phosphorus (2.5-4.5) mg/dL Magnesium (1.7-2.2) mg/dL Total Bilirubin (0.2-1.3) mg/dL AST (17-59) U/L ALT (7-56) U/L Alkaline Phosphatase (38-126) U/L Lactate Dehydrogenase (333-699) U/L Total Creatine Kinase (35-230) U/L CK-MB (CK-2) (0.0-3.6) ng/mL CK-MB (CK-2) % (2.5-3.0) % Troponin I ng/mL NT-Pro-B Natriuret Pep (0-450) pg/mL Total Protein (5.8-8.3) g/dL Albumin (3.0-4.8) g/dL Globulin gm/dL Albumin/Globulin Ratio (1.1-1.8) Procalcitonin (0.19-0.49) NG/ML Arterial Blood Potassium (3.6-5.2) mmol/L Hep Bs Antigen (NEGATIVE) Hep Bs Antibody (NEGATIVE) Hep B Core IgM Ab (NEGATIVE) Blood Type B POSITIVE Antibody Screen Negative BBK History Checked Patient has bt 07/28/18 07/28/18 07/28/18 Range/Units 21:10 20:30 20:30 WBC 10.5 D (4.5-11.0) 10^3/uL RBC 2.62 L (3.5-6.1) 10^6/uL Hgb 7.7 L (14.0-18.0) g/dL Hct 22.3 L (42.0-52.0) % MCV 85.1 (80.0-105.0) fl MCH 29.4 (25.0-35.0) pg MCHC 34.5 (31.0-37.0) g/dl RDW 13.1 (11.5-14.5) % Plt Count 260 (120.0-450.0) 10^3/uL MPV 10.4 (7.0-11.0) fl Gran % 79.2 H (50.0-68.0) % Lymph % (Auto) 13.0 L (22.0-35.0) % [place] % (Auto) 5.2 (1.0-6.0) % Eos % (Auto) 2.4 (1.5-5.0) % Baso % (Auto) 0.2 (0.0-3.0) % Gran # 8.31 H (1.4-6.5) Lymph # (Auto) 1.4 (1.2-3.4) [place] # (Auto) 0.5 (0.1-0.6) Eos # (Auto) 0.3 (0.0-0.7) Baso # (Auto) 0.02 (0.0-2.0) K/mm3 PT 12.5 (9.4-12.5) SECONDS INR 1.09 APTT 30.8 (25.1-36.5) Seconds pCO2 25 L (35-45) mm/Hg pO2 59.0 L (80-100) mm/Hg HCO3 13.8 L (21-28) mmol/L ABG pH 7.35 (7.35-7.45) ABG Total CO2 14.6 L (22-28) mmol.L ABG O2 Saturation 93.9 L (95-98) % ABG Base Excess -10.0 L (-2.0-3.0) mmol/L ABG Potassium 6.5 H* (3.6-5.2) mmol/L Glucose 124 H (75-110) mg/dl Lactate 1.0 (0.7-2.1) mmol/L FiO2 21.0 % Sodium 136.0 (132-148) mmol/L Potassium (3.6-5.0) mmol/L Chloride 108.0 H (98-107) mmol/L Carbon Dioxide (21-33) mmol/L Anion Gap (10-20) BUN (7-21) mg/dL Creatinine (0.8-1.5) mg/dl Est GFR ( Amer) Est GFR (Non-Af Amer) POC Glucose (mg/dL) (65-110) mg/dL Random Glucose (70-110) mg/dL Calcium (8.4-10.5) mg/dL Phosphorus (2.5-4.5) mg/dL Magnesium (1.7-2.2) mg/dL Total Bilirubin (0.2-1.3) mg/dL AST (17-59) U/L ALT (7-56) U/L Alkaline Phosphatase (38-126) U/L Lactate Dehydrogenase (333-699) U/L Total Creatine Kinase (35-230) U/L CK-MB (CK-2) (0.0-3.6) ng/mL CK-MB (CK-2) % (2.5-3.0) % Troponin I ng/mL NT-Pro-B Natriuret Pep (0-450) pg/mL Total Protein (5.8-8.3) g/dL Albumin (3.0-4.8) g/dL Globulin gm/dL Albumin/Globulin Ratio (1.1-1.8) Procalcitonin (0.19-0.49) NG/ML Arterial Blood Potassium 6.5 H* (3.6-5.2) mmol/L Hep Bs Antigen (NEGATIVE) Hep Bs Antibody (NEGATIVE) Hep B Core IgM Ab (NEGATIVE) Blood Type Antibody Screen BBK History Checked 07/28/18 Range/Units 20:30 WBC (4.5-11.0) 10^3/uL RBC (3.5-6.1) 10^6/uL Hgb (14.0-18.0) g/dL Hct (42.0-52.0) % MCV (80.0-105.0) fl MCH (25.0-35.0) pg MCHC (31.0-37.0) g/dl RDW (11.5-14.5) % Plt Count (120.0-450.0) 10^3/uL MPV (7.0-11.0) fl Gran % (50.0-68.0) % Lymph % (Auto) (22.0-35.0) % [place] % (Auto) (1.0-6.0) % Eos % (Auto) (1.5-5.0) % Baso % (Auto) (0.0-3.0) % Gran # (1.4-6.5) Lymph # (Auto) (1.2-3.4) [place] # (Auto) (0.1-0.6) Eos # (Auto) (0.0-0.7) Baso # (Auto) (0.0-2.0) K/mm3 PT (9.4-12.5) SECONDS INR APTT (25.1-36.5) Seconds pCO2 (35-45) mm/Hg pO2 (80-100) mm/Hg HCO3 (21-28) mmol/L ABG pH (7.35-7.45) ABG Total CO2 (22-28) mmol.L ABG O2 Saturation (95-98) % ABG Base Excess (-2.0-3.0) mmol/L ABG Potassium (3.6-5.2) mmol/L Glucose (75-110) mg/dl Lactate (0.7-2.1) mmol/L FiO2 % Sodium 139 (132-148) mmol/L Potassium 6.6 H* D (3.6-5.0) mmol/L Chloride 109 H (98-107) mmol/L Carbon Dioxide 17 L (21-33) mmol/L Anion Gap 19 (10-20) BUN 117 H (7-21) mg/dL Creatinine 16.7 H* D (0.8-1.5) mg/dl Est GFR ( Amer) 4 Est GFR (Non-Af Amer) 3 POC Glucose (mg/dL) (65-110) mg/dL Random Glucose 110 (70-110) mg/dL Calcium 6.2 L* (8.4-10.5) mg/dL Phosphorus (2.5-4.5) mg/dL Magnesium (1.7-2.2) mg/dL Total Bilirubin 0.6 (0.2-1.3) mg/dL AST 39 (17-59) U/L ALT 87 H (7-56) U/L Alkaline Phosphatase 256 H D (38-126) U/L Lactate Dehydrogenase 1531 H (333-699) U/L Total Creatine Kinase 6783 H (35-230) U/L CK-MB (CK-2) 16.0 H (0.0-3.6) ng/mL CK-MB (CK-2) % 0.2 L (2.5-3.0) % Troponin I 0.01 D ng/mL NT-Pro-B Natriuret Pep 62651 H (0-450) pg/mL Total Protein 7.2 (5.8-8.3) g/dL Albumin 3.5 (3.0-4.8) g/dL Globulin 3.7 gm/dL Albumin/Globulin Ratio 0.9 L (1.1-1.8) Procalcitonin (0.19-0.49) NG/ML Arterial Blood Potassium (3.6-5.2) mmol/L Hep Bs Antigen (NEGATIVE) Hep Bs Antibody (NEGATIVE) Hep B Core IgM Ab (NEGATIVE) Blood Type Antibody Screen BBK History Checked Laboratory Results - last 24 hr 07/28/18 07/28/18 07/28/18 20:30 20:30 20:30 WBC 10.5 D RBC 2.62 L Hgb 7.7 L Hct 22.3 L MCV 85.1 MCH 29.4 MCHC 34.5 RDW 13.1 Plt Count 260 MPV 10.4 Gran % 79.2 H Lymph % (Auto) 13.0 L [place] % (Auto) 5.2 Eos % (Auto) 2.4 Baso % (Auto) 0.2 Gran # 8.31 H Lymph # (Auto) 1.4 [place] # (Auto) 0.5 Eos # (Auto) 0.3 Baso # (Auto) 0.02 PT 12.5 INR 1.09 APTT 30.8 pCO2 pO2 HCO3 ABG pH ABG Total CO2 ABG O2 Saturation ABG Base Excess ABG Potassium Glucose Lactate FiO2 Sodium 139 Potassium 6.6 H* D Chloride 109 H Carbon Dioxide 17 L Anion Gap 19 BUN 117 H Creatinine 16.7 H* D Est GFR ( Amer) 4 Est GFR (Non-Af Amer) 3 POC Glucose (mg/dL) Random Glucose 110 Calcium 6.2 L* Phosphorus Magnesium Total Bilirubin 0.6 AST 39 ALT 87 H Alkaline Phosphatase 256 H D Lactate Dehydrogenase 1531 H Total Creatine Kinase 6783 H CK-MB (CK-2) 16.0 H CK-MB (CK-2) % 0.2 L Troponin I 0.01 D NT-Pro-B Natriuret Pep 27350 H Total Protein 7.2 Albumin 3.5 Globulin 3.7 Albumin/Globulin Ratio 0.9 L Procalcitonin Arterial Blood Potassium Hep Bs Antigen Hep Bs Antibody Hep B Core IgM Ab Blood Type Antibody Screen BBK History Checked 07/28/18 07/28/18 07/28/18 21:10 23:30 23:37 WBC RBC Hgb Hct MCV MCH MCHC RDW Plt Count MPV Gran % Lymph % (Auto) [place] % (Auto) Eos % (Auto) Baso % (Auto) Gran # Lymph # (Auto) [place] # (Auto) Eos # (Auto) Baso # (Auto) PT INR APTT pCO2 25 L pO2 59.0 L HCO3 13.8 L ABG pH 7.35 ABG Total CO2 14.6 L ABG O2 Saturation 93.9 L ABG Base Excess -10.0 L ABG Potassium 6.5 H* Glucose 124 H Lactate 1.0 FiO2 21.0 Sodium 136.0 Potassium Chloride 108.0 H Carbon Dioxide Anion Gap BUN Creatinine Est GFR ( Amer) Est GFR (Non-Af Amer) POC Glucose (mg/dL) 40 L Random Glucose Calcium Phosphorus Magnesium Total Bilirubin AST ALT Alkaline Phosphatase Lactate Dehydrogenase Total Creatine Kinase CK-MB (CK-2) CK-MB (CK-2) % Troponin I NT-Pro-B Natriuret Pep Total Protein Albumin Globulin Albumin/Globulin Ratio Procalcitonin Arterial Blood Potassium 6.5 H* Hep Bs Antigen Hep Bs Antibody Hep B Core IgM Ab Blood Type B POSITIVE Antibody Screen Negative BBK History Checked Patient has bt 07/29/18 07/29/18 07/29/18 00:30 05:20 05:59 WBC 11.0 RBC 2.55 L Hgb 7.4 L Hct 21.5 L MCV 84.3 MCH 29.0 MCHC 34.4 RDW 13.1 Plt Count 273 MPV 10.4 Gran % 80.9 H Lymph % (Auto) 12.4 L [place] % (Auto) 4.4 Eos % (Auto) 2.1 Baso % (Auto) 0.2 Gran # 8.91 H Lymph # (Auto) 1.4 [place] # (Auto) 0.5 Eos # (Auto) 0.2 Baso # (Auto) 0.02 PT INR APTT pCO2 pO2 HCO3 ABG pH ABG Total CO2 ABG O2 Saturation ABG Base Excess ABG Potassium Glucose Lactate FiO2 Sodium Potassium Chloride Carbon Dioxide Anion Gap BUN Creatinine Est GFR ( Amer) Est GFR (Non-Af Amer) POC Glucose (mg/dL) 82 Random Glucose Calcium Phosphorus Magnesium Total Bilirubin AST ALT Alkaline Phosphatase Lactate Dehydrogenase Total Creatine Kinase CK-MB (CK-2) CK-MB (CK-2) % Troponin I NT-Pro-B Natriuret Pep Total Protein Albumin Globulin Albumin/Globulin Ratio Procalcitonin 0.24 Arterial Blood Potassium Hep Bs Antigen Hep Bs Antibody Hep B Core IgM Ab Blood Type Antibody Screen BBK History Checked 07/29/18 07/29/18 07/29/18 06:30 07:38 08:30 WBC RBC Hgb Hct MCV MCH MCHC RDW Plt Count MPV Gran % Lymph % (Auto) [place] % (Auto) Eos % (Auto) Baso % (Auto) Gran # Lymph # (Auto) [place] # (Auto) Eos # (Auto) Baso # (Auto) PT INR APTT pCO2 pO2 HCO3 ABG pH ABG Total CO2 ABG O2 Saturation ABG Base Excess ABG Potassium Glucose Lactate FiO2 Sodium 139 Potassium 6.0 H* Chloride 109 H Carbon Dioxide 16 L Anion Gap 20 BUN 112 H Creatinine 17.7 H* Est GFR ( Amer) 3 Est GFR (Non-Af Amer) 3 POC Glucose (mg/dL) 221 H Random Glucose 122 H Calcium 6.4 L* Phosphorus Magnesium Total Bilirubin 0.4 AST 63 H D ALT 90 H Alkaline Phosphatase 253 H Lactate Dehydrogenase Total Creatine Kinase CK-MB (CK-2) CK-MB (CK-2) % Troponin I NT-Pro-B Natriuret Pep Total Protein 6.9 Albumin 3.4 Globulin 3.5 Albumin/Globulin Ratio 1.0 L Procalcitonin Arterial Blood Potassium Hep Bs Antigen Negative Hep Bs Antibody Hep B Core IgM Ab Negative Blood Type Antibody Screen BBK History Checked 07/29/18 07/29/18 07/29/18 08:30 08:37 10:20 WBC RBC Hgb Hct MCV MCH MCHC RDW Plt Count MPV Gran % Lymph % (Auto) [place] % (Auto) Eos % (Auto) Baso % (Auto) Gran # Lymph # (Auto) [place] # (Auto) Eos # (Auto) Baso # (Auto) PT INR APTT pCO2 pO2 HCO3 ABG pH ABG Total CO2 ABG O2 Saturation ABG Base Excess ABG Potassium Glucose Lactate FiO2 Sodium Potassium Chloride Carbon Dioxide Anion Gap BUN Creatinine Est GFR ( Amer) Est GFR (Non-Af Amer) POC Glucose (mg/dL) Random Glucose Calcium Phosphorus 8.5 H Magnesium 1.6 L Total Bilirubin AST ALT Alkaline Phosphatase Lactate Dehydrogenase Total Creatine Kinase 5698 H CK-MB (CK-2) 13.2 H CK-MB (CK-2) % 0.2 L Troponin I NT-Pro-B Natriuret Pep Total Protein Albumin Globulin Albumin/Globulin Ratio Procalcitonin Arterial Blood Potassium Hep Bs Antigen Hep Bs Antibody Negative Hep B Core IgM Ab Blood Type Antibody Screen BBK History Checked 07/29/18 07/29/18 07/29/18 10:20 11:10 13:00 WBC RBC Hgb Hct MCV MCH MCHC RDW Plt Count MPV Gran % Lymph % (Auto) [place] % (Auto) Eos % (Auto) Baso % (Auto) Gran # Lymph # (Auto) [place] # (Auto) Eos # (Auto) Baso # (Auto) PT INR APTT pCO2 pO2 HCO3 ABG pH ABG Total CO2 ABG O2 Saturation ABG Base Excess ABG Potassium Glucose Lactate FiO2 Sodium 135 Potassium 3.8 Chloride 100 Carbon Dioxide 25 Anion Gap 14 BUN 53 H Creatinine 9.6 H* D Est GFR ( Amer) 7 Est GFR (Non-Af Amer) 6 POC Glucose (mg/dL) 137 H Random Glucose 185 H Calcium 7.1 L Phosphorus Magnesium Total Bilirubin AST ALT Alkaline Phosphatase Lactate Dehydrogenase Total Creatine Kinase CK-MB (CK-2) CK-MB (CK-2) % Troponin I 0.03 D NT-Pro-B Natriuret Pep Total Protein Albumin Globulin Albumin/Globulin Ratio Procalcitonin Arterial Blood Potassium Hep Bs Antigen Hep Bs Antibody Hep B Core IgM Ab Blood Type Antibody Screen BBK History Checked 07/29/18 13:43 WBC RBC Hgb Hct MCV MCH MCHC RDW Plt Count MPV Gran % Lymph % (Auto) [place] % (Auto) Eos % (Auto) Baso % (Auto) Gran # Lymph # (Auto) [place] # (Auto) Eos # (Auto) Baso # (Auto) PT INR APTT pCO2 pO2 HCO3 ABG pH ABG Total CO2 ABG O2 Saturation ABG Base Excess ABG Potassium Glucose Lactate FiO2 Sodium Potassium Chloride Carbon Dioxide Anion Gap BUN Creatinine Est GFR ( Amer) Est GFR (Non-Af Amer) POC Glucose (mg/dL) 211 H Random Glucose Calcium Phosphorus Magnesium Total Bilirubin AST ALT Alkaline Phosphatase Lactate Dehydrogenase Total Creatine Kinase CK-MB (CK-2) CK-MB (CK-2) % Troponin I NT-Pro-B Natriuret Pep Total Protein Albumin Globulin Albumin/Globulin Ratio Procalcitonin Arterial Blood Potassium Hep Bs Antigen Hep Bs Antibody Hep B Core IgM Ab Blood Type Antibody Screen BBK History Checked Radiology Impressions: Radiology Impressions Chest X-Ray 07/28/18 20:43 IMPRESSION: Trace left pleural effusion. No infiltrate bilaterally. Tunneled central venous dialysis catheter in situ right chest. EKG/Cardiology Studies: Cardiology / EKG Studies 07/28/18 20:46 EKG [ELECTROCARDIOGRAM] Stat Comment: Reason For Exam: SOB Critical Care Progress Note - Nutrition Nutrition: Nutrition Category Date Time Status Renal Diet [DIET] Diets 07/29/18 Breakfast Ordered Addendum Addendum: 07/29/18 17:38 ICU Attending Addendum Patient seen and examined. Case reviewed on round with housestaff. Agree with resident note above with the following additions/exceptions: 53 year old male with past medical history of HTN, DM2, unspecified renal mass, hepatic hemangioma CKD on HD non compliant with HD since may 2018 present with evid of fluids overlaod and mult lab abn requring HD plan for HD and repeat labs after if stable post-HD will transfer out of ICU Rest of care as above Jesus Law MD Pulmonary Critical Care and Sleep Medicine
[2018-07-29] MEDS ORDERED: Ergocalciferol 50,000 Intl Units Cap PO SCH (11:15)
[2018-07-29 12:50] LABS: HEPATITIS B SURFACE AG Negative (NEGATIVE)
[2018-07-29 12:55] LABS: HEPATITIS B CORE AB NEGATIVE (NEGATIVE)
[2018-07-29 13:32] LABS: CALCIUM 7.1 mg/dL (8.4-10.5)
[2018-07-29 13:52] LABS: CK MB% 0.2 % (2.5-3.0); CK-MB 13.2 ng/mL (0.0-3.6)
--- NOTE | 2018-07-29 14:27 | CP.PCM.CON ---
History of Present Illness - History of Present Illness History of Present Illness: Nephrology Consultation Note: Assessment: critical Uremia, missed HD/non-compliance, hyperkalemia, fluid overload, HTN emergency Diabetic chronic Kidney Disease (E11.22) Hypertensive Chronic Kidney Disease (I12.0) End stage renal disease (N18.6) dependence on hemodialysis (Z99.2) via PC Anemia (D64.9), Hyperphosphatemia (E83.39), Secondary Hyperparathyroidism (E21.1), HTN (I12.0) Plan: Will plan for HD today as ordered. Will plan for dialysis tomorrow. Continue with Nephrovite 1 tab/day. PRBC as needed for anemia. on LESLY with dialysis as last Hb 7.4 TSAT 24% Ferritin 94, added 1 gram IV iron loading dose Continue with phos binders, last phos level 8.4 discontinue with calcitriol. last PTH 266 @ goal. added weekly Vit D as last level <12.8 BP control with meds as ordered. Patient not on RAAS racquel as with hyperkalemia, hope to add soon. resume norvasc and labetalol. titrate off nicardipine drip Glycemic control, Dialysis consistent diet Further work up/management as per primary team Dose meds/antibiotics (if needed) for ESRD status. Avoid fleets enema/magnesium based laxatives. pt was educated about risks of missing HD. SW consult for outpt HD placement vascular surgery consult for AVF placement Thanks for allowing me to participate in care of your patient. Will follow patient with you. Please call if any Qs. had d/w team Dr Jose Pendleton Office: [phone] Chief Complaint;feels sick HPI: Pt is a 53 M with hx of ESRD recently started on hemodialysis via permacathbut pt non compliant with HD, hadn't received HD since left from hospital AMA , chronic anemia, hyperphosphatemia, secondary hyperparathyroidism, Diabetes Mellitus (30 years), hypertension presented with complaints of worsening SOB on exertion and HTN emergency Renal consult requested for ESRD management. pt feels sick ROS: Cardiovascular: No chest pain. Pulmonary: improved shortness of breath Gastrointestinal: denies abdominal pain No nausea. No vomiting. Genitourinary: No pain while urinating. Denies blood in urine. All other negative except as mentioned in HPI Physical Examination: General Appearance: Comfortable, in no acute respiratory distress, co-operative . obese Vitals reviewed and noted as below Head; Atraumatic, normocephalic ENT: no ulcers no thrush. Tongue is midline. Oropharynx: no rash or ulcers. EYES: Pupils are equal, round and reactive to light accommodation. Eye muscles and extraocular movement intact. Sclera is anicteric. Neck; supple no lymphadenopathy, no thyromegaly or bruit Lungs: Normal respiratory rate/effort. Breath sounds bilateral reduced at bases with crackles Heart: Normal rate. s1s2 normal. No rub or gallop. Extremities: 1+ edema. No varicose veins Neurological: Patient is alert, awake and oriented to person, place and time. No focal deficit. Strength bilateral appropriate and equal Skin: Warm and dry. Normal turgor. No rash. Palpitation: Normal elasticity for age Abdomen: Abdomen is soft. Bowel sounds +. There is no abdominal tenderness, no guarding/rigidity or organomegaly Psych: limited insight and flat affect/mood MSK: no joint tenderness or swelling. Digits and nails normal, no deformity : kidney or bladder not palpable Access: permacath Labs/imaging reviewed. Past medical history, past surgical history, family history, social history, allergy reviewed and noted as below Family Hx: no hx of CKD. Non contributory Past Patient History - Infectious Disease Hx of Infectious Diseases: None - Past Medical History & Family History Past Medical History?: Yes - Past Social History Smoking Status: Former Smoker - CARDIAC Hx Cardiac Disorders: Yes Hx Hypertension: Yes - PULMONARY Hx Respiratory Disorders: No - NEUROLOGICAL Hx Neurological Disorder: No - HEENT Hx HEENT Problems: No - RENAL Hx Chronic Kidney Disease: No Hx Dialysis: Yes Type of Dialysis Access: R chest cath - ENDOCRINE/METABOLIC Hx Diabetes Mellitus Type 1: Yes - HEMATOLOGICAL/ONCOLOGICAL Hx Blood Disorders: No - INTEGUMENTARY Hx Dermatological Problems: No - MUSCULOSKELETAL/RHEUMATOLOGICAL Hx Musculoskeletal Disorders: No - GASTROINTESTINAL Hx Gastrointestinal Disorders: No - GENITOURINARY/GYNECOLOGICAL Hx Genitourinary Disorders: No - PSYCHIATRIC Hx Psychophysiologic Disorder: No Hx Substance Use: No - SURGICAL HISTORY Hx Cardiac Catheterization: Yes - ANESTHESIA Hx Anesthesia: No Meds Allergies/Adverse Reactions: Allergies Allergy/AdvReac Type Severity Reaction Status Date / Time No Known Allergies Allergy Verified 07/28/18 20:01 - Medications Medications: Current Medications Amlodipine Besylate (Norvasc) 10 mg PO DAILY [facility] Last Admin: 07/29/18 11:42 Dose: 10 mg Atorvastatin Calcium (Lipitor) 40 mg PO HS [facility] Calcium Acetate (Phoslo) 1,334 mg PO WM [facility] Last Admin: 07/29/18 11:43 Dose: 1,334 mg Darbepoetin Todd (Aranesp) 100 mcg IVP QWK TREVOR Dextrose (Dextrose 50% Inj) 0 ml IV STAT PRN; Protocol PRN Reason: Hypoglycemia Protocol Ergocalciferol (Drisdol 50,000 Intl Units Cap) 1 cap PO Q7D [facility] Last Admin: 07/29/18 11:41 Dose: 1 cap Heparin Sodium (Porcine) (Heparin) 2,000 units IVP TTS [facility]; Protocol Nicardipine HCl (Cardene Iv Premix) 20 mg in 200 mls @ 50 mls/hr IV .Q4H PRN; Protocol PRN Reason: TITRATE PER MD ORDER Last Admin: 07/29/18 09:18 Dose: 5 mg/hr, 50 mls/hr Azithromycin (Zithromax 500mg In Ns) 500 mg in 250 mls @ 167 mls/hr IVPB DAILY [facility]; Protocol Last Admin: 07/29/18 11:50 Dose: 167 mls/hr Dextrose (Dextrose 5% In Water 1000 Ml) 1,000 mls @ 0 mls/hr IV .Q0M PRN; Protocol PRN Reason: Hypoglycemia Protocol Iron Sucrose 100 mg/ Sodium (Chloride) 105 mls @ 210 mls/hr IVPB DAILY [facility] Stop: 08/08/18 11:16 Insulin Human Lispro (Humalog Low) 0 units SC ACHS [facility]; Protocol Last Admin: 07/29/18 11:32 Dose: Not Given Labetalol HCl (Trandate) 200 mg PO BID [facility] Last Admin: 07/29/18 11:41 Dose: 200 mg Pantoprazole Sodium (Protonix Inj) 40 mg IVP DAILY [facility] Last Admin: 07/29/18 11:43 Dose: 40 mg Vitamin B Complex/Vit C/Folic Acid (Nephro-Lulu) 1 tab PO 0800 [facility] Results - Vital Signs Recent Vital Signs: Last Vital Signs Temp 97.7 F 07/29/18 12:00 Pulse 93 H 07/29/18 12:59 Resp 19 01/10/19 12:59 BP 161/73 H 07/29/18 13:00 Pulse Ox 98 07/29/18 12:59 - Labs Result Diagrams: 07/29/18 05:59 07/29/18 13:00 Labs: Laboratory Results - last 24 hr 07/28/18 07/28/18 07/28/18 20:30 20:30 20:30 WBC 10.5 D RBC 2.62 L Hgb 7.7 L Hct 22.3 L MCV 85.1 MCH 29.4 MCHC 34.5 RDW 13.1 Plt Count 260 MPV 10.4 Gran % 79.2 H Lymph % (Auto) 13.0 L [place] % (Auto) 5.2 Eos % (Auto) 2.4 Baso % (Auto) 0.2 Gran # 8.31 H Lymph # (Auto) 1.4 [place] # (Auto) 0.5 Eos # (Auto) 0.3 Baso # (Auto) 0.02 PT 12.5 INR 1.09 APTT 30.8 pCO2 pO2 HCO3 ABG pH ABG Total CO2 ABG O2 Saturation ABG Base Excess ABG Potassium Glucose Lactate FiO2 Sodium 139 Potassium 6.6 H* D Chloride 109 H Carbon Dioxide 17 L Anion Gap 19 BUN 117 H Creatinine 16.7 H* D Est GFR ( Amer) 4 Est GFR (Non-Af Amer) 3 POC Glucose (mg/dL) Random Glucose 110 Calcium 6.2 L* Phosphorus Magnesium Total Bilirubin 0.6 AST 39 ALT 87 H Alkaline Phosphatase 256 H D Lactate Dehydrogenase 1531 H Total Creatine Kinase 6783 H CK-MB (CK-2) 16.0 H CK-MB (CK-2) % 0.2 L Troponin I 0.01 D NT-Pro-B Natriuret Pep 61120 H Total Protein 7.2 Albumin 3.5 Globulin 3.7 Albumin/Globulin Ratio 0.9 L Arterial Blood Potassium Hep Bs Antigen Hep Bs Antibody Hep B Core IgM Ab Blood Type Antibody Screen BBK History Checked 07/28/18 07/28/18 07/28/18 21:10 23:30 23:37 WBC RBC Hgb Hct MCV MCH MCHC RDW Plt Count MPV Gran % Lymph % (Auto) [place] % (Auto) Eos % (Auto) Baso % (Auto) Gran # Lymph # (Auto) [place] # (Auto) Eos # (Auto) Baso # (Auto) PT INR APTT pCO2 25 L pO2 59.0 L HCO3 13.8 L ABG pH 7.35 ABG Total CO2 14.6 L ABG O2 Saturation 93.9 L ABG Base Excess -10.0 L ABG Potassium 6.5 H* Glucose 124 H Lactate 1.0 FiO2 21.0 Sodium 136.0 Potassium Chloride 108.0 H Carbon Dioxide Anion Gap BUN Creatinine Est GFR ( Amer) Est GFR (Non-Af Amer) POC Glucose (mg/dL) 40 L Random Glucose Calcium Phosphorus Magnesium Total Bilirubin AST ALT Alkaline Phosphatase Lactate Dehydrogenase Total Creatine Kinase CK-MB (CK-2) CK-MB (CK-2) % Troponin I NT-Pro-B Natriuret Pep Total Protein Albumin Globulin Albumin/Globulin Ratio Arterial Blood Potassium 6.5 H* Hep Bs Antigen Hep Bs Antibody Hep B Core IgM Ab Blood Type B POSITIVE Antibody Screen Negative BBK History Checked Patient has bt 07/29/18 07/29/18 07/29/18 00:30 05:59 06:30 WBC 11.0 RBC 2.55 L Hgb 7.4 L Hct 21.5 L MCV 84.3 MCH 29.0 MCHC 34.4 RDW 13.1 Plt Count 273 MPV 10.4 Gran % 80.9 H Lymph % (Auto) 12.4 L [place] % (Auto) 4.4 Eos % (Auto) 2.1 Baso % (Auto) 0.2 Gran # 8.91 H Lymph # (Auto) 1.4 [place] # (Auto) 0.5 Eos # (Auto) 0.2 Baso # (Auto) 0.02 PT INR APTT pCO2 pO2 HCO3 ABG pH ABG Total CO2 ABG O2 Saturation ABG Base Excess ABG Potassium Glucose Lactate FiO2 Sodium 139 Potassium 6.0 H* Chloride 109 H Carbon Dioxide 16 L Anion Gap 20 BUN 112 H Creatinine 17.7 H* Est GFR ( Amer) 3 Est GFR (Non-Af Amer) 3 POC Glucose (mg/dL) 82 Random Glucose 122 H Calcium 6.4 L* Phosphorus Magnesium Total Bilirubin 0.4 AST 63 H D ALT 90 H Alkaline Phosphatase 253 H Lactate Dehydrogenase Total Creatine Kinase CK-MB (CK-2) CK-MB (CK-2) % Troponin I NT-Pro-B Natriuret Pep Total Protein 6.9 Albumin 3.4 Globulin 3.5 Albumin/Globulin Ratio 1.0 L Arterial Blood Potassium Hep Bs Antigen Hep Bs Antibody Hep B Core IgM Ab Blood Type Antibody Screen BBK History Checked 07/29/18 07/29/18 07/29/18 07:38 08:30 08:30 WBC RBC Hgb Hct MCV MCH MCHC RDW Plt Count MPV Gran % Lymph % (Auto) [place] % (Auto) Eos % (Auto) Baso % (Auto) Gran # Lymph # (Auto) [place] # (Auto) Eos # (Auto) Baso # (Auto) PT INR APTT pCO2 pO2 HCO3 ABG pH ABG Total CO2 ABG O2 Saturation ABG Base Excess ABG Potassium Glucose Lactate FiO2 Sodium Potassium Chloride Carbon Dioxide Anion Gap BUN Creatinine Est GFR ( Amer) Est GFR (Non-Af Amer) POC Glucose (mg/dL) 221 H Random Glucose Calcium Phosphorus Magnesium Total Bilirubin AST ALT Alkaline Phosphatase Lactate Dehydrogenase Total Creatine Kinase CK-MB (CK-2) CK-MB (CK-2) % Troponin I NT-Pro-B Natriuret Pep Total Protein Albumin Globulin Albumin/Globulin Ratio Arterial Blood Potassium Hep Bs Antigen Negative Hep Bs Antibody Negative Hep B Core IgM Ab Negative Blood Type Antibody Screen BBK History Checked 07/29/18 07/29/18 07/29/18 08:37 10:20 10:20 WBC RBC Hgb Hct MCV MCH MCHC RDW Plt Count MPV Gran % Lymph % (Auto) [place] % (Auto) Eos % (Auto) Baso % (Auto) Gran # Lymph # (Auto) [place] # (Auto) Eos # (Auto) Baso # (Auto) PT INR APTT pCO2 pO2 HCO3 ABG pH ABG Total CO2 ABG O2 Saturation ABG Base Excess ABG Potassium Glucose Lactate FiO2 Sodium Potassium Chloride Carbon Dioxide Anion Gap BUN Creatinine Est GFR ( Amer) Est GFR (Non-Af Amer) POC Glucose (mg/dL) Random Glucose Calcium Phosphorus 8.5 H Magnesium 1.6 L Total Bilirubin AST ALT Alkaline Phosphatase Lactate Dehydrogenase Total Creatine Kinase 5698 H CK-MB (CK-2) 13.2 H CK-MB (CK-2) % 0.2 L Troponin I 0.03 D NT-Pro-B Natriuret Pep Total Protein Albumin Globulin Albumin/Globulin Ratio Arterial Blood Potassium Hep Bs Antigen Hep Bs Antibody Hep B Core IgM Ab Blood Type Antibody Screen BBK History Checked 07/29/18 07/29/18 07/29/18 11:10 13:00 13:43 WBC RBC Hgb Hct MCV MCH MCHC RDW Plt Count MPV Gran % Lymph % (Auto) [place] % (Auto) Eos % (Auto) Baso % (Auto) Gran # Lymph # (Auto) [place] # (Auto) Eos # (Auto) Baso # (Auto) PT INR APTT pCO2 pO2 HCO3 ABG pH ABG Total CO2 ABG O2 Saturation ABG Base Excess ABG Potassium Glucose Lactate FiO2 Sodium 135 Potassium 3.8 Chloride 100 Carbon Dioxide 25 Anion Gap 14 BUN 53 H Creatinine 9.6 H* D Est GFR ( Amer) 7 Est GFR (Non-Af Amer) 6 POC Glucose (mg/dL) 137 H 211 H Random Glucose 185 H Calcium 7.1 L Phosphorus Magnesium Total Bilirubin AST ALT Alkaline Phosphatase Lactate Dehydrogenase Total Creatine Kinase CK-MB (CK-2) CK-MB (CK-2) % Troponin I NT-Pro-B Natriuret Pep Total Protein Albumin Globulin Albumin/Globulin Ratio Arterial Blood Potassium Hep Bs Antigen Hep Bs Antibody Hep B Core IgM Ab Blood Type Antibody Screen BBK History Checked
--- NOTE | 2018-07-29 20:30 | CARD ---
APPROVED REPORT Date of service: 07/28/2018 EKG Measurement Heart [id number] <Conclusion> Normal sinus rhythm Normal ECG
[2018-07-30 06:42] LABS: BASO # 0.02 K/mm3 (0.0-2.0); BASO % 0.2 % (0.0-3.0); EOS # 0.4 (0.0-0.7); EOS % 3.8 % (1.5-5.0); GRAN # 7.27 (1.4-6.5); GRAN % 74.5 % (50.0-68.0); HEMOGLOBIN 7.5 g/dL (14.0-18.0); LYMPH # 1.4 (1.2-3.4); LYMPH % 14.1 % (22.0-35.0); MEAN CELL VOLUME 83.7 fl (80.0-105.0); MEAN CORPUSCULAR HEMOGLOBIN 29.1 pg (25.0-35.0); MEAN CORPUSCULAR HGB CONC 34.7 g/dl (31.0-37.0); MEAN PLATELET VOLUME 9.9 fl (7.0-11.0); MONO # 0.7 (0.1-0.6); MONO % 7.4 % (1.0-6.0); RBC 2.58 10^6/uL (3.5-6.1); WHITE BLOOD COUNT 9.8 10^3/uL (4.5-11.0)
[2018-07-30 06:51] LABS: PH,URINE 6.5 (4.7-8.0); URINE BILIRUBIN NEGATIVE (NEGATIVE); URINE BLOOD MODERATE (NEGATIVE); URINE GLUCOSE (UA) 100 mg/dL (NEGATIVE); URINE LEUKOCYTE ESTERASE SMALL Leu/uL (NEGATIVE); URINE PROTEIN >=300 mg/dL (<30 mg/dL); URINE UROBILINOGEN 0.2 E.U./dL (<1 E.U./dL)
[2018-07-30 07:04] LABS: URINE APPEARANCE SL CLOUDY (CLEAR); URINE COLOR YELLOW (YELLOW)
[2018-07-30 07:06] LABS: URINE BACTERIA FEW /hpf; URINE EPITHELIAL CELLS 0 - 2 /hpf (0-5)
[2018-07-30 07:43] LABS: ALB/GLOB RATIO 0.9 (1.1-1.8); ALBUMIN 3.1 g/dL (3.0-4.8); CALCIUM 6.6 mg/dL (8.4-10.5)
[2018-07-30 08:02] LABS: BARBITURATES, UR NEGATIVE (NEGATIVE); BENZODIAZEPINES, UR NEGATIVE (NEGATIVE); OPIATES, UR NEGATIVE (NEGATIVE); PHENCYCLIDINE, UR NEGATIVE (NEGATIVE)
--- NOTE | 2018-07-30 08:32 | PN ---
DATE: 07/30/2018 SUBJECTIVE: I saw Mr. Mari this morning. 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 At the bedside this morning, the patient denied any hematemesis, rectal bleeding, abdominal pain, chest pain, severe heartburn, bleed of any sort. He is handling his meals fine. I reviewed this issue with the nurse in the unit. Denied any rectal bleeding as well. He is in the process of undergoing dialysis treatment for treatment of CHF, renal failure. The abdomen also feels less distended. He feels a lot better including decreased shortness of breath. PHYSICAL EXAMINATION: VITAL SIGNS: I reviewed this patient's vital signs. HEENT: Noncontributory. LUNGS: Decreased breath sounds, basilar one quarter of the way up bilaterally. HEART: Irregular. ABDOMEN: Protuberant and soft, is less distended than yesterday. There is no tenderness elicited in any quadrant. LABORATORY DATA: Review of laboratory indicates as of yesterday morning, H and H 02/06. Serology negative with creatinine as of yesterday 9.6. I will review the notes of Dr. Law as well as Dr. Pendleton. ASSESSMENT AND PLAN: This is a 53-year-old black male with a renal failure, presently undergoing dialysis treatment. Most of the issues related to this patient, especially anemia are related to renal disease. There is no acute evidence of any kind of GI bleeding. I reviewed the use of proton pump inhibitor with this patient as well as antireflux portions on multiple occasions. At this time point I do not believe any endoscopic evaluation is warranted. This can always be done as an outpatient. I think his acute issue right now is renal, and will be followed up the Renal Service as well as Medicine this morning. I will sign off the case today. Denis Saini DO, PhD LIZA
[2018-07-30] MEDS: Insulin Lispro (humaLOG) LOW Coverage SC SCH ×4 (08:54→22:05)
[2018-07-30] MEDS: Multivitamin Vitamin B Complex (Nephro-Vite) Tab PO SCH (08:58)
[2018-07-30] MEDS ORDERED: Darbepoetin Alfa 100 mcg/ml Inj IVP SCH (10:00)
--- NOTE | 2018-07-30 10:44 | CP.PCM.CON ---
<Kehinde James - Last Filed: 07/30/18 11:08> History of Present Illness - History of Present Illness History of Present Illness: Surgery: Dr. Wagner CC: CKD requiring AVF HPI: 53M with past medical history of DMII, HTN, Hepatic hemangioma, CKD requiring dialysis but non-compliant presents to ED for worsening SOB/fatigue x 1 month 2/2 volume overload and multiple lab derangements 2/2 pts non-compliance w. HD. Pt was initially seen back in June for AVF access. Pt was told to f ollow up out pt, however pt ultimately signed out AMA and did not make any f/u appointments. Pt seen in ICU, resting comfortably in bed receiving dialysis. He states that he feels much better today. PMH: see above PSH: nose fx Meds: MAR reviewed NKDA Social: Former smoker: <1 pack/day x 10 years, social ETOH, no drugs FHx: Mother: CO (50 y/o), Father: CABG, Daughter: Anemia Review of Systems - Review of Systems All systems: reviewed and no additional remarkable complaints except (HPI) Past Patient History - Infectious Disease Hx of Infectious Diseases: None - Past Medical History & Family History Past Medical History?: Yes - Past Social History Smoking Status: Former Smoker - CARDIAC Hx Cardiac Disorders: Yes Hx Hypertension: Yes - PULMONARY Hx Respiratory Disorders: No - NEUROLOGICAL Hx Neurological Disorder: No - HEENT Hx HEENT Problems: No - RENAL Hx Chronic Kidney Disease: No Hx Dialysis: Yes Type of Dialysis Access: R chest cath - ENDOCRINE/METABOLIC Hx Diabetes Mellitus Type 1: Yes - HEMATOLOGICAL/ONCOLOGICAL Hx Blood Disorders: No - INTEGUMENTARY Hx Dermatological Problems: No - MUSCULOSKELETAL/RHEUMATOLOGICAL Hx Musculoskeletal Disorders: No - GASTROINTESTINAL Hx Gastrointestinal Disorders: No - GENITOURINARY/GYNECOLOGICAL Hx Genitourinary Disorders: No - PSYCHIATRIC Hx Psychophysiologic Disorder: No Hx Substance Use: No - SURGICAL HISTORY Hx Cardiac Catheterization: Yes - ANESTHESIA Hx Anesthesia: No Meds Allergies/Adverse Reactions: Allergies Allergy/AdvReac Type Severity Reaction Status Date / Time No Known Allergies Allergy Verified 07/28/18 20:01 - Medications Medications: Current Medications Amlodipine Besylate (Norvasc) 10 mg PO DAILY [facility] Last Admin: 07/29/18 11:42 Dose: 10 mg Atorvastatin Calcium (Lipitor) 40 mg PO HS [facility] Last Admin: 07/29/18 21:50 Dose: 40 mg Calcium Acetate (Phoslo) 1,334 mg PO WM [facility] Last Admin: 07/30/18 08:58 Dose: 1,334 mg Darbepoetin Todd (Aranesp) 100 mcg IVP QWK [facility] Last Admin: 07/30/18 09:39 Dose: 100 mcg Dextrose (Dextrose 50% Inj) 0 ml IV STAT PRN; Protocol PRN Reason: Hypoglycemia Protocol Ergocalciferol (Drisdol 50,000 Intl Units Cap) 1 cap PO Q7D [facility] Last Admin: 07/29/18 11:41 Dose: 1 cap Heparin Sodium (Porcine) (Heparin) 2,000 units IVP TTS [facility]; Protocol Dextrose (Dextrose 5% In Water 1000 Ml) 1,000 mls @ 0 mls/hr IV .Q0M PRN; Protocol PRN Reason: Hypoglycemia Protocol Iron Sucrose 100 mg/ Sodium (Chloride) 105 mls @ 210 mls/hr IVPB DAILY [facility] Stop: 08/08/18 11:16 Last Admin: 07/29/18 14:40 Dose: 210 mls/hr Insulin Human Lispro (Humalog Low) 0 units SC ACHS [facility]; Protocol Last Admin: 07/30/18 08:54 Dose: Not Given Labetalol HCl (Trandate) 200 mg PO BID [facility] Last Admin: 07/29/18 17:19 Dose: 200 mg Pantoprazole Sodium (Protonix Inj) 40 mg IVP DAILY [facility] Last Admin: 07/29/18 11:43 Dose: 40 mg Vitamin B Complex/Vit C/Folic Acid (Nephro-Lulu) 1 tab PO 0800 [facility] Last Admin: 07/30/18 08:58 Dose: 1 tab Physical Exam - Constitutional Appears: Non-toxic, No Acute Distress - Head Exam Head Exam: ATRAUMATIC, NORMOCEPHALIC - Eye Exam Eye Exam: EOMI - ENT Exam ENT Exam: Mucous Membranes Moist - Neck Exam Neck exam: Positive for: Full Rom - Respiratory Exam Respiratory Exam: NORMAL BREATHING PATTERN. absent: Accessory Muscle Use, Respiratory Distress - GI/Abdominal Exam GI & Abdominal Exam: Soft. absent: Distended, Firm, Guarding, Rebound, Rigid, Tenderness - Extremities Exam Extremities exam: Positive for: pedal pulses present. Negative for: calf tenderness - Neurological Exam Neurological exam: Alert, Oriented x3 - Psychiatric Exam Psychiatric exam: Normal Affect, Normal Mood Results - Vital Signs Recent Vital Signs: Last Vital Signs Temp 98.3 F 07/30/18 04:00 Pulse 83 07/30/18 09:30 Resp 10 L 07/30/18 09:30 BP 158/78 H 07/30/18 09:30 Pulse Ox 100 07/30/18 06:00 - Labs Result Diagrams: 07/30/18 05:40 07/30/18 05:40 Labs: Laboratory Results - last 24 hr 07/29/18 07/29/18 07/29/18 05:20 07:38 08:30 WBC RBC Hgb Hct MCV MCH MCHC RDW Plt Count MPV Gran % Lymph % (Auto) [place] % (Auto) Eos % (Auto) Baso % (Auto) Gran # Lymph # (Auto) [place] # (Auto) Eos # (Auto) Baso # (Auto) Sodium Potassium Chloride Carbon Dioxide Anion Gap BUN Creatinine Est GFR ( Amer) Est GFR (Non-Af Amer) POC Glucose (mg/dL) 221 H Random Glucose Calcium Total Bilirubin AST ALT Alkaline Phosphatase Total Creatine Kinase CK-MB (CK-2) CK-MB (CK-2) % Troponin I Total Protein Albumin Globulin Albumin/Globulin Ratio Procalcitonin 0.24 Urine Color Urine Appearance Urine pH Ur Specific [place] Urine Protein Urine Glucose (UA) Urine Ketones Urine Blood Urine Nitrate Urine Bilirubin Urine Urobilinogen Ur Leukocyte Esterase Urine RBC Urine WBC Ur Epithelial Cells Urine Bacteria Urine Other Urine Opiates Screen Urine Methadone Screen Ur Barbiturates Screen Ur Phencyclidine Scrn Ur Amphetamines Screen U Benzodiazepines Scrn U Oth Cocaine Metabols U Cannabinoids Screen Hep Bs Antigen Negative Hep Bs Antibody Hep B Core IgM Ab Negative 07/29/18 07/29/18 07/29/18 08:30 10:20 10:20 WBC RBC Hgb Hct MCV MCH MCHC RDW Plt Count MPV Gran % Lymph % (Auto) [place] % (Auto) Eos % (Auto) Baso % (Auto) Gran # Lymph # (Auto) [place] # (Auto) Eos # (Auto) Baso # (Auto) Sodium Potassium Chloride Carbon Dioxide Anion Gap BUN Creatinine Est GFR ( Amer) Est GFR (Non-Af Amer) POC Glucose (mg/dL) Random Glucose Calcium Total Bilirubin AST ALT Alkaline Phosphatase Total Creatine Kinase 5698 H CK-MB (CK-2) 13.2 H CK-MB (CK-2) % 0.2 L Troponin I 0.03 D Total Protein Albumin Globulin Albumin/Globulin Ratio Procalcitonin Urine Color Urine Appearance Urine pH Ur Specific [place] Urine Protein Urine Glucose (UA) Urine Ketones Urine Blood Urine Nitrate Urine Bilirubin Urine Urobilinogen Ur Leukocyte Esterase Urine RBC Urine WBC Ur Epithelial Cells Urine Bacteria Urine Other Urine Opiates Screen Urine Methadone Screen Ur Barbiturates Screen Ur Phencyclidine Scrn Ur Amphetamines Screen U Benzodiazepines Scrn U Oth Cocaine Metabols U Cannabinoids Screen Hep Bs Antigen Hep Bs Antibody Negative Hep B Core IgM Ab 07/29/18 07/29/18 07/29/18 11:10 13:00 13:43 WBC RBC Hgb Hct MCV MCH MCHC RDW Plt Count MPV Gran % Lymph % (Auto) [place] % (Auto) Eos % (Auto) Baso % (Auto) Gran # Lymph # (Auto) [place] # (Auto) Eos # (Auto) Baso # (Auto) Sodium 135 Potassium 3.8 Chloride 100 Carbon Dioxide 25 Anion Gap 14 BUN 53 H Creatinine 9.6 H* D Est GFR ( Amer) 7 Est GFR (Non-Af Amer) 6 POC Glucose (mg/dL) 137 H 211 H Random Glucose 185 H Calcium 7.1 L Total Bilirubin AST ALT Alkaline Phosphatase Total Creatine Kinase CK-MB (CK-2) CK-MB (CK-2) % Troponin I Total Protein Albumin Globulin Albumin/Globulin Ratio Procalcitonin Urine Color Urine Appearance Urine pH Ur Specific [place] Urine Protein Urine Glucose (UA) Urine Ketones Urine Blood Urine Nitrate Urine Bilirubin Urine Urobilinogen Ur Leukocyte Esterase Urine RBC Urine WBC Ur Epithelial Cells Urine Bacteria Urine Other Urine Opiates Screen Urine Methadone Screen Ur Barbiturates Screen Ur Phencyclidine Scrn Ur Amphetamines Screen U Benzodiazepines Scrn U Oth Cocaine Metabols U Cannabinoids Screen Hep Bs Antigen Hep Bs Antibody Hep B Core IgM Ab 07/29/18 07/29/18 07/30/18 16:17 21:18 05:40 WBC 9.8 RBC 2.58 L Hgb 7.5 L Hct 21.6 L MCV 83.7 MCH 29.1 MCHC 34.7 RDW 13.0 Plt Count 215 MPV 9.9 Gran % 74.5 H Lymph % (Auto) 14.1 L [place] % (Auto) 7.4 H Eos % (Auto) 3.8 Baso % (Auto) 0.2 Gran # 7.27 H Lymph # (Auto) 1.4 [place] # (Auto) 0.7 H Eos # (Auto) 0.4 Baso # (Auto) 0.02 Sodium Potassium Chloride Carbon Dioxide Anion Gap BUN Creatinine Est GFR ( Amer) Est GFR (Non-Af Amer) POC Glucose (mg/dL) 152 H 179 H Random Glucose Calcium Total Bilirubin AST ALT Alkaline Phosphatase Total Creatine Kinase CK-MB (CK-2) CK-MB (CK-2) % Troponin I Total Protein Albumin Globulin Albumin/Globulin Ratio Procalcitonin Urine Color Urine Appearance Urine pH Ur Specific [place] Urine Protein Urine Glucose (UA) Urine Ketones Urine Blood Urine Nitrate Urine Bilirubin Urine Urobilinogen Ur Leukocyte Esterase Urine RBC Urine WBC Ur Epithelial Cells Urine Bacteria Urine Other Urine Opiates Screen Urine Methadone Screen Ur Barbiturates Screen Ur Phencyclidine Scrn Ur Amphetamines Screen U Benzodiazepines Scrn U Oth Cocaine Metabols U Cannabinoids Screen Hep Bs Antigen Hep Bs Antibody Hep B Core IgM Ab 07/30/18 07/30/18 07/30/18 05:40 06:00 06:00 WBC RBC Hgb Hct MCV MCH MCHC RDW Plt Count MPV Gran % Lymph % (Auto) [place] % (Auto) Eos % (Auto) Baso % (Auto) Gran # Lymph # (Auto) [place] # (Auto) Eos # (Auto) Baso # (Auto) Sodium 135 Potassium 4.8 Chloride 99 Carbon Dioxide 28 Anion Gap 14 BUN 60 H Creatinine 10.7 H* Est GFR ( Amer) 6 Est GFR (Non-Af Amer) 5 POC Glucose (mg/dL) Random Glucose 95 Calcium 6.6 L* Total Bilirubin 0.6 AST 47 ALT 70 H Alkaline Phosphatase 227 H Total Creatine Kinase CK-MB (CK-2) CK-MB (CK-2) % Troponin I Total Protein 6.4 Albumin 3.1 Globulin 3.3 Albumin/Globulin Ratio 0.9 L Procalcitonin Urine Color Yellow Urine Appearance Sl cloudy Urine pH 6.5 Ur Specific [place] 1.020 Urine Protein >=300 H Urine Glucose (UA) 100 H Urine Ketones Negative Urine Blood Moderate H Urine Nitrate Negative Urine Bilirubin Negative Urine Urobilinogen 0.2 Ur Leukocyte Esterase Small H Urine RBC 1 - 3 H Urine WBC 10 - 15 H Ur Epithelial Cells 0 - 2 Urine Bacteria Few Urine Other Usperm Urine Opiates Screen Negative Urine Methadone Screen Negative Ur Barbiturates Screen Negative Ur Phencyclidine Scrn Negative Ur Amphetamines Screen Negative U Benzodiazepines Scrn Negative U Oth Cocaine Metabols Negative U Cannabinoids Screen Negative Hep Bs Antigen Hep Bs Antibody Hep B Core IgM Ab 07/30/18 07:44 WBC RBC Hgb Hct MCV MCH MCHC RDW Plt Count MPV Gran % Lymph % (Auto) [place] % (Auto) Eos % (Auto) Baso % (Auto) Gran # Lymph # (Auto) [place] # (Auto) Eos # (Auto) Baso # (Auto) Sodium Potassium Chloride Carbon Dioxide Anion Gap BUN Creatinine Est GFR ( Amer) Est GFR (Non-Af Amer) POC Glucose (mg/dL) 117 H Random Glucose Calcium Total Bilirubin AST ALT Alkaline Phosphatase Total Creatine Kinase CK-MB (CK-2) CK-MB (CK-2) % Troponin I Total Protein Albumin Globulin Albumin/Globulin Ratio Procalcitonin Urine Color Urine Appearance Urine pH Ur Specific [place] Urine Protein Urine Glucose (UA) Urine Ketones Urine Blood Urine Nitrate Urine Bilirubin Urine Urobilinogen Ur Leukocyte Esterase Urine RBC Urine WBC Ur Epithelial Cells Urine Bacteria Urine Other Urine Opiates Screen Urine Methadone Screen Ur Barbiturates Screen Ur Phencyclidine Scrn Ur Amphetamines Screen U Benzodiazepines Scrn U Oth Cocaine Metabols U Cannabinoids Screen Hep Bs Antigen Hep Bs Antibody Hep B Core IgM Ab Assessment & Plan - Assessment and Plan (Free Text) Assessment: 53M R hand dominant w. CKD requiring AVF access, currently w. IV in [facility] Plan: -Vein mapping from prior admission reviewed, adequate vasculature present B/L -Pt currently has IV access in [facility] which would be ideal site for AVF placement, will place order for L arm precautions, recommend that pt f/u out pt to schedule elective AVF -will sign off, case d/w attending, please re-consult as needed [facility] PGY4 <Michele Wagner - Last Filed: 08/08/18 12:05> Results - Vital Signs Recent Vital Signs: Last Vital Signs Temp 98.9 F 08/04/18 14:00 Pulse 86 08/04/18 17:34 Resp 18 08/04/18 14:00 BP 145/73 08/04/18 17:34 Pulse Ox 99 08/04/18 14:00 - Labs Result Diagrams: 08/04/18 08:04 08/04/18 08:04 Assessment & Plan - Assessment and Plan (Free Text) Plan: Patient was seen, examined and evaluated by me. I agree with resident's assessment and plan.
--- NOTE | 2018-07-30 13:10 | CP.PCM.PN ---
<Rachid Bruce - Last Filed: 07/30/18 13:35> Subjective - Date & Time of Evaluation Date of Evaluation: 07/30/18 Time of Evaluation: 06:00 - Subjective Subjective: Pt seen and examined this morning in the ICU. Pt denies chest pain, SOB, dizziness or headaches. Objective - Vital Signs/Intake and Output Vital Signs (last 24 hours): Temp Pulse Resp BP Pulse Ox 98.3 F 88 57 H 163/73 H 100 07/30/18 04:00 07/30/18 12:19 07/30/18 12:15 07/30/18 12:19 07/30/18 06:00 Intake and Output: 07/30/18 07/30/18 06:59 18:59 Output Total 1200 Balance -1200 - Medications Medications: Current Medications Amlodipine Besylate (Norvasc) 10 mg PO DAILY [facility] Last Admin: 07/30/18 12:19 Dose: 10 mg Atorvastatin Calcium (Lipitor) 40 mg PO HS [facility] Last Admin: 07/29/18 21:50 Dose: 40 mg Calcium Acetate (Phoslo) 1,334 mg PO WM [facility] Last Admin: 07/30/18 08:58 Dose: 1,334 mg Darbepoetin Owen (Aranesp) 100 mcg IVP QWK [facility] Last Admin: 07/30/18 09:39 Dose: 100 mcg Dextrose (Dextrose 50% Inj) 0 ml IV STAT PRN; Protocol PRN Reason: Hypoglycemia Protocol Ergocalciferol (Drisdol 50,000 Intl Units Cap) 1 cap PO Q7D [facility] Last Admin: 07/29/18 11:41 Dose: 1 cap Heparin Sodium (Porcine) (Heparin) 2,000 units IVP TTS [facility]; Protocol Dextrose (Dextrose 5% In Water 1000 Ml) 1,000 mls @ 0 mls/hr IV .Q0M PRN; Protocol PRN Reason: Hypoglycemia Protocol Iron Sucrose 100 mg/ Sodium (Chloride) 105 mls @ 210 mls/hr IVPB DAILY [facility] Stop: 08/08/18 11:16 Last Admin: 07/29/18 14:40 Dose: 210 mls/hr Insulin Human Lispro (Humalog Low) 0 units SC ACHS [facility]; Protocol Last Admin: 07/30/18 08:54 Dose: Not Given Labetalol HCl (Trandate) 200 mg PO BID [facility] Last Admin: 07/30/18 12:19 Dose: 200 mg Pantoprazole Sodium (Protonix Ec Tab) 40 mg PO ACB [facility] Vitamin B Complex/Vit C/Folic Acid (Nephro-Lulu) 1 tab PO 0800 [facility] Last Admin: 07/30/18 08:58 Dose: 1 tab - Labs Labs: 07/30/18 05:40 07/30/18 05:40 PT 12.5 SECONDS (9.4-12.5) 07/28/18 20:30 INR 1.09 07/28/18 20:30 APTT 30.8 Seconds (25.1-36.5) 07/28/18 20:30 - Constitutional Appears: No Acute Distress - Head Exam Head Exam: ATRAUMATIC, NORMOCEPHALIC - ENT Exam ENT Exam: Mucous Membranes Moist - Neck Exam Neck Exam: Full ROM - Respiratory Exam Respiratory Exam: Clear to Ausculation Bilateral, NORMAL BREATHING PATTERN. absent: Accessory Muscle Use, Wheezes, Respiratory Distress - Cardiovascular Exam Cardiovascular Exam: RRR, +S1, +S2. absent: Diastolic murmur, Murmur - GI/Abdominal Exam GI & Abdominal Exam: Soft, Normal Bowel Sounds - Extremities Exam Extremities Exam: Full ROM. absent: Pedal Edema - Neurological Exam Neurological Exam: Alert, Awake, Oriented x3 - Psychiatric Exam Psychiatric exam: Normal Affect, Normal Mood - Skin Skin Exam: Dry, Intact, Warm Assessment and Plan - Assessment and Plan (Free Text) Assessment: Pt is a 53 yo male with a PMH of DMII, HTN, CKD on hemodialysis Thu, , Sat but is noncompliant, hepatic hemangioma presents with SOB and cough that started 1 month ago. Plan: CKD Stage noncompliant with dialysis - Cr 10.7 - BUN 60 - Continue to monitor for uremic encephalopathy. - nephrology, Dr. Pendleton. - calcium acetate - hemodialysis TTS - working to try to find placement for pt to get hemodialysis - pt recieved 3 hours fo hemodialysis today, will start TTS tomorrow - transfer to med surg - Surgery consulted, Dr Wagner for AV fistula HTN - amlodipine 10 - labetalol 200mg BID DM - Modified Low SSI. - accuchecks ACHS HLD - lipitor 40 HS Anemia - Hgb 7.5 - darbepoetin owen - venofer Ppx, diet - Heparin - pantoprazole - renal diet - SCD Pt seen, examined, assessment and plan discussed with Dr Girish Bruce PGY1, Internal Medicine Resident <Jesse Stout - Last Filed: 07/30/18 18:27> Objective - Vital Signs/Intake and Output Vital Signs (last 24 hours): Temp Pulse Resp BP Pulse Ox 98.3 F 88 39 H 154/54 H 100 07/30/18 04:00 07/30/18 17:17 07/30/18 15:31 07/30/18 17:17 07/30/18 06:00 Intake and Output: 07/30/18 07/30/18 06:59 18:59 Output Total 1200 Balance -1200 - Medications Medications: Current Medications Amlodipine Besylate (Norvasc) 10 mg PO DAILY [facility] Last Admin: 07/30/18 12:19 Dose: 10 mg Atorvastatin Calcium (Lipitor) 40 mg PO HS [facility] Last Admin: 07/29/18 21:50 Dose: 40 mg Calcium Acetate (Phoslo) 1,334 mg PO WM [facility] Last Admin: 07/30/18 17:17 Dose: 1,334 mg Darbepoetin Owen (Aranesp) 100 mcg IVP QWK [facility] Last Admin: 07/30/18 09:39 Dose: 100 mcg Dextrose (Dextrose 50% Inj) 0 ml IV STAT PRN; Protocol PRN Reason: Hypoglycemia Protocol Ergocalciferol (Drisdol 50,000 Intl Units Cap) 1 cap PO Q7D [facility] Last Admin: 07/29/18 11:41 Dose: 1 cap Heparin Sodium (Porcine) (Heparin) 2,000 units IVP [facility]; Protocol Dextrose (Dextrose 5% In Water 1000 Ml) 1,000 mls @ 0 mls/hr IV .Q0M PRN; Protocol PRN Reason: Hypoglycemia Protocol Iron Sucrose 100 mg/ Sodium (Chloride) 105 mls @ 210 mls/hr IVPB DAILY [facility] Stop: 08/08/18 11:16 Last Admin: 07/30/18 13:08 Dose: 210 mls/hr Insulin Human Lispro (Humalog Low) 0 units SC ACHS [facility]; Protocol Last Admin: 07/30/18 17:18 Dose: 2 unit Labetalol HCl (Trandate) 200 mg PO BID [facility] Last Admin: 07/30/18 17:17 Dose: 200 mg Pantoprazole Sodium (Protonix Ec Tab) 40 mg PO ACB [facility] Vitamin B Complex/Vit C/Folic Acid (Nephro-Lulu) 1 tab PO 0800 [facility] Last Admin: 07/30/18 08:58 Dose: 1 tab - Labs Labs: 07/30/18 05:40 07/30/18 05:40 PT 12.5 SECONDS (9.4-12.5) 07/28/18 20:30 INR 1.09 07/28/18 20:30 APTT 30.8 Seconds (25.1-36.5) 07/28/18 20:30 Attending/Attestation - Attestation I have personally seen and examined this patient.: Yes I have fully participated in the care of the patient.: Yes I have reviewed all pertinent clinical information, including history, physical exam and plan: Yes Notes (Text): 07/30/18 18:22 Attending note; Patient seen and examined with resident in ICU. Getting hemodialysis today. Denies any chest pain, shortness of breath. Denies any cough or sputum production. Denies any hematemesis, hemoptysis. Denies any fevers, chills. Tolerating diet well. Patient is a 53-year-old male with PMH of DMII, HTN, CKD on hemodialysis Thu, , Thu, noncompliant with HD treatment, hepatic hemangioma presents with SOB and cough that started 1 month ago. 1. Shortness of breath / volume overload; secondary to noncompliance with dialysis. Patient was supposed to follow-up with hemodialysis unit at [place] for Thursday and Thursday. Patient did not receive any outpatient hemodialysis. Currently admitted with hyperkalemia, shortness of breath and uremia. Patient got hemodialysis yesterday. We will continue hemodialysis today. No need for dialysis explained to the patient in detail. Nephrology evaluation appreciated. 2. Anemia; chronic. No active bleeding noted. Continue IV iron and Epogen. 3. GI evaluation appreciated; needs outpatient workup. 4. History of hypertension / mitral regurgitation; continue labetalol on Norvasc .currently clinically stable. Needs repeat echocardiogram in few weeks. Case discussed with social media intern in detail. Information given by the social media intern to get Medicaid. Upon discharge the patient will follow-up with [facility] clinic. Patient needs outpatient hemodialysis. Diagnosis, follow-up plan discussed with patient in detail.
--- NOTE | 2018-07-30 13:41 | CP.PCM.PN ---
Subjective - Date & Time of Evaluation Date of Evaluation: 07/30/18 Time of Evaluation: 13:40 - Subjective Subjective: Nephrology Consultation Note: Assessment: stable Uremia, missed HD/non-compliance, hyperkalemia, fluid overload, HTN emergency Diabetic chronic Kidney Disease (E11.22) Hypertensive Chronic Kidney Disease (I12.0) End stage renal disease (N18.6) dependence on hemodialysis (Z99.2) via PC Anemia (D64.9), Hyperphosphatemia (E83.39), Secondary Hyperparathyroidism (E21.1), HTN (I12.0) Plan: Will plan for HD today as ordered. Will plan for dialysis tomorrow. Continue with Nephrovite 1 tab/day. PRBC as needed for anemia. on LESLY with dialysis as last Hb 7.5 TSAT 24% Ferritin 94, added 1 gram IV iron loading dose Continue with phos binders, last phos level 8.4 discontinue with calcitriol. last PTH 266 @ goal. added weekly Vit D as last level <12.8 BP control with meds as ordered. Patient not on RAAS racquel as with hyperkalemia, hope to add soon. resume norvasc and labetalol. Glycemic control, Dialysis consistent diet Further work up/management as per primary team Dose meds/antibiotics (if needed) for ESRD status. Avoid fleets enema/magnesium based laxatives. pt was educated about risks of missing HD. SW consult for outpt HD placement vascular surgery consult for AVF placement Thanks for allowing me to participate in care of your patient. Will follow patient with you. Please call if any Qs. had d/w team Dr Jose Pendleton Office: [phone] Chief Complaint;feels better HPI: Pt is a 53 M with hx of ESRD recently started on hemodialysis via permacathbut pt non compliant with HD, hadn't received HD since left from hospital AMA , chronic anemia, hyperphosphatemia, secondary hyperparathyroidism, Diabetes Mellitus (30 years), hypertension presented with complaints of worsening SOB on exertion and HTN emergency Renal consult requested for ESRD management. pt feels sick ROS: Cardiovascular: No chest pain. Pulmonary: improved shortness of breath Gastrointestinal: denies abdominal pain No nausea. No vomiting. Genitourinary: No pain while urinating. Denies blood in urine. All other negative except as mentioned in HPI Physical Examination: seen on HD General Appearance: Comfortable, in no acute respiratory distress, co-operative . obese Vitals reviewed and noted as below Head; Atraumatic, normocephalic ENT: no ulcers no thrush. Tongue is midline. Oropharynx: no rash or ulcers. EYES: Pupils are equal, round and reactive to light accommodation. Eye muscles and extraocular movement intact. Sclera is anicteric. Neck; supple no lymphadenopathy, no thyromegaly or bruit Lungs: Normal respiratory rate/effort. Breath sounds bilateral reduced at bases clearer Heart: Normal rate. s1s2 normal. No rub or gallop. Extremities: 1+ edema. No varicose veins Neurological: Patient is alert, awake and oriented to person, place and time. No focal deficit. Strength bilateral appropriate and equal Skin: Warm and dry. Normal turgor. No rash. Palpitation: Normal elasticity for age Abdomen: Abdomen is soft. Bowel sounds +. There is no abdominal tenderness, no guarding/rigidity or organomegaly Psych: limited insight and flat affect/mood MSK: no joint tenderness or swelling. Digits and nails normal, no deformity : kidney or bladder not palpable Access: permacath Labs/imaging reviewed. Past medical history, past surgical history, family history, social history, all ergy reviewed and noted as below Family Hx: no hx of CKD. Non contributory Objective - Vital Signs/Intake and Output Vital Signs (last 24 hours): Temp Pulse Resp BP Pulse Ox 98.3 F 88 57 H 163/73 H 100 07/30/18 04:00 07/30/18 12:19 07/30/18 12:15 07/30/18 12:19 07/30/18 06:00 Intake and Output: 07/30/18 07/30/18 06:59 18:59 Output Total 1200 Balance -1200 - Medications Medications: Current Medications Amlodipine Besylate (Norvasc) 10 mg PO DAILY [facility] Last Admin: 07/30/18 12:19 Dose: 10 mg Atorvastatin Calcium (Lipitor) 40 mg PO HS [facility] Last Admin: 07/29/18 21:50 Dose: 40 mg Calcium Acetate (Phoslo) 1,334 mg PO WM [facility] Last Admin: 07/30/18 13:08 Dose: 1,334 mg Darbepoetin Todd (Aranesp) 100 mcg IVP QWK [facility] Last Admin: 07/30/18 09:39 Dose: 100 mcg Dextrose (Dextrose 50% Inj) 0 ml IV STAT PRN; Protocol PRN Reason: Hypoglycemia Protocol Ergocalciferol (Drisdol 50,000 Intl Units Cap) 1 cap PO Q7D [facility] Last Admin: 07/29/18 11:41 Dose: 1 cap Heparin Sodium (Porcine) (Heparin) 2,000 units IVP TTS [facility]; Protocol Dextrose (Dextrose 5% In Water 1000 Ml) 1,000 mls @ 0 mls/hr IV .Q0M PRN; Protocol PRN Reason: Hypoglycemia Protocol Iron Sucrose 100 mg/ Sodium (Chloride) 105 mls @ 210 mls/hr IVPB DAILY [facility] Stop: 08/08/18 11:16 Last Admin: 07/30/18 13:08 Dose: 210 mls/hr Insulin Human Lispro (Humalog Low) 0 units SC ACHS [facility]; Protocol Last Admin: 07/30/18 08:54 Dose: Not Given Labetalol HCl (Trandate) 200 mg PO BID [facility] Last Admin: 07/30/18 12:19 Dose: 200 mg Pantoprazole Sodium (Protonix Ec Tab) 40 mg PO ACB [facility] Vitamin B Complex/Vit C/Folic Acid (Nephro-Lulu) 1 tab PO 0800 [facility] Last Admin: 07/30/18 08:58 Dose: 1 tab - Labs Labs: 07/30/18 05:40 07/30/18 05:40 PT 12.5 SECONDS (9.4-12.5) 07/28/18 20:30 INR 1.09 07/28/18 20:30 APTT 30.8 Seconds (25.1-36.5) 07/28/18 20:30
[2018-07-31 05:56] LABS: BASO # 0.03 K/mm3 (0.0-2.0); BASO % 0.3 % (0.0-3.0); EOS # 0.4 (0.0-0.7); EOS % 3.8 % (1.5-5.0); GRAN # 7.33 (1.4-6.5); GRAN % 72.9 % (50.0-68.0); HEMOGLOBIN 7.9 g/dL (14.0-18.0); LYMPH # 1.3 (1.2-3.4); LYMPH % 12.7 % (22.0-35.0); MEAN CELL VOLUME 84.9 fl (80.0-105.0); MEAN CORPUSCULAR HEMOGLOBIN 29.2 pg (25.0-35.0); MEAN CORPUSCULAR HGB CONC 34.3 g/dl (31.0-37.0); MEAN PLATELET VOLUME 10.3 fl (7.0-11.0); MONO % 10.3 % (1.0-6.0); RBC 2.71 10^6/uL (3.5-6.1); RED CELL DISTRIBUTION WIDTH 12.8 % (11.5-14.5); WHITE BLOOD COUNT 10.1 10^3/uL (4.5-11.0)
[2018-07-31 06:10] LABS: ALBUMIN 3.2 g/dL (3.0-4.8); CALCIUM 7.2 mg/dL (8.4-10.5)
[2018-07-31] MEDS: Insulin Lispro (humaLOG) LOW Coverage SC SCH ×4 (07:45→21:27)
[2018-07-31] MEDS: Multivitamin Vitamin B Complex (Nephro-Vite) Tab PO SCH (08:36)
[2018-07-31] MEDS: Pantoprazole 40 mg EC Tab PO SCH (08:37)
--- NOTE | 2018-07-31 10:56 | CP.PCM.PN ---
Subjective - Date & Time of Evaluation Date of Evaluation: 07/31/18 Time of Evaluation: 10:55 - Subjective Subjective: Nephrology Consultation Note: Assessment: stable Uremia, missed HD/non-compliance, hyperkalemia, fluid overload, HTN emergency Diabetic chronic Kidney Disease (E11.22) Hypertensive Chronic Kidney Disease (I12.0) End stage renal disease (N18.6) dependence on hemodialysis (Z99.2) via PC Anemia (D64.9), Hyperphosphatemia (E83.39), Secondary Hyperparathyroidism (E21.1), HTN (I12.0) Plan: Will plan for HD today as ordered. Will plan for dialysis TTS schedule. Continue with Nephrovite 1 tab/day. PRBC as needed for anemia. on LESLY weekly with dialysis as last Hb 7.5 TSAT 24% Ferritin 94, added 1 gram IV iron loading dose Continue with phos binders, last phos level 8.4, repeat discontinue with calcitriol. last PTH 266 @ goal. added weekly Vit D as last level <12.8 BP control with meds as ordered. Patient not on RAAS racquel as with hyperkalemia, added losartan. resume norvasc and labetalol. lasix on non HD days Glycemic control, Dialysis consistent diet Further work up/management as per primary team Dose meds/antibiotics (if needed) for ESRD status. Avoid fleets enema/magnesium based laxatives. pt was educated about risks of missing HD. SW consult for outpt HD placement vascular surgery consult for AVF placement Thanks for allowing me to participate in care of your patient. Will follow patient with you. Please call if any Qs. had d/w team Dr Jose Pendleton Office: [phone] Chief Complaint;feels better HPI: Pt is a 53 M with hx of ESRD recently started on hemodialysis via p ermacathbut pt non compliant with HD, hadn't received HD since left from hospital AMA , chronic anemia, hyperphosphatemia, secondary hyperparathyroidism, Diabetes Mellitus (30 years), hypertension presented with complaints of worsening SOB on exertion and HTN emergency Renal consult requested for ESRD management. pt feels sick ROS: Cardiovascular: No chest pain. Pulmonary: improved shortness of breath Gastrointestinal: denies abdominal pain No nausea. No vomiting. Genitourinary: No pain while urinating. Denies blood in urine. All other negative except as mentioned in HPI Physical Examination: seen on HD General Appearance: Comfortable, in no acute respiratory distress, co-operative . obese Vitals reviewed and noted as below Head; Atraumatic, normocephalic ENT: no ulcers no thrush. Tongue is midline. Oropharynx: no rash or ulcers. EYES: Pupils are equal, round and reactive to light accommodation. Eye muscles and extraocular movement intact. Sclera is anicteric. Neck; supple no lymphadenopathy, no thyromegaly or bruit Lungs: Normal respiratory rate/effort. Breath sounds bilateral reduced at bases clearer Heart: Normal rate. s1s2 normal. No rub or gallop. Extremities: no edema. No varicose veins Neurological: Patient is alert, awake and oriented to person, place and time. No focal deficit. Strength bilateral appropriate and equal Skin: Warm and dry. Normal turgor. No rash. Palpitation: Normal elasticity for age Abdomen: Abdomen is soft. Bowel sounds +. There is no abdominal tenderness, no guarding/rigidity or organomegaly Psych: improved insight and normal affect/mood MSK: no joint tenderness or swelling. Digits and nails normal, no deformity : kidney or bladder not palpable Access: permacath Labs/imaging reviewed. Past medical history, past surgical history, family history, social history, allergy reviewed and noted as below Family Hx: no hx of CKD. Non contributory Objective - Vital Signs/Intake and Output Vital Signs (last 24 hours): Temp Pulse Resp BP Pulse Ox 98.4 F 89 20 164/76 H 97 07/31/18 06:00 07/31/18 06:00 07/31/18 06:00 07/31/18 06:00 07/31/18 06:00 - Medications Medications: Current Medications Amlodipine Besylate (Norvasc) 10 mg PO DAILY [facility] Last Admin: 07/30/18 12:19 Dose: 10 mg Atorvastatin Calcium (Lipitor) 40 mg PO HS [facility] Last Admin: 07/30/18 22:00 Dose: 40 mg Calcium Acetate (Phoslo) 1,334 mg PO WM [facility] Last Admin: 07/31/18 08:36 Dose: Not Given Darbepoetin Todd (Aranesp) 100 mcg IVP QWK [facility] Last Admin: 07/30/18 09:39 Dose: 100 mcg Dextrose (Dextrose 50% Inj) 0 ml IV STAT PRN; Protocol PRN Reason: Hypoglycemia Protocol Ergocalciferol (Drisdol 50,000 Intl Units Cap) 1 cap PO Q7D [facility] Last Admin: 07/29/18 11:41 Dose: 1 cap Furosemide (Lasix) 80 mg PO MWF [facility] Heparin Sodium (Porcine) (Heparin) 2,000 units IVP TTS [facility]; Protocol Dextrose (Dextrose 5% In Water 1000 Ml) 1,000 mls @ 0 mls/hr IV .Q0M PRN; Protocol PRN Reason: Hypoglycemia Protocol Iron Sucrose 100 mg/ Sodium (Chloride) 105 mls @ 210 mls/hr IVPB DAILY [facility] Stop: 08/08/18 11:16 Last Admin: 07/30/18 13:08 Dose: 210 mls/hr Insulin Human Lispro (Humalog Low) 0 units SC ACHS [facility]; Protocol Last Admin: 07/31/18 07:45 Dose: Not Given Labetalol HCl (Trandate) 200 mg PO BID [facility] Last Admin: 07/30/18 17:17 Dose: 200 mg Losartan Potassium (Cozaar) 50 mg PO QPM [facility] Pantoprazole Sodium (Protonix Ec Tab) 40 mg PO ACB [facility] Last Admin: 07/31/18 08:37 Dose: Not Given Vitamin B Complex/Vit C/Folic Acid (Nephro-Lulu) 1 tab PO 0800 [facility] Last Admin: 07/31/18 08:36 Dose: Not Given - Labs Labs: 07/31/18 05:00 07/31/18 05:00 PT 12.5 SECONDS (9.4-12.5) 07/28/18 20:30 INR 1.09 07/28/18 20:30 APTT 30.8 Seconds (25.1-36.5) 07/28/18 20:30
--- NOTE | 2018-07-31 13:27 | CP.PCM.PN ---
<Jakob Parisi - Last Filed: 07/31/18 13:42> Subjective - Date & Time of Evaluation Date of Evaluation: 07/31/18 Time of Evaluation: 13:21 - Subjective Subjective: Santy Isak PGY2 - Progress Note Patient seen and examined this AM in dialysis unit. Patient without complaints, decreased lower extremity swelling. Patient denies chest pain, shortness of breath, abdominal pain, numbness, focal neurological deficits. Discussion had with patient regarding future dialysis plan and outpatient follow up with industrial maintenance electrician and renal transplant. Objective - Vital Signs/Intake and Output Vital Signs (last 24 hours): Temp Pulse Resp BP Pulse Ox 98.4 F 89 20 164/76 H 97 07/31/18 06:00 07/31/18 06:00 07/31/18 06:00 07/31/18 06:00 07/31/18 06:00 - Medications Medications: Current Medications Amlodipine Besylate (Norvasc) 10 mg PO DAILY [facility] Last Admin: 07/31/18 11:16 Dose: Not Given Atorvastatin Calcium (Lipitor) 40 mg PO HS [facility] Last Admin: 07/30/18 22:00 Dose: 40 mg Calcium Acetate (Phoslo) 1,334 mg PO WM [facility] Last Admin: 07/31/18 08:36 Dose: Not Given Darbepoetin Todd (Aranesp) 100 mcg IVP QWK [facility] Last Admin: 07/30/18 09:39 Dose: 100 mcg Dextrose (Dextrose 50% Inj) 0 ml IV STAT PRN; Protocol PRN Reason: Hypoglycemia Protocol Ergocalciferol (Drisdol 50,000 Intl Units Cap) 1 cap PO Q7D [facility] Last Admin: 07/29/18 11:41 Dose: 1 cap Furosemide (Lasix) 80 mg PO MWF [facility] Heparin Sodium (Porcine) (Heparin) 2,000 units IVP TTS [facility]; Protocol Dextrose (Dextrose 5% In Water 1000 Ml) 1,000 mls @ 0 mls/hr IV .Q0M PRN; Protocol PRN Reason: Hypoglycemia Protocol Iron Sucrose 100 mg/ Sodium (Chloride) 105 mls @ 210 mls/hr IVPB DAILY [facility] Stop: 08/08/18 11:16 Last Admin: 07/30/18 13:08 Dose: 210 mls/hr Insulin Human Lispro (Humalog Low) 0 units SC ACHS [facility]; Protocol Last Admin: 07/31/18 12:57 Dose: Not Given Labetalol HCl (Trandate) 200 mg PO BID [facility] Last Admin: 07/31/18 11:16 Dose: Not Given Losartan Potassium (Cozaar) 50 mg PO QPM [facility] Pantoprazole Sodium (Protonix Ec Tab) 40 mg PO ACB [facility] Last Admin: 07/31/18 08:37 Dose: Not Given Vitamin B Complex/Vit C/Folic Acid (Nephro-Lulu) 1 tab PO 0800 [facility] Last Admin: 07/31/18 08:36 Dose: Not Given - Labs Labs: 07/31/18 05:00 07/31/18 05:00 PT 12.5 SECONDS (9.4-12.5) 07/28/18 20:30 INR 1.09 07/28/18 20:30 APTT 30.8 Seconds (25.1-36.5) 07/28/18 20:30 - Constitutional Appears: No Acute Distress - Head Exam Head Exam: ATRAUMATIC, NORMAL INSPECTION, NORMOCEPHALIC - Eye Exam Eye Exam: EOMI, PERRL - ENT Exam ENT Exam: Mucous Membranes Moist - Neck Exam Neck Exam: Full ROM - Respiratory Exam Respiratory Exam: Clear to Ausculation Bilateral, NORMAL BREATHING PATTERN - Cardiovascular Exam Cardiovascular Exam: REGULAR RHYTHM, +S1, +S2 - GI/Abdominal Exam GI & Abdominal Exam: Soft, Normal Bowel Sounds. absent: Firm, Guarding, Rigid, Tenderness - Extremities Exam Extremities Exam: Full ROM. absent: Pedal Edema - Neurological Exam Neurological Exam: Alert, Awake, Normal Gait, Oriented x3 - Psychiatric Exam Psychiatric exam: Normal Affect, Normal Mood - Skin Skin Exam: Dry, Intact Assessment and Plan - Assessment and Plan (Free Text) Assessment: 53 year old male with past medical history of HTN, DM2, unspecified renal mass, hepatic hemangioma CKD on HD originally scheduled with // with poor compliance who presents to [facility] ED for fatigue, SHOB, fluid accumulation, productive cough found to be be volume overloaded secondary to poor compliance with HD, medication, and diet. Patient was stabilized in ICU underwent HD and was transferred out to med/surg. Patient continues to undergo HD while in Hospital while outpatient HD can be set up. Plan: Shortness of breath / volume overload; secondary to noncompliance with dialysis - Etiology was failure for outpatient hemodialysis due to non-compliance - Nephrology consulted and following CKD Stage V requiring HD -Nephrology consulted and following, follow recs -HD on admission and throughout hospital stay -Outpatient HD in process of being set up Anemia -Likely etiology is chronic disease procress -Continue IV Fe and Epogen -Nephrology consulted -Maintain Hgb >7.0 -Attempt to avoid un-necessary transfusions due to potential side effects for prolonging or altering renal transplant timeline History of hypertension / mitral regurgitation - continue labetalol and Norvasc - Echo cardiogram from 05/2018 reviewed and appreciated - Repeat echo in one month for re-evaluation DM2 -ISS -ACHS -Maintain euglycemia HLD -Continue lipitor GI/DVT ppx -Protonix -Heparin Renal Diet Patient seen, case and plan discussed with attending Dr. Stout <Jesse Stout - Last Filed: 07/31/18 14:11> Objective - Vital Signs/Intake and Output Vital Signs (last 24 hours): Temp Pulse Resp BP Pulse Ox 98.4 F 89 20 164/76 H 97 07/31/18 06:00 07/31/18 06:00 07/31/18 06:00 07/31/18 06:00 07/31/18 06:00 - Medications Medications: Current Medications Amlodipine Besylate (Norvasc) 10 mg PO DAILY [facility] Last Admin: 07/31/18 11:16 Dose: Not Given Atorvastatin Calcium (Lipitor) 40 mg PO HS [facility] Last Admin: 07/30/18 22:00 Dose: 40 mg Calcium Acetate (Phoslo) 1,334 mg PO WM [facility] Last Admin: 07/31/18 08:36 Dose: Not Given Darbepoetin Todd (Aranesp) 100 mcg IVP QWK [facility] Last Admin: 07/30/18 09:39 Dose: 100 mcg Dextrose (Dextrose 50% Inj) 0 ml IV STAT PRN; Protocol PRN Reason: Hypoglycemia Protocol Ergocalciferol (Drisdol 50,000 Intl Units Cap) 1 cap PO Q7D [facility] Last Admin: 07/29/18 11:41 Dose: 1 cap Furosemide (Lasix) 80 mg PO MWF [facility] Heparin Sodium (Porcine) (Heparin) 2,000 units IVP TTS [facility]; Protocol Dextrose (Dextrose 5% In Water 1000 Ml) 1,000 mls @ 0 mls/hr IV .Q0M PRN; Protocol PRN Reason: Hypoglycemia Protocol Iron Sucrose 100 mg/ Sodium (Chloride) 105 mls @ 210 mls/hr IVPB DAILY [facility] Stop: 08/08/18 11:16 Last Admin: 07/30/18 13:08 Dose: 210 mls/hr Insulin Human Lispro (Humalog Low) 0 units SC ACHS [facility]; Protocol Last Admin: 07/31/18 12:57 Dose: Not Given Labetalol HCl (Trandate) 200 mg PO BID [facility] Last Admin: 07/31/18 11:16 Dose: Not Given Losartan Potassium (Cozaar) 50 mg PO QPM [facility] Pantoprazole Sodium (Protonix Ec Tab) 40 mg PO ACB [facility] Last Admin: 07/31/18 08:37 Dose: Not Given Vitamin B Complex/Vit C/Folic Acid (Nephro-Lulu) 1 tab PO 0800 [facility] Last Admin: 07/31/18 08:36 Dose: Not Given - Labs Labs: 07/31/18 05:00 07/31/18 05:00 PT 12.5 SECONDS (9.4-12.5) 07/28/18 20:30 INR 1.09 07/28/18 20:30 APTT 30.8 Seconds (25.1-36.5) 07/28/18 20:30 Attending/Attestation - Attestation I have personally seen and examined this patient.: Yes I have fully participated in the care of the patient.: Yes I have reviewed all pertinent clinical information, including history, physical exam and plan: Yes Notes (Text): 07/31/18 14:08 Attending note; Patient seen and examined with resident in dialysis unit. Die Forger by the bedside. Getting hemodialysis today. Denies any chest pain, shortness of breath. Denies any cough or sputum production. Denies any hematemesis, hemoptysis. Leg swelling resolved. Patient is a 53-year-old male with PMH of DMII, HTN, CKD on hemodialysis Thu, , Thu, noncompliant with HD treatment, hepatic hemangioma presents with SOB and cough that started 1 month ago. 1. Shortness of breath / volume overload; secondary to noncompliance with dialysis. Patient was dialyzed on 07/29 and 07/30. Patient is getting dialysis today. Volume overload resolved. Leg swelling improved. Shortness of breath improved. Nephrology evaluation appreciated. need for dialysis explained in detail. Patient agreed to continue dialysis. 2. Anemia; chronic. No active bleeding noted. Continue IV iron and Epogen. Hemoglobin improved to 7.9. 3. GI evaluation appreciated; needs outpatient workup. 4. History of hypertension / mitral regurgitation; continue labetalol on Norvasc .currently clinically stable. Needs repeat echocardiogram in few weeks. 5. Surgery evaluation appreciated. Tentative AV fistula placement on Thursday. We will follow up closely. Case discussed with social work coordinator in detail. Information given by the social work coordinator to get Medicaid. Upon discharge the patient will follow-up with [facility] clinic. Patient needs outpatient hemodialysis. Diagnosis, follow-up plan discussed with patient in detail.
--- NOTE | 2018-07-31 13:37 | CP.PCM.PN ---
<Kehinde James - Last Filed: 07/31/18 13:35> Subjective - Date & Time of Evaluation Date of Evaluation: 07/31/18 Time of Evaluation: 13:35 - Subjective Subjective: Surgery: Dr. Wagner Pt seen and examined. Downgraded from ICU. Pt is feeling much better today. No complaints. Objective - Vital Signs/Intake and Output Vital Signs (last 24 hours): Temp Pulse Resp BP Pulse Ox 98.4 F 89 20 164/76 H 97 07/31/18 06:00 07/31/18 06:00 07/31/18 06:00 07/31/18 06:00 07/31/18 06:00 - Medications Medications: Current Medications Amlodipine Besylate (Norvasc) 10 mg PO DAILY [facility] Last Admin: 07/31/18 11:16 Dose: Not Given Atorvastatin Calcium (Lipitor) 40 mg PO HS [facility] Last Admin: 07/30/18 22:00 Dose: 40 mg Calcium Acetate (Phoslo) 1,334 mg PO WM [facility] Last Admin: 07/31/18 08:36 Dose: Not Given Darbepoetin Todd (Aranesp) 100 mcg IVP QWK [facility] Last Admin: 07/30/18 09:39 Dose: 100 mcg Dextrose (Dextrose 50% Inj) 0 ml IV STAT PRN; Protocol PRN Reason: Hypoglycemia Protocol Ergocalciferol (Drisdol 50,000 Intl Units Cap) 1 cap PO Q7D [facility] Last Admin: 07/29/18 11:41 Dose: 1 cap Furosemide (Lasix) 80 mg PO MWF [facility] Heparin Sodium (Porcine) (Heparin) 2,000 units IVP TTS [facility]; Protocol Dextrose (Dextrose 5% In Water 1000 Ml) 1,000 mls @ 0 mls/hr IV .Q0M PRN; Protocol PRN Reason: Hypoglycemia Protocol Iron Sucrose 100 mg/ Sodium (Chloride) 105 mls @ 210 mls/hr IVPB DAILY [facility] Stop: 08/08/18 11:16 Last Admin: 07/30/18 13:08 Dose: 210 mls/hr Insulin Human Lispro (Humalog Low) 0 units SC ACHS [facility]; Protocol Last Admin: 07/31/18 12:57 Dose: Not Given Labetalol HCl (Trandate) 200 mg PO BID [facility] Last Admin: 07/31/18 11:16 Dose: Not Given Losartan Potassium (Cozaar) 50 mg PO QPM [facility] Pantoprazole Sodium (Protonix Ec Tab) 40 mg PO ACB [facility] Last Admin: 07/31/18 08:37 Dose: Not Given Vitamin B Complex/Vit C/Folic Acid (Nephro-Lulu) 1 tab PO 0800 [facility] Last Admin: 07/31/18 08:36 Dose: Not Given - Labs Labs: 07/31/18 05:00 07/31/18 05:00 PT 12.5 SECONDS (9.4-12.5) 07/28/18 20:30 INR 1.09 07/28/18 20:30 APTT 30.8 Seconds (25.1-36.5) 07/28/18 20:30 - Constitutional Appears: Non-toxic, No Acute Distress - Head Exam Head Exam: ATRAUMATIC, NORMOCEPHALIC - Eye Exam Eye Exam: EOMI - ENT Exam ENT Exam: Mucous Membranes Moist - Respiratory Exam Respiratory Exam: NORMAL BREATHING PATTERN. absent: Accessory Muscle Use, Respiratory Distress - GI/Abdominal Exam GI & Abdominal Exam: Soft. absent: Tenderness - Neurological Exam Neurological Exam: Alert, Awake, Oriented x3 Assessment and Plan - Assessment and Plan (Free Text) Assessment: 53M w. ESRD needing AVF Plan: -Tentative AVF thursday -maintain LUE precautions -will follow -d/w attending Erika PGY4 <Michele Wagner - Last Filed: 08/08/18 12:02> Objective - Vital Signs/Intake and Output Vital Signs (last 24 hours): Temp Pulse Resp BP Pulse Ox 98.9 F 86 18 145/73 99 08/04/18 14:00 08/04/18 17:34 08/04/18 14:00 08/04/18 17:34 08/04/18 14:00 - Labs Labs: 08/04/18 08:04 08/04/18 08:04 PT 12.0 SECONDS (9.4-12.5) 08/02/18 06:35 INR 1.04 08/02/18 06:35 APTT 27.2 Seconds (25.1-36.5) 08/02/18 06:35 Assessment and Plan - Assessment and Plan (Free Text) Plan: Patient was seen, examined and evaluated by me. I agree with resident's assessment and plan.
[2018-08-01 07:37] LABS: BASO # 0.03 K/mm3 (0.0-2.0); BASO % 0.2 % (0.0-3.0); EOS # 0.6 (0.0-0.7); EOS % 4.4 % (1.5-5.0); GRAN # 9.43 (1.4-6.5); GRAN % 74.5 % (50.0-68.0); HEMOGLOBIN 7.8 g/dL (14.0-18.0); LYMPH # 1.5 (1.2-3.4); LYMPH % 12.1 % (22.0-35.0); MEAN CELL VOLUME 84.6 fl (80.0-105.0); MEAN CORPUSCULAR HEMOGLOBIN 29.2 pg (25.0-35.0); MEAN CORPUSCULAR HGB CONC 34.5 g/dl (31.0-37.0); MEAN PLATELET VOLUME 10.4 fl (7.0-11.0); MONO # 1.1 (0.1-0.6); MONO % 8.8 % (1.0-6.0); RBC 2.67 10^6/uL (3.5-6.1); RED CELL DISTRIBUTION WIDTH 12.8 % (11.5-14.5); WHITE BLOOD COUNT 12.7 10^3/uL (4.5-11.0)
[2018-08-01 07:57] LABS: ALBUMIN 3.3 g/dL (3.0-4.8); CALCIUM 7.7 mg/dL (8.4-10.5)
[2018-08-01] MEDS: Insulin Lispro (humaLOG) LOW Coverage SC SCH ×4 (08:47→21:49)
[2018-08-01] MEDS: Multivitamin Vitamin B Complex (Nephro-Vite) Tab PO SCH (09:11)
[2018-08-01] MEDS: Pantoprazole 40 mg EC Tab PO SCH (09:12)
--- NOTE | 2018-08-01 10:00 | CP.PCM.PN ---
<Celestine Baron - Last Filed: 08/01/18 11:03> Subjective - Date & Time of Evaluation Date of Evaluation: 08/01/18 Time of Evaluation: 10:00 - Subjective Subjective: PGY1 Medicine Progress Note for Dr. Stout Patient was seen and evaluated at bedside. No complaints overnight. Patient tolerating diet well. Patient currently denies chest pain, palpitations, shortness of breath, abdominal pain, dysuria, back pain, dizziness headaches, confusion, fever and/or chills. Extensive discussion was had with patient regarding future dialysis plan and outpatient follow up with operations supervisor 2nd shift and renal transplant. Objective - Vital Signs/Intake and Output Vital Signs (last 24 hours): Temp Pulse Resp BP Pulse Ox 99 F 84 20 132/65 97 08/01/18 06:00 08/01/18 09:12 08/01/18 06:00 08/01/18 09:12 08/01/18 06:00 Intake and Output: 08/01/18 08/01/18 06:59 18:59 Output Total 400 Balance -400 - Medications Medications: Current Medications Amlodipine Besylate (Norvasc) 10 mg PO DAILY [facility] Last Admin: 08/01/18 09:11 Dose: 10 mg Atorvastatin Calcium (Lipitor) 40 mg PO HS [facility] Last Admin: 07/31/18 21:23 Dose: 40 mg Calcium Acetate (Phoslo) 1,334 mg PO WM [facility] Last Admin: 08/01/18 09:11 Dose: 1,334 mg Darbepoetin Todd (Aranesp) 100 mcg IVP QWK [facility] Last Admin: 07/30/18 09:39 Dose: 100 mcg Dextrose (Dextrose 50% Inj) 0 ml IV STAT PRN; Protocol PRN Reason: Hypoglycemia Protocol Ergocalciferol (Drisdol 50,000 Intl Units Cap) 1 cap PO Q7D [facility] Last Admin: 07/29/18 11:41 Dose: 1 cap Furosemide (Lasix) 80 mg PO MWF [facility] Heparin Sodium (Porcine) (Heparin) 2,000 units IVP TTS [facility]; Protocol Dextrose (Dextrose 5% In Water 1000 Ml) 1,000 mls @ 0 mls/hr IV .Q0M PRN; Protocol PRN Reason: Hypoglycemia Protocol Iron Sucrose 100 mg/ Sodium (Chloride) 105 mls @ 210 mls/hr IVPB DAILY [facility] Stop: 08/08/18 11:16 Last Admin: 07/31/18 14:38 Dose: 210 mls/hr Insulin Human Lispro (Humalog Low) 0 units SC ACHS [facility]; Protocol Last Admin: 08/01/18 08:47 Dose: Not Given Labetalol HCl (Trandate) 200 mg PO BID [facility] Last Admin: 08/01/18 09:12 Dose: 200 mg Losartan Potassium (Cozaar) 50 mg PO QPM [facility] Pantoprazole Sodium (Protonix Ec Tab) 40 mg PO ACB [facility] Last Admin: 08/01/18 09:12 Dose: 40 mg Vitamin B Complex/Vit C/Folic Acid (Nephro-Lulu) 1 tab PO 0800 [facility] Last Admin: 08/01/18 09:11 Dose: 1 tab - Labs Labs: 08/01/18 07:00 08/01/18 07:00 PT 12.5 SECONDS (9.4-12.5) 07/28/18 20:30 INR 1.09 07/28/18 20:30 APTT 30.8 Seconds (25.1-36.5) 07/28/18 20:30 - Additional Findings Additional findings: - Constitutional Appears: No Acute Distress - Head Exam Head Exam: ATRAUMATIC, NORMAL INSPECTION, NORMOCEPHALIC - Eye Exam Eye Exam: EOMI, PERRL - ENT Exam ENT Exam: Mucous Membranes Moist - Neck Exam Neck Exam: Full ROM - Respiratory Exam Respiratory Exam: Clear to Ausculation Bilateral, NORMAL BREATHING PATTERN - Cardiovascular Exam Cardiovascular Exam: REGULAR RHYTHM, +S1, +S2 - GI/Abdominal Exam GI & Abdominal Exam: Soft, Normal Bowel Sounds. absent: Firm, Guarding, Rigid, Tenderness - Extremities Exam Extremities Exam: Full ROM. absent: Pedal Edema - Neurological Exam Neurological Exam: Alert, Awake, Normal Gait, Oriented x3 - Psychiatric Exam Psychiatric exam: Normal Affect, Normal Mood - Skin Skin Exam: Dry, Intact Assessment and Plan - Assessment and Plan (Free Text) Assessment: 53 year old male with past medical history of HTN, DM2, unspecified renal mass, hepatic hemangioma CKD on HD originally scheduled with [facility] with poor compliance who presents to [facility] ED for fatigue, SOB, fluid accumulation, productive cough found to be be volume overloaded secondary to poor compliance with HD, medication, and diet. Patient was stabilized in ICU underwent HD and was transferred out to med/surg. Patient continues to undergo HD while in Hospital while outpatient HD can be set up. Plan: Shortness of breath / volume overload; secondary to noncompliance with dialysis - Etiology was failure for outpatient hemodialysis due to non-compliance - Nephrology consulted and following CKD Stage V requiring HD - Dialysis was performed 07/31/18 and Patient tolerated well - Cr; BUN: improved (6.7; 37) - Nephrology consulted and following, follow recs - HD on admission and throughout hospital stay - Outpatient HD in process of being set up - Renal Diet Anemia - Likely etiology is chronic disease procress - Continue IV Fe and Epogen - Nephrology consulted - Maintain Hgb >7.0 - Attempt to avoid unnecessary transfusions due to potential side effects for prolonging or altering renal transplant timeline History of hypertension / mitral regurgitation - Continue labetalol and Norvasc - Echo cardiogram from 05/2018 reviewed and appreciated - Repeat echo in one month for re-evaluation DM2 - ISS - ACHS - Maintain euglycemia HLD - Continue lipitor GI/DVT ppx - Protonix - Heparin Patient seen and case discussed in detail with Dr. Girish Baron PGY1 <Jesse Stout - Last Filed: 08/01/18 11:33> Objective - Vital Signs/Intake and Output Vital Signs (last 24 hours): Temp Pulse Resp BP Pulse Ox 99 F 84 20 132/65 97 08/01/18 06:00 08/01/18 09:12 08/01/18 06:00 08/01/18 09:12 08/01/18 06:00 Intake and Output: 08/01/18 08/01/18 06:59 18:59 Output Total 400 Balance -400 - Medications Medications: Current Medications Amlodipine Besylate (Norvasc) 10 mg PO DAILY [facility] Last Admin: 08/01/18 09:11 Dose: 10 mg Atorvastatin Calcium (Lipitor) 40 mg PO HS [facility] Last Admin: 07/31/18 21:23 Dose: 40 mg Calcium Acetate (Phoslo) 1,334 mg PO WM [facility] Last Admin: 08/01/18 09:11 Dose: 1,334 mg Darbepoetin Todd (Aranesp) 100 mcg IVP QWK [facility] Last Admin: 07/30/18 09:39 Dose: 100 mcg Dextrose (Dextrose 50% Inj) 0 ml IV STAT PRN; Protocol PRN Reason: Hypoglycemia Protocol Ergocalciferol (Drisdol 50,000 Intl Units Cap) 1 cap PO Q7D [facility] Last Admin: 07/29/18 11:41 Dose: 1 cap Furosemide (Lasix) 80 mg PO MWF [facility] Heparin Sodium (Porcine) (Heparin) 2,000 units IVP TTS [facility]; Protocol Dextrose (Dextrose 5% In Water 1000 Ml) 1,000 mls @ 0 mls/hr IV .Q0M PRN; Protocol PRN Reason: Hypoglycemia Protocol Iron Sucrose 100 mg/ Sodium (Chloride) 105 mls @ 210 mls/hr IVPB DAILY [facility] Stop: 08/08/18 11:16 Last Admin: 08/01/18 10:43 Dose: 210 mls/hr Insulin Human Lispro (Humalog Low) 0 units SC ACHS [facility]; Protocol Last Admin: 08/01/18 08:47 Dose: Not Given Labetalol HCl (Trandate) 200 mg PO BID [facility] Last Admin: 08/01/18 09:12 Dose: 200 mg Losartan Potassium (Cozaar) 50 mg PO QPM [facility] Pantoprazole Sodium (Protonix Ec Tab) 40 mg PO ACB [facility] Last Admin: 08/01/18 09:12 Dose: 40 mg Vitamin B Complex/Vit C/Folic Acid (Nephro-Lulu) 1 tab PO 0800 [facility] Last Admin: 08/01/18 09:11 Dose: 1 tab - Labs Labs: 08/01/18 07:00 08/01/18 07:00 PT 12.5 SECONDS (9.4-12.5) 07/28/18 20:30 INR 1.09 07/28/18 20:30 APTT 30.8 Seconds (25.1-36.5) 07/28/18 20:30 Attending/Attestation - Attestation I have personally seen and examined this patient.: Yes I have fully participated in the care of the patient.: Yes I have reviewed all pertinent clinical information, including history, physical exam and plan: Yes Notes (Text): 08/01/18 11:30 Attending note; Patient seen and examined with resident. Denies any chest pain, shortness of breath. Denies any cough or sputum production. Denies any fevers, chills. Leg swelling resolved. Patient is a 53-year-old male with PMH of DMII, HTN, CKD on hemodialysis Tue, , Sat, noncompliant with HD treatment, hepatic hemangioma presents with SOB and cough that started 1 month ago. 1. Shortness of breath / volume overload; secondary to noncompliance with dialysis. Patient was dialyzed on 07/29, 07/30 and 07/31. Volume overload resolved. Leg swelling improved. Shortness of breath improved. Nephrology evaluation appreciated. 2. Anemia; chronic. No active bleeding noted. Continue IV iron and Epogen. Hemoglobin improved to 7.8. 3. GI evaluation appreciated; needs outpatient workup. 4. History of hypertension / mitral regurgitation; continue labetalol on Norvasc .currently clinically stable. Needs repeat echocardiogram in few weeks. 5. Surgery evaluation appreciated. Tentative AV fistula placement on Thursday. We will follow up closely. Patient is moderate risk for planned vascular procedure. Cardiology evaluation appreciated. Currently patient is medically stable. Pending Medicaid paperwork. early childhood worker evaluation appreciated. Upon discharge the patient will follow-up with [facility] clinic. Patient needs outpatient hemodialysis. Diagnosis, follow-up plan discussed with patient in detail.
--- NOTE | 2018-08-01 11:01 | CP.PCM.PN ---
<Chidi Lane - Last Filed: 08/01/18 10:56> Subjective - Date & Time of Evaluation Date of Evaluation: 08/01/18 Time of Evaluation: 10:56 - Subjective Subjective: Surgery Progress note- Dr. Hicks Patient seen and examined at bedside. No new complaints. Received dialysis yesterday. Denies fevers, chills, chest pain, shortness of breath. Objective - Vital Signs/Intake and Output Vital Signs (last 24 hours): Temp Pulse Resp BP Pulse Ox 99 F 84 20 132/65 97 08/01/18 06:00 08/01/18 09:12 08/01/18 06:00 08/01/18 09:12 08/01/18 06:00 Intake and Output: 08/01/18 08/01/18 06:59 18:59 Output Total 400 Balance -400 - Medications Medications: Current Medications Amlodipine Besylate (Norvasc) 10 mg PO DAILY [facility] Last Admin: 08/01/18 09:11 Dose: 10 mg Atorvastatin Calcium (Lipitor) 40 mg PO HS [facility] Last Admin: 07/31/18 21:23 Dose: 40 mg Calcium Acetate (Phoslo) 1,334 mg PO WM [facility] Last Admin: 08/01/18 09:11 Dose: 1,334 mg Darbepoetin Todd (Aranesp) 100 mcg IVP QWK [facility] Last Admin: 07/30/18 09:39 Dose: 100 mcg Dextrose (Dextrose 50% Inj) 0 ml IV STAT PRN; Protocol PRN Reason: Hypoglycemia Protocol Ergocalciferol (Drisdol 50,000 Intl Units Cap) 1 cap PO Q7D [facility] Last Admin: 07/29/18 11:41 Dose: 1 cap Furosemide (Lasix) 80 mg PO MWF [facility] Heparin Sodium (Porcine) (Heparin) 2,000 units IVP TTS [facility]; Protocol Dextrose (Dextrose 5% In Water 1000 Ml) 1,000 mls @ 0 mls/hr IV .Q0M PRN; Protocol PRN Reason: Hypoglycemia Protocol Iron Sucrose 100 mg/ Sodium (Chloride) 105 mls @ 210 mls/hr IVPB DAILY [facility] Stop: 08/08/18 11:16 Last Admin: 08/01/18 10:43 Dose: 210 mls/hr Insulin Human Lispro (Humalog Low) 0 units SC ACHS [facility]; Protocol Last Admin: 08/01/18 08:47 Dose: Not Given Labetalol HCl (Trandate) 200 mg PO BID [facility] Last Admin: 08/01/18 09:12 Dose: 200 mg Losartan Potassium (Cozaar) 50 mg PO QPM [facility] Pantoprazole Sodium (Protonix Ec Tab) 40 mg PO ACB [facility] Last Admin: 08/01/18 09:12 Dose: 40 mg Vitamin B Complex/Vit C/Folic Acid (Nephro-Lulu) 1 tab PO 0800 [facility] Last Admin: 08/01/18 09:11 Dose: 1 tab - Labs Labs: 08/01/18 07:00 08/01/18 07:00 PT 12.5 SECONDS (9.4-12.5) 07/28/18 20:30 INR 1.09 07/28/18 20:30 APTT 30.8 Seconds (25.1-36.5) 07/28/18 20:30 - Constitutional Appears: Non-toxic, No Acute Distress - Head Exam Head Exam: ATRAUMATIC - Eye Exam Eye Exam: EOMI. absent: Scleral icterus - ENT Exam ENT Exam: Mucous Membranes Moist - Respiratory Exam Respiratory Exam: NORMAL BREATHING PATTERN. absent: Accessory Muscle Use, Respiratory Distress - Cardiovascular Exam Cardiovascular Exam: REGULAR RHYTHM. absent: Bradycardia, Tachycardia - GI/Abdominal Exam GI & Abdominal Exam: Soft. absent: Distended, Firm, Guarding, Rigid, Tenderness - Neurological Exam Neurological Exam: Alert, Awake, Oriented x3 - Psychiatric Exam Psychiatric exam: Normal Affect - Skin Skin Exam: Intact, Warm Assessment and Plan - Assessment and Plan (Free Text) Assessment: 53M w/ ESRD on HD Plan: - Plan for OR for AVF this week - maintain LUE precautions - medically optimize - further recs per Dr. Hicks Surgical attending PGY2 <Michele Wagner - Last Filed: 08/08/18 12:02> Objective - Vital Signs/Intake and Output Vital Signs (last 24 hours): Temp Pulse Resp BP Pulse Ox 98.9 F 86 18 145/73 99 08/04/18 14:00 08/04/18 17:34 08/04/18 14:00 08/04/18 17:34 08/04/18 14:00 - Labs Labs: 08/04/18 08:04 08/04/18 08:04 PT 12.0 SECONDS (9.4-12.5) 08/02/18 06:35 INR 1.04 08/02/18 06:35 APTT 27.2 Seconds (25.1-36.5) 08/02/18 06:35 Assessment and Plan - Assessment and Plan (Free Text) Plan: Patient was seen, examined and evaluated by me. I agree with resident's assessment and plan.
--- NOTE | 2018-08-01 11:16 | CP.PCM.CON ---
History of Present Illness - History of Present Illness History of Present Illness: CONSULT for Dr. Nicole Awake, alert , no distress Reason for consultation: Cardiac evaluation for pre-op surgery for AV fistula, risk stratification Brief history of present illness: A 53 year old male who initally presented to the ER with shortness of breath. History of diabetes mellitus, hypertension, chronic anemia, former smoker,end stage renal disease, on hemodialysis 3x a week, (,,), non-compliant started on 06/2018, renal mass, hepatic hemangioma. Consult was called for risk stratification for possible AV fistula surgery tommorrow. Seen and examined by me and Dr. Schwarz Review of Systems - Review of Systems All systems: reviewed and no additional remarkable complaints except Review of Systems: as per HPI Past Patient History - Infectious Disease Hx of Infectious Diseases: None - Past Medical History & Family History Past Medical History?: Yes - Past Social History Smoking Status: Former Smoker - CARDIAC Hx Cardiac Disorders: Yes Hx Hypertension: Yes - PULMONARY Hx Respiratory Disorders: No - NEUROLOGICAL Hx Neurological Disorder: No - HEENT Hx HEENT Problems: No - RENAL Hx Chronic Kidney Disease: No Hx Dialysis: Yes Type of Dialysis Access: R chest cath - ENDOCRINE/METABOLIC Hx Diabetes Mellitus Type 1: Yes - HEMATOLOGICAL/ONCOLOGICAL Hx Blood Disorders: No - INTEGUMENTARY Hx Dermatological Problems: No - MUSCULOSKELETAL/RHEUMATOLOGICAL Hx Musculoskeletal Disorders: No - GASTROINTESTINAL Hx Gastrointestinal Disorders: No - GENITOURINARY/GYNECOLOGICAL Hx Genitourinary Disorders: No - PSYCHIATRIC Hx Psychophysiologic Disorder: No Hx Substance Use: No - SURGICAL HISTORY Hx Cardiac Catheterization: Yes - ANESTHESIA Hx Anesthesia: No Meds Allergies/Adverse Reactions: Allergies Allergy/AdvReac Type Severity Reaction Status Date / Time No Known Allergies Allergy Verified 07/28/18 20:01 - Medications Medications: Current Medications Amlodipine Besylate (Norvasc) 10 mg PO DAILY [facility] Last Admin: 08/01/18 09:11 Dose: 10 mg Atorvastatin Calcium (Lipitor) 40 mg PO HS [facility] Last Admin: 07/31/18 21:23 Dose: 40 mg Calcium Acetate (Phoslo) 1,334 mg PO WM [facility] Last Admin: 08/01/18 09:11 Dose: 1,334 mg Darbepoetin Todd (Aranesp) 100 mcg IVP QWK [facility] Last Admin: 07/30/18 09:39 Dose: 100 mcg Dextrose (Dextrose 50% Inj) 0 ml IV STAT PRN; Protocol PRN Reason: Hypoglycemia Protocol Ergocalciferol (Drisdol 50,000 Intl Units Cap) 1 cap PO Q7D [facility] Last Admin: 07/29/18 11:41 Dose: 1 cap Furosemide (Lasix) 80 mg PO MWF [facility] Heparin Sodium (Porcine) (Heparin) 2,000 units IVP TTS [facility]; Protocol Dextrose (Dextrose 5% In Water 1000 Ml) 1,000 mls @ 0 mls/hr IV .Q0M PRN; Protocol PRN Reason: Hypoglycemia Protocol Iron Sucrose 100 mg/ Sodium (Chloride) 105 mls @ 210 mls/hr IVPB DAILY [facility] Stop: 08/08/18 11:16 Last Admin: 08/01/18 10:43 Dose: 210 mls/hr Insulin Human Lispro (Humalog Low) 0 units SC ACHS [facility]; Protocol Last Admin: 08/01/18 08:47 Dose: Not Given Labetalol HCl (Trandate) 200 mg PO BID [facility] Last Admin: 08/01/18 09:12 Dose: 200 mg Losartan Potassium (Cozaar) 50 mg PO QPM [facility] Pantoprazole Sodium (Protonix Ec Tab) 40 mg PO ACB [facility] Last Admin: 08/01/18 09:12 Dose: 40 mg Vitamin B Complex/Vit C/Folic Acid (Nephro-Lulu) 1 tab PO 0800 [facility] Last Admin: 08/01/18 09:11 Dose: 1 tab Physical Exam - Constitutional Appears: Non-toxic, No Acute Distress - Head Exam Head Exam: NORMAL INSPECTION, NORMOCEPHALIC - Eye Exam Eye Exam: Normal appearance Pupil Exam: NORMAL ACCOMODATION - ENT Exam ENT Exam: Mucous Membranes Moist, Normal Exam - Respiratory Exam Respiratory Exam: Decreased Breath Sounds, Clear to Auscultation Bilateral, NORMAL BREATHING PATTERN - Cardiovascular Exam Cardiovascular Exam: +S1, +S2 Additional comments: right chest permacath - GI/Abdominal Exam GI & Abdominal Exam: Normal Bowel Sounds, Soft - Extremities Exam Extremities exam: Positive for: full ROM, normal capillary refill - Neurological Exam Neurological exam: Alert, Oriented x3 - Psychiatric Exam Psychiatric exam: Normal Affect, Normal Mood - Skin Skin Exam: Dry, Normal Color, Warm Results - Vital Signs Recent Vital Signs: Last Vital Signs Temp 99 F 08/01/18 06:00 Pulse 84 08/01/18 09:12 Resp 20 08/01/18 06:00 BP 132/65 08/01/18 09:12 Pulse Ox 97 08/01/18 06:00 - Labs Result Diagrams: 08/01/18 07:00 08/01/18 07:00 Labs: Laboratory Results - last 24 hr 07/31/18 07/31/18 07/31/18 11:07 11:49 16:18 WBC RBC Hgb Hct MCV MCH MCHC RDW Plt Count MPV Gran % Lymph % (Auto) King % (Auto) Eos % (Auto) Baso % (Auto) Gran # Lymph # (Auto) King # (Auto) Eos # (Auto) Baso # (Auto) Sodium Potassium Chloride Carbon Dioxide Anion Gap BUN Creatinine Est GFR ( Amer) Est GFR (Non-Af Amer) POC Glucose (mg/dL) 104 116 H 272 H Random Glucose Calcium Total Bilirubin AST ALT Alkaline Phosphatase Total Protein Albumin Globulin Albumin/Globulin Ratio 07/31/18 08/01/18 08/01/18 21:14 06:25 07:00 WBC 12.7 H D RBC 2.67 L Hgb 7.8 L Hct 22.6 L MCV 84.6 MCH 29.2 MCHC 34.5 RDW 12.8 Plt Count 175 MPV 10.4 Gran % 74.5 H Lymph % (Auto) 12.1 L King % (Auto) 8.8 H Eos % (Auto) 4.4 Baso % (Auto) 0.2 Gran # 9.43 H Lymph # (Auto) 1.5 King # (Auto) 1.1 H Eos # (Auto) 0.6 Baso # (Auto) 0.03 Sodium Potassium Chloride Carbon Dioxide Anion Gap BUN Creatinine Est GFR ( Amer) Est GFR (Non-Af Amer) POC Glucose (mg/dL) 165 H 179 H Random Glucose Calcium Total Bilirubin AST ALT Alkaline Phosphatase Total Protein Albumin Globulin Albumin/Globulin Ratio 08/01/18 07:00 WBC RBC Hgb Hct MCV MCH MCHC RDW Plt Count MPV Gran % Lymph % (Auto) King % (Auto) Eos % (Auto) Baso % (Auto) Gran # Lymph # (Auto) King # (Auto) Eos # (Auto) Baso # (Auto) Sodium 132 Potassium 4.3 Chloride 95 L Carbon Dioxide 28 Anion Gap 13 BUN 37 H Creatinine 6.7 H Est GFR ( Amer) 10 Est GFR (Non-Af Amer) 9 POC Glucose (mg/dL) Random Glucose 119 H Calcium 7.7 L Total Bilirubin 0.5 AST 65 H D ALT 74 H Alkaline Phosphatase 224 H Total Protein 6.7 Albumin 3.3 Globulin 3.4 Albumin/Globulin Ratio 1.0 L Assessment & Plan - Assessment and Plan (Free Text) Assessment: A 53 year old male who initally presented to the ER with shortness of breath. History of diabetes mellitus, hypertension, chronic anemia, former smoker,end stage renal disease, on hemodialysis 3x a week, (,,), non-compliant started on 06/2018, renal mass, hepatic hemangioma. Consult was called for risk stratification for possible AV fistula surgery tomorrow. EKG- normal sinus rhythm. Denies chest pain, denies shortness of breath. No evidence of ischemia. No evidence of congestive heart failure. Cleared for AV fistula procedure tomorrow. Moderate risk considering co-morbidities. no absolute contraindication. H/H 7.8/22.6. Type and crossmatched PRBC for possible b leeding. Review of previous cardiac work up at [facility]: 06/18/18 Echo- Dilated left atrium, LVEF 52% Normal LV size, mild to moderate concentric LVH Moderate to severe MR, Mild TR Plan: Denies chest pain or shortness of breath Cleared with moderate risk for AV fistula tomorrow H/H 7.8/22.6. Type and cross matched PRBC for possible bleeding intra-op Heart rate stable Blood pressure controlled Continue current treatment Continue current medications Will follow up post operatively Plan and treatment discussed with Dr. Schwarz Thank you Dr. Stout for the opportunity of taking care of Rod Mari Covering for . - Date & Time Date: 08/01/18 Time: 11:00
--- NOTE | 2018-08-01 12:49 | CP.PCM.PN ---
Subjective - Date & Time of Evaluation Date of Evaluation: 08/01/18 Time of Evaluation: 12:48 - Subjective Subjective: Nephrology Consultation Note: Assessment: stable Uremia, missed HD/non-compliance, hyperkalemia, fluid overload, HTN emergency Diabetic chronic Kidney Disease (E11.22) Hypertensive Chronic Kidney Disease (I12.0) End stage renal disease (N18.6) dependence on hemodialysis (Z99.2) via PC Anemia (D64.9), Hyperphosphatemia (E83.39), Secondary Hyperparathyroidism (E21.1), HTN (I12.0) Plan: Will plan for dialysis TTS schedule. Continue with Nephrovite 1 tab/day. PRBC as needed for anemia. on LESLY weekly with dialysis as last Hb 7.8 TSAT 24% Ferritin 94, added 1 gram IV iron loading dose Continue with phos binders, last phos level 8.4, repeat discontinue with calcitriol. last PTH 266 @ goal. added weekly Vit D as last level <12.8 BP control with meds as ordered. Patient on losartan. resume norvasc and labetalol. lasix on non HD days Glycemic control, Dialysis consistent diet Further work up/management as per primary team Dose meds/antibiotics (if needed) for ESRD status. Avoid fleets enema/magnesium based laxatives. pt was educated about risks of missing HD. SW consult for outpt HD placement vascular surgery consult for AVF placement appreciated, planned for thursday pt stable for d/c from renal perspective once arranged for outpt HD. Thanks for allowing me to participate in care of your patient. Will follow patient with you. Please call if any Qs. had d/w team Dr Jose Pendleton Office: [phone] Chief Complaint;feels better HPI: Pt is a 53 M with hx of ESRD recently started on hemodialysis via permacathbut pt non compliant with HD, hadn't received HD since left from hospit al AMA , chronic anemia, hyperphosphatemia, secondary hyperparathyroidism, Diabetes Mellitus (30 years), hypertension presented with complaints of worsening SOB on exertion and HTN emergency Renal consult requested for ESRD management. pt feels sick ROS: Cardiovascular: No chest pain. Pulmonary: improved shortness of breath Gastrointestinal: denies abdominal pain No nausea. No vomiting. Genitourinary: No pain while urinating. Denies blood in urine. All other negative except as mentioned in HPI Physical Examination: General Appearance: Comfortable, in no acute respiratory distress, co-operative . obese Vitals reviewed and noted as below Head; Atraumatic, normocephalic ENT: no ulcers no thrush. Tongue is midline. Oropharynx: no rash or ulcers. EYES: Pupils are equal, round and reactive to light accommodation. Eye muscles and extraocular movement intact. Sclera is anicteric. Neck; supple no lymphadenopathy, no thyromegaly or bruit Lungs: Normal respiratory rate/effort. Breath sounds bilateral reduced at bases clearer Heart: Normal rate. s1s2 normal. No rub or gallop. Extremities: no edema. No varicose veins Neurological: Patient is alert, awake and oriented to person, place and time. No focal deficit. Strength bilateral appropriate and equal Skin: Warm and dry. Normal turgor. No rash. Palpitation: Normal elasticity for age Abdomen: Abdomen is soft. Bowel sounds +. There is no abdominal tenderness, no guarding/rigidity or organomegaly Psych: improved insight and normal affect/mood MSK: no joint tenderness or swelling. Digits and nails normal, no deformity : kidney or bladder not palpable Access: permacath Labs/imaging reviewed. Past medical history, past surgical history, family history, social history, allergy reviewed and noted as below Family Hx: no hx of CKD. Non contributory Objective - Vital Signs/Intake and Output Vital Signs (last 24 hours): Temp Pulse Resp BP Pulse Ox 99 F 84 20 132/65 97 08/01/18 06:00 08/01/18 09:12 08/01/18 06:00 08/01/18 09:12 08/01/18 06:00 Intake and Output: 08/01/18 08/01/18 06:59 18:59 Output Total 400 Balance -400 - Medications Medications: Current Medications Amlodipine Besylate (Norvasc) 10 mg PO DAILY [facility] Last Admin: 08/01/18 09:11 Dose: 10 mg Atorvastatin Calcium (Lipitor) 40 mg PO HS [facility] Last Admin: 07/31/18 21:23 Dose: 40 mg Calcium Acetate (Phoslo) 1,334 mg PO WM [facility] Last Admin: 08/01/18 12:15 Dose: 1,334 mg Darbepoetin Todd (Aranesp) 100 mcg IVP QWK [facility] Last Admin: 07/30/18 09:39 Dose: 100 mcg Dextrose (Dextrose 50% Inj) 0 ml IV STAT PRN; Protocol PRN Reason: Hypoglycemia Protocol Ergocalciferol (Drisdol 50,000 Intl Units Cap) 1 cap PO Q7D [facility] Last Admin: 07/29/18 11:41 Dose: 1 cap Furosemide (Lasix) 80 mg PO MWF [facility] Heparin Sodium (Porcine) (Heparin) 2,000 units IVP TTS [facility]; Protocol Dextrose (Dextrose 5% In Water 1000 Ml) 1,000 mls @ 0 mls/hr IV .Q0M PRN; Protocol PRN Reason: Hypoglycemia Protocol Iron Sucrose 100 mg/ Sodium (Chloride) 105 mls @ 210 mls/hr IVPB DAILY [facility] Stop: 08/08/18 11:16 Last Admin: 08/01/18 10:43 Dose: 210 mls/hr Insulin Human Lispro (Humalog Low) 0 units SC ACHS [facility]; Protocol Last Admin: 08/01/18 12:13 Dose: Not Given Labetalol HCl (Trandate) 200 mg PO BID [facility] Last Admin: 08/01/18 09:12 Dose: 200 mg Losartan Potassium (Cozaar) 50 mg PO QPM [facility] Pantoprazole Sodium (Protonix Ec Tab) 40 mg PO ACB [facility] Last Admin: 08/01/18 09:12 Dose: 40 mg Vitamin B Complex/Vit C/Folic Acid (Nephro-Lulu) 1 tab PO 0800 [facility] Last Admin: 08/01/18 09:11 Dose: 1 tab - Labs Labs: 08/01/18 07:00 08/01/18 07:00 PT 12.5 SECONDS (9.4-12.5) 07/28/18 20:30 INR 1.09 07/28/18 20:30 APTT 30.8 Seconds (25.1-36.5) 07/28/18 20:30
[2018-08-02 06:59] LABS: BASO # 0.02 K/mm3 (0.0-2.0); BASO % 0.2 % (0.0-3.0); EOS # 0.5 (0.0-0.7); EOS % 4.9 % (1.5-5.0); GRAN # 7.9 (1.4-6.5); GRAN % 71.1 % (50.0-68.0); LYMPH # 1.8 (1.2-3.4); LYMPH % 16.1 % (22.0-35.0); MEAN CELL VOLUME 84.2 fl (80.0-105.0); MEAN CORPUSCULAR HGB CONC 34.5 g/dl (31.0-37.0); MEAN PLATELET VOLUME 9.9 fl (7.0-11.0); MONO # 0.9 (0.1-0.6); MONO % 7.7 % (1.0-6.0); RBC 2.41 10^6/uL (3.5-6.1); RED CELL DISTRIBUTION WIDTH 12.7 % (11.5-14.5); WHITE BLOOD COUNT 11.1 10^3/uL (4.5-11.0)
[2018-08-02 07:11] LABS: INR 1.04; PARTIAL THROMBOPLASTIN TIME 27.2 Seconds (25.1-36.5)
[2018-08-02 07:38] LABS: ALB/GLOB RATIO 0.9 (1.1-1.8); CALCIUM 7.5 mg/dL (8.4-10.5)
--- NOTE | 2018-08-02 07:54 | CP.PCM.PN ---
<Kehinde James - Last Filed: 08/02/18 07:52> Subjective - Date & Time of Evaluation Date of Evaluation: 08/02/18 Time of Evaluation: 07:52 - Subjective Subjective: Surgery: Dr. Wagner Pt seen and examined. No acute events overnight. Pt resting comfortably in bed. Objective - Vital Signs/Intake and Output Vital Signs (last 24 hours): Temp Pulse Resp BP Pulse Ox 98.6 F 82 18 138/70 97 08/01/18 23:18 08/01/18 23:18 08/01/18 23:18 08/01/18 23:18 08/01/18 23:18 - Medications Medications: Current Medications Amlodipine Besylate (Norvasc) 10 mg PO DAILY [facility] Last Admin: 08/01/18 09:11 Dose: 10 mg Atorvastatin Calcium (Lipitor) 40 mg PO HS [facility] Last Admin: 08/01/18 21:50 Dose: 40 mg Calcium Acetate (Phoslo) 1,334 mg PO WM [facility] Last Admin: 08/01/18 17:36 Dose: 1,334 mg Darbepoetin Todd (Aranesp) 100 mcg IVP QWK [facility] Last Admin: 07/30/18 09:39 Dose: 100 mcg Dextrose (Dextrose 50% Inj) 0 ml IV STAT PRN; Protocol PRN Reason: Hypoglycemia Protocol Ergocalciferol (Drisdol 50,000 Intl Units Cap) 1 cap PO Q7D [facility] Last Admin: 07/29/18 11:41 Dose: 1 cap Furosemide (Lasix) 80 mg PO MWF [facility] Heparin Sodium (Porcine) (Heparin) 2,000 units IVP TTS [facility]; Protocol Dextrose (Dextrose 5% In Water 1000 Ml) 1,000 mls @ 0 mls/hr IV .Q0M PRN; Protocol PRN Reason: Hypoglycemia Protocol Iron Sucrose 100 mg/ Sodium (Chloride) 105 mls @ 210 mls/hr IVPB DAILY [facility] Stop: 08/08/18 11:16 Last Admin: 08/01/18 10:43 Dose: 210 mls/hr Insulin Human Lispro (Humalog Low) 0 units SC ACHS [facility]; Protocol Last Admin: 08/01/18 21:49 Dose: Not Given Labetalol HCl (Trandate) 200 mg PO BID [facility] Last Admin: 08/01/18 17:36 Dose: 200 mg Losartan Potassium (Cozaar) 50 mg PO QPM [facility] Last Admin: 08/01/18 17:36 Dose: 50 mg Pantoprazole Sodium (Protonix Ec Tab) 40 mg PO ACB [facility] Last Admin: 08/01/18 09:12 Dose: 40 mg Vitamin B Complex/Vit C/Folic Acid (Nephro-Lulu) 1 tab PO 0800 [facility] Last Admin: 08/01/18 09:11 Dose: 1 tab - Labs Labs: 08/02/18 06:35 08/02/18 06:35 PT 12.0 SECONDS (9.4-12.5) 08/02/18 06:35 INR 1.04 08/02/18 06:35 APTT 27.2 Seconds (25.1-36.5) 08/02/18 06:35 - Constitutional Appears: Non-toxic, No Acute Distress - Head Exam Head Exam: ATRAUMATIC, NORMOCEPHALIC - Eye Exam Eye Exam: EOMI - ENT Exam ENT Exam: Mucous Membranes Moist - Neck Exam Neck Exam: Full ROM - Respiratory Exam Respiratory Exam: NORMAL BREATHING PATTERN. absent: Accessory Muscle Use, Respiratory Distress - GI/Abdominal Exam GI & Abdominal Exam: Soft. absent: Tenderness - Extremities Exam Extremities Exam: absent: Calf Tenderness, Pedal Edema - Neurological Exam Neurological Exam: Alert, Awake, Oriented x3 Assessment and Plan - Assessment and Plan (Free Text) Assessment: 53M w. ESRD needing AVF placement Plan: -OR postponed until tomrrow 08/03 -Diet today -NPO at [facility] -d/w attending Erika PGY4 <Michele Wagner - Last Filed: 08/08/18 12:02> Objective - Vital Signs/Intake and Output Vital Signs (last 24 hours): Temp Pulse Resp BP Pulse Ox 98.9 F 86 18 145/73 99 08/04/18 14:00 08/04/18 17:34 08/04/18 14:00 08/04/18 17:34 08/04/18 14:00 - Labs Labs: 08/04/18 08:04 08/04/18 08:04 PT 12.0 SECONDS (9.4-12.5) 08/02/18 06:35 INR 1.04 08/02/18 06:35 APTT 27.2 Seconds (25.1-36.5) 08/02/18 06:35 Assessment and Plan - Assessment and Plan (Free Text) Plan: Patient was seen, examined and evaluated by me. I agree with resident's assessment and plan.
--- NOTE | 2018-08-02 08:25 | CON ---
DATE: 08/01/2018 LOCATION: The patient is in room 567, bed 2. This consult is done on behalf of Dr. Nicole whom we are covering. The patient with known case of renal failure, on dialysis; diabetes mellitus; hypertension; chronic anemia; former smoker; was admitted with shortness of breath and had received an extra dialysis and he feels better. He also developed some swelling of legs and now he is lying flat in bed and feeling better. Consult has been requested for cardiac risk stratification for AV fistula formation. The patient clinically denies any chest pain, palpitation, or shortness of breath. The patient had an echocardiogram on 06/18/2018, which showed dilated left atrium, normal LV size, and normal LV systolic function with LV ejection fraction of 52%. The patient had [id number] mitral regurgitation and RVSP was 52 mmHg, mild tricuspid regurgitation. Detailed consult has been written by Soumya Pinto. The patient's EKG showed normal sinus rhythm. Chest x-ray is clear showing the dialysis catheter. Our impression is that clinically cardiac status is stable and the echocardiogram showed LV ejection fraction of 52%, so from cardiac point of view the patient can go for AV fistula formation as moderate risk and Dr. Nicole will follow with the patient starting tomorrow. Talya Schwarz MD
[2018-08-02] MEDS: Pantoprazole 40 mg EC Tab PO SCH (09:19)
[2018-08-02] MEDS: Multivitamin Vitamin B Complex (Nephro-Vite) Tab PO SCH (09:21)
[2018-08-02] MEDS ORDERED: POLYETHYLENE GLYCOL 3350 17 GM/Dose PACKET PO SCH (10:00)
[2018-08-02] MEDS: Insulin Lispro (humaLOG) LOW Coverage SC SCH ×2 (12:07→12:08)
--- NOTE | 2018-08-02 13:49 | CP.PCM.PN ---
<Rachid Bruce - Last Filed: 08/02/18 14:11> Subjective - Date & Time of Evaluation Date of Evaluation: 08/02/18 Time of Evaluation: 07:00 - Subjective Subjective: Seen and examined this morning at bedside. Pt denies chest pain, SOB. Objective - Vital Signs/Intake and Output Vital Signs (last 24 hours): Temp Pulse Resp BP Pulse Ox 99.2 F 84 20 152/71 H 99 08/02/18 06:00 08/02/18 09:19 08/02/18 06:00 08/02/18 09:22 08/02/18 06:00 - Medications Medications: Current Medications Amlodipine Besylate (Norvasc) 10 mg PO DAILY [facility] Last Admin: 08/02/18 09:22 Dose: 10 mg Atorvastatin Calcium (Lipitor) 40 mg PO HS [facility] Last Admin: 08/01/18 21:50 Dose: 40 mg Calcium Acetate (Phoslo) 1,334 mg PO WM [facility] Last Admin: 08/02/18 12:22 Dose: 1,334 mg Darbepoetin Todd (Aranesp) 100 mcg IVP QWK [facility] Last Admin: 07/30/18 09:39 Dose: 100 mcg Dextrose (Dextrose 50% Inj) 0 ml IV STAT PRN; Protocol PRN Reason: Hypoglycemia Protocol Ergocalciferol (Drisdol 50,000 Intl Units Cap) 1 cap PO Q7D [facility] Last Admin: 07/29/18 11:41 Dose: 1 cap Furosemide (Lasix) 80 mg PO MWF [facility] Last Admin: 08/02/18 09:20 Dose: 80 mg Heparin Sodium (Porcine) (Heparin) 2,000 units IVP TTS [facility]; Protocol Dextrose (Dextrose 5% In Water 1000 Ml) 1,000 mls @ 0 mls/hr IV .Q0M PRN; Protocol PRN Reason: Hypoglycemia Protocol Iron Sucrose 100 mg/ Sodium (Chloride) 105 mls @ 210 mls/hr IVPB DAILY [facility] Stop: 08/08/18 11:16 Last Admin: 08/02/18 10:33 Dose: 210 mls/hr Insulin Human Lispro (Humalog Low) 0 units SC ACHS [facility]; Protocol Last Admin: 08/02/18 12:08 Dose: Not Given Labetalol HCl (Trandate) 200 mg PO BID [facility] Last Admin: 08/02/18 09:19 Dose: 200 mg Losartan Potassium (Cozaar) 50 mg PO QPM [facility] Last Admin: 08/01/18 17:36 Dose: 50 mg Pantoprazole Sodium (Protonix Ec Tab) 40 mg PO ACB [facility] Last Admin: 08/02/18 09:19 Dose: 40 mg Senna/Docusate Sodium (Senokot S 50 Mg-8.6 Mg) 2 tab PO HS [facility] Vitamin B Complex/Vit C/Folic Acid (Nephro-Lulu) 1 tab PO 0800 [facility] Last Admin: 08/02/18 09:21 Dose: 1 tab - Labs Labs: 08/02/18 06:35 08/02/18 06:35 PT 12.0 SECONDS (9.4-12.5) 08/02/18 06:35 INR 1.04 08/02/18 06:35 APTT 27.2 Seconds (25.1-36.5) 08/02/18 06:35 - Constitutional Appears: No Acute Distress - Head Exam Head Exam: ATRAUMATIC, NORMOCEPHALIC - Eye Exam Eye Exam: EOMI - ENT Exam ENT Exam: Mucous Membranes Moist - Neck Exam Neck Exam: Full ROM - Respiratory Exam Respiratory Exam: Clear to Ausculation Bilateral, NORMAL BREATHING PATTERN. absent: Accessory Muscle Use, Respiratory Distress - Cardiovascular Exam Cardiovascular Exam: RRR, +S1, +S2. absent: Diastolic murmur, Murmur - GI/Abdominal Exam GI & Abdominal Exam: Soft, Normal Bowel Sounds - Extremities Exam Extremities Exam: Full ROM. absent: Calf Tenderness, Pedal Edema - Neurological Exam Neurological Exam: Alert, Awake, Oriented x3 - Psychiatric Exam Psychiatric exam: Normal Affect, Normal Mood - Skin Skin Exam: Dry, Intact, Warm Assessment and Plan - Assessment and Plan (Free Text) Assessment: Pt is a 53yo male with a PMH of HTN, DM2, hepatic hemangioma, CKD on HD originally scheduled for / / Thu with poor compliance who presents to [facility] complaining of fatigue, SOB, productive cough who was found to be volume overloaded. Pt stabilized in ICU, received HD, and transferred to med/surg. Pt undergoes HD while in the hospital, out pt is in the process of being arranged. Plan: CKD Stage V requiring HD, history of noncompliance - Pt tolerating dialysis well Judi Rollins, Sat - Cr 9.5 - BUN 53 - Renal Diet - Etiology was failure for outpatient hemodialysis due to non-compliance - Outpatient HD in process of being set up - fistula surgery postponed until tomorrow due to scheduling conflict - Nephrology consulted, rec giving the unit of pRBC today and having the pt undergo dialysis tomorrow Anemia - Likely etiology is chronic disease process - Continue IV Fe and Epogen - Hgb 7.0 - transfuse 1 unit pRBC, surgery would like pt to receive 1 unit of blood before fistula surgery tomorrow - FOBT, follow up History of HTN - Continue labetalol, Norvasc, cozaar - Repeat echo in one month DM2 - ISS - ACHS HLD - lipitor Constipation - colace 100 BID Ppx - Protonix - Heparin Pt seen, examined, assessment and plan discussed with Dr Yessica Bruce PGY1, Internal Medicine Resident <Yessica Mckeon R - Last Filed: 08/03/18 08:44> Objective - Vital Signs/Intake and Output Vital Signs (last 24 hours): Temp Pulse Resp BP Pulse Ox 98.3 F 78 18 171/78 H 98 08/03/18 07:24 08/03/18 07:24 08/03/18 07:24 08/03/18 07:24 08/03/18 07:24 Intake and Output: 08/03/18 08/03/18 06:59 18:59 Intake Total 240 Balance 240 - Medications Medications: Current Medications Amlodipine Besylate (Norvasc) 10 mg PO DAILY [facility] Last Admin: 08/02/18 09:22 Dose: 10 mg Atorvastatin Calcium (Lipitor) 40 mg PO HS [facility] Last Admin: 08/02/18 21:15 Dose: 40 mg Calcium Acetate (Phoslo) 1,334 mg PO WM [facility] Last Admin: 08/02/18 17:26 Dose: 1,334 mg Darbepoetin Todd (Aranesp) 100 mcg IVP QWK [facility] Last Admin: 07/30/18 09:39 Dose: 100 mcg Dextrose (Dextrose 50% Inj) 0 ml IV STAT PRN; Protocol PRN Reason: Hypoglycemia Protocol Ergocalciferol (Drisdol 50,000 Intl Units Cap) 1 cap PO Q7D [facility] Last Admin: 07/29/18 11:41 Dose: 1 cap Furosemide (Lasix) 80 mg PO MWF [facility] Last Admin: 08/02/18 09:20 Dose: 80 mg Heparin Sodium (Porcine) (Heparin) 2,000 units IVP TTS [facility]; Protocol Dextrose (Dextrose 5% In Water 1000 Ml) 1,000 mls @ 0 mls/hr IV .Q0M PRN; Pro tocol PRN Reason: Hypoglycemia Protocol Iron Sucrose 100 mg/ Sodium (Chloride) 105 mls @ 210 mls/hr IVPB DAILY [facility] Stop: 08/08/18 11:16 Last Admin: 08/02/18 10:33 Dose: 210 mls/hr Insulin Human Lispro (Humalog Low) 0 units SC ACHS [facility]; Protocol Last Admin: 08/03/18 06:34 Dose: Not Given Labetalol HCl (Trandate) 200 mg PO BID [facility] Last Admin: 08/02/18 17:25 Dose: 200 mg Losartan Potassium (Cozaar) 50 mg PO QPM [facility] Last Admin: 08/02/18 17:25 Dose: 50 mg Pantoprazole Sodium (Protonix Ec Tab) 40 mg PO ACB [facility] Last Admin: 08/02/18 09:19 Dose: 40 mg Senna/Docusate Sodium (Senokot S 50 Mg-8.6 Mg) 2 tab PO HS [facility] Last Admin: 08/02/18 21:15 Dose: 2 tab Vitamin B Complex/Vit C/Folic Acid (Nephro-Lulu) 1 tab PO 0800 [facility] Last Admin: 08/02/18 09:21 Dose: 1 tab - Labs Labs: 08/03/18 06:50 08/03/18 06:50 PT 12.0 SECONDS (9.4-12.5) 08/02/18 06:35 INR 1.04 08/02/18 06:35 APTT 27.2 Seconds (25.1-36.5) 08/02/18 06:35 Attending/Attestation - Attestation I have personally seen and examined this patient.: Yes I have fully participated in the care of the patient.: Yes I have reviewed all pertinent clinical information, including history, physical exam and plan: Yes Notes (Text): Patient seen and examined by me with resident at 9:50AM on 08/02/18. Case including HPI, physical exam, and assessment and plan discussed with resident. Agree with above with following additions/corrections. Patient is a 53 year old male with past medical history significant for DM2, hypertension, ESRD on HD T//Thu with noncompliance, renal mass, and hepatic hemangioma that presented to the emergency room with shortness of breath and cough that started one month ago. Patient states that he is feeling ok. States he has not had a bowel movement since 07/29/18. Patient has been ambulating. Patient denies shortness of breath. No chest pain or palpitations. No headaches or dizziness. No fevers or chills. No nausea, vomiting, or abdominal pain. No dysuria. No diarrhea or constipation. Physical exam: General: Awake and alert sitting up in bed in no acute distress HEENT: Normocephalic, atraumatic. Extraocular muscles intact, pupils equal and reactive, no scleral icterus. Oropharynx is pink and moist. No pharyngeal erythema or exudate appreciated. Neck is supple. Cardiovascular: Regular rhythm. Normal S1 and S2. No murmurs, rubs, or gallops appreciated Pulmonary: Normal respiratory effort. No rhonchi, rales, or wheezing appreciated. Gastrointestinal: Soft, nondistended. Nontender. Positive bowel sounds all 4 quadrants. No guarding. Musculoskeletal: Moves all extremities. No calf tenderness. No edema appr eciated. Central nervous system: AAOx3, CN 2-12 grossly intact. Dermatologic: Skin warm and dry. Assessment and plan: Patient is a 53 year old male with past medical history significant for DM2, hypertension, ESRD on HD T//Thu with noncompliance, renal mass, and hepatic hemangioma that presented to the emergency room with shortness of breath and cough that started one month ago. 1. Shortness of breath and lower extremity edema secondary to fluid overload secondary to noncompliance with dialysis. BUN/Cr downtrending. [employer] Rotator following, recommendations appreciated. Continue dialysis per school standards coach. Continue Lasix. Continue Nephrovite and phoslo. Patient for AV fistula tomorrow. 2. Hyperkalemia. Resolved. Continue to monitor. 3. Anemia likely secondary to chronic disease. Continue Iron infusions. Continue Aranesp weekly. Patient to be transfused 1 unit PRBC today as discussed with Dr. Pendleton (nephrology) for procedure tomorrow. Pending stool OB. 4. Hypertension. Continue Norvasc, Lasix, Labetalol, and Cozaar 5. DM2. Continue insulin sliding scale. Continue to monitor accuchecks. 6. Hyperlipidemia. Continue Lipitor. 7. Constipation. Started on Senna at bedtime. 7. GI prophylaxis. Protonix 8. Paitent is a full code. Case was discussed in detail with the patient regarding current diagnosis and treatment plan. All questions answered. Case also discussed with school standards coach Dr. Pendleton.
--- NOTE | 2018-08-02 15:05 | CP.PCM.PN ---
Subjective - Date & Time of Evaluation Date of Evaluation: 08/02/18 Time of Evaluation: 15:04 - Subjective Subjective: Nephrology Consultation Note: Assessment: stable Uremia, missed HD/non-compliance, hyperkalemia, fluid overload, HTN emergency Diabetic chronic Kidney Disease (E11.22) Hypertensive Chronic Kidney Disease (I12.0) End stage renal disease (N18.6) dependence on hemodialysis (Z99.2) via PC Anemia (D64.9), Hyperphosphatemia (E83.39), Secondary Hyperparathyroidism (E21.1), HTN (I12.0) Plan: Will plan for dialysis TTS schedule. Continue with Nephrovite 1 tab/day. PRBC as needed for anemia. on LESLY weekly with dialysis as last Hb 7.0 TSAT 24% Ferritin 94, added 1 gram IV iron loading dose Continue with phos binders, last phos level 8.4, repeat discontinue with calcitriol. last PTH 266 @ goal. added weekly Vit D as last level <12.8 BP control with meds as ordered. Patient on losartan. resume norvasc and labetalol. lasix on non HD days Glycemic control, Dialysis consistent diet Further work up/management as per primary team Dose meds/antibiotics (if needed) for ESRD status. Avoid fleets enema/magnesium based laxatives. pt was educated about risks of missing HD. SW consult for outpt HD placement vascular surgery consult for AVF placement appreciated, planned for thursday pt stable for d/c from renal perspective once arranged for outpt HD. Thanks for allowing me to participate in care of your patient. Will follow patient with you. Please call if any Qs. had d/w team Dr Jose Pendleton Office: [phone] Chief Complaint;feels better HPI: Pt is a 53 M with hx of ESRD recently started on hemodialysis via permacathbut pt non compliant with HD, hadn't received HD since left from [facility] A[facility] , chronic anemia, hyperphosphatemia, secondary hyperparathyroidism, Diabetes Mellitus (30 years), hypertension presented with complaints of worsening SOB on exertion and HTN emergency Renal consult requested for ESRD management. pt feels sick ROS: Cardiovascular: No chest pain. Pulmonary: improved shortness of breath Gastrointestinal: denies abdominal pain No nausea. No vomiting. Genitourinary: No pain while urinating. Denies blood in urine. All other negative except as mentioned in HPI Physical Examination: General Appearance: Comfortable, in no acute respiratory distress, co-operative . obese Vitals reviewed and noted as below Head; Atraumatic, normocephalic ENT: no ulcers no thrush. Tongue is midline. Oropharynx: no rash or ulcers. EYES: Pupils are equal, round and reactive to light accommodation. Eye muscles and extraocular movement intact. Sclera is anicteric. Neck; supple no lymphadenopathy, no thyromegaly or bruit Lungs: Normal respiratory rate/effort. Breath sounds bilateral reduced at bases clearer Heart: Normal rate. s1s2 normal. No rub or gallop. Extremities: no edema. No varicose veins Neurological: Patient is alert, awake and oriented to person, place and time. No focal deficit. Strength bilateral appropriate and equal Skin: Warm and dry. Normal turgor. No rash. Palpitation: Normal elasticity for age Abdomen: Abdomen is soft. Bowel sounds +. There is no abdominal tenderness, no guarding/rigidity or organomegaly Psych: improved insight and normal affect/mood MSK: no joint tenderness or swelling. Digits and nails normal, no deformity : kidney or bladder not palpable Access: permacath Labs/imaging reviewed. Past medical history, past surgical history, family history, social history, allergy reviewed and noted as below Family Hx: no hx of CKD. Non contributory Objective - Vital Signs/Intake and Output Vital Signs (last 24 hours): Temp Pulse Resp BP Pulse Ox 99.2 F 84 20 152/71 H 99 08/02/18 06:00 08/02/18 09:19 08/02/18 06:00 08/02/18 09:22 08/02/18 06:00 - Medications Medications: Current Medications Amlodipine Besylate (Norvasc) 10 mg PO DAILY [facility] Last Admin: 08/02/18 09:22 Dose: 10 mg Atorvastatin Calcium (Lipitor) 40 mg PO HS [facility] Last Admin: 08/01/18 21:50 Dose: 40 mg Calcium Acetate (Phoslo) 1,334 mg PO WM [facility] Last Admin: 08/02/18 12:22 Dose: 1,334 mg Darbepoetin Todd (Aranesp) 100 mcg IVP QWK [facility] Last Admin: 07/30/18 09:39 Dose: 100 mcg Dextrose (Dextrose 50% Inj) 0 ml IV STAT PRN; Protocol PRN Reason: Hypoglycemia Protocol Ergocalciferol (Drisdol 50,000 Intl Units Cap) 1 cap PO Q7D [facility] Last Admin: 07/29/18 11:41 Dose: 1 cap Furosemide (Lasix) 80 mg PO MWF [facility] Last Admin: 08/02/18 09:20 Dose: 80 mg Heparin Sodium (Porcine) (Heparin) 2,000 units IVP TTS [facility]; Protocol Dextrose (Dextrose 5% In Water 1000 Ml) 1,000 mls @ 0 mls/hr IV .Q0M PRN; Protocol PRN Reason: Hypoglycemia Protocol Iron Sucrose 100 mg/ Sodium (Chloride) 105 mls @ 210 mls/hr IVPB DAILY [facility] Stop: 08/08/18 11:16 Last Admin: 08/02/18 10:33 Dose: 210 mls/hr Insulin Human Lispro (Humalog Low) 0 units SC ACHS [facility]; Protocol Last Admin: 08/02/18 12:08 Dose: Not Given Labetalol HCl (Trandate) 200 mg PO BID [facility] Last Admin: 08/02/18 09:19 Dose: 200 mg Losartan Potassium (Cozaar) 50 mg PO QPM [facility] Last Admin: 08/01/18 17:36 Dose: 50 mg Pantoprazole Sodium (Protonix Ec Tab) 40 mg PO ACB [facility] Last Admin: 08/02/18 09:19 Dose: 40 mg Senna/Docusate Sodium (Senokot S 50 Mg-8.6 Mg) 2 tab PO HS [facility] Vitamin B Complex/Vit C/Folic Acid (Nephro-Lulu) 1 tab PO 0800 [facility] Last Admin: 08/02/18 09:21 Dose: 1 tab - Labs Labs: 08/02/18 06:35 08/02/18 06:35 PT 12.0 SECONDS (9.4-12.5) 08/02/18 06:35 INR 1.04 08/02/18 06:35 APTT 27.2 Seconds (25.1-36.5) 08/02/18 06:35
--- NOTE | 2018-08-02 16:09 | PN ---
DATE: 08/02/2018 SUBJECTIVE: The patient denies any chest pain. PHYSICAL EXAMINATION: VITAL SIGNS: Blood pressure 150/71, heart rate 84, temperature 99.2, respiration 20. HEENT: Normocephalic. CHEST: Clear. HEART: S1 and S2, regular. EXTREMITIES: No edema. LABORATORY DATA: Chest x-ray revealed bilateral mid and lower lung zone haziness. Today's BUN and creatinine 53 and 9.5 respectively. Glucose is 115. Today's hemoglobin and hematocrit 7 and 20.3. EKG revealed normal sinus rhythm at rate of 92. Echocardiograph study in May of last year revealed [id number] concentric LVH, moderate to severe mild MR and normal ejection fraction. ASSESSMENT: 1. Status post volume overload. 2. End-stage renal disease on hemodialysis. 3. Anemia. RECOMMENDATIONS: Continue Cozaar 50 mg once a day, Lasix at 80 mg p.o. Thursday, Thursday and Thursday, Norvasc 10 mg once a day, labetalol 500 mg once a day. The patient will undergo hemodialysis tomorrow and the case is in the process for scheduling the patient for outpatient dialysis center as this has not been happening since the patient was placed on dialysis one month ago and the reason for that because the patient lost his [place] Medicaid coverage possibly because of relocating. Franklin Nicole MD
[2018-08-02] MEDS: Docusate-Senna 50 mg-8.6 mg Tab PO SCH (21:15)
[2018-08-03] MEDS: Insulin Lispro (humaLOG) LOW Coverage SC SCH ×6 (06:33→22:25)
[2018-08-03 07:06] LABS: BASO # 0.04 K/mm3 (0.0-2.0); BASO % 0.4 % (0.0-3.0); EOS # 0.6 (0.0-0.7); EOS % 5.1 % (1.5-5.0); GRAN # 8.06 (1.4-6.5); GRAN % 70.7 % (50.0-68.0); HEMOGLOBIN 8.5 g/dL (14.0-18.0); LYMPH % 17.7 % (22.0-35.0); MEAN CELL VOLUME 83.2 fl (80.0-105.0); MEAN CORPUSCULAR HEMOGLOBIN 29.1 pg (25.0-35.0); MEAN PLATELET VOLUME 10.5 fl (7.0-11.0); MONO # 0.7 (0.1-0.6); MONO % 6.1 % (1.0-6.0); RBC 2.92 10^6/uL (3.5-6.1); RED CELL DISTRIBUTION WIDTH 13.1 % (11.5-14.5); WHITE BLOOD COUNT 11.4 10^3/uL (4.5-11.0)
[2018-08-03] MEDS ORDERED: Liquid Adhesive TOP ONE (07:26)
[2018-08-03] MEDS ORDERED: Absorbable Gelatin Sponge Size 12-7 ONE (07:26)
[2018-08-03] MEDS ORDERED: Bupivacaine 0.5% 50 ML IJ ONE (07:26)
[2018-08-03] MEDS ORDERED: Thrombin Topical 20,000 Intl Units Spray Kit TOP ONE (07:27)
[2018-08-03] MEDS ORDERED: Lidocaine 1% Inj (20ml) ONE ×2 (07:27→07:40)
[2018-08-03] MEDS ORDERED: Propofol 10 mg/ml Inj (20 ML) ONE (07:38)
[2018-08-03] MEDS ORDERED: Midazolam 2 MG/2 ML VIAL ONE (07:39)
[2018-08-03 08:01] LABS: ALBUMIN 3.3 g/dL (3.0-4.8); CALCIUM 7.7 mg/dL (8.4-10.5)
[2018-08-03] MEDS ORDERED: CeFAZolin 1 gm in NS 100ml IVPB ONE (08:05)
[2018-08-03] MEDS ORDERED: Bupivacaine 0.5% Inj(30mL) IJ ONE (08:30)
[2018-08-03] MEDS: Pantoprazole 40 mg EC Tab PO SCH (08:43)
--- NOTE | 2018-08-03 10:15 | PCM.SURG1 ---
Surgeon's Initial Post Op Note - Surgeon's Notes Surgeon: [employer]: Ivone Mckinney, Type of Anesthesia: General LMA, Local Pre-Operative Diagnosis: End Stage Renal Disease needing Dialysis Operative Findings: Good cephalic vein and radial artery Post-Operative Diagnosis: Same Operation Performed: Left side radiocephalic Arteriovenous Fistula Specimen/Specimens Removed: None Estimated Blood Loss: EBL {In ML}: 5 Date of Surgery/Procedure: 08/03/18 Time of Surgery/Procedure: 08:30
[2018-08-03] MEDS ORDERED: Oxycodone/Acetaminophen 5/325 mg Tab PO PRN (10:16)
[2018-08-03] MEDS ORDERED: HYDROmorphone 0.5 mg/0.5 ml ISec IVP PRN (10:19)
[2018-08-03] MEDS: Multivitamin Vitamin B Complex (Nephro-Vite) Tab PO SCH (10:41)
--- NOTE | 2018-08-03 12:44 | CP.PCM.PN ---
Subjective - Date & Time of Evaluation Date of Evaluation: 08/03/18 Time of Evaluation: 12:42 - Subjective Subjective: Nephrology Consultation Note: Assessment: stable Uremia, missed HD/non-compliance, hyperkalemia, fluid overload, HTN emergency Diabetic chronic Kidney Disease (E11.22) Hypertensive Chronic Kidney Disease (I12.0) End stage renal disease (N18.6) dependence on hemodialysis (Z99.2) via PC Anemia (D64.9), Hyperphosphatemia (E83.39), Secondary Hyperparathyroidism (E21.1), HTN (I12.0) Plan: Will plan for dialysis TTS schedule. Continue with Nephrovite 1 tab/day. PRBC as needed for anemia. on LESLY weekly with dialysis as last Hb 8.40 TSAT 24% Ferritin 94, added 1 gram IV iron loading dose Continue with phos binders, last phos level 6.4 discontinue with calcitriol. last PTH 266 @ goal. added weekly Vit D as last level <12.8 BP control with meds as ordered. Patient on losartan. resume norvasc and labetalol. lasix on non HD days Glycemic control, Dialysis consistent diet Further work up/management as per primary team Dose meds/antibiotics (if needed) for ESRD status. Avoid fleets enema/magnesium based laxatives. pt was educated about risks of missing HD. SW consult for outpt HD placement vascular surgery consult for AVF placement appreciated, done 08/03/18 pt stable for d/c from renal perspective once arranged for outpt HD. Thanks for allowing me to participate in care of your patient. Will follow patient with you. Please call if any Qs. had d/w team Dr Jose Pendleton Office: [phone] Chief Complaint;feels better HPI: Pt is a 53 M with hx of ESRD recently started on hemodialysis via permacathbut pt non compliant with HD, hadn't received HD since left from hospital AMA , chronic anemia, hyperphosphatemia, secondary hyperparathyroidism, Diabetes Mellitus (30 years), hypertension presented with complaints of worsening SOB on exertion and HTN emergency Renal consult requested for ESRD management. pt feels sick ROS: Cardiovascular: No chest pain. Pulmonary: improved shortness of breath Gastrointestinal: denies abdominal pain No nausea. No vomiting. Genitourinary: No pain while urinating. Denies blood in urine. All other negative except as mentioned in HPI Physical Examination: seen on HD General Appearance: Comfortable, in no acute respiratory distress, co-operative . obese Vitals reviewed and noted as below Head; Atraumatic, normocephalic ENT: no ulcers no thrush. Tongue is midline. Oropharynx: no rash or ulcers. EYES: Pupils are equal, round and reactive to light accommodation. Eye muscles and extraocular movement intact. Sclera is anicteric. Neck; supple no lymphadenopathy, no thyromegaly or bruit Lungs: Normal respiratory rate/effort. Breath sounds bilateral reduced at bases clearer Heart: Normal rate. s1s2 normal. No rub or gallop. Extremities: no edema. No varicose veins Neurological: Patient is alert, awake and oriented to person, place and time. No focal deficit. Strength bilateral appropriate and equal Skin: Warm and dry. Normal turgor. No rash. Palpitation: Normal elasticity for age Abdomen: Abdomen is soft. Bowel sounds +. There is no abdominal tenderness, no guarding/rigidity or organomegaly Psych: improved insight and normal affect/mood MSK: no joint tenderness or swelling. Digits and nails normal, no deformity : kidney or bladder not palpable Access: permacath. left wrist AVF with thrill and burit + Labs/imaging reviewed. Past medical history, past surgical history, family history, social history, allergy reviewed and noted as below Family Hx: no hx of CKD. Non contributory Objective - Vital Signs/Intake and Output Vital Signs (last 24 hours): Temp Pulse Resp BP Pulse Ox 98.3 F 77 18 152/71 H 95 08/03/18 11:40 08/03/18 11:40 08/03/18 11:40 08/03/18 11:40 08/03/18 11:40 Intake and Output: 08/03/18 08/03/18 06:59 18:59 Intake Total 240 Balance 240 - Medications Medications: Current Medications Amlodipine Besylate (Norvasc) 10 mg PO DAILY [facility] Last Admin: 08/02/18 09:22 Dose: 10 mg Atorvastatin Calcium (Lipitor) 40 mg PO HS [facility] Last Admin: 08/02/18 21:15 Dose: 40 mg Calcium Acetate (Phoslo) 2,001 mg PO [facility] Darbepoetin Todd (Aranesp) 100 mcg IVP QWK [facility] Last Admin: 07/30/18 09:39 Dose: 100 mcg Dextrose (Dextrose 50% Inj) 0 ml IV STAT PRN; Protocol PRN Reason: Hypoglycemia Protocol Ergocalciferol (Drisdol 50,000 Intl Units Cap) 1 cap PO Q7D [facility] Last Admin: 07/29/18 11:41 Dose: 1 cap Furosemide (Lasix) 80 mg PO MWF [facility] Last Admin: 08/02/18 09:20 Dose: 80 mg Heparin Sodium (Porcine) (Heparin) 2,000 units IVP TTS [facility]; Protocol Dextrose (Dextrose 5% In Water 1000 Ml) 1,000 mls @ 0 mls/hr IV .Q0M PRN; Pro tocol PRN Reason: Hypoglycemia Protocol Iron Sucrose 100 mg/ Sodium (Chloride) 105 mls @ 210 mls/hr IVPB DAILY [facility] Stop: 08/08/18 11:16 Last Admin: 08/02/18 10:33 Dose: 210 mls/hr Insulin Human Lispro (Humalog Low) 0 units SC ACHS [facility]; Protocol Last Admin: 08/03/18 06:34 Dose: Not Given Labetalol HCl (Trandate) 200 mg PO BID [facility] Last Admin: 08/02/18 17:25 Dose: 200 mg Losartan Potassium (Cozaar) 50 mg PO QPM [facility] Last Admin: 08/02/18 17:25 Dose: 50 mg Metoclopramide HCl (Reglan) 10 mg IV ONCE PRN PRN Reason: Nausea/Vomiting Oxycodone/Acetaminophen (Percocet 5/325 Mg Tab) 1 tab PO Q4H PRN PRN Reason: Pain, moderate (4-7) Stop: 08/06/18 10:17 Pantoprazole Sodium (Protonix Ec Tab) 40 mg PO ACB [facility] Last Admin: 08/02/18 09:19 Dose: 40 mg Senna/Docusate Sodium (Senokot S 50 Mg-8.6 Mg) 2 tab PO HS [facility] Last Admin: 08/02/18 21:15 Dose: 2 tab Vitamin B Complex/Vit C/Folic Acid (Nephro-Lulu) 1 tab PO 0800 [facility] Last Admin: 08/02/18 09:21 Dose: 1 tab - Labs Labs: 08/03/18 06:50 08/03/18 06:50 PT 12.0 SECONDS (9.4-12.5) 08/02/18 06:35 INR 1.04 08/02/18 06:35 APTT 27.2 Seconds (25.1-36.5) 08/02/18 06:35
--- NOTE | 2018-08-03 13:37 | PN ---
DATE: 08/03/2018 SUBJECTIVE: The patient denies chest pain or shortness of breath. He is currently in the PACU, recovering from left forearm AV fistula. He is hemodynamically stable and sinus rhythm on the monitor. PHYSICAL EXAMINATION: VITAL SIGNS: Blood pressure 151/81, heart rate 76, temperature 98.3, respiration 18. HEENT: Pale conjunctivae. CHEST: Clear. HEART: S1 and S2, regular. EXTREMITIES: No edema. LABORATORY DATA: Today's hemoglobin and hematocrit 8.5 and 24.3 after receiving 1 unit of packed RBC transfusion. White count 11.4 and platelet count 198,000. Today's SMA-7: Sodium 131, potassium 4.6, chloride 95, CO2 of 24, glucose 119, BUN 66, and creatinine 10.2. ASSESSMENT: 1. End-stage renal disease, recently initiated on hemodialysis. 2. Status post left forearm arteriovenous fistula. 3. Hypertension. 4. Anemia. RECOMMENDATIONS: Continue heparin 2000 units intravenously GTTS, Lipitor 40 mg once a day, Lasix 80 mg p.o. Thursday, Thursday and Thursday, Norvasc 10 mg once a day, PhosLo one tab take with meal, labetalol 200 mg twice a day. Obtain postoperative EKG. The patient will undergo hemodialysis today. Franklin Nicole MD
--- NOTE | 2018-08-03 14:54 | CP.PCM.PN ---
<TeoRachid Calvillo - Last Filed: 08/03/18 15:01> Subjective - Date & Time of Evaluation Date of Evaluation: 08/03/18 Time of Evaluation: 06:40 - Subjective Subjective: Pt seen and examined this morning at bedside. Pt states he moved his bowels recently, no new complaints Objective - Vital Signs/Intake and Output Vital Signs (last 24 hours): Temp Pulse Resp BP Pulse Ox 98.3 F 77 18 152/71 H 95 08/03/18 11:40 08/03/18 11:40 08/03/18 11:40 08/03/18 11:40 08/03/18 11:40 Intake and Output: 08/03/18 08/03/18 06:59 18:59 Intake Total 240 Balance 240 - Medications Medications: Current Medications Amlodipine Besylate (Norvasc) 10 mg PO DAILY [facility] Last Admin: 08/02/18 09:22 Dose: 10 mg Atorvastatin Calcium (Lipitor) 40 mg PO HS [facility] Last Admin: 08/02/18 21:15 Dose: 40 mg Calcium Acetate (Phoslo) 2,001 mg PO WM [facility] Darbepoetin Todd (Aranesp) 100 mcg IVP QWK [facility] Last Admin: 07/30/18 09:39 Dose: 100 mcg Dextrose (Dextrose 50% Inj) 0 ml IV STAT PRN; Protocol PRN Reason: Hypoglycemia Protocol Ergocalciferol (Drisdol 50,000 Intl Units Cap) 1 cap PO Q7D [facility] Last Admin: 07/29/18 11:41 Dose: 1 cap Furosemide (Lasix) 80 mg PO MWF [facility] Last Admin: 08/02/18 09:20 Dose: 80 mg Heparin Sodium (Porcine) (Heparin) 2,000 units IVP TTS [facility]; Protocol Dextrose (Dextrose 5% In Water 1000 Ml) 1,000 mls @ 0 mls/hr IV .Q0M PRN; Protocol PRN Reason: Hypoglycemia Protocol Iron Sucrose 100 mg/ Sodium (Chloride) 105 mls @ 210 mls/hr IVPB DAILY [facility] Stop: 08/08/18 11:16 Last Admin: 08/02/18 10:33 Dose: 210 mls/hr Insulin Human Lispro (Humalog Low) 0 units SC ACHS [facility]; Protocol Last Admin: 08/03/18 06:34 Dose: Not Given Labetalol HCl (Trandate) 200 mg PO BID [facility] Last Admin: 08/02/18 17:25 Dose: 200 mg Losartan Potassium (Cozaar) 50 mg PO QPM [facility] Last Admin: 08/02/18 17:25 Dose: 50 mg Metoclopramide HCl (Reglan) 10 mg IV ONCE PRN PRN Reason: Nausea/Vomiting Oxycodone/Acetaminophen (Percocet 5/325 Mg Tab) 1 tab PO Q4H PRN PRN Reason: Pain, moderate (4-7) Stop: 08/06/18 10:17 Pantoprazole Sodium (Protonix Ec Tab) 40 mg PO ACB [facility] Last Admin: 08/02/18 09:19 Dose: 40 mg Senna/Docusate Sodium (Senokot S 50 Mg-8.6 Mg) 2 tab PO HS [facility] Last Admin: 08/02/18 21:15 Dose: 2 tab Vitamin B Complex/Vit C/Folic Acid (Nephro-Lulu) 1 tab PO 0800 [facility] Last Admin: 08/02/18 09:21 Dose: 1 tab - Labs Labs: 08/03/18 06:50 08/03/18 06:50 PT 12.0 SECONDS (9.4-12.5) 08/02/18 06:35 INR 1.04 08/02/18 06:35 APTT 27.2 Seconds (25.1-36.5) 08/02/18 06:35 - Constitutional Appears: No Acute Distress - Head Exam Head Exam: ATRAUMATIC, NORMOCEPHALIC - Eye Exam Eye Exam: EOMI - ENT Exam ENT Exam: Mucous Membranes Moist - Neck Exam Neck Exam: Full ROM - Cardiovascular Exam Cardiovascular Exam: REGULAR RHYTHM, RRR, +S1, +S2. absent: Diastolic murmur, Murmur - GI/Abdominal Exam GI & Abdominal Exam: Soft, Normal Bowel Sounds - Extremities Exam Extremities Exam: Full ROM - Neurological Exam Neurological Exam: Alert, Awake, Oriented x3 - Psychiatric Exam Psychiatric exam: Normal Affect, Normal Mood - Skin Skin Exam: Dry, Intact, Normal Color, Warm Assessment and Plan - Assessment and Plan (Free Text) Assessment: Pt is a 53yo male with a PMH of HTN, DM2, hepatic hemangioma, CKD on HD originally scheduled for / / Thu with poor compliance who [place] [facility] [place] complaining of fatigue, SOB, productive cough who was found to be volume overloaded. Pt stabilized in ICU, received HD, and transferred to med/surg. Pt undergoes HD while in the hospital, out pt is in the process of being arranged. Plan: CKD Stage V requiring HD, history of noncompliance - Pt tolerating dialysis well Tue, Judi, Sat - Cr 10.2, BUN 66 - Renal Diet - Etiology was failure for outpatient hemodialysis due to non-compliance, Outpatient HD in process of being arranged - fistula surgery today, no complications - Nephrology consulted Anemia - Continue IV Fe and Epogen - Hgb 8.5 - transfused 1 unit pRBC, prior to fistula surgery - FOBT, NEGATIVE History of HTN - Continue labetalol, Norvasc, cozaar - Repeat echo in one month DM2 - ISS - ACHS HLD - lipitor Constipation - senna PRN Ppx - Protonix - Heparin Pt seen, examined, assessment and plan discussed with Dr Yessica Bruce PGY1, Internal Medicine Resident <Yessica Mckeon R - Last Filed: 08/04/18 09:23> Objective - Vital Signs/Intake and Output Vital Signs (last 24 hours): Temp Pulse Resp BP Pulse Ox 99 F 75 20 151/71 H 97 08/04/18 06:00 08/04/18 06:00 08/04/18 06:00 08/04/18 06:00 08/04/18 06:00 Intake and Output: 08/04/18 08/04/18 06:59 18:59 Intake Total 480 Output Total 150 Balance 330 - Medications Medications: Current Medications Amlodipine Besylate (Norvasc) 10 mg PO DAILY [facility] Last Admin: 08/03/18 10:42 Dose: Not Given Atorvastatin Calcium (Lipitor) 40 mg PO HS [facility] Last Admin: 08/03/18 21:20 Dose: 40 mg Calcium Acetate (Phoslo) 2,001 mg PO WM [facility] Last Admin: 08/03/18 17:49 Dose: 2,001 mg Darbepoetin Todd (Aranesp) 100 mcg IVP QWK [facility] Last Admin: 07/30/18 09:39 Dose: 100 mcg Dextrose (Dextrose 50% Inj) 0 ml IV STAT PRN; Protocol PRN Reason: Hypoglycemia Protocol Ergocalciferol (Drisdol 50,000 Intl Units Cap) 1 cap PO Q7D [facility] Last Admin: 07/29/18 11:41 Dose: 1 cap Furosemide (Lasix) 80 mg PO MWF [facility] Last Admin: 08/02/18 09:20 Dose: 80 mg Heparin Sodium (Porcine) (Heparin) 2,000 units IVP TTS [facility]; Protocol Dextrose (Dextrose 5% In Water 1000 Ml) 1,000 mls @ 0 mls/hr IV .Q0M PRN; Protocol PRN Reason: Hypoglycemia Protocol Iron Sucrose 100 mg/ Sodium (Chloride) 105 mls @ 210 mls/hr IVPB DAILY [facility] Stop: 08/08/18 11:16 Last Admin: 08/03/18 17:50 Dose: 210 mls/hr Insulin Human Lispro (Humalog Low) 0 units SC ACHS [facility]; Protocol Last Admin: 08/03/18 22:25 Dose: 1 unit Labetalol HCl (Trandate) 200 mg PO BID [facility] Last Admin: 08/03/18 17:49 Dose: 200 mg Losartan Potassium (Cozaar) 50 mg PO QPM [facility] Last Admin: 08/03/18 17:49 Dose: 50 mg Metoclopramide HCl (Reglan) 10 mg IV ONCE PRN PRN Reason: Nausea/Vomiting Oxycodone/Acetaminophen (Percocet 5/325 Mg Tab) 1 tab PO Q4H PRN PRN Reason: Pain, moderate (4-7) Stop: 08/06/18 10:17 Pantoprazole Sodium (Protonix Ec Tab) 40 mg PO ACB [facility] Last Admin: 08/03/18 08:43 Dose: Not Given Senna/Docusate Sodium (Senokot S 50 Mg-8.6 Mg) 2 tab PO HS [facility] Last Admin: 08/03/18 21:20 Dose: 2 tab Vitamin B Complex/Vit C/Folic Acid (Nephro-Lulu) 1 tab PO 0800 [facility] Last Admin: 08/03/18 10:41 Dose: Not Given - Labs Labs: 08/04/18 08:04 08/04/18 08:04 PT 12.0 SECONDS (9.4-12.5) 08/02/18 06:35 INR 1.04 08/02/18 06:35 APTT 27.2 Seconds (25.1-36.5) 08/02/18 06:35 Attending/Attestation - Attestation I have personally seen and examined this patient.: Yes I have fully participated in the care of the patient.: Yes I have reviewed all pertinent clinical information, including history, physical exam and plan: Yes Notes (Text): Patient seen and examined by me with resident at 12:50AM on 08/03/18. Case including HPI, physical exam, and assessment and plan discussed with resident. Edgar knight with above with following additions/corrections. Patient is a 53 year old male with past medical history significant for DM2, hypertension, ESRD on HD T//Thu with noncompliance, renal mass, and hepatic hemangioma that presented to the emergency room with shortness of breath and cough that started one month ago. Patient seen in dialysis. Patient s/p AV fistula placement. Patient states that procedure went well. Patient is denying any current pain at fistula site. Patient is now having bowel movements. He denies shortness of breath. No chest pain or palpitations. No headaches or dizziness. No fevers or chills. No nausea, vomiting, or abdominal pain. No dysuria. Physical exam: General: Awake and alert sitting up in bed in no acute distress HEENT: Normocephalic, atraumatic. Extraocular muscles intact, pupils equal and reactive, no scleral icterus. Oropharynx is pink and moist. No pharyngeal erythema or exudate appreciated. Neck is supple. Cardiovascular: Regular rhythm. Normal S1 and S2. No murmurs, rubs, or gallops appreciated Pulmonary: Normal respiratory effort. No rhonchi, rales, or wheezing appreciated. Gastrointestinal: Soft, nondistended. Nontender. Positive bowel sounds all 4 quadrants. No guarding. Musculoskeletal: Moves all extremities. No calf tenderness. No edema appreciated. Central nervous system: AAOx3, CN 2-12 grossly intact. Dermatologic: Skin warm and dry. left wrist area incision site clean,dry, and intact. Assessment and plan: Patient is a 53 year old male with past medical history significant for DM2, hypertension, ESRD on HD T//Thu with noncompliance, renal mass, and hepatic hemangioma that presented to the emergency room with shortness of breath and cough that started one month ago. 1. Shortness of breath and lower extremity edema secondary to fluid overload secondary to noncompliance with dialysis. Accounts Receivable Manager following, recomm endations appreciated. Continue dialysis per general magistrate. Continue Lasix. Continue Nephrovite and phoslo. S/P Av fistula placement today. 2. Hyperkalemia. Resolved. Continue to monitor. 3. Anemia likely secondary to chronic disease. Continue Iron infusions. Continue Aranesp weekly. S/P 1 unit PRBC 08/02/18. Stool OB negative. 4. Hypertension. Continue Norvasc, Lasix, Labetalol, and Cozaar 5. DM2. Continue insulin sliding scale. Continue to monitor accuchecks. 6. Hyperlipidemia. Continue Lipitor. 7. Constipation. Started on Senna at bedtime. 7. GI prophylaxis. Protonix 8. Paitent is a full code. Case was discussed in detail with the patient regarding current diagnosis and treatment plan. All questions answered. Case also discussed with general magistrate Dr. Pendleton.
[2018-08-03] MEDS: Docusate-Senna 50 mg-8.6 mg Tab PO SCH (21:20)
[2018-08-04] MEDS: Insulin Lispro (humaLOG) LOW Coverage SC SCH ×3 (08:00→17:37)
[2018-08-04 08:14] LABS: BASO # 0.02 K/mm3 (0.0-2.0); BASO % 0.2 % (0.0-3.0); EOS # 0.3 (0.0-0.7); EOS % 3.8 % (1.5-5.0); GRAN # 6.32 (1.4-6.5); GRAN % 71.3 % (50.0-68.0); HEMOGLOBIN 8.4 g/dL (14.0-18.0); LYMPH # 1.6 (1.2-3.4); LYMPH % 17.5 % (22.0-35.0); MEAN CELL VOLUME 84.9 fl (80.0-105.0); MEAN CORPUSCULAR HEMOGLOBIN 29.5 pg (25.0-35.0); MEAN CORPUSCULAR HGB CONC 34.7 g/dl (31.0-37.0); MEAN PLATELET VOLUME 10.6 fl (7.0-11.0); MONO # 0.6 (0.1-0.6); MONO % 7.2 % (1.0-6.0); RBC 2.85 10^6/uL (3.5-6.1); RED CELL DISTRIBUTION WIDTH 13.4 % (11.5-14.5); WHITE BLOOD COUNT 8.9 10^3/uL (4.5-11.0)
[2018-08-04 08:29] LABS: ALBUMIN 3.3 g/dL (3.0-4.8); CALCIUM 7.9 mg/dL (8.4-10.5)
--- NOTE | 2018-08-04 08:33 | CARD ---
APPROVED REPORT Date of service: 08/03/2018 EKG Measurement Heart [id number] <Conclusion> Normal sinus rhythm NSSTW changes PRWP Prolonged QTc
[2018-08-04] MEDS: Multivitamin Vitamin B Complex (Nephro-Vite) Tab PO SCH (09:50)
[2018-08-04] MEDS: Pantoprazole 40 mg EC Tab PO SCH (09:53)
--- NOTE | 2018-08-04 11:13 | CP.PCM.PN ---
<Manasa King L - Last Filed: 08/04/18 14:59> Subjective - Date & Time of Evaluation Date of Evaluation: 08/04/18 Time of Evaluation: 11:03 - Subjective Subjective: Resident Progress Note for Surgery: Dr. Wagner Patient examined at bedside. No acute events overnight. Patient is POD#1 s/p AV fistula placement in LUE. Patient is resting comfortably in bed in no acute distress. States that he is doing well and offers no complaints. Denies fevers, chills, shortness of breath, pain. Objective - Vital Signs/Intake and Output Vital Signs (last 24 hours): Temp Pulse Resp BP Pulse Ox 99 F 75 20 151/71 H 97 08/04/18 06:00 08/04/18 06:00 08/04/18 06:00 08/04/18 09:50 08/04/18 06:00 Intake and Output: 08/04/18 08/04/18 06:59 18:59 Intake Total 480 Output Total 150 Balance 330 - Medications Medications: Current Medications Amlodipine Besylate (Norvasc) 10 mg PO DAILY [facility] Last Admin: 08/04/18 09:49 Dose: 10 mg Atorvastatin Calcium (Lipitor) 40 mg PO HS [facility] Last Admin: 08/03/18 21:20 Dose: 40 mg Calcium Acetate (Phoslo) 2,001 mg PO WM [facility] Last Admin: 08/03/18 17:49 Dose: 2,001 mg Darbepoetin Todd (Aranesp) 100 mcg IVP QWK [facility] Last Admin: 07/30/18 09:39 Dose: 100 mcg Dextrose (Dextrose 50% Inj) 0 ml IV STAT PRN; Protocol PRN Reason: Hypoglycemia Protocol Ergocalciferol (Drisdol 50,000 Intl Units Cap) 1 cap PO Q7D [facility] Last Admin: 07/29/18 11:41 Dose: 1 cap Furosemide (Lasix) 80 mg PO MWF [facility] Last Admin: 08/04/18 09:50 Dose: 80 mg Heparin Sodium (Porcine) (Heparin) 2,000 units IVP TTS [facility]; Protocol Dextrose (Dextrose 5% In Water 1000 Ml) 1,000 mls @ 0 mls/hr IV .Q0M PRN; Protocol PRN Reason: Hypoglycemia Protocol Iron Sucrose 100 mg/ Sodium (Chloride) 105 mls @ 210 mls/hr IVPB DAILY [facility] Stop: 08/08/18 11:16 Last Admin: 08/04/18 09:54 Dose: 210 mls/hr Insulin Human Lispro (Humalog Low) 0 units SC ACHS [facility]; Protocol Last Admin: 08/04/18 08:00 Dose: Not Given Labetalol HCl (Trandate) 200 mg PO BID [facility] Last Admin: 08/04/18 09:53 Dose: 200 mg Losartan Potassium (Cozaar) 50 mg PO QPM [facility] Last Admin: 08/03/18 17:49 Dose: 50 mg Metoclopramide HCl (Reglan) 10 mg IV ONCE PRN PRN Reason: Nausea/Vomiting Oxycodone/Acetaminophen (Percocet 5/325 Mg Tab) 1 tab PO Q4H PRN PRN Reason: Pain, moderate (4-7) Stop: 08/06/18 10:17 Pantoprazole Sodium (Protonix Ec Tab) 40 mg PO ACB [facility] Last Admin: 08/04/18 09:53 Dose: 40 mg Senna/Docusate Sodium (Senokot S 50 Mg-8.6 Mg) 2 tab PO HS [facility] Last Admin: 08/03/18 21:20 Dose: 2 tab Vitamin B Complex/Vit C/Folic Acid (Nephro-Lulu) 1 tab PO 0800 [facility] Last Admin: 08/04/18 09:50 Dose: 1 tab - Labs Labs: 08/04/18 08:04 08/04/18 08:04 PT 12.0 SECONDS (9.4-12.5) 08/02/18 06:35 INR 1.04 08/02/18 06:35 APTT 27.2 Seconds (25.1-36.5) 08/02/18 06:35 - Additional Findings Additional findings: - Constitutional Appears: Well, Non-toxic, No Acute Distress - Head Exam Head Exam: ATRAUMATIC, NORMOCEPHALIC - Eye Exam Eye Exam: EOMI - ENT Exam ENT Exam: Mucous Membranes Moist - Neck Exam Neck Exam: Full ROM - Respiratory Exam Respiratory Exam: NORMAL BREATHING PATTERN. absent: Accessory Muscle Use, Respiratory Distress - GI/Abdominal Exam GI & Abdominal Exam: Soft. absent: Tenderness - Extremities Exam Extremities Exam: absent: Calf Tenderness, Pedal Edema Additional comments: LUE AV fistula palpable thrill Incision site clean/dry/intact, no erythema - Neurological Exam Neurological Exam: Alert, Awake, Oriented x3 Assessment and Plan - Assessment and Plan (Free Text) Assessment: 53 year old male with past medical history ESRD on HD, T2DM, HTN, hepatic hemangioma s/p LUE AV fistula placement POD#1. Plan: - s/p LUE AV fistula placement - Renal Diet - Percocet 1 tab PO Q4H PRN pain - further management as per primary team Thank you for the opportunity Surgery will sign off at this time. Please reconsult as necessary. Manasa King PGY-1 <Michele Wagner - Last Filed: 08/08/18 12:01> Objective - Vital Signs/Intake and Output Vital Signs (last 24 hours): Temp Pulse Resp BP Pulse Ox 98.9 F 86 18 145/73 99 08/04/18 14:00 08/04/18 17:34 08/04/18 14:00 08/04/18 17:34 08/04/18 14:00 - Labs Labs: 08/04/18 08:04 08/04/18 08:04 PT 12.0 SECONDS (9.4-12.5) 08/02/18 06:35 INR 1.04 08/02/18 06:35 APTT 27.2 Seconds (25.1-36.5) 08/02/18 06:35 Assessment and Plan - Assessment and Plan (Free Text) Plan: Patient was seen, examined and evaluated by me. I agree with resident's assessment and plan.
--- NOTE | 2018-08-04 15:23 | CP.PCM.PN ---
Subjective - Date & Time of Evaluation Date of Evaluation: 08/04/18 Time of Evaluation: 15:22 - Subjective Subjective: Nephrology Consultation Note: Assessment: stable Uremia, missed HD/non-compliance, hyperkalemia, fluid overload, HTN emergency Diabetic chronic Kidney Disease (E11.22) Hypertensive Chronic Kidney Disease (I12.0) End stage renal disease (N18.6) dependence on hemodialysis (Z99.2) via PC Anemia (D64.9), Hyperphosphatemia (E83.39), Secondary Hyperparathyroidism (E21.1), HTN (I12.0) Plan: Will plan for dialysis TTS schedule. Continue with Nephrovite 1 tab/day. PRBC as needed for anemia. on LESLY weekly with dialysis as last Hb 8.40 TSAT 24% Ferritin 94, added 1 gram IV iron loading dose Continue with phos binders, last phos level 6.4 discontinue with calcitriol. last PTH 266 @ goal. added weekly Vit D as last level <12.8 BP control with meds as ordered. Patient on losartan. resume norvasc and labetalol. lasix on non HD days Glycemic control, Dialysis consistent diet Further work up/management as per primary team Dose meds/antibiotics (if needed) for ESRD status. Avoid fleets enema/magnesium based laxatives. pt was educated about risks of missing HD. SW consult for outpt HD placement vascular surgery consult for AVF placement appreciated, done 08/03/18 pt stable for d/c from renal perspective once arranged for outpt HD. Thanks for allowing me to participate in care of your patient. Will follow patient with you. Please call if any Qs. had d/w team Dr Jose Pendleton Office: [phone] Chief Complaint;feels better HPI: Pt is a 53 M with hx of ESRD recently started on hemodialysis via permacathbut pt non compliant with HD, hadn't received HD since left from hospital AMA , chronic anemia, hyperphosphatemia, secondary hyperparathyroidism, Diabetes Mellitus (30 years), hypertension presented with complaints of worsening SOB on exertion and HTN emergency Renal consult requested for ESRD management. pt feels sick ROS: Cardiovascular: No chest pain. Pulmonary: improved shortness of breath Gastrointestinal: denies abdominal pain No nausea. No vomiting. Genitourinary: No pain while urinating. Denies blood in urine. All other negative except as mentioned in HPI Physical Examination: General Appearance: Comfortable, in no acute respiratory distress, co-operative . obese Vitals reviewed and noted as below Head; Atraumatic, normocephalic ENT: no ulcers no thrush. Tongue is midline. Oropharynx: no rash or ulcers. EYES: Pupils are equal, round and reactive to light accommodation. Eye muscles and extraocular movement intact. Sclera is anicteric. Neck; supple no lymphadenopathy, no thyromegaly or bruit Lungs: Normal respiratory rate/effort. Breath sounds bilateral reduced at bases clearer Heart: Normal rate. s1s2 normal. No rub or gallop. Extremities: no edema. No varicose veins Neurological: Patient is alert, awake and oriented to person, place and time. No focal deficit. Strength bilateral appropriate and equal Skin: Warm and dry. Normal turgor. No rash. Palpitation: Normal elasticity for age Abdomen: Abdomen is soft. Bowel sounds +. There is no abdominal tenderness, no guarding/rigidity or organomegaly Psych: improved insight and normal affect/mood MSK: no joint tenderness or swelling. Digits and nails normal, no deformity : kidney or bladder not palpable Access: permacath. left wrist AVF with thrill and burit + Labs/imaging reviewed. Past medical history, past surgical history, family history, social history, allergy reviewed and noted as below Family Hx: no hx of CKD. Non contributory Objective - Vital Signs/Intake and Output Vital Signs (last 24 hours): Temp Pulse Resp BP Pulse Ox 99 F 75 20 151/71 H 97 08/04/18 06:00 08/04/18 06:00 08/04/18 06:00 08/04/18 09:50 08/04/18 06:00 Intake and Output: 08/04/18 08/04/18 06:59 18:59 Intake Total 480 Output Total 150 Balance 330 - Medications Medications: Current Medications Amlodipine Besylate (Norvasc) 10 mg PO DAILY [facility] Last Admin: 08/04/18 09:49 Dose: 10 mg Atorvastatin Calcium (Lipitor) 40 mg PO HS [facility] Last Admin: 08/03/18 21:20 Dose: 40 mg Calcium Acetate (Phoslo) 2,001 mg PO WM [facility] Last Admin: 08/04/18 11:37 Dose: 2,001 mg Darbepoetin Todd (Aranesp) 100 mcg IVP QWK [facility] Last Admin: 07/30/18 09:39 Dose: 100 mcg Dextrose (Dextrose 50% Inj) 0 ml IV STAT PRN; Protocol PRN Reason: Hypoglycemia Protocol Ergocalciferol (Drisdol 50,000 Intl Units Cap) 1 cap PO Q7D [facility] Last Admin: 07/29/18 11:41 Dose: 1 cap Furosemide (Lasix) 80 mg PO MWF [facility] Last Admin: 08/04/18 09:50 Dose: 80 mg Heparin Sodium (Porcine) (Heparin) 2,000 units IVP TTS [facility]; Protocol Dextrose (Dextrose 5% In Water 1000 Ml) 1,000 mls @ 0 mls/hr IV .Q0M PRN; Protocol PRN Reason: Hypoglycemia Protocol Iron Sucrose 100 mg/ Sodium (Chloride) 105 mls @ 210 mls/hr IVPB DAILY [facility] Stop: 08/08/18 11:16 Last Admin: 08/04/18 09:54 Dose: 210 mls/hr Insulin Human Lispro (Humalog Low) 0 units SC ACHS [facility]; Protocol Last Admin: 08/04/18 08:00 Dose: Not Given Labetalol HCl (Trandate) 200 mg PO BID [facility] Last Admin: 08/04/18 09:53 Dose: 200 mg Losartan Potassium (Cozaar) 50 mg PO QPM [facility] Last Admin: 08/03/18 17:49 Dose: 50 mg Metoclopramide HCl (Reglan) 10 mg IV ONCE PRN PRN Reason: Nausea/Vomiting Oxycodone/Acetaminophen (Percocet 5/325 Mg Tab) 1 tab PO Q4H PRN PRN Reason: Pain, moderate (4-7) Stop: 08/06/18 10:17 Pantoprazole Sodium (Protonix Ec Tab) 40 mg PO ACB [facility] Last Admin: 08/04/18 09:53 Dose: 40 mg Senna/Docusate Sodium (Senokot S 50 Mg-8.6 Mg) 2 tab PO HS [facility] Last Admin: 08/03/18 21:20 Dose: 2 tab Vitamin B Complex/Vit C/Folic Acid (Nephro-Lulu) 1 tab PO 0800 [facility] Last Admin: 08/04/18 09:50 Dose: 1 tab - Labs Labs: 08/04/18 08:04 01/16/19 08:04 PT 12.0 SECONDS (9.4-12.5) 08/02/18 06:35 INR 1.04 08/02/18 06:35 APTT 27.2 Seconds (25.1-36.5) 08/02/18 06:35
[2018-08-04 15:51] VITALS: BP 145/73; PULSE 86; RESP 18; TEMP 98.9; O2SAT 99
--- NOTE | 2018-08-04 17:38 | CP.PCM.DIS ---
<TeoRachid Rajinder - Last Filed: 08/04/18 17:49> Provider - Provider Date of Admission: 07/29/18 00:14 Attending physician: Jesse Stout MD Primary care physician: JAZMYNE PRIMARY CARE PROVIDER Consults: 07/29/18 00:50 Consult [Physician Consult] Routine Comment: Consulting Provider: Denis Saini Consulting Physician: Denis Saini Reason for Consult: black vomitus and black sputum 07/29/18 00:54 Nephrology Consult Stat Comment: Consulting Provider: Jose Pendleton Consulting Physician: Jose Pendleton Reason for Consult: CKD on dialysis 07/29/18 04:10 Diabetic Education Referral Routine Comment: Physician Instructions: Reason For Exam: poor nutrition 07/29/18 04:12 Nursing Referral for Palliative Care Routine Comment: Physician Instructions: Reason For Exam: routine 07/29/18 09:37 Social Work Referral Routine Comment: eval Physician Instructions: Reason For Exam: needs assistance setting up outpatient HD 07/30/18 10:10 Consult [Physician Consult] Routine Comment: Consulting Provider: Michele Wagner Consulting Physician: Michele Wagner Reason for Consult: AV fistula 07/31/18 15:49 Physician Consult Routine Comment: Consulting Provider: Franklin Nicole Consulting Physician: Franklin Nicole Reason for Consult: cardiac risk stratification for AV fistula placement Time Spent in preparation of Discharge (in minutes): 45 Diagnosis - Discharge Diagnosis (1) CKD (chronic kidney disease) Status: Chronic Priority: High (2) Anemia Status: Chronic Priority: High (3) HTN (hypertension) Status: Chronic Priority: High (4) Diabetes Status: Chronic Priority: High (5) HLD (hyperlipidemia) Status: Chronic Priority: High Hospital Course - Lab Results Lab Results: Micro Results 07/29/18 06:15 Blood Blood Culture - Final NO GROWTH AFTER 5 DAYS 07/29/18 06:15 Blood Gram Stain - Final TEST NOT PERFORMED 07/29/18 05:20 Blood Blood Culture - Final NO GROWTH AFTER 5 DAYS 07/29/18 05:20 Blood Gram Stain - Final TEST NOT PERFORMED 07/28/18 20:30 Blood Blood Culture - Final NO GROWTH AFTER 5 DAYS 07/28/18 20:30 Blood Gram Stain - Final TEST NOT PERFORMED 07/28/18 20:00 Blood Blood Culture - Final NO GROWTH AFTER 5 DAYS 07/28/18 20:00 Blood Gram Stain - Final TEST NOT PERFORMED 07/30/18 06:00 Urine Random Urine Culture - Final No Growth (<1,000 CFU/ML) 07/29/18 03:30 Naris MRSA Culture (Admit) - Final MRSA NOT DETECTED Most Recent Lab Values WBC 8.9 10^3/uL (4.5-11.0) D 08/04/18 08:04 RBC 2.85 10^6/uL (3.5-6.1) L 08/04/18 08:04 Hgb 8.4 g/dL (14.0-18.0) L 08/04/18 08:04 Hct 24.2 % (42.0-52.0) L 08/04/18 08:04 MCV 84.9 fl (80.0-105.0) 08/04/18 08:04 MCH 29.5 pg (25.0-35.0) 08/04/18 08:04 MCHC 34.7 g/dl (31.0-37.0) 08/04/18 08:04 RDW 13.4 % (11.5-14.5) 08/04/18 08:04 Plt Count 175 10^3/uL (120.0-450.0) 08/04/18 08:04 MPV 10.6 fl (7.0-11.0) 08/04/18 08:04 Gran % 71.3 % (50.0-68.0) H 08/04/18 08:04 Lymph % (Auto) 17.5 % (22.0-35.0) L 08/04/18 08:04 Thomas % (Auto) 7.2 % (1.0-6.0) H 08/04/18 08:04 Eos % (Auto) 3.8 % (1.5-5.0) 08/04/18 08:04 Baso % (Auto) 0.2 % (0.0-3.0) 08/04/18 08:04 Gran # 6.32 (1.4-6.5) 08/04/18 08:04 Lymph # (Auto) 1.6 (1.2-3.4) 08/04/18 08:04 Thomas # (Auto) 0.6 (0.1-0.6) 08/04/18 08:04 Eos # (Auto) 0.3 (0.0-0.7) 08/04/18 08:04 Baso # (Auto) 0.02 K/mm3 (0.0-2.0) 08/04/18 08:04 Retic Count 3.36 % (0.5-1.5) H 08/02/18 09:50 PT 12.0 SECONDS (9.4-12.5) 08/02/18 06:35 INR 1.04 08/02/18 06:35 APTT 27.2 Seconds (25.1-36.5) 08/02/18 06:35 pCO2 25 mm/Hg (35-45) L 07/28/18 21:10 pO2 59.0 mm/Hg (80-100) L 07/28/18 21:10 HCO3 13.8 mmol/L (21-28) L 07/28/18 21:10 ABG pH 7.35 (7.35-7.45) 07/28/18 21:10 ABG Total CO2 14.6 mmol.L (22-28) L 07/28/18 21:10 ABG O2 Saturation 93.9 % (95-98) L 07/28/18 21:10 ABG Base Excess -10.0 mmol/L (-2.0-3.0) L 07/28/18 21:10 ABG Potassium 6.5 mmol/L (3.6-5.2) H* 07/28/18 21:10 Sodium 136.0 mmol/L (132-148) 07/28/18 21:10 Chloride 108.0 mmol/L (98-107) H 07/28/18 21:10 Glucose 124 mg/dl (75-110) H 07/28/18 21:10 Lactate 1.0 mmol/L (0.7-2.1) 07/28/18 21:10 FiO2 21.0 % 07/28/18 21:10 Sodium 132 mmol/L (132-148) 08/04/18 08:04 Potassium 4.5 mmol/L (3.6-5.0) 08/04/18 08:04 Chloride 98 mmol/L (98-107) 08/04/18 08:04 Carbon Dioxide 26 mmol/L (21-33) 08/04/18 08:04 Anion Gap 13 (10-20) 08/04/18 08:04 BUN 39 mg/dL (7-21) H 08/04/18 08:04 Creatinine 7.3 mg/dl (0.8-1.5) H 08/04/18 08:04 Est GFR ( Amer) 9 08/04/18 08:04 Est GFR (Non-Af Amer) 8 08/04/18 08:04 POC Glucose (mg/dL) 155 mg/dL (65-110) H 08/04/18 16:14 Random Glucose 109 mg/dL (70-110) 08/04/18 08:04 Calcium 7.9 mg/dL (8.4-10.5) L 08/04/18 08:04 Phosphorus 6.4 mg/dL (2.5-4.5) H 08/03/18 06:50 Magnesium 1.6 mg/dL (1.7-2.2) L 07/29/18 08:37 Total Bilirubin 0.5 mg/dL (0.2-1.3) 08/04/18 08:04 AST 51 U/L (17-59) 08/04/18 08:04 ALT 62 U/L (7-56) H 08/04/18 08:04 Alkaline Phosphatase 211 U/L (38-126) H 08/04/18 08:04 Lactate Dehydrogenase 1531 U/L (333-699) H 07/28/18 20:30 Total Creatine Kinase 5698 U/L (35-230) H 07/29/18 10:20 CK-MB (CK-2) 13.2 ng/mL (0.0-3.6) H 07/29/18 10:20 CK-MB (CK-2) % 0.2 % (2.5-3.0) L 07/29/18 10:20 Troponin I 0.03 ng/mL D 07/29/18 10:20 NT-Pro-B Natriuret Pep 71201 pg/mL (0-450) H 07/28/18 20:30 Total Protein 6.7 g/dL (5.8-8.3) 08/04/18 08:04 Albumin 3.3 g/dL (3.0-4.8) 08/04/18 08:04 Globulin 3.4 gm/dL 08/04/18 08:04 Albumin/Globulin Ratio 1.0 (1.1-1.8) L 08/04/18 08:04 Procalcitonin 0.24 NG/ML (0.19-0.49) 07/29/18 05:20 Arterial Blood Potassium 6.5 mmol/L (3.6-5.2) H* 07/28/18 21:10 Urine Color Yellow (YELLOW) 07/30/18 06:00 Urine Appearance Sl cloudy (CLEAR) 07/30/18 06:00 Urine pH 6.5 (4.7-8.0) 07/30/18 06:00 Ur Specific Cowgill 1.020 (1.005-1.035) 07/30/18 06:00 Urine Protein >=300 mg/dL (<30 mg/dL) H 07/30/18 06:00 Urine Glucose (UA) 100 mg/dL (NEGATIVE) H 07/30/18 06:00 Urine Ketones Negative mg/dL (NEGATIVE) 07/30/18 06:00 Urine Blood Moderate (NEGATIVE) H 07/30/18 06:00 Urine Nitrate Negative (NEGATIVE) 07/30/18 06:00 Urine Bilirubin Negative (NEGATIVE) 07/30/18 06:00 Urine Urobilinogen 0.2 E.U./dL (<1 E.U./dL) 07/30/18 06:00 Ur Leukocyte Esterase Small Zaire/uL (NEGATIVE) H 07/30/18 06:00 Urine RBC 1 - 3 /hpf (0-2) H 07/30/18 06:00 Urine WBC 10 - 15 /hpf (0-6) H 07/30/18 06:00 Ur Epithelial Cells 0 - 2 /hpf (0-5) 07/30/18 06:00 Urine Bacteria Few /hpf (NONE) 07/30/18 06:00 Urine Other Usperm /hpf 07/30/18 06:00 Stool Occult Blood Negative (NEGATIVE) 08/02/18 09:49 Urine Opiates Screen Negative (NEGATIVE) 07/30/18 06:00 Urine Methadone Screen Negative (NEGATIVE) 07/30/18 06:00 Ur Barbiturates Screen Negative (NEGATIVE) 07/30/18 06:00 Ur Phencyclidine Scrn Negative (NEGATIVE) 07/30/18 06:00 Ur Amphetamines Screen Negative (NEGATIVE) 07/30/18 06:00 U Benzodiazepines Scrn Negative (NEGATIVE) 07/30/18 06:00 U Oth Cocaine Metabols Negative (NEGATIVE) 07/30/18 06:00 U Cannabinoids Screen Negative (NEGATIVE) 07/30/18 06:00 Hep Bs Antigen Negative (NEGATIVE) 07/29/18 08:30 Hep Bs Antibody Negative (NEGATIVE) 07/29/18 08:30 Hep B Core IgM Ab Negative (NEGATIVE) 07/29/18 08:30 Blood Type B POSITIVE 08/02/18 06:35 Antibody Screen Negative 08/02/18 06:35 Crossmatch See Detail 08/02/18 06:35 BBK History Checked Patient has bt 08/02/18 06:35 - Hospital Course Hospital Course: Upon Arrival Pt is a 53 yo male with PMH of diabetes mellitus type II, HTN, CKD on hemodialysis ,,Sa noncompliant started on 06/2018, renal mass, hepatic hemangioma presents with shortness of breath and cough that started 1 month ago. Patient reports he was at the hospital and was diagnosed with CKD needing dialysis. Tunneled catheter was placed during that admission and 3 round of hemodialysis were performed prior to patient leaving AMA. Patient describes shortness of breath as episodic and worsening with cold weather and ambulation. Patient reports productive cough with yellow sputum that started two weeks ago. Sputum color progressed to red and brown with clots at an unknown time. Patient has continued to have these symptoms. Hospitalization Pt was treated for his CKD with HD because of his noncompliance. Pt tolerated dialysis well Thu, , Thu. Pt had a fistula surgery with no complications, Nephrology consulted Dr Pendleton. Pt anemia was treated with IV Fe and Epogen. Discharge Pt advised to please follow up with new primary care physician (Dr. Barrera) at the [facility] for 2:30pm on August 09, 2018. As per the industrial staff nurse, will need to get an echocardiogram, to be done AFTER receiving 2 weeks of regular hemodialysis. As per the industrial staff nurse on your last visit, you will need to have an outpatient stress test done to assess your cardiac function. Scheduled for dialysis tomorrow here at [facility], Please make sure to attend. Please follow up with Database Manager (Dr. Murray) at the [facility]. You will be called with an appointment date. If symptoms return, please go to the nearest emergency department as quickly as possible - Date & Time of H&P Date of H&P: 08/04/18 Time of H&P: 08:00 Discharge Exam - Head Exam Head Exam: ATRAUMATIC, NORMOCEPHALIC - Eye Exam Eye Exam: EOMI - ENT Exam ENT Exam: Mucous Membranes Moist - Respiratory Exam Respiratory Exam: NORMAL BREATHING PATTERN. absent: Accessory Muscle Use, Respiratory Distress - Cardiovascular Exam Cardiovascular Exam: RRR, +S1, +S2. absent: Diastolic murmur, Systolic Murmur - GI/Abdominal Exam GI & Abdominal Exam: Normal Bowel Sounds - Extremities Exam Extremities exam: full ROM, pedal pulses present Additional comments: fistula left wrist, thrill appreciated - Neurological Exam Neurological exam: Alert, Oriented x3 - Psychiatric Exam Psychiatric exam: Normal Affect, Normal Mood - Skin Skin Exam: Dry, Intact, Warm Discharge Plan - Discharge Medications Prescriptions: RX: amLODIPine [Norvasc] 10 mg PO DAILY #10 tab RX: Atorvastatin [Lipitor] 40 mg PO HS #10 tab Calcium Acetate [Phoslo] 2,001 mg PO WM #90 tab RX: Ergocalciferol (Vitamin D2) [Drisdol] 50,000 unit PO JE #4 capsule RX: Furosemide [Lasix] 80 mg PO MWF #15 tab RX: Labetalol [Trandate] 200 mg PO BID #20 tab RX: Losartan [Cozaar] 50 mg PO QPM #10 tab RX: Vitamin B Complex/Vit C/Folic [Nephro-Lulu] 1 tab PO 0800 #30 tab - Follow Up Plan Condition: CRITICAL Disposition: HOME/ ROUTINE Instructions: High Blood Pressure (DC), Hyperkalemia (DC), Kidney Failure (DC), Preparing for Hemodialysis, Influenza Virus Vaccine (Inactivated), Pneumococcal Polysaccharide Vaccine (23-Valent) Additional Instructions: 1. Please follow up with your new primary care physician (Dr. Barrera) at the [facility] for 2:30pm on August 09, 2018. Please show up early at 2:00pm to complete your paperwork. 2. As per the industrial staff nurse on your last visit, you will need to get an echocardiogram, to be done AFTER receiving 2 weeks of regular hemodialysis. 3. As per the industrial staff nurse on your last visit, you will need to have an outpatient stress test done to assess your cardiac function. 4. You are scheduled for dialysis tomorrow here at [facility], Please make sure to attend. 5. Please follow up with Database Manager (Dr. Murray) at the [facility]. You will be called with an appointment date. 6. If your symptoms return, please go to the nearest emergency department as quickly as possible Referrals: [facility] [place]Outside] (Dr. Barrera (PMD): Aug 09, 2018 Dr. Murray (Nephrology): Date to be assigned) <Yessica Mckeon R - Last Filed: 08/09/18 13:59> Provider - Provider Date of Admission: 07/29/18 00:14 Attending physician: Jesse Stout MD Primary care physician: NO PRIMARY CARE PROVIDER Consults: 07/29/18 00:50 Consult [Physician Consult] Routine Comment: Consulting Provider: Denis Saini Consulting Physician: Denis Saini Reason for Consult: black vomitus and black sputum 07/29/18 00:54 Nephrology Consult Stat Comment: Consulting Provider: Jose Pendleton Consulting Physician: Jose Pendleton Reason for Consult: CKD on dialysis 07/29/18 04:10 Diabetic Education Referral Routine Comment: Physician Instructions: Reason For Exam: poor nutrition 07/29/18 04:12 Nursing Referral for Palliative Care Routine Comment: Physician Instructions: Reason For Exam: routine 07/29/18 09:37 Social Work Referral Routine Comment: emiliaal Physician Instructions: Reason For Exam: needs assistance setting up outpatient HD 07/30/18 10:10 Consult [Physician Consult] Routine Comment: Consulting Provider: Michele Wagner Consulting Physician: Michele Wagner Reason for Consult: AV fistula 07/31/18 15:49 Physician Consult Routine Comment: Consulting Provider: Franklin Nicole Consulting Physician: Franklin Nicole Reason for Consult: cardiac risk stratification for AV fistula placement Hospital Course - Lab Results Lab Results: Micro Results 07/29/18 06:15 Blood Blood Culture - Final NO GROWTH AFTER 5 DAYS 07/29/18 06:15 Blood Gram Stain - Final TEST NOT PERFORMED 07/29/18 05:20 Blood Blood Culture - Final NO GROWTH AFTER 5 DAYS 07/29/18 05:20 Blood Gram Stain - Final TEST NOT PERFORMED 07/28/18 20:30 Blood Blood Culture - Final NO GROWTH AFTER 5 DAYS 07/28/18 20:30 Blood Gram Stain - Final TEST NOT PERFORMED 07/28/18 20:00 Blood Blood Culture - Final NO GROWTH AFTER 5 DAYS 07/28/18 20:00 Blood Gram Stain - Final TEST NOT PERFORMED 07/30/18 06:00 Urine Random Urine Culture - Final No Growth (<1,000 CFU/ML) 07/29/18 03:30 Naris MRSA Culture (Admit) - Final MRSA NOT DETECTED Most Recent Lab Values WBC 8.9 10^3/uL (4.5-11.0) D 08/04/18 08:04 RBC 2.85 10^6/uL (3.5-6.1) L 08/04/18 08:04 Hgb 8.4 g/dL (14.0-18.0) L 08/04/18 08:04 Hct 24.2 % (42.0-52.0) L 08/04/18 08:04 MCV 84.9 fl (80.0-105.0) 08/04/18 08:04 MCH 29.5 pg (25.0-35.0) 08/04/18 08:04 MCHC 34.7 g/dl (31.0-37.0) 08/04/18 08:04 RDW 13.4 % (11.5-14.5) 08/04/18 08:04 Plt Count 175 10^3/uL (120.0-450.0) 08/04/18 08:04 MPV 10.6 fl (7.0-11.0) 08/04/18 08:04 Gran % 71.3 % (50.0-68.0) H 08/04/18 08:04 Lymph % (Auto) 17.5 % (22.0-35.0) L 08/04/18 08:04 Thomas % (Auto) 7.2 % (1.0-6.0) H 08/04/18 08:04 Eos % (Auto) 3.8 % (1.5-5.0) 08/04/18 08:04 Baso % (Auto) 0.2 % (0.0-3.0) 08/04/18 08:04 Gran # 6.32 (1.4-6.5) 08/04/18 08:04 Lymph # (Auto) 1.6 (1.2-3.4) 08/04/18 08:04 Thomas # (Auto) 0.6 (0.1-0.6) 08/04/18 08:04 Eos # (Auto) 0.3 (0.0-0.7) 08/04/18 08:04 Baso # (Auto) 0.02 K/mm3 (0.0-2.0) 08/04/18 08:04 Retic Count 3.36 % (0.5-1.5) H 08/02/18 09:50 PT 12.0 SECONDS (9.4-12.5) 08/02/18 06:35 INR 1.04 08/02/18 06:35 APTT 27.2 Seconds (25.1-36.5) 08/02/18 06:35 pCO2 25 mm/Hg (35-45) L 07/28/18 21:10 pO2 59.0 mm/Hg (80-100) L 07/28/18 21:10 HCO3 13.8 mmol/L (21-28) L 07/28/18 21:10 ABG pH 7.35 (7.35-7.45) 07/28/18 21:10 ABG Total CO2 14.6 mmol.L (22-28) L 07/28/18 21:10 ABG O2 Saturation 93.9 % (95-98) L 07/28/18 21:10 ABG Base Excess -10.0 mmol/L (-2.0-3.0) L 07/28/18 21:10 ABG Potassium 6.5 mmol/L (3.6-5.2) H* 07/28/18 21:10 Sodium 136.0 mmol/L (132-148) 07/28/18 21:10 Chloride 108.0 mmol/L (98-107) H 07/28/18 21:10 Glucose 124 mg/dl (75-110) H 07/28/18 21:10 Lactate 1.0 mmol/L (0.7-2.1) 07/28/18 21:10 FiO2 21.0 % 07/28/18 21:10 Sodium 132 mmol/L (132-148) 08/04/18 08:04 Potassium 4.5 mmol/L (3.6-5.0) 08/04/18 08:04 Chloride 98 mmol/L (98-107) 08/04/18 08:04 Carbon Dioxide 26 mmol/L (21-33) 08/04/18 08:04 Anion Gap 13 (10-20) 08/04/18 08:04 BUN 39 mg/dL (7-21) H 08/04/18 08:04 Creatinine 7.3 mg/dl (0.8-1.5) H 08/04/18 08:04 Est GFR ( Amer) 9 08/04/18 08:04 Est GFR (Non-Af Amer) 8 08/04/18 08:04 POC Glucose (mg/dL) 155 mg/dL (65-110) H 08/04/18 16:14 Random Glucose 109 mg/dL (70-110) 08/04/18 08:04 Calcium 7.9 mg/dL (8.4-10.5) L 08/04/18 08:04 Phosphorus 6.4 mg/dL (2.5-4.5) H 08/03/18 06:50 Magnesium 1.6 mg/dL (1.7-2.2) L 07/29/18 08:37 Total Bilirubin 0.5 mg/dL (0.2-1.3) 08/04/18 08:04 AST 51 U/L (17-59) 08/04/18 08:04 ALT 62 U/L (7-56) H 08/04/18 08:04 Alkaline Phosphatase 211 U/L (38-126) H 08/04/18 08:04 Lactate Dehydrogenase 1531 U/L (333-699) H 07/28/18 20:30 Total Creatine Kinase 5698 U/L (35-230) H 07/29/18 10:20 CK-MB (CK-2) 13.2 ng/mL (0.0-3.6) H 07/29/18 10:20 CK-MB (CK-2) % 0.2 % (2.5-3.0) L 07/29/18 10:20 Troponin I 0.03 ng/mL D 07/29/18 10:20 NT-Pro-B Natriuret Pep 85737 pg/mL (0-450) H 07/28/18 20:30 Total Protein 6.7 g/dL (5.8-8.3) 08/04/18 08:04 Albumin 3.3 g/dL (3.0-4.8) 08/04/18 08:04 Globulin 3.4 gm/dL 08/04/18 08:04 Albumin/Globulin Ratio 1.0 (1.1-1.8) L 08/04/18 08:04 Procalcitonin 0.24 NG/ML (0.19-0.49) 07/29/18 05:20 Arterial Blood Potassium 6.5 mmol/L (3.6-5.2) H* 07/28/18 21:10 Urine Color Yellow (YELLOW) 07/30/18 06:00 Urine Appearance Sl cloudy (CLEAR) 07/30/18 06:00 Urine pH 6.5 (4.7-8.0) 07/30/18 06:00 Ur Specific Cowgill 1.020 (1.005-1.035) 07/30/18 06:00 Urine Protein >=300 mg/dL (<30 mg/dL) H 07/30/18 06:00 Urine Glucose (UA) 100 mg/dL (NEGATIVE) H 07/30/18 06:00 Urine Ketones Negative mg/dL (NEGATIVE) 07/30/18 06:00 Urine Blood Moderate (NEGATIVE) H 07/30/18 06:00 Urine Nitrate Negative (NEGATIVE) 07/30/18 06:00 Urine Bilirubin Negative (NEGATIVE) 07/30/18 06:00 Urine Urobilinogen 0.2 E.U./dL (<1 E.U./dL) 07/30/18 06:00 Ur Leukocyte Esterase Small Zaire/uL (NEGATIVE) H 07/30/18 06:00 Urine RBC 1 - 3 /hpf (0-2) H 07/30/18 06:00 Urine WBC 10 - 15 /hpf (0-6) H 07/30/18 06:00 Ur Epithelial Cells 0 - 2 /hpf (0-5) 07/30/18 06:00 Urine Bacteria Few /hpf (NONE) 07/30/18 06:00 Urine Other Usperm /hpf 07/30/18 06:00 Stool Occult Blood Negative (NEGATIVE) 08/02/18 09:49 Urine Opiates Screen Negative (NEGATIVE) 07/30/18 06:00 Urine Methadone Screen Negative (NEGATIVE) 07/30/18 06:00 Ur Barbiturates Screen Negative (NEGATIVE) 07/30/18 06:00 Ur Phencyclidine Scrn Negative (NEGATIVE) 07/30/18 06:00 Ur Amphetamines Screen Negative (NEGATIVE) 07/30/18 06:00 U Benzodiazepines Scrn Negative (NEGATIVE) 07/30/18 06:00 U Oth Cocaine Metabols Negative (NEGATIVE) 07/30/18 06:00 U Cannabinoids Screen Negative (NEGATIVE) 07/30/18 06:00 Hep Bs Antigen Negative (NEGATIVE) 07/29/18 08:30 Hep Bs Antibody Negative (NEGATIVE) 07/29/18 08:30 Hep B Core IgM Ab Negative (NEGATIVE) 07/29/18 08:30 Blood Type B POSITIVE 08/02/18 06:35 Antibody Screen Negative 08/02/18 06:35 Crossmatch See Detail 08/02/18 06:35 BBK History Checked Patient has bt 08/02/18 06:35 Attending/Attestation - Attestation I have personally seen and examined this patient.: Yes I have fully participated in the care of the patient.: Yes I have reviewed all pertinent clinical information, including history, physical exam and plan: Yes Notes (Text): Please note this DC summary is for 08/04/18 Patient seen and examined by me with resident 11:25AM and prior to discharge on 08/04/18. Case including discharge plan discussed with resident. Agree with above with following additions/corrections. Patient is a 44-year-old male with past medical history significant for cocaine abuse, alcohol use, tobacco abuse, chest pain, and tooth pain presented to the emergency room with left-sided chest pain. Please see H&P for full details. Patient was admitted with pulmonary edema, acute renal failure, hemoptysis and hematemesis secondary to uremic platelet dysfunction, rhabdomyolysis, elevated BNP, anemia, hyperkalemia, low bicarbonate, hypocalcemia, elevated LFTS, hypoxemia and hypocarbia secondary to pulmonary edema, hypertension, hyperlipidemia, and DM type 2. Patient was admitted to ICU. BUN on admission was 117, creatinine was 16.7. Potassium was 6.6. Calcium was 6.2. ProBNP was 26,700. Patient was seen by spray gunner and patient was started on dialysis. Patient improved with continued dialysis. Hyperkalemia resolved. Uremia resolved. BUN/Cr improved. Shortness of breath and fluid overload improved. Patient was seen by surgical team and AV fistula was placed left wrist. Patient was placed on Lasix MWF. Patient was continued on nephrovite and phoslo. Patient was placed on iron infusions for anemia and was started on Aranesp weekly. Patient was transfused one unit PRBC on 08/02/18. Stool for occult blood was negative. Patient was seen by GI on admission and per GI there was no acute evidence of any kind of GI bleeding. Endoscopic evaluation recommended as an outpatient. Patient was treated with Norvasc, Lasix, Labetalol, and Cozaar for hypertension. Patient was treated with lipitor for hyperlipidemia. Patient was constipated and was started on senna with resolution. Blood and urine cultures were negative. Patient remained afebrile. Patient had intermittent leukocytosis which resolved. Procalcitonin was 0.24. BUN/Cr on discharge was 36/7.3. HgbA1C on 06/22/18 was 6.1%. Patient was counseled on diet and exercise. Patient also advised that she should have repeat testing in 2 months. Patients symptoms resolved. Patient was feeling much better. No shortness of breath and was ambulating well. Patient was scheduled with an outpatient dialysis center. Patient was cleared for discharge by all consultants. Patient was discharged home. On day of discharge, patient stated he was feeling well. Patient stated he had mild intermittent pain at AV fistula site. Patient denied shortness of breath. No chest pain or palpitations. No abdominal pain. No nausea or vomiting. No headache or dizziness. No change in vision or light headedness. No fevers or chills. No diarrhea or constipation. Patient tolerating diet and ambulating well. Patient stated he understands he has to go to dialysis as scheduled and has to follow up with primary care doctor and spray gunner. Physical exam: General: Awake and alert sitting up in bed in no acute distress HEENT: Normocephalic, atraumatic. Extraocular muscles intact, pupils equal and reactive, no scleral icterus. Oropharynx is pink and moist. No pharyngeal erythema or exudate appreciated. Neck is supple. Cardiovascular: Regular rhythm. Normal S1 and S2. No murmurs, rubs, or gallops appreciated Pulmonary: Normal respiratory effort. No rhonchi, rales, or wheezing appreciated. Gastrointestinal: Soft, nondistended. Nontender. Positive bowel sounds all 4 quadrants. No guarding. Musculoskeletal: Moves all extremities. No calf tenderness. No edema appreciated. Positive AV fistula with thrill and bruit present left wrist. Central nervous system: AAOx3, CN 2-12 grossly intact. Dermatologic: Skin warm and dry. Left wrist area incision site clean, dry, and intact. Please see chart for full details. Follow up instructions: Patient to follow up with [facility] on 08/09/18 at 2:30PM. Patient to have repeat echo after 2 weeks of receiving HD. Patient to will also need stress test. Patient to continue scheduled HD. All instructions explained to the patient in detail. Patient both understands and agrees to all instructions. Written instructions also given. Time spent in discharging the patient including chart review, medication reconciliation, discussion with the patient, medical file clerk, consultants, and nursing staff was approximately 40 minutes.
[2018-08-04] MEDS ORDERED: Pneumococcal 23-Valent Vaccine IM ONE (17:43)
[2018-08-04] MEDS ORDERED: Influenza Vaccine 60 mcg/0.5 mL SYR (4YR UP) IM ONE (17:43)
--- NOTE | 2018-08-06 19:46 | PCM.OP ---
<Truman Rios - Last Filed: 08/06/18 19:35> Operative Report - Operative Report Date of Surgery/Procedure: 08/03/18 Time of Surgery/Procedure: 08:00 Surgeon: Dr. Wagner Financial Management: Truman rios Anesthesia/Sedation: General anesthesia Pre-Operative Diagnosis: End-stage renal disease Post-Operative Diagnosis: End-stage renal disease Indication for Surgery: End-stage renal disease: The patient has a hemodialysis catheter traversed in the right internal jugular vein. The right cephalic vein and right radial artery were judged to be suitable for usage on vein mapping Operative Findings: 3mm right cephalic vein and 2mm right radial artery were judged to be suitable for usage Procedure/Operation Description: After informed consent was obtained, the patient was taken to the operating room. The patient was placed in the supine position. We used ultrasound to l ocate the cephalic vein at the wrist. The right arm was prepped and draped in the usual sterile fashion. A small transverse incision was made near the cephalic vein. The cephalic vein was identified and immobilized. The cephalic vein was of a good size. The radial artery was identified and immobilized. The radial artery was normal. We then divided the cephalic vein proximally. The proximal end was ligated using silk suture. The radial artery was clamped proximally and distally. We gave heparin. A small longitudinal arteriotomy was made in the radial artery. The end of the cephalic vein was then sewn end-to-side to the brachial artery using a running 6-0 Prolene suture. Anastomosis was completed. Flow was then established. Flow was felt in the outflow cephalic fistula. Hemostasis was secured. Doppler was used and distal radial pulses present. The wound was then closed in layers using interrupted vicyl sutures for dermal layer and a running 4-0 Monocryl subcuticular suture for the skin. Dermabond and sterile dry dressing was applied. The patient tolerated the procedure well. There were no operative complications. The sponge, instrument, and needle counts were correct at the end of the case. Dr. Wagner was present and participated in all aspects of the procedure. Estimated Blood Loss: 30 Complications: None Discharge & Condition: The patient was transferred to the recovery room in satisfactory condition. <Michele Wagner - Last Filed: 08/08/18 13:15> Operative Report - Operative Report Procedure/Operation Description: Ultrasound was used to map the course of the cephalic vein and its branches. Prior to starting the procedure a standard timeout procedure took place where everybody in the room agreed as to the patient's identity, diagnosis and procedure to be done. Markings of the appropriate laterality of this procedure was also confirmed.
--- NOTE | 2018-08-09 04:21 | OP ---
PROCEDURE DATE: 08/08/2018 PREOPERATIVE DIAGNOSIS: End-stage renal disease. POSTOPERATIVE DIAGNOSIS: End-stage renal disease. PROCEDURES PERFORMED: 1. Left wrist arteriovenous fistula creation between the radial artery and cephalic vein. 2. Venous mapping of the left arm. SURGEON: Michele Wagner MD ANESTHESIOLOGIST: Dr. Forbes TYPE OF ANESTHESIA: General endotracheal anesthesia. ESTIMATED BLOOD LOSS: Minimal. SPECIMEN: None. INDICATIONS: The patient is a 53-year-old male with history of worsening renal failure, currently on dialysis via the tunneled hemodialysis catheter. The patient has a history of hypertension, type II diabetes, and was admitted with CHF due to noncompliance. DESCRIPTION OF PROCEDURE: The patient was brought to the operating room and placed on the operating table in supine position. The patient was connected to the EKG, blood pressure, and pulse oximetry monitors. The patient then underwent general endotracheal anesthesia and was prepped and draped in the usual sterile fashion. First, standard time-out procedure took place and everybody in the room agreed as to the patient's identity, diagnoses and procedure to be performed. A correct laterality for the marking of the surgical site was confirmed. Using ultrasound probe, the Doppler of the left arm was performed. The course of the cephalic vein was clearly marked along its course from the upper arm down to the wrist. All the side branches were also marked with the marker. Next, the radial artery was also marked as to its position. Now using lidocaine mixed with Marcaine, the subcutaneous injection was done in order to ____ skin for the incision at the wrist. A transverse incision was made overlying the cephalic vein and radial artery and carefully flaps were raised inferiorly and superiorly from that incision. The cephalic vein was identified and elevated on a Andrade drain. It was freed up past the incision and proximally as well. A couple of small side branches were taken down and ligated using 4-0 silk ties. The radial artery was also identified and dissected out and elevated on two vessel loops. Once this was done, we then proceeded with administering 4000 units of heparin by the anesthesiologist to the patient. Once 2 minutes time passed, we then proceeded with passing the artery and creating an arteriotomy longitudinally for about 1 cm and 2 mm. The vein was then cut appropriate due to the length, and at the angle noted, to create appropriate position to the artery. Now, a standard anastomosis was created using 6-0 Prolene in a running fashion between end of the vein and side of the artery. Once the anastomosis was completed, the forward flow was established, the anastomosis was vented and completed with suture. The forward flow was established after venting the back flow to the vein. There was palpable thrill at the proximal portion of the vein. We also had a very good Doppler signal in the distal portion of the vein indicating turbulent flow. We then proceeded with irrigation of the wound and closure of the wound using 3-0 Vicryl deep dermal layer and 4-0 Monocryl for the skin. A sterile Dermabond dressing was applied to the wound. The patient tolerated the procedure well and there were no complications. The patient was awakened, extubated, and transferred to the recovery room for further observation. Michele Wagner MD
== END 2018-08-04 20:19 | disposition home or self-care (01) | DRG 444 ==
LOC: ED 19:44 → ERH 07-29 00:14 → ICU 07-29 02:41 → 5RNO 07-31 06:59
PROVIDERS: ADMIT Internal Medicine; ATTEND Internal Medicine
PROC: 5A1D70Z Performance of Urinary Filtration, Intermittent, Less than 6 Hours Per Day (ICD-10-PCS; 2018-07-29)
PROC: 5A1D70Z Performance of Urinary Filtration, Intermittent, Less than 6 Hours Per Day (ICD-10-PCS; 2018-07-30)
PROC: 5A1D70Z Performance of Urinary Filtration, Intermittent, Less than 6 Hours Per Day (ICD-10-PCS; 2018-07-31)
PROC: 30233N1 Transfusion of Nonautologous Red Blood Cells into Peripheral Vein, Percutaneous Approach (ICD-10-PCS; 2018-08-02)
PROC: 5A1D70Z Performance of Urinary Filtration, Intermittent, Less than 6 Hours Per Day (ICD-10-PCS; 2018-08-03)
PROC: 031B09F Bypass Right Radial Artery to Lower Arm Vein with Autologous Venous Tissue, Open Approach (ICD-10-PCS; principal; 2018-08-03 07:30)
PROC: 3E02340 Introduction of Influenza Vaccine into Muscle, Percutaneous Approach (ICD-10-PCS; 2018-08-04)
PROC: 3E0234Z Introduction of Serum, Toxoid and Vaccine into Muscle, Percutaneous Approach (ICD-10-PCS; 2018-08-04)
DX: N17.9 Acute kidney failure, unspecified (principal); I13.2 Hypertensive heart and chronic kidney disease with heart failure and with stage 5 chronic kidney disease, or end stage renal disease; K92.0 Hematemesis; M62.82 Rhabdomyolysis; E83.39 Other disorders of phosphorus metabolism; E83.51 Hypocalcemia; E11.22 Type 2 diabetes mellitus with diabetic chronic kidney disease; N25.81 Secondary hyperparathyroidism of renal origin; N18.6 End stage renal disease; I16.1 Hypertensive emergency; D63.1 Anemia in chronic kidney disease; E78.5 Hyperlipidemia, unspecified; K59.00 Constipation, unspecified; I50.9 Heart failure, unspecified; I34.0 Nonrheumatic mitral (valve) insufficiency; E87.5 Hyperkalemia; F32.89 Other specified depressive episodes; R09.02 Hypoxemia; Z79.4 Long term (current) use of insulin; Z87.891 Personal history of nicotine dependence; Z91.15 Patient's noncompliance with renal dialysis; Z91.19 Patient's noncompliance with other medical treatment and regimen; Z99.2 Dependence on renal dialysis; Z23 Encounter for immunization